=== PATIENT | female | born 1975 | race American Indian/Alaskan Native ===

== ENCOUNTER 2016-11-06 00:28 | Emergency (ER) | payer MEDICAID ==
[2016-11-06 01:49] LABS: Basophils % (Auto) 0.6 % (0.0-1.8); Hematocrit 26.4 % (30.3-42.9); Hemoglobin 8.3 gm/dl (10.1-14.3); Mean Corpuscular HGB Conc 31 % (30-34); Mean Corpuscular Volume 81 fl (79-97); Platelet Count 368 K/mm3 (140-440); Red Blood Count 3.27 M/mm3 (3.65-5.03); Red Cell Distribution Width 19.6 % (13.2-15.2); White Blood Count 7.7 K/mm3 (4.5-11.0)
[2016-11-06 01:51] LABS: Mean Corpuscular Hemoglobin 25 pg (28-32)
[2016-11-06 02:09] LABS: BUN/Creatinine Ratio 11.42; Blood Urea Nitrogen 8 mg/dL (7-17); Calcium 9.1 mg/dL (8.4-10.2); Carbon Dioxide 26 mmol/L (22-30); Chloride 101.5 mmol/L (98-107); Glucose 87 mg/dL (65-100); Potassium 3.9 mmol/L (3.6-5.0); Sodium 138 mmol/L (137-145)
[2016-11-06 02:12] LABS: Anion Gap 14 mmol/L
[2016-11-06] MEDS ORDERED: SUBLIMAZE IV ONE (08:28)
[2016-11-06] MEDS ORDERED: VALIUM IV ONE (08:28)
--- NOTE | 2016-11-06 08:49 | XRay Report ---
AP CHEST: HISTORY: chest pain AP view of the chest demonstrates a normal mediastinal and cardiac contour with clear lungs and normal bony and soft tissue structures. IMPRESSION: Unremarkable AP chest.
--- NOTE | 2016-11-06 12:37 | Emergency Department Report ---
HPI - General Chief Complaint: Chest Pain Time Seen by Provider: 11/06/16 08:04 - HPI HPI: The patient is a 41-year-old female who presents for evaluation of chest pain. The patient reports left-sided chest pain, moderate to severe, sharp in quality , radiating to the left arm, present since 10 PM last night. She states that is consistent with her previous episodes of recurrent chest pain. The patient denies fever, trauma to the chest wall, dyspnea, syncope, hemoptysis, unilateral leg swelling, oral contraceptive use, recent immobilization, recent cancer. ED Past Medical Hx - Past Medical History Previous Medical History?: Yes Hx Hypertension: Yes Hx CVA: No Hx Heart Attack/AMI: Yes Hx Congestive Heart Failure: No Hx Diabetes: No Hx Deep Vein Thrombosis: No Hx Pulmonary Embolism: No Hx GERD: Yes Hx Liver Disease: No Hx Renal Disease: No Hx Sickle Cell Disease: No Hx Arthritis: No Hx Headaches / Migraines: No Hx Seizures: No Hx Kidney Stones: No Hx Psychiatric Treatment: No Hx Asthma: No Hx COPD: No Hx Tuberculosis: No Hx Dementia: No Hx HIV: No Additional medical history: 2 STENTS 02/28/16, cholesterol, IBS, fibroids - Surgical History Past Surgical History?: Yes Hx Coronary Stent: Yes (x2 03/11) Hx Open Heart Surgery: No Hx Pacemaker: No Hx Internal Defibrillator: No Hx Cholecystectomy: No Hx Appendectomy: No Hx Breast Surgery: No Additional Surgical History: D&C - Social History Smoking Status: Former Smoker Substance Use Type: None - Medications Home Medications: Home Medications Medication Instructions Recorded Confirmed Last Taken Type Aspirin [Aspirin BABY CHEW TAB] 81 mg PO QDAY #30 tab.chew 08/17/16 11/06/1608/12 Rx Acetaminophen with Codeine 1 tab PO Q6HR PRN #10 tablet 10/27/16 11/06/16 Unknown Rx [Acetaminophen-Codeine #4 TAB] AtorvaSTATin [Lipitor] 80 mg PO QHS #30 tablet 10/27/16 11/06/16 11/05/16 Rx Carvedilol [Coreg] 12.5 mg PO BID #60 tablet 10/27/16 11/06/16 11/05/16 Rx Ferrous Sulfate [Feosol 325 MG tab] 325 mg PO BID #60 tablet 10/27/16 11/06/16 11/05/16 Rx ISOSORBIDE MONOnitrate [Imdur ER] 30 mg PO QDAY #30 tablet 10/27/16 11/06/1608/12 Rx Pantoprazole [Protonix TAB] 40 mg PO QDAY #30 tablet 10/27/16 11/06/16 11/05/16 Rx Prasugrel [Effient] 10 mg PO QDAY #30 tablet 10/27/16 11/06/16 11/05/16 Rx Ranolazine ER [Ranexa ER] 500 mg PO BID #60 tablet 10/27/16 11/06/16 Unknown Rx Cyclobenzaprine HCl [Flexeril 5 MG 5 mg PO Q8HR PRN #10 tab 11/06/16 Unknown Rx TAB] ED Review of Systems ROS: Stated complaint: CHEST PAIN Other details as noted in HPI Constitutional: denies: fever ENT: denies: throat or neck pain Respiratory: denies: cough, shortness of breath Cardiovascular: reports chest pain Endocrine: denies unexplained weight loss or gain Gastrointestinal: denies: abdominal pain, nausea Genitourinary: denies: dysuria Musculoskeletal: denies: leg swelling Skin: denies: rash Neurological: denies: headache Hematological/Lymphatic: denies: easy bleeding or easy bruising Psych: denies sadness or hopelessness Physical Exam - Physical Exam Vital Signs: Vital Signs 11/06/16 11/06/16 11/06/16 01:15 06:26 07:52 Temperature 98.5 F Pulse Rate 60 65 Respiratory 18 20 24 Rate Blood Pressure 129/78 Blood Pressure 113/77 [Left] O2 Sat by Pulse 100 100 Oximetry 11/06/16 11/06/16 11/06/16 08:00 08:02 09:00 Temperature Pulse Rate 66 59 L Respiratory 20 18 16 Rate Blood Pressure 130/83 106/63 Blood Pressure [Left] O2 Sat by Pulse 100 Oximetry 11/06/16 11/06/16 11/06/16 09:02 09:13 10:01 Temperature Pulse Rate 58 L 69 Respiratory 16 16 12 Rate Blood Pressure 106/63 106/63 Blood Pressure [Left] O2 Sat by Pulse Oximetry 11/06/16 11/06/16 11:01 11:11 Temperature 98 F Pulse Rate 57 L 62 Respiratory 18 20 Rate Blood Pressure 117/65 117/65 Blood Pressure 117/65 [Left] O2 Sat by Pulse 99 Oximetry Physical Exam: General: well-nourished, well-developed, no acute distress Head: Normocephalic, atraumatic Eyes: normal sclera ENT: Mucous membranes are pink and moist Neck: trachea midline, neck supple, No neck stiffness, no cervical adenopathy Respiratory: Breath sounds equal bilaterally, no wheezing, rales, or rhonchi Cardio: S1 and S2 present, no murmurs, rubs, gallops, capillary refill is brisk Abdomen: Normoactive bowel sounds, soft abdomen, no rigidity, no guarding or rebound tenderness Chest WALL/Back: tenderness to palpation of the left chest wall is present Musc: No pitting edema Skin: No rash Neuro: no facial drooping, normal speech Psych: Normal affect ED Course Vital Signs 11/06/16 11/06/16 11/06/16 01:15 06:26 07:52 Temperature 98.5 F Pulse Rate 60 65 Respiratory 18 20 24 Rate Blood Pressure 129/78 Blood Pressure 113/77 [Left] O2 Sat by Pulse 100 100 Oximetry 11/06/16 11/06/16 11/06/16 08:00 08:02 09:00 Temperature Pulse Rate 66 59 L Respiratory 20 18 16 Rate Blood Pressure 130/83 106/63 Blood Pressure [Left] O2 Sat by Pulse 100 Oximetry 11/06/16 11/06/16 11/06/16 09:02 09:13 10:01 Temperature Pulse Rate 58 L 69 Respiratory 16 16 12 Rate Blood Pressure 106/63 106/63 Blood Pressure [Left] O2 Sat by Pulse Oximetry 11/06/16 11/06/16 11:01 11:11 Temperature 98 F Pulse Rate 57 L 62 Respiratory 18 20 Rate Blood Pressure 117/65 117/65 Blood Pressure 117/65 [Left] O2 Sat by Pulse 99 Oximetry ED Medical Decision Making - Lab Data Result diagrams: 11/06/16 01:40 11/06/16 01:40 - Medical Decision Making The patient was seen and examined by myself. The patient is placed on a cardiac nurse specialist and continuous pulse ox. On initial evaluation, the patient was found to be in no distress. EKG was negative for findings suggestive of acute cardiac infarct. Labs and imaging are obtained. The patient is given IV fentanyl for her pain. Chest x-ray is negative for pneumothorax, focal consolidation, pulmonary vascular congestion, pleural effusion, or other obvious acute cardiopulmonary disease process. Lab results revealed low hemoglobin of 8.3, and otherwise labs were non-concerning including levels of troponin, WBC, electrolytes, renal function. Medical records are reviewed and revealed that the patient was evaluated by cardiology one week ago, and was deemed to have unlikely cardiac etiology of her chest pain. The patient was reevaluated and reported that their symptoms were markedly improved. As the patient has atypical chest pain, unchanged EKG, and unremarkable lab results, the patient is stable for discharge with outpatient follow-up. The patient is given follow-up and return instructions. The patient expressed understanding and agreed with the plan. The patient is discharged in stable condition. Critical care attestation.: If time is entered above; I have spent that time in minutes in the direct care of this critically ill patient, excluding procedure time. ED Disposition Clinical Impression: Acute chest pain Anemia Qualifiers: Anemia type: unspecified type Qualified Code(s): D64.9 - Anemia, unspecified Disposition: DISCHARGED TO HOME OR SELFCARE Is pt being admited?: No Does the pt Need Aspirin: No Condition: Stable Instructions: Chest Pain (ED) Prescriptions: Cyclobenzaprine HCl [Flexeril 5 MG TAB] 5 mg PO Q8HR PRN #10 tab PRN Reason: Pain Referrals: PRIMARY CARE, [Primary Care Provider] - 3-5 Days Time of Disposition: 12:35
[2016-11-06 12:38] VITALS: BP 109/55
== END 2016-11-06 12:58 | disposition home or self-care (01) ==
LOC: ED 00:28
DX: R07.9 Chest pain, unspecified (principal); D64.9 Anemia, unspecified; I10 Essential (primary) hypertension; I25.2 Old myocardial infarction; K21.9 Gastro-esophageal reflux disease without esophagitis; Z87.891 Personal history of nicotine dependence; Z79.82 Long term (current) use of aspirin
CPT/HCPCS: 36415; 71010; 80048; 84484; 85025; 93005; 93010; 96374; 96375; 99285; J3010; J3360

== ENCOUNTER 2016-11-09 11:41 | Inpatient (IN) | payer MEDICAID ==
--- NOTE | 2016-11-09 12:40 | Emergency Department Report ---
Chief Complaint: Chest Pain Stated Complaint: CHEST PAIN/BACK PAIN/NAUSEA Time Seen by Provider: 11/09/16 12:35 - HPI History of Present Illness: 41-year-old female with a past medical history of [place] February 2016 as well as 2 stents placed comes in for waking up vomited this morning times one with nausea. Patient normal medicine for chronic pain but vomited up she wasn't sure if she could take another Tylenol 4. Patient complains of sternal chest pain lower back pain. Patient reports that she took her medicines this morning but all of it came up. - Exam Vital Signs: Vital Signs 11/09/16 11:58 Temperature 99.4 F Pulse Rate 81 Respiratory 20 Rate Blood Pressure 127/82 O2 Sat by Pulse 98 Oximetry Physical Exam: Patient is alert oriented no acute distress, cardiovascular regular rate and rhythm. No murmurs appreciated respiratory clear to auscultation bilateral there is some chest tenderness to the midsternal and upper chest. There is no edema noted MSE screening note: Focused history and physical exam performed. Due to findings the following was ordered: Triage chest pain protocol order serum test order. Patient will be evaluated a Main ER ED Disposition for MSE Condition: Stable
[2016-11-09 13:08] LABS: Hematocrit 29.2 % (30.3-42.9); Hemoglobin 9.1 gm/dl (10.1-14.3); Mean Corpuscular HGB Conc 31 % (30-34); Mean Corpuscular Volume 82 fl (79-97); Platelet Count 259 K/mm3 (140-440); Red Blood Count 3.57 M/mm3 (3.65-5.03); White Blood Count 8.3 K/mm3 (4.5-11.0)
[2016-11-09 13:18] LABS: Mean Corpuscular Hemoglobin 26 pg (28-32); Red Cell Distribution Width 23.5 % (13.2-15.2)
[2016-11-09 13:19] LABS: Anion Gap 17 mmol/L; BUN/Creatinine Ratio 11.42; Blood Urea Nitrogen 8 mg/dL (7-17); Calcium 8.9 mg/dL (8.4-10.2); Carbon Dioxide 23 mmol/L (22-30); Chloride 100.6 mmol/L (98-107); Glucose 90 mg/dL (65-100); Potassium 4.2 mmol/L (3.6-5.0); Sodium 136 mmol/L (137-145)
[2016-11-09 13:20] LABS: Creatine Kinase MB < 1.0 ng/mL (0.0-4.0)
[2016-11-09 13:22] LABS: Creatine Kinase 164 units/L (30-135)
[2016-11-09 14:03] LABS: Blastocytes % (Manual) 0 %; Eosinophils % (Manual) 0 % (0.0-4.3)
[2016-11-09 14:04] LABS: Anisocytosis 2+; Hypochromasia 1+
[2016-11-09 14:05] LABS: Diff Status Complete; Platelet Estimate Consistent w Auto
[2016-11-09 20:49] LABS: Bilirubin,Urine NEG (Negative); Blood,Urine MOD (Negative); Ketones,Urine NEG (Negative); Leukocyte Esterase,Urine NEG (Negative); Mucus,Urine FEW /HPF; Nitrite,Urine NEG (Negative); Protein,Urine <15 mg/dL mg/dL (Negative); Urobilinogen,Urine < 2.0 mg/dL (<2.0)
--- NOTE | 2016-11-09 21:01 | Emergency Department Report ---
ED Chest Pain HPI - General Chief Complaint: Chest Pain Stated Complaint: CHEST PAIN/BACK PAIN/NAUSEA Time Seen by Provider: 11/09/16 12:35 Source: patient Mode of arrival: Ambulatory Limitations: No Limitations - History of Present Illness Initial Comments: She is a 41-year-old female with history of GERD, hypertension, hyperlipidemia, coronary artery disease status post 2 stents as well as a prior ME resulting today because of chest pain and back pain. Patient states that she has chronic pain however in the last 2 days her chest pain has been intermittent sharp and diffuse and worsening. She has associated nausea and vomiting episodes around 12 hours ago. Has no episodes of diaphoresis, shortness of breath, palpitations , lightheadedness. Patient takes Tylenol 3 at home for the pain. Denies any saddle anesthesia, numbness or weakness in her lower extremities, difficulty walking. She has denies any recent trauma in the last week. States that she was diagnosed with a UTI 1 week ago but she never started her antibiotic. Severity scale (0 -10): 5 - Related Data Previous Rx's Medication Instructions Recorded Last Taken Type Aspirin [Aspirin BABY CHEW TAB] 81 mg PO QDAY #30 tab.chew 08/17/16 11/05/16 Rx Acetaminophen with Codeine 1 tab PO Q6HR PRN #10 tablet 10/27/16 Unknown Rx [Acetaminophen-Codeine #4 TAB] AtorvaSTATin [Lipitor] 80 mg PO QHS #30 tablet 10/27/16 11/05/16 Rx Carvedilol [Coreg] 12.5 mg PO BID #60 tablet 10/27/16 11/05/16 Rx Ferrous Sulfate [Feosol 325 MG tab] 325 mg PO BID #60 tablet 10/27/16 11/05/16 Rx ISOSORBIDE MONOnitrate [Imdur ER] 30 mg PO QDAY #30 tablet 10/27/16 11/05/16 Rx Pantoprazole [Protonix TAB] 40 mg PO QDAY #30 tablet 10/27/16 11/05/16 Rx Prasugrel [Effient] 10 mg PO QDAY #30 tablet 10/27/16 11/05/16 Rx Ranolazine ER [Ranexa ER] 500 mg PO BID #60 tablet 10/27/16 Unknown Rx Allergies Allergy/AdvReac Type Severity Reaction Status Date / Time iodine Allergy Swelling Verified 11/09/16 11:57 shellfish derived Allergy Swelling Verified 11/09/16 11:57 PATSY score - Patsy Score Age > 65: (0) No Aspirin use within the Past 7 Days: (1) Yes 3 or more CAD Risk Factors: (1) Yes 2 or more Angina events in past 24 hrs: (1) Yes Known CAD with more than 50% Stenosis: (1) Yes Elevated Cardiac Markers: (0) No ST Deviation Greater than 0.5mm: (0) No PATSY Score: 4 ED Review of Systems ROS: Stated complaint: CHEST PAIN/BACK PAIN/NAUSEA Other details as noted in HPI Comment: All other systems reviewed and negative Constitutional: denies: chills, fever Respiratory: denies: cough, shortness of breath Cardiovascular: chest pain. denies: edema Gastrointestinal: denies: abdominal pain, vomiting, diarrhea Musculoskeletal: back pain Skin: denies: rash Neurological: denies: headache, weakness, numbness, paresthesias, abnormal gait Psychiatric: denies: anxiety ED Past Medical Hx - Past Medical History Previous Medical History?: Yes Hx Hypertension: Yes Hx CVA: No Hx Heart Attack/AMI: Yes Hx Congestive Heart Failure: No Hx Diabetes: No Hx Deep Vein Thrombosis: No Hx Pulmonary Embolism: No Hx GERD: Yes Hx Liver Disease: No Hx Renal Disease: No Hx Sickle Cell Disease: No Hx Arthritis: No Hx Headaches / Migraines: No Hx Seizures: No Hx Kidney Stones: No Hx Psychiatric Treatment: No Hx Asthma: No Hx COPD: No Hx Tuberculosis: No Hx Dementia: No Hx HIV: No Additional medical history: 2 STENTS 02/28/16, cholesterol, IBS, fibroids. CHRONIC BACK PAIN - Surgical History Hx Coronary Stent: Yes (x2 03/11) Hx Open Heart Surgery: No Hx Pacemaker: No Hx Internal Defibrillator: No Hx Cholecystectomy: No Hx Appendectomy: No Hx Breast Surgery: No Additional Surgical History: D&C - Social History Smoking Status: Former Smoker Substance Use Type: Prescribed - Medications Home Medications: Home Medications Medication Instructions Recorded Confirmed Last Taken Type Aspirin [Aspirin BABY CHEW TAB] 81 mg PO QDAY #30 tab.chew 08/17/16 11/09/1608/12 Rx Acetaminophen with Codeine 1 tab PO Q6HR PRN #10 tablet 10/27/16 11/09/16 Unknown Rx [Acetaminophen-Codeine #4 TAB] AtorvaSTATin [Lipitor] 80 mg PO QHS #30 tablet 10/27/16 11/09/16 11/05/16 Rx Carvedilol [Coreg] 12.5 mg PO BID #60 tablet 10/27/16 11/09/16 11/05/16 Rx Ferrous Sulfate [Feosol 325 MG tab] 325 mg PO BID #60 tablet 10/27/16 11/09/16 11/05/16 Rx ISOSORBIDE MONOnitrate [Imdur ER] 30 mg PO QDAY #30 tablet 10/27/16 11/09/1608/12 Rx Pantoprazole [Protonix TAB] 40 mg PO QDAY #30 tablet 10/27/16 11/09/16 11/05/16 Rx Prasugrel [Effient] 10 mg PO QDAY #30 tablet 10/27/16 11/09/16 11/05/16 Rx Ranolazine ER [Ranexa ER] 500 mg PO BID #60 tablet 10/27/16 11/09/16 Unknown Rx ED Physical Exam - General Limitations: No Limitations General appearance: alert - Head Head exam: Present: atraumatic - Eye Eye exam: Present: normal appearance - ENT ENT exam: Present: normal exam - Respiratory Respiratory exam: Present: normal lung sounds bilaterally. Absent: respiratory distress - Cardiovascular Cardiovascular Exam: Present: normal rhythm, tachycardia, normal heart sounds - GI/Abdominal GI/Abdominal exam: Present: soft. Absent: distended, tenderness - Extremities Exam Extremities exam: Present: normal inspection. Absent: pedal edema - Back Exam Back exam: Present: normal inspection. Absent: tenderness, vertebral tenderness - Neurological Exam Neurological exam: Present: alert, oriented X3, CN II-XII intact. Absent: motor sensory deficit - Psychiatric Psychiatric exam: Present: normal affect - Skin Skin exam: Present: intact ED Course Vital Signs 11/09/16 11/09/16 11/09/16 11:58 20:27 20:34 Temperature 99.4 F 101.3 F H Pulse Rate 81 86 Respiratory 20 20 20 Rate Blood Pressure 127/82 Blood Pressure 120/70 [Right] O2 Sat by Pulse 98 98 98 Oximetry - Reevaluation(s) Reevaluation #1: 11/09/16 22:18 Explained EKG results and lab results to patient. Explained to her that she will need admission due to this. Answered all questions. ED Medical Decision Making - Lab Data Result diagrams: 11/09/16 12:45 11/09/16 12:45 - Medical Decision Making She is a high risk chest pain. Labs and EKG were preordered. Chest x-ray and UA have been added on. EKG shows normal sinus rhythm without any ST depressions or elevations. She does have T-wave inversions in the inferior leads as well as the anterior leads. These appear to be new as her prior EKG just 3 days ago does not show these T-wave inversions and was normal. I'll require admission due to her extensive risk factors and abnormal EKG with presentation chest pain. Troponin negative. Patient has unstable angina. We' ll give aspirin as well as morphine for pain. Tests x-ray shows no obvious infiltrate or pneumothorax. Critical care attestation.: If time is entered above; I have spent that time in minutes in the direct care of this critically ill patient, excluding procedure time. ED Disposition Clinical Impression: Unstable angina Disposition: OP ADMITTED IP TO THIS HOSP Is pt being admited?: Yes Does the pt Need Aspirin: No Condition: Stable Instructions: Angina (ED) Time of Disposition: 22:21 (Transitioned care to Dr. Lockwood)
[2016-11-09] MEDS ORDERED: MORPHINE IV ONE (21:04)
[2016-11-09] MEDS ORDERED: BABY ASPIRIN PO ONE (21:04)
[2016-11-09] MEDS ORDERED: SODIUM CHLORIDE FLUSH SYRINGE 10 ML IV PRN (22:58)
--- NOTE | 2016-11-09 23:08 | History and Physical Report ---
History of Present Illness Date of examination: 11/09/16 Chief complaint: Chest Pain History of present illness: 41-year-old female with past medical history significant for hypertension, CAD status post stents, GERD presented to the emergency department complaining of chest pain that started this morning. Chest pain started on the left side, with radiation to the left arm and right chest, back. Chest pain is pressure- like 7 out of 10 in intensity, is no elevating or relieving factors. She had one episode of vomiting this morning. She denied shortness of breath, palpitations, diaphoresis. Patient was admitted recently for chest pain and discharged with PPI for GERD. This time patient has T-wave inversions in V3, III. REVIEW OF SYSTEMS: GENERAL: no weight change, no fatigue, no fever HEAD: no head ache EYES: no blurry vision, no acute visual loss EARS: no hearing loss, no discharge, no earache NOSE: no stuffiness, no sneezing, no discharge MOUTH, THROAT AND NECK: no bleeding gums, no sore throat, no swollen neck CARDIAC: no palpitations, no dyspnea on exertion, no orthopnea, no PND, no edema RESPIRATORY: no shortness of breath, no wheeze, no cough, no sputum, no hemoptysis, no asthma GI: no decreased appetite, no nausea, no dysphagia, no diarrhea, no constipation , no abdominal pain URINARY: no change in frequency, no urgency, no polyuria, no hematuria, no incontinence MUSCULOSKELETAL: no muscle weakness, no pain, no joint stiffness NEUROLOGIC: no loss of sensation/numbness, no tingling, no tremors, no weakness/ paralysis HEMATOLOGIC: no anemia, no easy bruising SKIN: no rashes ENDOCRINE: no heat/cold intolerance, no polyuria, no polydipsia, no thyroid problems, no diabetes PSYCHIATRIC: no anxiety, no depression, no suicidal ideations Past History Past Medical History: CAD, GERD, hypertension Past Surgical History: Other (D&C) Social history: full code. denies: smoking, alcohol abuse, prescription drug abuse, IV drug use Family history: CAD (multiple family members), cancer (grandfather) Medications and Allergies Allergies Allergy/AdvReac Type Severity Reaction Status Date / Time iodine Allergy Swelling Verified 11/09/16 11:57 shellfish derived Allergy Swelling Verified 11/09/16 11:57 Home Medications Medication Instructions Recorded Confirmed Last Taken Type Aspirin [Aspirin BABY CHEW TAB] 81 mg PO QDAY #30 tab.chew 08/17/16 11/09/1608/12 Rx Acetaminophen with Codeine 1 tab PO Q6HR PRN #10 tablet 10/27/16 11/09/16 Unknown Rx [Acetaminophen-Codeine #4 TAB] AtorvaSTATin [Lipitor] 80 mg PO QHS #30 tablet 10/27/16 11/09/16 11/05/16 Rx Carvedilol [Coreg] 12.5 mg PO BID #60 tablet 10/27/16 11/09/16 11/05/16 Rx Ferrous Sulfate [Feosol 325 MG tab] 325 mg PO BID #60 tablet 10/27/16 11/09/16 11/05/16 Rx ISOSORBIDE MONOnitrate [Imdur ER] 30 mg PO QDAY #30 tablet 10/27/16 11/09/1608/12 Rx Pantoprazole [Protonix TAB] 40 mg PO QDAY #30 tablet 10/27/16 11/09/16 11/05/16 Rx Prasugrel [Effient] 10 mg PO QDAY #30 tablet 10/27/16 11/09/16 11/05/16 Rx Ranolazine ER [Ranexa ER] 500 mg PO BID #60 tablet 10/27/16 11/09/16 Unknown Rx Active Meds: Active Medications Aspirin (Baby Aspirin) 81 mg PO QDAY [facility] Atorvastatin Calcium (Lipitor) 80 mg PO QHS [facility] Carvedilol (Coreg) 12.5 mg PO BID A[facility] Enoxaparin Sodium (Lovenox) 40 mg SUB-Q QDAY [facility] Ferrous Sulfate (Feosol) 325 mg PO BID A[facility] Isosorbide Mononitrate (Imdur) 30 mg PO QDAY [facility] Morphine Sulfate (Morphine) 2 mg IV Q4H PRN PRN Reason: Chest Pain Pantoprazole Sodium (Protonix) 40 mg PO QDAY [facility]LS[facility] Prasugrel (Effient) 10 mg PO QDAY A[facility]LS[facility] Ranolazine (Ranexa Er) 500 mg PO BID A[facility]LSO Sodium Chloride (Sodium Chloride Flush Syringe 10 Ml) 10 ml IV PRN PRN PRN Reason: LINE FLUSH Exam - Physical Exam Narrative exam: Not in cardiopulmonary distress. The patient appeared well nourished and normally developed. Vital signs as documented. Head exam is unremarkable. No scleral icterus . Neck is without jugular venous distension, thyromegaly, or carotid bruits. Lungs are clear to auscultation. Cardiac exam reveals regular rate and Rhythm. First and second heart sounds normal. No murmurs, rubs or gallops. Abdominal exam reveals normal bowel sounds, no masses, no organomegaly and no aortic enlargement. Extremities are nonedematous and both femoral and pedal pulses are normal. FITNESS CONSULTANT: Alert and oriented 3. No focal weakness. - Constitutional Vitals: Temp Pulse Resp BP Pulse Ox 101.3 F H 86 20 120/70 98 11/09/16 20:27 11/09/16 20:27 11/09/16 22:22 11/09/16 20:27 11/09/16 20:34 Results - Labs CBC & Chem 7: 11/09/16 12:45 11/09/16 12:45 Labs: Laboratory Last Values WBC 8.3 K/mm3 (4.5-11.0) 11/09/16 12:45 RBC 3.57 M/mm3 (3.65-5.03) L 11/09/16 12:45 Hgb 9.1 gm/dl (10.1-14.3) L 11/09/16 12:45 Hct 29.2 % (30.3-42.9) L 11/09/16 12:45 MCV 82 fl (79-97) 11/09/16 12:45 MCH 26 pg (28-32) L 11/09/16 12:45 MCHC 31 % (30-34) 11/09/16 12:45 RDW 23.5 % (13.2-15.2) H 11/09/16 12:45 Plt Count 259 K/mm3 (140-440) 11/09/16 12:45 Add Manual Diff Complete 11/09/16 12:45 Total Counted 100 11/09/16 12:45 Seg Neutrophils % Video Effects Editor 11/09/16 12:45 Seg Neuts % (Manual) 92.0 % (40.0-70.0) H 11/09/16 12:45 Band Neutrophils % 0 % 11/09/16 12:45 Lymphocytes % (Manual) 4.0 % (13.4-35.0) L 11/09/16 12:45 Reactive Lymphs % (Man) 0 % 11/09/16 12:45 Monocytes % (Manual) 2.0 % (0.0-7.3) 11/09/16 12:45 Eosinophils % (Manual) 0 % (0.0-4.3) 11/09/16 12:45 Basophils % (Manual) 1.0 % (0.0-1.8) 11/09/16 12:45 Metamyelocytes % 1.0 % 11/09/16 12:45 Myelocytes % 0 % 11/09/16 12:45 Promyelocytes % 0 % 11/09/16 12:45 Blast Cells % 0 % 11/09/16 12:45 Nucleated RBC % Not Reportable 11/09/16 12:45 Seg Neutrophils # Man 7.6 K/mm3 (1.8-7.7) 11/09/16 12:45 Band Neutrophils # 0.0 K/mm3 11/09/16 12:45 Lymphocytes # (Manual) 0.3 K/mm3 (1.2-5.4) L 11/09/16 12:45 Abs React Lymphs (Man) 0.0 K/mm3 11/09/16 12:45 Monocytes # (Manual) 0.2 K/mm3 (0.0-0.8) 11/09/16 12:45 Eosinophils # (Manual) 0.0 K/mm3 (0.0-0.4) 11/09/16 12:45 Basophils # (Manual) 0.1 K/mm3 (0.0-0.1) 11/09/16 12:45 Metamyelocytes # 0.1 K/mm3 11/09/16 12:45 Myelocytes # 0.0 K/mm3 11/09/16 12:45 Promyelocytes # 0.0 K/mm3 11/09/16 12:45 Blast Cells # 0.0 K/mm3 11/09/16 12:45 WBC Morphology Not Reportable 11/09/16 12:45 Hypersegmented Neuts Not Reportable 11/09/16 12:45 Hyposegmented Neuts Not Reportable 11/09/16 12:45 Hypogranular Neuts Not Reportable 11/09/16 12:45 Smudge Cells Not Reportable 11/09/16 12:45 Toxic Granulation Not Reportable 11/09/16 12:45 Toxic Vacuolation Not Reportable 11/09/16 12:45 Dohle Bodies Not Reportable 11/09/16 12:45 Pelger-Huet Anomaly Not Reportable 11/09/16 12:45 Rajinder Rods Not Reportable 11/09/16 12:45 Platelet Estimate Consistent w auto 11/09/16 12:45 Clumped Platelets Not Reportable 11/09/16 12:45 Plt Clumps, EDTA Not Reportable 11/09/16 12:45 Large Platelets Not Reportable 11/09/16 12:45 Giant Platelets Not Reportable 11/09/16 12:45 Platelet Satelliting Not Reportable 11/09/16 12:45 Plt Morphology Comment Not Reportable 11/09/16 12:45 RBC Morphology Not Reportable 11/09/16 12:45 Dimorphic RBCs Not Reportable 11/09/16 12:45 Polychromasia Not Reportable 11/09/16 12:45 Hypochromasia 1+ 11/09/16 12:45 Poikilocytosis Not Reportable 11/09/16 12:45 Anisocytosis 2+ 11/09/16 12:45 Microcytosis Not Reportable 11/09/16 12:45 Macrocytosis Not Reportable 11/09/16 12:45 Spherocytes Not Reportable 11/09/16 12:45 Pappenheimer Bodies Not Reportable 11/09/16 12:45 Sickle Cells Not Reportable 11/09/16 12:45 Target Cells Not Reportable 11/09/16 12:45 Tear Drop Cells Not Reportable 11/09/16 12:45 Ovalocytes Not Reportable 11/09/16 12:45 Helmet Cells Not Reportable 11/09/16 12:45 [place] Bodies Not Reportable 11/09/16 12:45 [place] Rings Not Reportable 11/09/16 12:45 [place] Cells Not Reportable 11/09/16 12:45 Bite Cells Not Reportable 11/09/16 12:45 Crenated Cell Not Reportable 11/09/16 12:45 Elliptocytes Not Reportable 11/09/16 12:45 Acanthocytes (Spur) Not Reportable 11/09/16 12:45 Rouleaux Not Reportable 11/09/16 12:45 Hemoglobin C Crystals Not Reportable 11/09/16 12:45 Schistocytes Not Reportable 11/09/16 12:45 Malaria parasites Not Reportable 11/09/16 12:45 Ovi Bodies Not Reportable 11/09/16 12:45 Hem Pathologist Commnt No 11/09/16 12:45 Sodium 136 mmol/L (137-145) L 11/09/16 12:45 Potassium 4.2 mmol/L (3.6-5.0) 11/09/16 12:45 Chloride 100.6 mmol/L (98-107) 11/09/16 12:45 Carbon Dioxide 23 mmol/L (22-30) 11/09/16 12:45 Anion Gap 17 mmol/L 11/09/16 12:45 BUN 8 mg/dL (7-17) 11/09/16 12:45 Creatinine 0.7 mg/dL (0.7-1.2) 11/09/16 12:45 Estimated GFR > 60 ml/min 11/09/16 12:45 BUN/Creatinine Ratio 11.42 % 11/09/16 12:45 Glucose 90 mg/dL (65-100) 11/09/16 12:45 Calcium 8.9 mg/dL (8.4-10.2) 11/09/16 12:45 Total Creatine Kinase 164 units/L (30-135) H 11/09/16 12:45 CK-MB (CK-2) < 1.0 ng/mL (0.0-4.0) 11/09/16 12:45 CK-MB (CK-2) Rel Index 0.6 (0-4) 11/09/16 12:45 Troponin T < 0.010 ng/mL (0.00-0.029) 11/09/16 21:19 HCG, Qual Negative (Negative) 11/09/16 12:45 Urine Color Yellow (Yellow) 11/09/16 20:27 Urine Turbidity Clear (Clear) 11/09/16 20:27 Urine pH 8.0 (5.0-7.0) H 11/09/16 20:27 Ur Specific [place] 1.013 (1.003-1.030) 11/09/16 20:27 Urine Protein <15 mg/dl mg/dL (Negative) 11/09/16 20:27 Urine Glucose (UA) Neg mg/dL (Negative) 11/09/16 20:27 Urine Ketones Neg mg/dL (Negative) 11/09/16 20:27 Urine Blood Mod (Negative) 11/09/16 20:27 Urine Nitrite Neg (Negative) 11/09/16 20:27 Urine Bilirubin Neg (Negative) 11/09/16 20:27 Urine Urobilinogen < 2.0 mg/dL (<2.0) 11/09/16 20:27 Ur Leukocyte Esterase Neg (Negative) 11/09/16 20:27 Urine WBC (Auto) 4.0 /HPF (0.0-6.0) 11/09/16 20:27 Urine RBC (Auto) 41.0 /HPF (0.0-6.0) 11/09/16 20:27 U Epithel Cells (Auto) 3.0 /HPF (0-13.0) 11/09/16 20: Urine Mucus Few /HPF 11/09/16 20:27 Assessment and Plan Assessment and plan: Chest pain to rule out ACS GERD HTN Chronic anemia Back pain - Chest pain is concerning because she has new T-wave inversions in lead 3 and V3. - Resume home medications - Serial EKGs and cardiac enzymes - Cardiology consult DVT prophylaxis - Patient is already on effient Disposition - to telemetry unit Advance Directives: Yes VTE prophylaxis?: Chemical Plan of care discussed with patient/family: Yes
--- NOTE | 2016-11-10 00:56 | Admit Criteria Form ---
Admission Criteria Documentation: CARDIOLOGY GRG Clinical Indications for Admission to Inpatient Care ( Place 'X' for any and all applicable criteria): Hospital admission is needed for appropriate care of the patient because of ANY ONE of the following (1): [ ] I. Hemodynamic instability as indicated by ALL of the following (1)(2)(3) (4)(5) [ ]a) Vital signs or other findings not as expected for chronic patient condition or baseline [ ]b) Instability indicated by ANY ONE of the following: [ ]i) Hypotension [ ]ii) Symptomatic Tachycardia unresponsive to treatment ( e.g., analgesia, fluids, sedation as indicated) [ ]iii) Inadequate perfusion indicated by ANY ONE of the following: [ ] 1) Lactic acidosis (> 2 mmol/L) [ ] 2) New abnormal capillary refill (> 3 seconds) [ ] 3) Reduced urine output [ ] 4) New altered mental status [ ]iv) Orthostatic vital sign changes unresponsive to treatment (e.g., fluids) [ ]v) IV inotropic or vasopressor medication required to maintain adequate blood pressure or perfusion [ ] II. Severe heart failure as indicated by ANY ONE of the following(17)(18) [ ]a) Respiratory distress [ ]b) Hypotension [ ]c) Anasarca (refractory to outpatient therapy) [ ]d) Cardiac arrhythmias of immediate concern [ ]e) Myocardial ischemia [ ] III. Cardiac arrhythmias or findings of immediate concern indicated by ANY ONE of the following (19)(20): [ ] a) Heart rhythms that are inherently dangerous or unstable indicated by ANY ONE of the following (21)(22)(23): [ ] i) Resuscitated ventricular fibrillation or cardiac arrest [ ] ii) Ventricular escape rhythm [ ] iii) Sustained ventricular tachycardia (30 seconds or more of ventricular rhythm at greater than 100 beats per minute) [ ] iv) Nonsustained ventricular tachycardia and ANY ONE of the following: [ ] 1) Suspected cardiac ischemia as cause or consequence of ventricular tachycardia [ ] 2) In setting of acute myocarditis [ ] b) Unstable cardiac conduction defects indicated by ANY ONE of the following(23)(24)(25) [ ] i) Type II second-degree atrioventricular block [ ]ii) Third-degree atrioventricular block [ ]iii) New-onset left bundle branch block with suspected myocardial ischemia [ ]c) Any heart rhythm and ANY ONE of the following (21)(22)(26)(27) (28) [ ] i) Continuous long-term ECG monitoring needed (e.g., initiation of drug requiring monitoring for more than 24 hours) [ ] ii) Patient has automatic implanted cardioverter defibrillator that is repeatedly firing, malfunctioning, or in need of immediate adjustment of settings beyond the scope of ambulatory or observation care [ ]d) Heart rhythms of concern due to ANY ONE of the following: [ ] i) Hypotension [ ] ii) Respiratory distress [ ] iii) Association with other significant symptoms (e.g., bradycardia with syncope or ongoing dizziness, supraventricular tachycardia with chest pain (14)(15)(17) [ ] IV. Monitoring for cardiac contusion beyond the scope of observation care needed [A](30)(31)(32) [ ] V. Surgical or device complication (e.g., valve replacement complication , pacemaker dysfunction) (35)(41)(44)(45)(46) [ ] . Inpatient palliative care needed. [B](49) Also use Inpatient Palliative Care Criteria [ ] VII. Nonbacterial thrombotic (marantic) endocarditis (36)(43)(47)(48) [X ] VIII. Cardiology condition, symptom, or finding for which emergency and observation care has failed or are not considered appropriate. [ ] IX. Acute valvular disease requiring inpatient as indicated by ANY ONE of the following (41) [ ]a) Acute valvular regurgitation (42) [ ]b) Noninfectious valvulitis (43) [ ]c) Obstructive valve thrombosis [ ]d) Paravalvular leak [ ]e) Other significant valvular disorder remaining after emergency or observation level of care (as appropriate) [ ]X. Pericardial disease requiring inpatient treatment as indicated by ANY ONE of the following (33)(34)(35)(36)(37) [ ]a) Suspected tamponade (38)(39)(40) [ ]b) Hemopericardium [ ]c) Other significant pericardial disorder remaining after emergency or observation level of care (as appropriate) [ ] XI. Cardiac ischemia beyond scope of emergency and observation care. [ ] XII. Hypertension requiring inpatient treatment as indicated by ANY ONE of the following (6)(7)(8) [ ]a) SBP greater than 220 mm Hg or DBP greater than 120 mmHg despite treatment [ ]b) SBP greater than 140 mm Hg or DBP greater than 100 mm Hg with evidence of acute end organ damage as indicated by ANY ONE of the following [ ] i) Altered mental status [ ] ii) Acute renal failure as indicated by new onset of ANY ONE of the following (9)(10)(11)(12)(13) [ ]1) 3-fold rise in serum creatinine from baseline [ ]2) Serum creatinine greater than 4 mg/dL ( 354 micromoles/L) with acute rise greater than 0.5 mg/dL (44.2 micromoles/L) [ ]3) Reduction of more than 75% in estimated glomerular filtration rate from baseline [ ]4) Estimated glomerular filtration rate less than 35 mL/min/1.73m2 (0.59 mL/sec/1.73m2) in child up to 18 years of age [ ]5) Cessation of urine output indicated by ALL of the following [ ]A. Adequate volume status [ ]B. Inadequate urine output as indicated by ANY ONE of the following [ ]a. Urine output less than 0.3 mL/kg/hr for 24 hours [ ]b. Anuria (urine output less than 0.1 mL/kg/hr) for 12 hours [ ] iii) Aortic dissection [ ] iv) Myocardial Ischemia [ ] v) Left ventricular heart failure [ ]vi) Retinal Hemorrhage [ ]vii) Other significant finding [ ]c) Hypertension in child requiring inpatient treatment as indicated by ALL of the following(14)(15)(16) [ ] i) Outpatient treatment not effective, not available, or not appropriate [ ]ii) SBP or DBP greater than 95th percentile for age [ ]iii) Evidence of acute end organ damage as indicated by ANY ONE of the following [ ]1) Altered mental status [ ]2) Acute renal failure as indicated by new onset of ANY ONE of the following(9)(10)(11)(12)(13) [ ]A. 3-fold rise in serum creatinine from baseline [ ]B. Serum creatinine greater than 4 mg/dL (354 micromoles/L) with acute rise greater than 0.5 mg/dL (44.2 micromoles/L) [ ]C. Reduction of more than 75% in estimated glomerular filtration rate from baseline [ ]D. Estimated glomerular filtration rate less than 35 mL/min/1.73m2 (0.59 mL/sec/1.73m2) in child up to 18 years of age [ ]E. Cessation of urine output indicated by ALL of the following [ ]a. Adequate volume status [ ]b. Inadequate urine output as indicated by ANY ONE of the following [ ]i) Urine output less than 0.3 mL/kg/hr for 24 hours [ ]ii) Anuria ( urine output less than 0.1 mL/kg/hr) for 12 hours [ ]3) Severe headache [ ]4) Visual disturbance [ ]5) Retinal hemorrhage [ ]6) Other significant finding [ ]XIII. Complications of transplanted heart indicated by ANY ONE of the following(61): [ ]a) Acute graft rejection requiring inpatient management (eg, intravenous immunosuppression)(62)(63) [ ]b) Acute graft heart failure indicated by ANY ONE of the following(64): [ ]i) Hemodynamic instability [ ]ii) Cardiac arrhythmias of immediate concern [ ]iii) Pulmonary edema that is very severe (eg, mechanical ventilation needed, imminent or likely, need for 100% oxygen to keep oxygen saturation above 90%) [ ]iv) Pulmonary edema that is persistent as indicated by ALL of the following: [ ]1) New need for oxygen therapy to keep oxygen saturation above 90% (or increased FiO2 need from baseline) [ ]2) Has not improved sufficiently with emergency department or observation care IV diuretics or other heart failure treatments[E] [ ]v) Altered mental status that is severe or persistent [ ]vi) Increased creatinine (new on laboratory test) with reduction of more than 50% in estimated glomerular filtration rate from baseline [ ]vii) Progressively (ongoing) rising creatinine (known from past laboratory test) with reduction of more than 25% in estimated glomerular filtration rate from baseline [ ]viii) Acute renal failure [ ]ix) Acute peripheral ischemia (eg, examination shows pulseless, cool, mottled, or cyanotic extremity) [ ]x) Pulmonary artery catheter monitoring needed [ ]xi) Other sign or symptom of heart failure requiring inpatient treatment (ie, too severe or not responsive to outpatient and observation care treatment) [ ]c) Infection requiring inpatient management (eg, Hemodynamic instability, need for intravenous antimicrobial treatment)(66)(67)(68)(69)(70) [ ]d) Cardiac allograft vasculopathy requiring inpatient management ( eg evidence of cardiac ischemia)(71) [ ]e) Other complication of transplanted heart (eg, stroke, severe pulmonary hypertension, severe valvular dysfunction) requiring inpatient management(72) The original [facility] content created by [facility] has been revised. The portions of the content which have been revised are identified through the use of italic text or in bold, and [facility] has neither reviewed nor approved the modified material. All other unmodified content is copyright [facility] [employer]. Please see references footnoted in the original [facility] [employer] edition 2016 Admission Criteria Met: Yes
[2016-11-10 03:06] LABS: Creatine Kinase 45 units/L (30-135)
[2016-11-10 03:12] LABS: Creatine Kinase MB < 1.0 ng/mL (0.0-4.0)
[2016-11-10] MEDS: MORPHINE IV PRN ×2 (03:18→11:12)
[2016-11-10 06:38] LABS: Creatine Kinase 39 units/L (30-135)
[2016-11-10 06:46] LABS: Creatine Kinase MB < 1.0 ng/mL (0.0-4.0)
--- NOTE | 2016-11-10 09:58 | XRay Report ---
AP CHEST: HISTORY: chest pain AP view of the chest demonstrates a normal mediastinal and cardiac contour with clear lungs and normal bony and soft tissue structures. IMPRESSION: Unremarkable AP chest. No change since 11/06/16.
[2016-11-10] MEDS ORDERED: FEOSOL PO SCH (10:00)
[2016-11-10] MEDS ORDERED: RANEXA ER PO SCH (10:00)
[2016-11-10] MEDS ORDERED: IMDUR PO SCH (10:00)
[2016-11-10] MEDS ORDERED: BABY ASPIRIN PO SCH (10:00)
[2016-11-10] MEDS ORDERED: PROTONIX PO SCH (10:00)
[2016-11-10] MEDS ORDERED: COREG PO SCH (10:00)
[2016-11-10] MEDS ORDERED: EFFIENT PO SCH (10:00)
[2016-11-10] MEDS ORDERED: LOVENOX SUB-Q SCH (10:00)
--- NOTE | 2016-11-10 12:02 | Consultation ---
History of Present Illness Consult date: 11/10/16 Requesting physician: MARGARET MOODY Consult reason: chest pain History of present illness: This is a 41-year-old female with a past medical history of coronary artery disease status post ST elevation PR in February 2016 requiring a bare-metal stent to the proximal right coronary artery, anxiety, gastroesophageal reflux disease, hyperlipidemia, and hypertension who presents to [facility] emergency department complaining of chest pain associated with nausea or vomiting. Of note the patient is followed by Dr. Sayra Billingsley, [facility]. She has had approximately 20 admissions for chest pain evaluations. She had a repeat catheterization in April [address] elevation PR which revealed some mild in-stent restenosis. Her home appliances mechanic attempted to start her on Ranexa for her chronic stable angina. In the emergency department the patient was noted to have a fever of 101.3. A 12-lead EKG revealed sinus rhythm with some nonspecific T-wave changes. Her EKG was not much change from her previous EKG in May 2016. She reports that she has been compliant with her medications. Of note in the emergency department she was also noted to have a hemoglobin of 9.1. A chest x-ray did not reveal any infiltrates or effusions. A urinalysis revealed some moderate blood. The patient reports that she has a history of chronic anemia however she also admits that she is on her menses currently. Past History Past Medical History: acute PR, CAD (status post bare-metal stent to the proximal right coronary artery February 2016), GERD, hypertension Past Surgical History: Other (D&C) Social history: full code. denies: smoking, alcohol abuse, prescription drug abuse, IV drug use Family history: CAD (multiple family members), cancer (grandfather) Medications and Allergies Allergies Allergy/AdvReac Type Severity Reaction Status Date / Time iodine Allergy Swelling Verified 11/09/16 11:57 shellfish derived Allergy Swelling Verified 11/09/16 11:57 Home Medications Medication Instructions Recorded Confirmed Last Taken Type Aspirin [Aspirin BABY CHEW TAB] 81 mg PO QDAY #30 tab.chew 08/17/16 11/09/1608/12 Rx Acetaminophen with Codeine 1 tab PO Q6HR PRN #10 tablet 10/27/16 11/09/16 Unknown Rx [Acetaminophen-Codeine #4 TAB] AtorvaSTATin [Lipitor] 80 mg PO QHS #30 tablet 10/27/16 11/09/16 11/05/16 Rx Carvedilol [Coreg] 12.5 mg PO BID #60 tablet 10/27/16 11/09/16 11/05/16 Rx Ferrous Sulfate [Feosol 325 MG tab] 325 mg PO BID #60 tablet 10/27/16 11/09/16 11/05/16 Rx ISOSORBIDE MONOnitrate [Imdur ER] 30 mg PO QDAY #30 tablet 10/27/16 11/09/1608/12 Rx Pantoprazole [Protonix TAB] 40 mg PO QDAY #30 tablet 10/27/16 11/09/16 11/05/16 Rx Prasugrel [Effient] 10 mg PO QDAY #30 tablet 10/27/16 11/09/16 11/05/16 Rx Ranolazine ER [Ranexa ER] 500 mg PO BID #60 tablet 10/27/16 11/09/16 Unknown Rx Active Meds: Active Medications Aspirin (Baby Aspirin) 81 mg PO QDAY [facility] Last Admin: 11/10/16 11:09 Dose: 81 mg Atorvastatin Calcium (Lipitor) 80 mg PO QHS [facility] Carvedilol (Coreg) 12.5 mg PO BID [facility] Last Admin: 11/10/16 11:09 Dose: 12.5 mg Ferrous Sulfate (Feosol) 325 mg PO BID [facility] Last Admin: 11/10/16 11:10 Dose: 325 mg Isosorbide Mononitrate (Imdur) 30 mg PO QDAY [facility] Last Admin: 11/10/16 11:10 Dose: 30 mg Morphine Sulfate (Morphine) 2 mg IV Q4H PRN PRN Reason: Chest Pain Last Admin: 11/10/16 11:12 Dose: 2 mg Pantoprazole Sodium (Protonix) 40 mg PO QDAY [facility] Last Admin: 11/10/16 11:11 Dose: 40 mg Prasugrel (Effient) 10 mg PO QDAY [facility] Last Admin: 11/10/16 11:10 Dose: 10 mg Ranolazine (Ranexa Er) 500 mg PO BID [facility] Last Admin: 11/10/16 11:11 Dose: 500 mg Sodium Chloride (Sodium Chloride Flush Syringe 10 Ml) 10 ml IV PRN PRN PRN Reason: LINE FLUSH Review of Systems Constitutional: fever, chills, no weight loss, no weight gain Ears, nose, mouth and throat: no ear pain, no ear discharge Breasts: deferred Cardiovascular: chest pain, lightheadedness, no orthopnea, no palpitations, no edema, no syncope Respiratory: no cough, no excessive sputum, no hemoptysis Gastrointestinal: nausea, vomiting, no abdominal pain Menstruation: currently menstrual Rectal: no pain, no incontinence Musculoskeletal: no neck stiffness, no neck pain Integumentary: no rash, no pruritis Psychiatric: anxiety, no sleep disturbances Hematologic/Lymphatic: no easy bruising, no easy bleeding Allergic/Immunologic: no urticaria, no allergic rhinitis Physical Examination Vital Signs Temp Pulse Resp BP Pulse Ox 99.4 F 81 20 127/82 98 11/09/16 11:58 11/09/16 11:58 11/09/16 11:58 11/09/16 11:58 11/09/16 11:58 General appearance: no acute distress HEENT: Positive: PERRL, EOMI Neck: Positive: neck supple, trachea midline Cardiac: Positive: Reg Rate and Rhythm Lungs: Positive: Normal Exam, clear to auscultation Neuro: Positive: Grossly Intact Abdomen: Positive: Unremarkable, Soft, Active Bowel Sounds Skin: Negative: Rash, Suspicious Lesions Extremities: Present: warm. Absent: edema Results 11/09/16 12:45 11/09/16 12:45 Cardiac Enzymes 11/10/16 11/10/16 Range/Units 01:45 05:42 CK-MB (CK-2) < 1.0 < 1.0 (0.0-4.0) ng/mL - Imaging and Cardiology Echo: report reviewed (06/11: EF 65%) Cardiac cath: report reviewed (05/11: 1. mild ISR prox RCA stent 2. No obstructive disease identified 3. EF 55-60% 4. Normal LVEDP) EKG interpretations - Telemetry EKG Rhythm: Sinus Rhythm Assessment and Plan 41-year-old female with past medical history history of Coronary disease status post bare-metal stents in the proximal right coronary artery Anxiety Chronic stable angina Hypertension Hyperlipidemia Gastroesophageal reflux disease Who is now admitted with a low-grade temperature, anemia, and atypical chest pain. The patient's cardiac enzymes negative 4. Her EKG is significantly unchanged and there are no events noted on telemetry monitoring. Currently the patient is chest pain-free. At this point I'm recommending that we continue her current medication regimen. I'm not recommending any tests at this time however if she does have a reoccurrence of her chest discomfort within the next 24 hours will likely consider repeating a treadmill myocardial perfusion scan would also recommend an anemia workup the patient currently is supposed to be taken on an as an outpatient is unclear why her hemoglobin is 9.
--- NOTE | 2016-11-10 13:06 | Discharge Summary ---
Providers - Providers Date of Admission: 11/09/16 22:56 Attending physician: MARGARET MOODY MD 11/09/16 Consult to Cardiac Rehabilitation [CONS] Routine Reason For Exam: Phase I 11/09/16 22:58 Consult to Physician [CONS] Routine Consulting Provider: APRIL ADAMES Reason For Exam: chest pain, recurrent Place consult to:: [facility] Notified:: Casey GARZA Phone number called:: Was contact made?: Yes If yes, spoke with:: Aminah-answering service Time called:: 08:11 Hospitalization Condition: Stable Hospital course: Gogo is a 41F who presented with CP, ACS ruled out via serial troponins. she was seen by cardiology, she has had recent negative cath, negative VQ scan, no further cardiology evaluation in indicated. Her chest pain is not cardiac in origin, therefore she was recommended for pain control. Dx 1. Chest Pain- musculoskeletal origin Disposition: DISCHARGED TO HOME OR SELFCARE Time spent for discharge: 35 minutes Core Measure Documentation - Palliative Care Palliative Care/ Comfort Measures: Not Applicable - Core Measures Any of the following diagnoses?: none Exam - Constitutional Vitals: Temp Pulse Resp BP Pulse Ox 98.6 F 78 20 107/59 99 11/10/16 08:00 11/10/16 10:00 11/10/16 11:12 11/10/16 08:00 11/10/16 10:00 General appearance: Present: no acute distress, well-nourished - EENT Eyes: Present: PERRL ENT: hearing intact, clear oral mucosa - Neck Neck: Present: supple, normal ROM - Respiratory Respiratory effort: normal Respiratory: bilateral: CTA - Cardiovascular Heart Sounds: Present: S1 & S2. Absent: rub, click - Extremities Extremities: pulses symmetrical, No edema Peripheral Pulses: within normal limits - Abdominal General gastrointestinal: Present: soft, non-tender, non-distended, normal bowel sounds Female genitourinary: Present: normal - Integumentary Integumentary: Present: clear, warm, dry - Musculoskeletal Musculoskeletal: gait normal, strength equal bilaterally - Psychiatric Psychiatric: appropriate mood/affect, intact judgment & insight - Neurologic Neurologic: CNII-XII intact, moves all extremities Plan Activity: no restrictions Follow up with: DR MEJIA [Other] - 3-5 Days Prescriptions: Acetaminophen with Codeine [Acetaminophen-Codeine #4 TAB] 1 tab PO Q6HR PRN #20 tablet PRN Reason: Pain
[2016-11-10 18:14] VITALS: BP 118/74
== END 2016-11-10 19:45 | disposition home or self-care (01) | DRG 313 ==
LOC: ED 11:41 → 4A 22:56
PROVIDERS: ADMIT Internal Medicine; ATTEND Internal Medicine
DX: R07.89 Other chest pain (principal); K21.9 Gastro-esophageal reflux disease without esophagitis; I10 Essential (primary) hypertension; E78.5 Hyperlipidemia, unspecified; G89.29 Other chronic pain; M54.9 Dorsalgia, unspecified; K58.9 Irritable bowel syndrome, unspecified; D64.9 Anemia, unspecified; F41.9 Anxiety disorder, unspecified; I25.119 Atherosclerotic heart disease of native coronary artery with unspecified angina pectoris; Z95.5 Presence of coronary angioplasty implant and graft; I25.2 Old myocardial infarction; Z79.899 Other long term (current) drug therapy; Z79.82 Long term (current) use of aspirin; Z91.041 Radiographic dye allergy status; Z91.013 Allergy to seafood; Z87.891 Personal history of nicotine dependence; Z82.49 Family history of ischemic heart disease and other diseases of the circulatory system; Z80.9 Family history of malignant neoplasm, unspecified
CPT/HCPCS: 36415; 71010; 80048; 81001; 82550; 82553; 84484; 84703; 85007; 85025; 87086; 93005; 93010; 96374; J2270

== ENCOUNTER 2017-05-05 11:06 | Inpatient (IN) | payer MEDICAID, OTHER ==
--- NOTE | 2017-05-05 12:03 | Emergency Department Report ---
ED Chest Pain HPI - General Chief Complaint: Chest Pain Stated Complaint: CHEST PAIN Time Seen by Provider: 05/05/17 11:22 Source: patient, EMS Mode of arrival: Stretcher Limitations: No Limitations - History of Present Illness Initial Comments: This is a 41-year-old female presents to the emergency department from home via EMS with complaint of mid chest and back pain. The patient was working out on the treadmill when she started feeling a sharp pinching sensation in the middle of her back that then radiated towards the chest. She took a Tylenol No. 4 and when that did not help she took a sublingual nitroglycerin. She then called 911. She did not receive anything in route. It is associated with some shortness of breath, nausea without vomiting. The patient has a history of an VA and has 2 stents placed. She is a former smoker. No recent travel or sick contacts at home. Her primary care doctor is Dr. Gasca and her crepe maker is Dr. Sayra Billingsley. Severity scale (0 -10): 8 - Related Data Previous Rx's Medication Instructions Recorded Last Taken Type Aspirin [Aspirin BABY CHEW TAB] 81 mg PO QDAY #30 tab.chew 08/17/16 11/05/16 Rx AtorvaSTATin [Lipitor] 80 mg PO QHS #30 tablet 10/27/16 11/05/16 Rx Carvedilol [Coreg] 12.5 mg PO BID #60 tablet 10/27/16 11/05/16 Rx Ferrous Sulfate [Feosol 325 MG tab] 325 mg PO BID #60 tablet 10/27/16 11/05/16 Rx ISOSORBIDE MONOnitrate [Imdur ER] 30 mg PO QDAY #30 tablet 10/27/16 11/05/16 Rx Pantoprazole [Protonix TAB] 40 mg PO QDAY #30 tablet 10/27/16 11/05/16 Rx Prasugrel [Effient] 10 mg PO QDAY #30 tablet 10/27/16 11/05/16 Rx Ranolazine ER [Ranexa ER] 500 mg PO BID #60 tablet 10/27/16 Unknown Rx Acetaminophen with Codeine 1 tab PO Q6HR PRN #20 tablet 11/10/16 Unknown Rx [Acetaminophen-Codeine #4 TAB] Allergies Allergy/AdvReac Type Severity Reaction Status Date / Time iodine Allergy Swelling Verified 11/09/16 11:57 shellfish derived Allergy Swelling Verified 11/09/16 11:57 Heart Score - HEART Score History: Moderately suspicious EKG: Normal Age: < 45 Risk factors: > 3 risk factors or hx of atherosclerotic disease Troponin: < normal limit HEART Score: 3 - Critical Actions Critical Actions: 0-3 pts:0.9-1.7%risk of adverse cardiac event.Candidate for discharge ED Review of Systems ROS: Stated complaint: CHEST PAIN Other details as noted in HPI Comment: All other systems reviewed and negative Constitutional: denies: chills, fever Eyes: denies: eye pain, eye discharge, vision change ENT: denies: ear pain, throat pain Respiratory: shortness of breath. denies: cough Cardiovascular: chest pain. denies: palpitations Gastrointestinal: nausea. denies: vomiting Genitourinary: denies: urgency, dysuria, discharge Musculoskeletal: back pain. denies: joint swelling, arthralgia Skin: denies: rash, lesions Neurological: denies: headache, weakness, paresthesias ED Past Medical Hx - Past Medical History Hx Hypertension: Yes Hx CVA: No Hx Heart Attack/AMI: Yes (stents 03/11) Hx Congestive Heart Failure: No Hx Diabetes: No Hx Deep Vein Thrombosis: No Hx Pulmonary Embolism: No Hx GERD: Yes Hx Liver Disease: No Hx Renal Disease: No Hx Sickle Cell Disease: No Hx Arthritis: No Hx Headaches / Migraines: No Hx Seizures: No Hx Kidney Stones: No Hx Psychiatric Treatment: No Hx Asthma: No Hx COPD: No Hx Tuberculosis: No Hx Dementia: No Hx HIV: No Additional medical history: 2 STENTS 02/28/16, cholesterol, IBS, fibroids. CHRONIC BACK PAIN - Surgical History Hx Coronary Stent: Yes Hx Open Heart Surgery: No Hx Pacemaker: No Hx Internal Defibrillator: No Hx Cholecystectomy: No Hx Appendectomy: No Hx Breast Surgery: No Additional Surgical History: D&C - Social History Smoking Status: Never Smoker Substance Use Type: None - Medications Home Medications: Home Medications Medication Instructions Recorded Confirmed Last Taken Type Aspirin [Aspirin BABY CHEW TAB] 81 mg PO QDAY #30 tab.chew 08/17/16 11/09/1608/12 Rx AtorvaSTATin [Lipitor] 80 mg PO QHS #30 tablet 10/27/16 11/09/16 11/05/16 Rx Carvedilol [Coreg] 12.5 mg PO BID #60 tablet 10/27/16 11/09/16 11/05/16 Rx Ferrous Sulfate [Feosol 325 MG tab] 325 mg PO BID #60 tablet 10/27/16 11/09/16 11/05/16 Rx ISOSORBIDE MONOnitrate [Imdur ER] 30 mg PO QDAY #30 tablet 10/27/16 11/09/1608/12 Rx Pantoprazole [Protonix TAB] 40 mg PO QDAY #30 tablet 10/27/16 11/09/16 11/05/16 Rx Prasugrel [Effient] 10 mg PO QDAY #30 tablet 10/27/16 11/09/16 11/05/16 Rx Ranolazine ER [Ranexa ER] 500 mg PO BID #60 tablet 10/27/16 11/09/16 Unknown Rx Acetaminophen with Codeine 1 tab PO Q6HR PRN #20 tablet 11/10/16 Unknown Rx [Acetaminophen-Codeine #4 TAB] ED Physical Exam - General Limitations: No Limitations - Other Other exam information: GENERAL: The patient is well-developed well-nourished. HEENT: Normocephalic. Atraumatic. Extraocular motions are intact. Patient has moist mucous membranes. Pupils equal reactive to light bilaterally. NECK: Supple. Trachea is midline. CHEST/LUNGS: Clear to auscultation. There is no respiratory distress noted. Chest pain is not reproducible to palpation of chest wall. HEART/CARDIOVASCULAR: Regular. There is no tachycardia. There is no gallop rub or murmur. ABDOMEN: Abdomen is soft, nontender. Patient has normal bowel sounds. There is no abdominal distention. SKIN: Skin is warm and dry. NEURO: The patient is awake, alert, and oriented. The patient is cooperative. The patient has no focal neurologic deficits. The patient has normal speech. MUSCULOSKELETAL: There is no tenderness or deformity. There is no limitation range of motion. There is no evidence of acute injury. ED Course Vital Signs 05/05/17 05/05/17 05/05/17 11:09 11:10 11:20 Temperature 98.4 F Pulse Rate 61 57 L Respiratory 24 16 12 Rate Blood Pressure 114/76 114/76 Blood Pressure 114/76 [Left] O2 Sat by Pulse 100 100 100 Oximetry 0705/05/17 05/05/17 11:30 11:40 11:50 Temperature Pulse Rate 56 L 58 L 55 L Respiratory 15 18 12 Rate Blood Pressure 114/76 114/76 114/76 Blood Pressure [Left] O2 Sat by Pulse 100 100 100 Oximetry 05/05/17 11:59 Temperature Pulse Rate Respiratory 14 Rate Blood Pressure Blood Pressure [Left] O2 Sat by Pulse 99 Oximetry PASTY score - Patsy Score Age > 65: (0) No Aspirin use within the Past 7 Days: (1) Yes 3 or more CAD Risk Factors: (1) Yes 2 or more Angina events in past 24 hrs: (0) No Known CAD with more than 50% Stenosis: (0) No Elevated Cardiac Markers: (0) No ST Deviation Greater than 0.5mm: (0) No PATSY Score: 2 ED Medical Decision Making - Lab Data Result diagrams: 05/05/17 12:10 05/05/17 12:10 - EKG Data -: EKG Interpreted by Me EKG shows normal: sinus rhythm, axis, intervals, QRS complexes (low voltage), ST -T waves Rate: bradycardia (52 bpm) - EKG Data When compared to previous EKG there are: previous EKG unavailable Interpretation: other (sinus bradycardia, low voltage QRS, no ST elevation VA) - Radiology Data Radiology results: image reviewed interpreted by me: Chest x-ray did not show any acute process. Heart is normal shape and size. No effusions. No pneumothorax. No signs of pneumonia seen. - Medical Decision Making 41-year-old female presents the emergency department with chest and back pain that began during exertion while on the treadmill and continue still. EKG does not show any signs of ST elevation VA. Labs so far show a negative troponin and a negative d-dimer. Patient given aspirin and some morphine and still continues to have some discomfort. Chest x-ray does not show any acute process. The patient has a history of previous STEMI and 2 stents placed. She last had a stress test and heart catheterization about one year ago. The patient does not appear to be in any acute distress and the lab and imaging has been negative thus far but since the patient continues to have discomfort and has a history of coronary artery disease I will seek admission for this patient. - Differential Diagnosis VA, PE, costochondritis, pneumonia, GERD Critical Care Time: No Critical care attestation.: If time is entered above; I have spent that time in minutes in the direct care of this critically ill patient, excluding procedure time. ED Disposition Clinical Impression: History of ST elevation myocardial infarction (STEMI) Chest pain Qualifiers: Chest pain type: unspecified Qualified Code(s): R07.9 - Chest pain, unspecified Back pain Qualifiers: Back pain location: low back pain Chronicity: chronic Back pain laterality: unspecified Sciatica presence: without sciatica Qualified Code(s): M54.5 - Low back pain; G89.29 - Other chronic pain Disposition: OP ADMIT IP TO THIS HOSP Is pt being admited?: Yes Condition: Stable Instructions: Chest Pain (ED) Referrals: PRIMARY CARE, [Primary Care Provider] - 3-5 Days Time of Disposition: 15:28
--- NOTE | 2017-05-05 12:29 | XRay Report ---
AP CHEST : 05/05/17 11:06:00 CLINICAL: Chest pain. COMPARISON:11/09/16 FINDINGS: Normal heart and pulmonary vessels. The lungs are normally expanded and clear. The bones and soft tissues are unremarkable. IMPRESSION: Normal chest.
[2017-05-05 13:33] LABS: Hematocrit 33.9 % (30.3-42.9); Hemoglobin 11.3 gm/dl (10.1-14.3); Mean Corpuscular HGB Conc 33 % (30-34); Mean Corpuscular Hemoglobin 33 pg (28-32); Mean Corpuscular Volume 100 fl (79-97); Platelet Count 261 K/mm3 (140-440); Red Cell Distribution Width 15.1 % (13.2-15.2); White Blood Count 6.4 K/mm3 (4.5-11.0)
[2017-05-05] MEDS ORDERED: NACL 0.9% 1000 ML 1,000 ML IV ONE (13:44)
[2017-05-05 13:47] LABS: Anion Gap 16 mmol/L; BUN/Creatinine Ratio 8.75; Blood Urea Nitrogen 7 mg/dL (7-17); Calcium 9.3 mg/dL (8.4-10.2); Carbon Dioxide 26 mmol/L (22-30); Chloride 100.8 mmol/L (98-107); Glucose 84 mg/dL (65-100); Potassium 4.1 mmol/L (3.6-5.0); Sodium 139 mmol/L (137-145)
[2017-05-05] MEDS ORDERED: BABY ASPIRIN PO ONE (14:44)
[2017-05-05] MEDS ORDERED: MORPHINE IV ONE (14:45)
[2017-05-05 15:09] LABS: Anisocytosis 1+; Basophils % (Manual) 0 % (0.0-1.8); Blastocytes % (Manual) 0 %; Hypochromasia 1+; Ovalocytes 1+; Poikilocytosis 1+
[2017-05-05 15:10] LABS: Diff Status Complete; Platelet Clumps Few; Platelet Estimate Consistent w Auto
--- NOTE | 2017-05-05 15:20 | History and Physical Report ---
History of Present Illness Chief complaint: My chest started hurting when i was working out History of present illness: 41 YO Female with Obesity, CAD S/P Stent placement,GERD, HLD, IBS, Fibroids presents to ED for evaluation. Pt states that she experienced pain in her chest today while walking on her treadmill. Pt states that pain was 8/10, radiated to her back, worsened with exertion, relieved with rest. Pt took tylenol for pain without relief. Pt denies fever, chills, palpitations, NVD, syncope, trauma, falls, prorlonged travel/immobility, individual/family history of DVT/PE, productive cough, or recent ill contacts. Past History Past Medical History: acute [place], CAD, GERD, hypertension, hyperlipidemia, other ( IBS, Fibroids) Past Surgical History: Other (stent placement, D&C) Social history: , lives with family. denies: smoking, alcohol abuse, prescription drug abuse Family history: hypertension Medications and Allergies Allergies Allergy/AdvReac Type Severity Reaction Status Date / Time iodine Allergy Swelling Verified 11/09/16 11:57 shellfish derived Allergy Swelling Verified 11/09/16 11:57 Home Medications Medication Instructions Recorded Confirmed Last Taken Type Carvedilol [Coreg] 12.5 mg PO BID #60 tablet 10/27/16 05/05/17 05/05/17 Rx Ferrous Sulfate [Feosol 325 MG tab] 325 mg PO BID #60 tablet 10/27/16 05/05/17 05/05/17 Rx ISOSORBIDE MONOnitrate [Imdur ER] 30 mg PO QDAY #30 tablet 10/27/16 05/05/1708/12 Rx Pantoprazole [Protonix TAB] 40 mg PO QDAY #30 tablet 10/27/16 05/05/17 05/05/17 Rx Prasugrel [Effient] 10 mg PO QDAY #30 tablet 10/27/16 05/05/17 05/05/17 Rx Ranolazine ER [Ranexa ER] 500 mg PO BID #60 tablet 10/27/16 05/05/17 05/05/17 Rx Aspirin [Aspirin TAB] 325 mg PO QDAY 05/05/17 05/05/17 05/05/17 History Multivitamin Tab [Multiple Vitamin 1 each PO QDAY 05/05/17 05/05/17 Unknown History TAB (Theragran)] Pravastatin Sodium 40 mg HS 05/05/17 05/05/17 Unknown History Review of Systems All systems: negative Cardiovascular: chest pain Exam - Constitutional Vitals: Temp Pulse Resp BP Pulse Ox 98.4 F 55 L 14 114/76 99 05/05/17 11:10 05/05/17 11:50 05/05/17 11:59 05/05/17 11:50 05/05/17 11:59 General appearance: Present: obese - EENT Eyes: Present: PERRL ENT: hearing intact, clear oral mucosa - Neck Neck: Present: supple, normal ROM - Respiratory Respiratory effort: normal Respiratory: bilateral: CTA - Cardiovascular Heart Sounds: Present: S1 & S2. Absent: rub, click - Extremities Extremities: pulses symmetrical, No edema Peripheral Pulses: within normal limits - Abdominal General gastrointestinal: Present: soft, non-tender, non-distended, normal bowel sounds Female genitourinary: Present: normal - Integumentary Integumentary: Present: clear, warm, dry - Musculoskeletal Musculoskeletal: gait normal, strength equal bilaterally - Psychiatric Psychiatric: appropriate mood/affect, intact judgment & insight - Neurologic Neurologic: CNII-XII intact, moves all extremities Results - Labs CBC & Chem 7: 05/05/17 12:10 05/05/17 12:10 Labs: Abnormal lab results 05/05/17 Range/Units 12:10 RBC 3.40 L (3.65-5.03) M/mm3 MCV 100 H (79-97) fl MCH 33 H (28-32) pg Monocytes % (Manual) 22.0 H (0.0-7.3) % Lymphocytes # (Manual) 1.1 L (1.2-5.4) K/mm3 Monocytes # (Manual) 1.4 H (0.0-0.8) K/mm3 Assessment and Plan - Patient Problems (1) ACS (acute coronary syndrome) Current Visit: Yes Status: Acute Plan to address problem: serial cardiac enzymes, ekg, telemetry, supportive care, Cardiology consulted, resume home medication, monitor systolic BP (2) Obesity Current Visit: Yes Status: Acute Qualifiers: Obesity type: O Obesity severity: O Plan to address problem: Pt counseled regarding balanced diet, increased physical activity (3) CAD (coronary artery disease) Current Visit: No Status: Chronic Qualifiers: Coronary Disease-Associated Artery/Lesion type: [place] artery [place] vs. transplanted heart: [place] heart Associated angina: with stable angina Qualified Code(s): I25.118 - Atherosclerotic heart disease of [place] coronary artery with other forms of angina pectoris Plan to address problem: Continue current therapy, cardiology consulted, continue medical management, (4) DVT prophylaxis Current Visit: Yes Status: Acute
[2017-05-05] MEDS ORDERED: DULCOLAX PR PRN (15:24)
[2017-05-05] MEDS ORDERED: MILK OF MAGNESIA PO PRN (15:24)
[2017-05-05] MEDS ORDERED: TYLENOL PO PRN (15:24)
[2017-05-05] MEDS ORDERED: DUONEB *Not for PRN Use IH (15:24)
--- NOTE | 2017-05-05 15:58 | Admit Criteria Form ---
Admission Criteria Documentation: CARDIOLOGY GRG Clinical Indications for Admission to Inpatient Care ( Place 'X' for any and all applicable criteria): Hospital admission is needed for appropriate care of the patient because of ANY ONE of the following (1): [ ] I. Hemodynamic instability as indicated by ALL of the following (1)(2)(3) (4)(5) [ ]a) Vital signs or other findings not as expected for chronic patient condition or baseline [ ]b) Instability indicated by ANY ONE of the following: [ ]i) Hypotension [ ]ii) Symptomatic Tachycardia unresponsive to treatment ( e.g., analgesia, fluids, sedation as indicated) [ ]iii) Inadequate perfusion indicated by ANY ONE of the following: [ ] 1) Lactic acidosis (> 2 mmol/L) [ ] 2) New abnormal capillary refill (> 3 seconds) [ ] 3) Reduced urine output [ ] 4) New altered mental status [ ]iv) Orthostatic vital sign changes unresponsive to treatment (e.g., fluids) [ ]v) IV inotropic or vasopressor medication required to maintain adequate blood pressure or perfusion [ ] II. Severe heart failure as indicated by ANY ONE of the following(17)(18) [ ]a) Respiratory distress [ ]b) Hypotension [ ]c) Anasarca (refractory to outpatient therapy) [ ]d) Cardiac arrhythmias of immediate concern [ ]e) Myocardial ischemia [ ] III. Cardiac arrhythmias or findings of immediate concern indicated by ANY ONE of the following (19)(20): [ ] a) Heart rhythms that are inherently dangerous or unstable indicated by ANY ONE of the following (21)(22)(23): [ ] i) Resuscitated ventricular fibrillation or cardiac arrest [ ] ii) Ventricular escape rhythm [ ] iii) Sustained ventricular tachycardia (30 seconds or more of ventricular rhythm at greater than 100 beats per minute) [ ] iv) Nonsustained ventricular tachycardia and ANY ONE of the following: [ ] 1) Suspected cardiac ischemia as cause or consequence of ventricular tachycardia [ ] 2) In setting of acute myocarditis [ ] b) Unstable cardiac conduction defects indicated by ANY ONE of the following(23)(24)(25) [ ] i) Type II second-degree atrioventricular block [ ]ii) Third-degree atrioventricular block [ ]iii) New-onset left bundle branch block with suspected myocardial ischemia [ ]c) Any heart rhythm and ANY ONE of the following (21)(22)(26)(27) (28) [ ] i) Continuous long-term ECG monitoring needed (e.g., initiation of drug requiring monitoring for more than 24 hours) [ ] ii) Patient has automatic implanted cardioverter defibrillator that is repeatedly firing, malfunctioning, or in need of immediate adjustment of settings beyond the scope of ambulatory or observation care [ ]d) Heart rhythms of concern due to ANY ONE of the following: [ ] i) Hypotension [ ] ii) Respiratory distress [ ] iii) Association with other significant symptoms (e.g., bradycardia with syncope or ongoing dizziness, supraventricular tachycardia with chest pain (14)(15)(17) [ ] IV. Monitoring for cardiac contusion beyond the scope of observation care needed [A](30)(31)(32) [ ] V. Surgical or device complication (e.g., valve replacement complication , pacemaker dysfunction) (35)(41)(44)(45)(46) [ ] . Inpatient palliative care needed. [B](49) Also use Inpatient Palliative Care Criteria [ ] VII. Nonbacterial thrombotic (marantic) endocarditis (36)(43)(47)(48) [X ] VIII. Cardiology condition, symptom, or finding for which emergency and observation care has failed or are not considered appropriate. [ ] IX. Acute valvular disease requiring inpatient as indicated by ANY ONE of the following (41) [ ]a) Acute valvular regurgitation (42) [ ]b) Noninfectious valvulitis (43) [ ]c) Obstructive valve thrombosis [ ]d) Paravalvular leak [ ]e) Other significant valvular disorder remaining after emergency or observation level of care (as appropriate) [ ]X. Pericardial disease requiring inpatient treatment as indicated by ANY ONE of the following (33)(34)(35)(36)(37) [ ]a) Suspected tamponade (38)(39)(40) [ ]b) Hemopericardium [ ]c) Other significant pericardial disorder remaining after emergency or observation level of care (as appropriate) [ ] XI. Cardiac ischemia beyond scope of emergency and observation care. [ ] XII. Hypertension requiring inpatient treatment as indicated by ANY ONE of the following (6)(7)(8) [ ]a) SBP greater than 220 mm Hg or DBP greater than 120 mmHg despite treatment [ ]b) SBP greater than 140 mm Hg or DBP greater than 100 mm Hg with evidence of acute end organ damage as indicated by ANY ONE of the following [ ] i) Altered mental status [ ] ii) Acute renal failure as indicated by new onset of ANY ONE of the following (9)(10)(11)(12)(13) [ ]1) 3-fold rise in serum creatinine from baseline [ ]2) Serum creatinine greater than 4 mg/dL ( 354 micromoles/L) with acute rise greater than 0.5 mg/dL (44.2 micromoles/L) [ ]3) Reduction of more than 75% in estimated glomerular filtration rate from baseline [ ]4) Estimated glomerular filtration rate less than 35 mL/min/1.73m2 (0.59 mL/sec/1.73m2) in child up to 18 years of age [ ]5) Cessation of urine output indicated by ALL of the following [ ]A. Adequate volume status [ ]B. Inadequate urine output as indicated by ANY ONE of the following [ ]a. Urine output less than 0.3 mL/kg/hr for 24 hours [ ]b. Anuria (urine output less than 0.1 mL/kg/hr) for 12 hours [ ] iii) Aortic dissection [ ] iv) Myocardial Ischemia [ ] v) Left ventricular heart failure [ ]vi) Retinal Hemorrhage [ ]vii) Other significant finding [ ]c) Hypertension in child requiring inpatient treatment as indicated by ALL of the following(14)(15)(16) [ ] i) Outpatient treatment not effective, not available, or not appropriate [ ]ii) SBP or DBP greater than 95th percentile for age [ ]iii) Evidence of acute end organ damage as indicated by ANY ONE of the following [ ]1) Altered mental status [ ]2) Acute renal failure as indicated by new onset of ANY ONE of the following(9)(10)(11)(12)(13) [ ]A. 3-fold rise in serum creatinine from baseline [ ]B. Serum creatinine greater than 4 mg/dL (354 micromoles/L) with acute rise greater than 0.5 mg/dL (44.2 micromoles/L) [ ]C. Reduction of more than 75% in estimated glomerular filtration rate from baseline [ ]D. Estimated glomerular filtration rate less than 35 mL/min/1.73m2 (0.59 mL/sec/1.73m2) in child up to 18 years of age [ ]E. Cessation of urine output indicated by ALL of the following [ ]a. Adequate volume status [ ]b. Inadequate urine output as indicated by ANY ONE of the following [ ]i) Urine output less than 0.3 mL/kg/hr for 24 hours [ ]ii) Anuria ( urine output less than 0.1 mL/kg/hr) for 12 hours [ ]3) Severe headache [ ]4) Visual disturbance [ ]5) Retinal hemorrhage [ ]6) Other significant finding [ ]XIII. Complications of transplanted heart indicated by ANY ONE of the following(61): [ ]a) Acute graft rejection requiring inpatient management (eg, intravenous immunosuppression)(62)(63) [ ]b) Acute graft heart failure indicated by ANY ONE of the following(64): [ ]i) Hemodynamic instability [ ]ii) Cardiac arrhythmias of immediate concern [ ]iii) Pulmonary edema that is very severe (eg, mechanical ventilation needed, imminent or likely, need for 100% oxygen to keep oxygen saturation above 90%) [ ]iv) Pulmonary edema that is persistent as indicated by ALL of the following: [ ]1) New need for oxygen therapy to keep oxygen saturation above 90% (or increased FiO2 need from baseline) [ ]2) Has not improved sufficiently with emergency department or observation care IV diuretics or other heart failure treatments[E] [ ]v) Altered mental status that is severe or persistent [ ]vi) Increased creatinine (new on laboratory test) with reduction of more than 50% in estimated glomerular filtration rate from baseline [ ]vii) Progressively (ongoing) rising creatinine (known from past laboratory test) with reduction of more than 25% in estimated glomerular filtration rate from baseline [ ]viii) Acute renal failure [ ]ix) Acute peripheral ischemia (eg, examination shows pulseless, cool, mottled, or cyanotic extremity) [ ]x) Pulmonary artery catheter monitoring needed [ ]xi) Other sign or symptom of heart failure requiring inpatient treatment (ie, too severe or not responsive to outpatient and observation care treatment) [ ]c) Infection requiring inpatient management (eg, Hemodynamic instability, need for intravenous antimicrobial treatment)(66)(67)(68)(69)(70) [ ]d) Cardiac allograft vasculopathy requiring inpatient management ( eg evidence of cardiac ischemia)(71) [ ]e) Other complication of transplanted heart (eg, stroke, severe pulmonary hypertension, severe valvular dysfunction) requiring inpatient management(72) The original [facility] [employer] content created by [facility] has been revised. The portions of the content which have been revised are identified through the use of italic text or in bold, and [facility] has neither reviewed nor approved the modified material. All other unmodified content is copyright [facility] [employer]. Please see references footnoted in the original [facility] [employer] edition 2016 Admission Criteria Met: Yes
[2017-05-05] MEDS ORDERED: MORPHINE ONE (17:34)
[2017-05-05] MEDS: ZOFRAN IV PRN (17:43)
--- NOTE | 2017-05-06 14:21 | Progress Note ---
Assessment and Plan Total Time Spent with Patient (Minutes): 22 - Patient Problems (1) Chest pain Current Visit: Yes Status: Acute Qualifiers: Chest pain type: unspecified Ischemic chest pain type: I Qualified Code(s ): R07.9 - Chest pain, unspecified Plan to address problem: At present chest pain atypical in [place] that patient has a history of coronary artery disease with stenting. Current chronic isoenzymes and negative. No new EKG changes at all. We'll replace patient on Coreg and we will statin and Effient. We'll continue to diuresis patient when necessary if needed. He should to have cardiac evaluation stress evaluation today. (2) Chest wall pain Current Visit: No Status: Acute Plan to address problem: Appears to have resolved at this point costochondritis remains in differential. (3) Difficulty breathing Current Visit: No Status: Acute Plan to address problem: Resolved. She states she has some difficulty with exertion. Could be from CHF versus morbid obesity (4) CAD (coronary artery disease) Current Visit: No Status: Chronic Qualifiers: Coronary Disease-Associated Artery/Lesion type: [place] artery [place] vs. transplanted heart: [place] heart Associated angina: with stable angina Qualified Code(s): I25.118 - Atherosclerotic heart disease of [place] coronary artery with other forms of angina pectoris Plan to address problem: We'll replace patient on long-acting nitroglycerin Coreg Effient and statin. She states pain is not the same kind of pain she got when she had angina. (5) Tobacco abuse Current Visit: No Status: Chronic History Interval history: Patient present with chest pain-free today. The description of patient's chest pain is right-sided chest pain that radiates to the back. It is clearly atypical. Patient has no chest pain now. Patient does have increased risk with coronary artery disease status post stenting. As pain-free now no shortness of breath no nausea. Hospitalist Physical - Constitutional Vitals: Temp Pulse Resp BP Pulse Ox 98.6 F 50 L 18 95/50 99 05/06/17 08:01 05/06/17 08:01 05/06/17 08:01 05/06/17 08:01 05/06/17 08:01 General appearance: Present: no acute distress, well-nourished, obese - EENT Eyes: Present: EOM intact ENT: hearing intact, clear oral mucosa, dentition normal, no oropharyngeal erythema, no poor dentition, no thrush, no ulcerations, no edentulous - Neck Neck: Present: supple, normal ROM. Absent: enlarged thyroid, masses or JVD, cervical LAD, carotid bruits - Respiratory Respiratory effort: normal Respiratory: bilateral: CTA - Cardiovascular Rhythm: regular Heart Sounds: Present: S1 & S2, gallop - Extremities Extremities: no ischemia, pulses intact, pulses symmetrical, normal temperature , normal color, Full ROM Extremity abnormal: edema, other (she has +2 pitting edema) Peripheral Pulses: within normal limits - Abdominal General gastrointestinal: soft, tender, non-distended, normal bowel sounds, other (obese) - Integumentary Integumentary: Present: clear, warm, dry. Absent: erythema, jaundice, rash, clammy, pale - Psychiatric Psychiatric: appropriate mood/affect, cooperative - Neurologic Neurologic: CNII-XII intact, moves all extremities Results - Labs CBC & Chem 7: 05/05/17 12:10 05/05/17 12:10 Labs: Laboratory Last Values WBC 6.4 K/mm3 (4.5-11.0) 05/05/17 12:10 RBC 3.40 M/mm3 (3.65-5.03) L 05/05/17 12:10 Hgb 11.3 gm/dl (10.1-14.3) 05/05/17 12:10 Hct 33.9 % (30.3-42.9) 05/05/17 12:10 MCV 100 fl (79-97) H 05/05/17 12:10 MCH 33 pg (28-32) H 05/05/17 12:10 MCHC 33 % (30-34) 05/05/17 12:10 RDW 15.1 % (13.2-15.2) 05/05/17 12:10 Plt Count 261 K/mm3 (140-440) 05/05/17 12:10 Add Manual Diff Complete 05/05/17 12:10 Total Counted 100 05/05/17 12:10 Seg Neuts % (Manual) 60.0 % (40.0-70.0) 05/05/17 12:10 Band Neutrophils % 0 % 05/05/17 12:10 Lymphocytes % (Manual) 17.0 % (13.4-35.0) 05/05/17 12:10 Reactive Lymphs % (Man) 0 % 05/05/17 12:10 Monocytes % (Manual) 22.0 % (0.0-7.3) H 05/05/17 12:10 Eosinophils % (Manual) 1.0 % (0.0-4.3) 05/05/17 12:10 Basophils % (Manual) 0 % (0.0-1.8) 05/05/17 12:10 Metamyelocytes % 0 % 05/05/17 12:10 Myelocytes % 0 % 05/05/17 12:10 Promyelocytes % 0 % 05/05/17 12:10 Blast Cells % 0 % 05/05/17 12:10 Nucleated RBC % Not Reportable 05/05/17 12:10 Seg Neutrophils # Man 3.8 K/mm3 (1.8-7.7) 05/05/17 12:10 Band Neutrophils # 0.0 K/mm3 05/05/17 12:10 Lymphocytes # (Manual) 1.1 K/mm3 (1.2-5.4) L 05/05/17 12:10 Abs React Lymphs (Man) 0.0 K/mm3 05/05/17 12:10 Monocytes # (Manual) 1.4 K/mm3 (0.0-0.8) H 05/05/17 12:10 Eosinophils # (Manual) 0.1 K/mm3 (0.0-0.4) 05/05/17 12:10 Basophils # (Manual) 0.0 K/mm3 (0.0-0.1) 05/05/17 12:10 Metamyelocytes # 0.0 K/mm3 05/05/17 12:10 Myelocytes # 0.0 K/mm3 05/05/17 12:10 Promyelocytes # 0.0 K/mm3 05/05/17 12:10 Blast Cells # 0.0 K/mm3 05/05/17 12:10 WBC Morphology Not Reportable 05/05/17 12:10 Hypersegmented Neuts Not Reportable 05/05/17 12:10 Hyposegmented Neuts Not Reportable 05/05/17 12:10 Hypogranular Neuts Not Reportable 05/05/17 12:10 Smudge Cells Not Reportable 05/05/17 12:10 Toxic Granulation Not Reportable 05/05/17 12:10 Toxic Vacuolation Not Reportable 05/05/17 12:10 Dohle Bodies Not Reportable 05/05/17 12:10 Pelger-Huet Anomaly Not Reportable 05/05/17 12:10 Rajinder Rods Not Reportable 05/05/17 12:10 Platelet Estimate Consistent w auto 05/05/17 12:10 Clumped Platelets Few 05/05/17 12:10 Plt Clumps, EDTA Not Reportable 05/05/17 12:10 Large Platelets Not Reportable 05/05/17 12:10 Giant Platelets Not Reportable 05/05/17 12:10 Platelet Satelliting Not Reportable 05/05/17 12:10 Plt Morphology Comment Not Reportable 05/05/17 12:10 RBC Morphology Not Reportable 05/05/17 12:10 Dimorphic RBCs Not Reportable 05/05/17 12:10 Polychromasia Not Reportable 05/05/17 12:10 Hypochromasia 1+ 05/05/17 12:10 Poikilocytosis 1+ 05/05/17 12:10 Anisocytosis 1+ 05/05/17 12:10 Microcytosis Not Reportable 05/05/17 12:10 Macrocytosis Not Reportable 05/05/17 12:10 Spherocytes Not Reportable 05/05/17 12:10 Pappenheimer Bodies Not Reportable 05/05/17 12:10 Sickle Cells Not Reportable 05/05/17 12:10 Target Cells Not Reportable 05/05/17 12:10 Tear Drop Cells Not Reportable 05/05/17 12:10 Ovalocytes 1+ 05/05/17 12:10 Helmet Cells Not Reportable 05/05/17 12:10 Neely-Trent Bodies Not Reportable 05/05/17 12:10 [place] Rings Not Reportable 05/05/17 12:10 [place] Cells Not Reportable 05/05/17 12:10 Bite Cells Not Reportable 05/05/17 12:10 Crenated Cell Not Reportable 05/05/17 12:10 Elliptocytes Not Reportable 05/05/17 12:10 Acanthocytes (Spur) Not Reportable 05/05/17 12:10 Rouleaux Not Reportable 05/05/17 12:10 Hemoglobin C Crystals Not Reportable 05/05/17 12:10 Schistocytes Not Reportable 05/05/17 12:10 Malaria parasites Not Reportable 05/05/17 12:10 Ovi Bodies Not Reportable 05/05/17 12:10 Hem Pathologist Commnt No 05/05/17 12:10 D-Dimer 175.1 ng/mlDDU (0-234) 05/05/17 12:10 Sodium 139 mmol/L (137-145) 05/05/17 12:10 Potassium 4.1 mmol/L (3.6-5.0) 05/05/17 12:10 Chloride 100.8 mmol/L (98-107) 05/05/17 12:10 Carbon Dioxide 26 mmol/L (22-30) 05/05/17 12:10 Anion Gap 16 mmol/L 05/05/17 12:10 BUN 7 mg/dL (7-17) 05/05/17 12:10 Creatinine 0.8 mg/dL (0.7-1.2) 05/05/17 12:10 Estimated GFR > 60 ml/min 05/05/17 12:10 BUN/Creatinine Ratio 8.75 % 05/05/17 12:10 Glucose 84 mg/dL (65-100) 05/05/17 12:10 Calcium 9.3 mg/dL (8.4-10.2) 05/05/17 12:10 Troponin T < 0.010 ng/mL (0.00-0.029) 05/05/17 18:05 NT-Pro-B Natriuret Pep 212.0 pg/mL (0-450) 05/05/17 12:10 Triglycerides 50 mg/dL (2-149) 05/05/17 15:03 Cholesterol 151 mg/dL (50-199) 05/05/17 15:03 LDL Cholesterol Direct 80 mg/dL (50-130) 05/05/17 15:03 HDL Cholesterol 61 mg/dL (40-59) H 05/05/17 15:03 Cholesterol/HDL Ratio 2.47 % 05/05/17 15:03
--- NOTE | 2017-05-06 14:43 | Consultation ---
History of Present Illness Consult date: 05/06/17 Requesting physician: KARI RODRIGUEZ Consult reason: chest pain History of present illness: The patient is a 41YO female with a PMHx significant for CAD, status post ST elevation AL in February 2016 requiring a bare-metal stent to the proximal right coronary artery, anxiety, gastroesophageal reflux disease, chronic recurrent chest pain, HTN, and HLP. She is followed by Dr. Maverick Billingsley in our office. She presented with c/o chest pain which began yesterday while she was exercising on her treadmill. She reports that after 20 minutes of walking on her treadmill, she noted the onset of pain surrounding her right scapula. The pain then radiated to her left and right chest. She describes the pain as an intermittent sharp pain that was an 8/10 at it's worse. She took Tylenol at home but did not experience any relief of her pain. She denies any palpitation, SOB, n/v, diaphoresis, dizziness, or syncope. On evaluation, she reports that her chest pain has resolved. Of note,the pt has had approximately 20 admissions for chest pain evaluations. On 04/28/2016, she had a negative stress test. Due to continuing chest pain, she eventually underwent coronary angiography on 05/10. This revealed mild, nonobstructive CAD with a 25% in-stent restenosis of the RCA. Her gate operator attempted to start her on Ranexa for her chronic stable angina. Past History Past Medical History: acute AL, CAD, GERD, hypertension, hyperlipidemia, other ( IBS, Fibroids) Past Surgical History: Other (stent placement, D&C) Social history: , lives with family. denies: smoking, alcohol abuse, prescription drug abuse Family history: hypertension Medications and Allergies Allergies Allergy/AdvReac Type Severity Reaction Status Date / Time iodine Allergy Swelling Verified 11/09/16 11:57 shellfish derived Allergy Swelling Verified 11/09/16 11:57 Home Medications Medication Instructions Recorded Confirmed Last Taken Type Carvedilol [Coreg] 12.5 mg PO BID #60 tablet 10/27/16 05/05/17 05/05/17 Rx Ferrous Sulfate [Feosol 325 MG tab] 325 mg PO BID #60 tablet 10/27/16 05/05/17 05/05/17 Rx ISOSORBIDE MONOnitrate [Imdur ER] 30 mg PO QDAY #30 tablet 10/27/16 05/05/1708/12 Rx Pantoprazole [Protonix TAB] 40 mg PO QDAY #30 tablet 10/27/16 05/05/17 05/05/17 Rx Prasugrel [Effient] 10 mg PO QDAY #30 tablet 10/27/16 05/05/17 05/05/17 Rx Ranolazine ER [Ranexa ER] 500 mg PO BID #60 tablet 10/27/16 05/05/17 05/05/17 Rx Aspirin [Aspirin TAB] 325 mg PO QDAY 05/05/17 05/05/17 05/05/17 History Multivitamin Tab [Multiple Vitamin 1 each PO QDAY 05/05/17 05/05/17 Unknown History TAB (Theragran)] Pravastatin Sodium 40 mg HS 05/05/17 05/05/17 Unknown History Active Meds: Active Medications Acetaminophen (Tylenol) 650 mg PO Q4H PRN PRN Reason: Pain MILD(1-3)/Fever >100.5/DC Last Admin: 05/05/17 22:04 Dose: 650 mg Albuterol/Ipratropium (Duoneb 0.5 Mg-3 Mg/3 Ml Soln) 1 ampul IH Q6HRT PRN PRN Reason: Wheezing Aspirin (Aspirin) 325 mg PO QDAY ADELSO Bisacodyl (Dulcolax) 10 mg HI QDAY PRN PRN Reason: Constipation unrelieved by MOM Carvedilol (Coreg) 12.5 mg PO BID ADELSO Ferrous Sulfate (Feosol) 325 mg PO BID ADELSO Isosorbide Mononitrate (Imdur) 30 mg PO QDAY ADELSO Magnesium Hydroxide (Milk Of Magnesia) 30 ml PO Q4H PRN PRN Reason: Constipation Morphine Sulfate (Morphine) 2 mg IV Q3H PRN PRN Reason: Chest Pain Multivitamins (Theragran Tab) 1 each PO QDAY ADELSO Ondansetron HCl (Zofran) 4 mg IV Q8H PRN PRN Reason: N/V unrelieved by Reglan Last Admin: 05/05/17 17:43 Dose: 4 mg Pantoprazole Sodium (Protonix) 40 mg PO QDAY ADELSO Prasugrel (Effient) 10 mg PO QDAY ADELSO Ranolazine (Ranexa Er) 500 mg PO BID ADELSO Simvastatin (Zocor) 20 mg PO QHS ADELSO Review of Systems All systems: negative Cardiovascular: chest pain Physical Examination Vital Signs Resp Pulse Ox 24 100 05/05/17 11:09 05/05/17 11:09 General appearance: no acute distress HEENT: Positive: PERRL, Normocephaly, Mucus Membranes Moist Neck: Positive: neck supple, trachea midline Cardiac: Positive: Reg Rate and Rhythm, S1/S2 Lungs: Positive: Normal Exam, clear to auscultation, Normal Breath Sounds Neuro: Positive: Grossly Intact, Cranial Nerve 2-12 Intact Abdomen: Positive: Unremarkable, Soft, Active Bowel Sounds. Negative: Tender Skin: Positive: Clear. Negative: Rash, Wound Musculoskeletal: No Fluid Collection, No Pain, Normal Range of Motion Extremities: Present: upper extr. pulses, lower extr. pulses. Absent: edema Results 05/05/17 12:10 05/05/17 12:10 - Imaging and Cardiology Echo: report reviewed Cardiac cath: report reviewed EKG: report reviewed EKG interpretations - Telemetry EKG Rhythm: Sinus Bradycardia - EKG Sinus rhythms and dysrhythmias: sinus bradycardia (52bpm) Repolarization changes or abnormalities: nonspecific abnormality, ST segment, and/or T wave Assessment and Plan Assessment: Chest pain, atypical - recurrent; ECG with NAF; Leighann negative for AMI. Coronary disease status post bare-metal stents in the proximal right coronary artery Anxiety Hypertension Hyperlipidemia Gastroesophageal reflux disease Plan: Cont present cardiac regimen. Plan for lexiscan MPI stress test in AM pending pt remains clinically and hemodynamically stable overnight. NPO after MN. Assessment and plan reviewed with pt at bedside. The patient has been seen in conjunction with Dr. Cotter who agrees with the assessment and plan of care.
[2017-05-06] MEDS: ASPIRIN PO SCH (16:19)
[2017-05-06] MEDS: FEOSOL PO SCH ×2 (16:20→21:03)
[2017-05-06] MEDS: RANEXA ER PO SCH ×2 (16:20→21:03)
[2017-05-06] MEDS: THERAGRAN Tab PO SCH (16:20)
[2017-05-06] MEDS: PROTONIX PO SCH (16:21)
[2017-05-06] MEDS: EFFIENT PO SCH (16:21)
[2017-05-06] MEDS: COREG PO SCH ×2 (16:29→21:02)
[2017-05-06] MEDS: IMDUR PO SCH (16:30)
[2017-05-06] MEDS: MORPHINE IV PRN (21:00)
[2017-05-06] MEDS ORDERED: NON-FORMULARY (Pravastatin Sodium 40 MG) PO SCH (22:00)
[2017-05-06] MEDS ORDERED: ZOCOR PO SCH (22:00)
[2017-05-07] MEDS: RANEXA ER PO SCH (08:38)
[2017-05-07] MEDS: MORPHINE IV PRN ×2 (08:39→17:38)
[2017-05-07 08:42] LABS: Anion Gap 14 mmol/L; Blood Urea Nitrogen 7 mg/dL (7-17); Calcium 8.6 mg/dL (8.4-10.2); Carbon Dioxide 23 mmol/L (22-30); Chloride 105.7 mmol/L (98-107); Glucose 89 mg/dL (65-100); Potassium 3.7 mmol/L (3.6-5.0); Sodium 139 mmol/L (137-145)
[2017-05-07] MEDS: ZOFRAN IV PRN (09:40)
[2017-05-07] MEDS ORDERED: LEXISCAN IV ONE ×2 (10:20→10:25)
[2017-05-07] MEDS: COREG PO SCH (10:38)
--- NOTE | 2017-05-07 11:47 | Event Note ---
Date: 05/07/17 Stress MPI (lexiscan): 1. Normal study without evidence of significant ischemia or prior infarct 2. Normal lv fxn (70%) w/o evidence of TID
--- NOTE | 2017-05-07 11:52 | Discharge Summary ---
Providers - Providers Date of Admission: 05/05/17 15:24 Attending physician: MARGARET MOODY MD Primary care physician: JOANNE JUAREZ MD Hospitalization Condition: Stable Hospital course: 41-year-old with a past medical history of coronary artery disease status post stents who presents with chest pain. Acute coronary syndrome was ruled out by a set of negative troponins, chest x-ray did not show any acute abnormalities. She went on to have a nuclear stress test that was negative for ischemia. She was seen in conjunction with cardiology and she is continued on her current cardiac medications. She was reassured that her chest pain at this time is not cardiac in nature and advised to take NSAIDs such as Tylenol as needed for pain. She was advised to avoid stress to continue her exercise regimen and to exercise as tolerated with the goal of increasing exercise tolerance slowly. Discharge diagnoses Chest pain due to chronic CAD Hypertension Disposition: TO HOME OR SELFCARE Time spent for discharge: 33 minutes Core Measure Documentation - Palliative Care Palliative Care/ Comfort Measures: Not Applicable - Core Measures Any of the following diagnoses?: none Exam - Constitutional Vitals: Temp Pulse Resp BP Pulse Ox 98.3 F 60 18 122/78 98 05/07/17 08:00 05/07/17 08:00 05/07/17 08:00 05/07/17 08:00 05/07/17 09:01 General appearance: Present: no acute distress, well-nourished - EENT Eyes: Present: PERRL ENT: hearing intact, clear oral mucosa - Neck Neck: Present: supple, normal ROM - Respiratory Respiratory effort: normal Respiratory: bilateral: CTA - Cardiovascular Heart Sounds: Present: S1 & S2. Absent: rub, click - Extremities Extremities: pulses symmetrical, No edema Peripheral Pulses: within normal limits - Abdominal General gastrointestinal: Present: soft, non-tender, non-distended, normal bowel sounds Female genitourinary: Present: normal - Integumentary Integumentary: Present: clear, warm, dry - Musculoskeletal Musculoskeletal: gait normal, strength equal bilaterally - Psychiatric Psychiatric: appropriate mood/affect, intact judgment & insight - Neurologic Neurologic: CNII-XII intact, moves all extremities Plan Follow up with: PRIMARY CARE, [Primary Care Provider] - 3-5 Days Prescriptions: Acetaminophen/Codeine [Tylenol /Codeine # 3 tab] 1 tab PO Q6H PRN #14 tab PRN Reason: Pain
--- NOTE | 2017-05-07 12:12 | Progress Note ---
Assessment and Plan Assessment: Chest pain, atypical - currently resolved; recurrent; ECG with NAF; Leighann negative for AMI. Coronary disease status post bare-metal stents in the proximal right coronary artery Anxiety Hypertension Hyperlipidemia Gastroesophageal reflux disease Plan: S/p lexiscan MPI stress test this AM - Normal study without evidence of significant ischemia or prior infarct; Normal lv fxn (70%) w/o evidence of TID. Currently stable cardiac status. Cont present cardiac regimen. Pt may discharge home from cardiology standpoint. Recommend follow up in our office with Maria Elena Mondragon NP, within 2 weeks of hospital discharge ([phone]). The patient has been seen in conjunction with Dr. Caroline Billingsley who agrees with the assessment and plan of care. Subjective Date of service: 05/07/17 Principal diagnosis: atypical chest pain Interval history: Pt seen in stress lab, denies any cardiac complaints. VSS. Objective Last Vital Signs Temp 98.3 F 05/07/17 08:00 Pulse 91 H 05/07/17 10:46 Resp 18 05/07/17 08:00 BP 139/74 05/07/17 10:46 Pulse Ox 98 05/07/17 09:01 - Physical Examination HEENT: Positive: PERRL, Normocephaly, Mucus Membranes Moist Neck: Positive: neck supple, trachea midline Cardiac: Positive: Reg Rate and Rhythm, S1/S2 Lungs: Positive: clear to auscultation Neuro: Positive: Grossly Intact, Cranial Nerve 2-12 Intact Abdomen: Positive: Unremarkable, Soft, Active Bowel Sounds. Negative: Tender Skin: Positive: Clear. Negative: Rash, Wound Musculoskeletal: No Fluid Collection, No Pain, Normal Range of Motion Extremities: Present: upper extr. pulses, lower extr. pulses. Absent: edema - Labs and Meds Comprehensive Metabolic Panel 05/07/17 Range/Units 07:51 Sodium 139 (137-145) mmol/L Potassium 3.7 (3.6-5.0) mmol/L Chloride 105.7 (98-107) mmol/L Carbon Dioxide 23 (22-30) mmol/L BUN 7 (7-17) mg/dL Creatinine 0.7 (0.7-1.2) mg/dL Glucose 89 (65-100) mg/dL Calcium 8.6 (8.4-10.2) mg/dL - Imaging and Cardiology EKG: report reviewed Echo: report reviewed Cardiac cath: report reviewed - EKG Sinus rhythms and dysrhythmias: sinus bradycardia (52bpm) Repolarization changes or abnormalities: nonspecific abnormality, ST segment, and/or T wave
[2017-05-07] MEDS: THERAGRAN Tab PO SCH (14:35)
[2017-05-07] MEDS: ASPIRIN PO SCH (14:36)
[2017-05-07] MEDS: EFFIENT PO SCH (14:36)
[2017-05-07] MEDS: PROTONIX PO SCH (14:36)
[2017-05-07] MEDS: FEOSOL PO SCH (14:36)
[2017-05-07] MEDS: IMDUR PO SCH (14:36)
[2017-05-07 19:55] VITALS: BP 117/75
== END 2017-05-07 23:55 | disposition home or self-care (01) | DRG 303 ==
LOC: ED 11:06 → 4A 15:24
PROVIDERS: ADMIT Internal Medicine; ATTEND Internal Medicine
DX: I25.10 Atherosclerotic heart disease of native coronary artery without angina pectoris (principal); E78.5 Hyperlipidemia, unspecified; K21.9 Gastro-esophageal reflux disease without esophagitis; I10 Essential (primary) hypertension; G89.29 Other chronic pain; M54.9 Dorsalgia, unspecified; E66.9 Obesity, unspecified; K58.9 Irritable bowel syndrome, unspecified; F17.200 Nicotine dependence, unspecified, uncomplicated; F41.9 Anxiety disorder, unspecified; Z95.5 Presence of coronary angioplasty implant and graft; Z91.041 Radiographic dye allergy status; Z91.013 Allergy to seafood; I25.2 Old myocardial infarction; Z68.39 Body mass index [BMI] 39.0-39.9, adult; Z82.49 Family history of ischemic heart disease and other diseases of the circulatory system
CPT/HCPCS: 36415; 71010; 78452; 80048; 80061; 83880; 84484; 85007; 85025; 85379; 93005; 93010; 93017; 96361; 96374; A9502; J2270; J2405; J2785; J7030

== ENCOUNTER 2017-08-10 14:17 | Inpatient (IN) | payer OTHER ==
[2017-08-10] MEDS ORDERED: TYLENOL PO PRN (15:19)
[2017-08-10] MEDS ORDERED: MILK OF MAGNESIA PO PRN (15:19)
[2017-08-10] MEDS ORDERED: DULCOLAX PR PRN (15:19)
[2017-08-10] MEDS ORDERED: PROVENTIL IH PRN (15:19)
[2017-08-10] MEDS ORDERED: SODIUM CHLORIDE FLUSH SYRINGE 10 ML IV PRN (15:19)
[2017-08-10] MEDS ORDERED: ZOFRAN IV PRN (15:19)
--- NOTE | 2017-08-10 15:19 | History and Physical Report ---
History of Present Illness Chief complaint: Chest pain History of present illness: 42 YO Female with Obesity, CAD S/P Stent placement,GERD, HLD, IBS, Fibroids admitted driectly to [facility] Hospitalist service at the request of Dr. Billingsley for evaluation. Pt states that she experienced pain in her chest today and presented to an outside hospital. Pt underwent cardiac workup but requested transfer to [facility] for her care. Pt was transferred to [facility] for further cardiac care. Pt seen and evaluated upon arrival. Pt was thanked for her request for transfer to [facility] for her care. Pt denies fever, chills, palpitations, NVD, syncope, trauma, falls, prorlonged travel/immobility, individual/family history of DVT/PE, productive cough, or recent ill contacts. Patient care plan discussed with cardiology team. Past History Past Medical History: acute CO, CAD, GERD, hypertension, hyperlipidemia, other ( acute CO, CAD, GERD, hypertension, hyperlipidemia, other (IBS, Fibroids)) Past Surgical History: Other (acute CO, CAD, GERD, hypertension, hyperlipidemia , other (IBS, Fibroids)) Social history: , lives with family. denies: smoking, alcohol abuse, prescription drug abuse Family history: hypertension Medications and Allergies Allergies Allergy/AdvReac Type Severity Reaction Status Date / Time iodine Allergy Swelling Verified 11/09/16 11:57 shellfish derived Allergy Swelling Verified 11/09/16 11:57 Home Medications Medication Instructions Recorded Confirmed Last Taken Type Carvedilol [Coreg] 12.5 mg PO BID #60 tablet 10/27/16 05/05/17 05/05/17 Rx Ferrous Sulfate [Feosol 325 MG tab] 325 mg PO BID #60 tablet 10/27/16 05/05/17 05/05/17 Rx ISOSORBIDE MONOnitrate [Imdur ER] 30 mg PO QDAY #30 tablet 10/27/16 05/05/1708/12 Rx Pantoprazole [Protonix TAB] 40 mg PO QDAY #30 tablet 10/27/16 05/05/17 05/05/17 Rx Prasugrel [Effient] 10 mg PO QDAY #30 tablet 10/27/16 05/05/17 05/05/17 Rx Ranolazine ER [Ranexa ER] 500 mg PO BID #60 tablet 10/27/16 05/05/1717 Rx Aspirin [Aspirin TAB] 325 mg PO QDAY 05/05/17 05/05/17 05/05/17 History Multivitamin Tab [Multiple Vitamin 1 each PO QDAY 05/05/17 05/05/17 Unknown History TAB (Theragran)] Pravastatin Sodium 40 mg HS 05/05/17 05/05/17 Unknown History Acetaminophen/Codeine [Tylenol 1 tab PO Q6H PRN #14 tab 05/07/17 Unknown Rx /Codeine # 3 tab] Review of Systems Constitutional: no weight loss, no weight gain, no fever, no chills, no sweats, no night sweats Ears, nose, mouth and throat: no ear pain, no ear discharge, no tinnitis, no decreased hearing, no nose pain, no nasal congestion, no nasal discharge Breasts: no change in shape, no swelling, no mass Cardiovascular: chest pain, no orthopnea, no palpitations, no rapid/irregular heart beat, no edema, no syncope, no lightheadedness Respiratory: no cough, no cough with sputum, no excessive sputum, no hemoptysis , no shortness of breath, no dyspnea on exertion Gastrointestinal: no abdominal pain, no nausea, no vomiting, no diarrhea, no constipation, no change in bowel habits Genitourinary Female: no pelvic pain, no flank pain, no menorrhagia, no dysuria , no urinary frequency, no urgency Rectal: no pain, no incontinence, no bleeding Musculoskeletal: no neck stiffness, no neck pain, no shooting arm pain, no arm numbness/tingling, no low back pain Integumentary: no rash, no pruritis, no redness, no sores, no wounds, no jaundice, no boils Neurological: no transient paralysis, no paralysis, no weakness, no parathesias , no numbness, no tingling Psychiatric: no anxiety, no memory loss, no change in sleep habits, no sleep disturbances, no insomnia, no hypersomnia, no change in appetite Endocrine: no cold intolerance, no heat intolerance, no polyphagia, no excessive thirst, no polydipsia, no polyuria, no nocturia Hematologic/Lymphatic: no easy bruising, no easy bleeding Allergic/Immunologic: no urticaria, no allergic rhinitis, no wheezing Exam - Constitutional General appearance: Present: mild distress - EENT Eyes: Present: PERRL ENT: hearing intact, clear oral mucosa - Neck Neck: Present: supple, normal ROM - Respiratory Respiratory effort: normal Respiratory: bilateral: CTA - Cardiovascular Heart Sounds: Present: S1 & S2. Absent: rub, click - Extremities Extremities: pulses symmetrical, No edema Peripheral Pulses: within normal limits - Abdominal General gastrointestinal: Present: soft, non-tender, non-distended, normal bowel sounds Female genitourinary: Present: normal - Integumentary Integumentary: Present: clear, warm, dry - Musculoskeletal Musculoskeletal: gait normal, strength equal bilaterally - Psychiatric Psychiatric: appropriate mood/affect, intact judgment & insight - Neurologic Neurologic: CNII-XII intact, moves all extremities Assessment and Plan - Patient Problems (1) Chest pain Current Visit: No Status: Acute Qualifiers: Chest pain type: unspecified Ischemic chest pain type: I Qualified Code(s ): R07.9 - Chest pain, unspecified Plan to address problem: Pt underwent ACS workup at outside hospital. Stress test in AM as per cardiology team, (2) CAD (coronary artery disease) Current Visit: Yes Status: Acute Qualifiers: Coronary Disease-Associated Artery/Lesion type: C [place] vs. transplanted heart: N Associated angina: A Plan to address problem: low cholesterol diet, risk factor reduction, continue medical management, (3) HLD (hyperlipidemia) Current Visit: Yes Status: Acute Qualifiers: Hyperlipidemia type: H Plan to address problem: continue statin therapy, balanced low cholesterol diet, (4) GERD (gastroesophageal reflux disease) Current Visit: Yes Status: Acute Qualifiers: Esophagitis presence: E Plan to address problem: ppi therapy, supportive care. (5) DVT prophylaxis Current Visit: Yes Status: Acute
[2017-08-10] MEDS ORDERED: BABY ASPIRIN PO STA (17:54)
[2017-08-10] MEDS: RANEXA ER PO SCH (21:02)
[2017-08-10] MEDS: ZOCOR PO SCH (21:02)
[2017-08-10] MEDS: COREG PO SCH (21:03)
[2017-08-10] MEDS: FEOSOL PO SCH (21:03)
[2017-08-10] MEDS ORDERED: NON-FORMULARY (Pravastatin Sodium 40 MG) PO SCH (22:00)
[2017-08-11] MEDS ORDERED: ASPIRIN PO SCH (10:00)
[2017-08-11] MEDS: FEOSOL PO SCH ×2 (11:41→21:28)
[2017-08-11] MEDS: RANEXA ER PO SCH ×2 (11:41→21:28)
[2017-08-11] MEDS: IMDUR PO SCH (11:41)
[2017-08-11] MEDS: PROTONIX PO SCH (11:42)
[2017-08-11] MEDS: COREG PO SCH ×2 (11:42→21:29)
[2017-08-11] MEDS: THERAGRAN Tab PO SCH (11:42)
[2017-08-11] MEDS: EFFIENT PO SCH (11:43)
--- NOTE | 2017-08-11 14:32 | Consultation ---
History of Present Illness Consult date: 08/11/17 Requesting physician: KARI RODRIGUEZ Consult reason: chest pain History of present illness: The patient is a 42YO female with a PMHx significant for CAD, status post ST elevation CT in February 2016 requiring a BMS to the proximal RCA, anxiety, GERD, chronic recurrent chest pain, uterine fibroids, HTN and HLP. She is followed by Dr. Maverick Billingsley in our office. She presented with c/o chest pain since this past Friday. She reports that [place] [facility] [place] but was directly transferred to [facility] at her request because she is known at this facility by our practice and did not want to undergo cardiac workup elsewhere. She describes her pain as a nonexertional, nonradiating, midsternal and sometimes right-sided pain. She denies any palpitations, SOB, n/v, diaphoresis, dizziness or syncope. Pt reports compliance with her medications, including ASA and effient. Of note,the pt has had approximately 20 admissions for chest pain evaluations. Due to continuing chest pain, she underwent repeat coronary angiography on 05/10 which revealed mild, nonobstructive CAD with a 25% in-stent restenosis of the RCA. Lexiscan MPI stress test done 05/07/17 showed no evidence of significant ischemia or prior infarct, Normal lv fxn (70%) w/o evidence of TID. Past History Past Medical History: acute CT, CAD, GERD, hypertension, hyperlipidemia, other ( acute CT, CAD, GERD, hypertension, hyperlipidemia, other (IBS, Fibroids)) Past Surgical History: Other (acute CT, CAD, GERD, hypertension, hyperlipidemia , other (IBS, Fibroids)) Social history: , lives with family. denies: smoking, alcohol abuse, prescription drug abuse Family history: hypertension Medications and Allergies Allergies Allergy/AdvReac Type Severity Reaction Status Date / Time iodine Allergy Swelling Verified 11/09/16 11:57 shellfish derived Allergy Swelling Verified 11/09/16 11:57 Home Medications Medication Instructions Recorded Confirmed Last Taken Type Carvedilol [Coreg] 12.5 mg PO BID #60 tablet 10/27/16 08/11/17 1 Day Ago Rx Ferrous Sulfate [Feosol 325 MG tab] 325 mg PO BID #60 tablet 10/27/16 08/11/17 1 Day Ago Rx ISOSORBIDE MONOnitrate [Imdur ER] 30 mg PO QDAY #30 tablet 10/27/16 08/11/17 1 Day Ago Rx Pantoprazole [Protonix TAB] 40 mg PO QDAY #30 tablet 10/27/16 08/11/17 1 Day Ago Rx Prasugrel [Effient] 10 mg PO QDAY #30 tablet 10/27/16 08/11/17 1 Day Ago Rx Ranolazine ER [Ranexa ER] 500 mg PO BID #60 tablet 10/27/16 08/11/17 1 Day Ago Rx Aspirin [Aspirin TAB] 325 mg PO QDAY 05/05/17 08/11/17 1 Day Ago History Multivitamin Tab [Multiple Vitamin 1 each PO QDAY 05/05/17 08/11/17 1 Day Ago History TAB (Theragran)] Pravastatin Sodium [Pravachol] 40 mg PO QHS #0 05/05/17 08/11/17 1 Day Ago History Acetaminophen/Codeine [Tylenol 1 tab PO Q6H PRN #14 tab 05/07/17 08/11/17 2 Days Ago Rx /Codeine # 3 tab] Active Meds: Active Medications Acetaminophen (Tylenol) 650 mg PO Q4H PRN PRN Reason: Pain MILD(1-3)/Fever >100.5/DC Last Admin: 08/11/17 11:55 Dose: 650 mg Acetaminophen/Codeine Phosphate (Tylenol #3) 1 tab PO Q6H PRN PRN Reason: Pain Albuterol (Proventil) 2.5 mg IH Q4HRT PRN PRN Reason: Shortness Of Breath Aspirin (Aspirin) 325 mg PO QDAY [facility] Last Admin: 08/11/17 11:41 Dose: 325 mg Bisacodyl (Dulcolax) 10 mg [place] QDAY PRN PRN Reason: Constipation unrelieved by MOM Last Admin: 08/10/17 19:24 Dose: 10 mg Carvedilol (Coreg) 12.5 mg PO BID [facility] Last Admin: 08/11/17 11:42 Dose: 12.5 mg Ferrous Sulfate (Feosol) 325 mg PO BID [facility] Last Admin: 08/11/17 11:41 Dose: 325 mg Isosorbide Mononitrate (Imdur) 30 mg PO QDAY [facility] Last Admin: 08/11/17 11:41 Dose: 30 mg Magnesium Hydroxide (Milk Of Magnesia) 30 ml PO Q4H PRN PRN Reason: Constipation Multivitamins (Theragran Tab) 1 each PO QDAY [facility] Last Admin: 08/11/17 11:42 Dose: 1 each Ondansetron HCl (Zofran) 4 mg IV Q8H PRN PRN Reason: N/V unrelieved by Reglan Pantoprazole Sodium (Protonix) 40 mg PO QDAY [facility] Last Admin: 08/11/17 11:42 Dose: 40 mg Prasugrel (Effient) 10 mg PO QDAY [facility] Last Admin: 08/11/17 11:43 Dose: 10 mg Ranolazine (Ranexa Er) 500 mg PO BID [facility] Last Admin: 08/11/17 11:41 Dose: 500 mg Simvastatin (Zocor) 20 mg PO QHS [facility] Last Admin: 08/10/17 21:02 Dose: 20 mg Sodium Chloride (Sodium Chloride Flush Syringe 10 Ml) 10 ml IV PRN PRN PRN Reason: LINE FLUSH Review of Systems Constitutional: no weight loss, no weight gain, no fever, no chills, no sweats Ears, nose, mouth and throat: no ear pain, no nose pain, no sinus pressure, no sinus pain Cardiovascular: chest pain, no orthopnea, no palpitations, no rapid/irregular heart beat, no edema, no syncope, no lightheadedness, no shortness of breath, no dyspnea on exertion, no high blood pressure Respiratory: no cough, no shortness of breath, no dyspnea on exertion, no congestion, no wheezing, no pain on inspiration Gastrointestinal: no abdominal pain, no nausea, no vomiting, no diarrhea, no constipation, no change in bowel habits Genitourinary Female: no pelvic pain, no flank pain, no dysuria, no urinary frequency, no urgency Musculoskeletal: no neck stiffness, no neck pain, no shooting arm pain, no arm numbness/tingling, no low back pain, no shooting leg pain, no leg numbness/ tingling, no redness of joints Integumentary: no rash, no pruritis, no redness, no sores, no wounds Neurological: no head injury, no paralysis, no weakness, no parathesias, no numbness, no tingling, no seizures, no syncope Psychiatric: no anxiety Endocrine: no cold intolerance, no heat intolerance Hematologic/Lymphatic: no easy bruising, no easy bleeding, no lymphadenopathy Allergic/Immunologic: no urticaria, no wheezing, no persistent infections Physical Examination Vital Signs Temp Pulse Resp BP Pulse Ox 98.7 F 64 18 133/92 99 08/10/17 19:24 08/10/17 19:24 08/10/17 19:24 08/10/17 19:24 08/10/17 19:24 General appearance: no acute distress HEENT: Positive: PERRL, Normocephaly, Mucus Membranes Moist Neck: Positive: neck supple, trachea midline Cardiac: Positive: Reg Rate and Rhythm, S1/S2 Lungs: Positive: Normal Exam, clear to auscultation, Normal Breath Sounds Neuro: Positive: Grossly Intact, Cranial Nerve 2-12 Intact Abdomen: Positive: Unremarkable, Soft, Active Bowel Sounds. Negative: Tender Skin: Positive: Clear. Negative: Rash, Wound Musculoskeletal: No Fluid Collection, No Pain, Normal Range of Motion Extremities: Absent: edema Results - Imaging and Cardiology Cardiac cath: report reviewed (05/10/2016 which revealed mild, nonobstructive CAD with a 25% in-stent restenosis of the RCA) EKG: image reviewed EKG interpretations - Telemetry EKG Rhythm: Sinus Rhythm - EKG Sinus rhythms and dysrhythmias: sinus rhythm Assessment and Plan Assessment: Chest pain, atypical - recurrent; ECG with NAF; Leighann negative for AMI. Coronary disease status post bare-metal stents in the proximal right coronary artery 02/2016 Anxiety Hypertension Hyperlipidemia Gastroesophageal reflux disease Uterine fibroids H/o iodine and shellfish allergy Plan: Cont present cardiac regimen. Plan for LHC in AM. Indications, potential risks and benefits of LHC reviewed with pt and she is agreeable to proceed with LHC in AM. Consents obtained. NPO after MN. Will pre-medicate with benadryl, solu-medrol, and pepcid d/t h/o iodine and shellfish allergy. The patient has been seen in conjunction with Dr. Cotter who agrees with the assessment and plan of care.
[2017-08-11] MEDS ORDERED: NACL 0.9% 500 ML 500 ML IV SCH (15:00)
--- NOTE | 2017-08-11 15:15 | Progress Note ---
Assessment and Plan (1) Chest pain Current Visit: No Status: Acute Qualifiers: Chest pain type: unspecified Ischemic chest pain type: I Qualified Code(s ): R07.9 - Chest pain, unspecified Plan to address problem: Pt underwent ACS workup at outside hospital. BP appears stable, Aortic dissection unlikely Plan for cardiac cath tomorrow (2) CAD (coronary artery disease) Current Visit: Yes Status: Acute Qualifiers: Coronary Disease-Associated Artery/Lesion type: C [place] vs. transplanted heart: N Associated angina: A Plan to address problem: low cholesterol diet, risk factor reduction, continue medical management, (3) HLD (hyperlipidemia) Current Visit: Yes Status: Acute Qualifiers: Hyperlipidemia type: H Plan to address problem: continue statin therapy, balanced low cholesterol diet, (4) GERD (gastroesophageal reflux disease) Current Visit: Yes Status: Acute Qualifiers: Esophagitis presence: E Plan to address problem: ppi therapy, supportive care. (5) DVT prophylaxis Current Visit: Yes Status: Acute Subjective Date of service: 08/11/17 Interval history: Patient seen and examined. Medical records and medication list reviewed. No acute event overnight noted by the RN. Patient denies any difficulty breathing. Patient is tolerating diet. C/o chest pain and stating that is now rediating towards her back Discussed plan of care at bedside with patient. Objective - Exam Narrative Exam: GENERAL: well-developed obese AAF lying on bed appeared to be in no discomfort. HEENT: Normocephalic. Atraumatic. No conjunctival congestion or icterus. Patient has moist mucous membranes. NECK: Supple. Trachea midline. CHEST/LUNGS: Clear to auscultated bilaterally, breathing nonlabored. No wheezes crackles or rhonchi. HEART/CARDIOVASCULAR: Regular in rate and rhythm. S1 and S2 positive. ABDOMEN: Abdomen is soft, nontender. Patient has normal bowel sounds. SKIN: There is no rash. Warm and dry. NEURO: No focal motor deficit. Follows command. MUSCULOSKELETAL: No joint effusion or tenderness. EXTRIMITY: No edema, no cyanosis or clubbing. PSYCH: Cooperative. - Constitutional Vitals: Vital Signs - 12hr 08/11/17 08/11/17 08/11/17 04:23 07:13 07:28 Temperature 97.9 F 98.9 F 98.9 F Pulse Rate 64 64 82 Respiratory 18 20 20 Rate Blood Pressure 141/57 111/58 Blood Pressure 111/58 [Left] O2 Sat by Pulse 100 99 98 Oximetry 08/11/17 08/11/17 11:47 13:40 Temperature 98.7 F Pulse Rate 58 L 69 Respiratory 16 Rate Blood Pressure 121/71 Blood Pressure [Left] O2 Sat by Pulse 100 Oximetry - Labs CBC & Chem 7: 08/12/17 04:29 08/12/17 04:29
[2017-08-11] MEDS: TYLENOL #3 PO PRN (17:45)
[2017-08-11] MEDS: ZOCOR PO SCH (21:28)
[2017-08-11] MEDS: BENADRYL IV SCH (21:28)
[2017-08-11] MEDS ORDERED: PEPCID IV SCH (22:00)
[2017-08-12 04:57] LABS: Basophils % (Auto) 0.4 % (0.0-1.8); Hematocrit 38.8 % (30.3-42.9); Mean Corpuscular HGB Conc 34 % (30-34); Mean Corpuscular Hemoglobin 33 pg (28-32); Mean Corpuscular Volume 97 fl (79-97); Platelet Count 304 K/mm3 (140-440); Red Blood Count 3.99 M/mm3 (3.65-5.03); Red Cell Distribution Width 15.1 % (13.2-15.2); White Blood Count 6.4 K/mm3 (4.5-11.0)
[2017-08-12 05:07] LABS: INR 0.97 (0.87-1.13)
[2017-08-12 05:19] LABS: Anion Gap 20 mmol/L; BUN/Creatinine Ratio 13; Blood Urea Nitrogen 9 mg/dL (7-17); Calcium 9.6 mg/dL (8.4-10.2); Carbon Dioxide 21 mmol/L (22-30); Chloride 103.3 mmol/L (98-107); Glucose 131 mg/dL (65-100); Potassium 4.6 mmol/L (3.6-5.0); Sodium 140 mmol/L (137-145)
[2017-08-12] MEDS: TYLENOL #3 PO PRN (05:26)
[2017-08-12] MEDS: BENADRYL IV SCH (05:26)
[2017-08-12] MEDS ORDERED: ECOTRIN PO ONE ×2 (08:10→09:00)
[2017-08-12] MEDS ORDERED: NITROGLYCERIN SYRINGE 0 ML ONE (08:33)
[2017-08-12] MEDS: SUBLIMAZE ONE ×2 (08:55→09:20)
[2017-08-12] MEDS: XYLOCAINE 2% INFILTRATI ONE ×2 (08:55→09:21)
[2017-08-12] MEDS: VERSED ONE ×2 (08:55→09:20)
[2017-08-12] MEDS: HEPARIN/NS 5000 UNIT/500ML(CATH LAB) 1,000 ML IR ONE ×2 (08:56→09:20)
[2017-08-12] MEDS: NACL 0.9% 500 ML 500 ML ONE ×2 (08:56→09:21)
[2017-08-12] MEDS: CALAN ONE ×2 (08:57→09:21)
[2017-08-12] MEDS: HEPARIN 10,000 UNITS/10 ML ONE ×2 (08:57→09:21)
--- NOTE | 2017-08-12 10:17 | Progress Note ---
Assessment and Plan Assessment: Chest pain, atypical - currently resolved; recurrent; ECG with NAF; Leighann negative for AMI. Coronary disease status post bare-metal stents in the proximal right coronary artery 02/2016 Anxiety Hypertension Hyperlipidemia Gastroesophageal reflux disease Uterine fibroids H/o iodine and shellfish allergy Plan: s/p LHC this AM which revealed patent RCA stent, normal coronaries. Currently stable cardiac status. Pt may discharge home from cardiology standpoint. Follow up in our [place] office with Dr. Caroline Billingsley on 08/15/2017 @ 2:00PM. The patient has been seen in conjunction with Dr. Laar who agrees with the assessment and plan of care. Subjective Date of service: 08/12/17 Principal diagnosis: cp Interval history: pt for [facility] today Objective Last Vital Signs Temp 98.7 F 08/12/17 07:45 Pulse 78 08/12/17 07:45 Resp 18 08/12/17 07:45 BP 123/77 08/12/17 07:45 Pulse Ox 97 08/12/17 07:45 - Physical Examination General: Appears Well HEENT: Positive: PERRL, Normocephaly, Mucus Membranes Moist Neck: Positive: neck supple, trachea midline Cardiac: Positive: Reg Rate and Rhythm, S1/S2 Lungs: Positive: clear to auscultation Neuro: Positive: Grossly Intact, Cranial Nerve 2-12 Intact Abdomen: Positive: Unremarkable, Soft, Active Bowel Sounds. Negative: Tender Skin: Positive: Clear. Negative: Rash, Wound Musculoskeletal: No Fluid Collection, No Pain, Normal Range of Motion Extremities: Absent: edema - Labs and Meds Coagulation 08/12/17 Range/Units 04:29 PT 13.4 (12.2-14.9) Sec. INR 0.97 (0.87-1.13) CBC 08/12/17 Range/Units 04:29 WBC 6.4 (4.5-11.0) K/mm3 RBC 3.99 (3.65-5.03) M/mm3 Hgb 13.0 (10.1-14.3) gm/dl Hct 38.8 (30.3-42.9) % Plt Count 304 (140-440) K/mm3 Lymph # 0.6 L (1.2-5.4) K/mm3 Prentiss # 0.0 (0.0-0.8) K/mm3 Eos # 0.0 (0.0-0.4) K/mm3 Baso # 0.0 (0.0-0.1) K/mm3 Comprehensive Metabolic Panel 08/12/17 Range/Units 04:29 Sodium 140 (137-145) mmol/L Potassium 4.6 (3.6-5.0) mmol/L Chloride 103.3 (98-107) mmol/L Carbon Dioxide 21 L (22-30) mmol/L BUN 9 (7-17) mg/dL Creatinine 0.7 (0.7-1.2) mg/dL Glucose 131 H (65-100) mg/dL Calcium 9.6 (8.4-10.2) mg/dL - Imaging and Cardiology EKG: image reviewed Cardiac cath: report reviewed (05/10/2016 which revealed mild, nonobstructive CAD with a 25% in-stent restenosis of the RCA) - EKG Sinus rhythms and dysrhythmias: sinus rhythm
[2017-08-12] MEDS: RANEXA ER PO SCH (10:25)
[2017-08-12] MEDS: COREG PO SCH (10:26)
[2017-08-12] MEDS: PROTONIX PO SCH (10:26)
[2017-08-12] MEDS: EFFIENT PO SCH (10:26)
[2017-08-12] MEDS: THERAGRAN Tab PO SCH (10:26)
[2017-08-12] MEDS: FEOSOL PO SCH (10:26)
--- NOTE | 2017-08-12 10:26 | Discharge Summary ---
Providers - Providers Date of Admission: 08/10/17 17:47 Date of discharge: 08/12/17 Attending physician: SABINA LLOYD 08/10/17 15:19 Consult to Physician [CONS] Routine Consulting Provider: ESPERANZA ISLAS Reason For Exam: chest pain Place consult to:: [facility] Notified:: y Comment:: added to list 08/12/17 10:17 Consult to Cardiac Rehabilitation [CONS] Routine Reason For Exam: Cardiac Rehab Evaluation Primary care physician: DIRECTOR NETWORK DEVELOPMENT Hospitalization Condition: Stable Hospital course: The patient is a 42YO female with a PMHx significant for CAD, status post ST elevation UT in February 2016 requiring a BMS to the proximal RCA, anxiety, GERD, chronic recurrent chest pain, uterine fibroids, HTN and HLP presented with c/o chest pain since this past Friday. Of note, the pt has had approximately 20 admissions for chest pain evaluations. Due to continuing chest pain, she underwent repeat coronary angiography on 05/10/2016 which revealed mild, nonobstructive CAD with a 25% in-stent restenosis of the RCA. Lexiscan MPI stress test done 05/07/17 showed no evidence of significant ischemia or prior infarct, Normal lv fxn (70%) w/o evidence of TID. Following admission she was placed on chest pain protocol and cardiology was consulted. She underwent another cardiac cath and that revealed patent coronaries. She was discharged home in stable condition. Discharge diagnosis: /Chest pain, likely due to GERD Pt underwent ACS workup at outside hospital. BP appears stable, Aortic dissection unlikely s/p cardiac cath today showed patent coronaries /CAD (coronary artery disease) low cholesterol diet, risk factor reduction, continue medical management, /HLD (hyperlipidemia) continue statin therapy, balanced low cholesterol diet, /GERD (gastroesophageal reflux disease) ppi therapy, supportive care. Disposition: - TO HOME OR SELFCARE Time spent for discharge: 32 minutes Core Measure Documentation - Palliative Care Palliative Care/ Comfort Measures: Not Applicable - Core Measures Any of the following diagnoses?: none Exam - Physical Exam Narrative exam: GENERAL: well-developed obese AAF lying on bed appeared to be in no discomfort. HEENT: Normocephalic. Atraumatic. No conjunctival congestion or icterus. Patient has moist mucous membranes. NECK: Supple. Trachea midline. CHEST/LUNGS: Clear to auscultated bilaterally, breathing nonlabored. No wheezes crackles or rhonchi. HEART/CARDIOVASCULAR: Regular in rate and rhythm. S1 and S2 positive. ABDOMEN: Abdomen is soft, nontender. Patient has normal bowel sounds. SKIN: There is no rash. Warm and dry. NEURO: No focal motor deficit. Follows command. MUSCULOSKELETAL: No joint effusion or tenderness. EXTRIMITY: No edema, no cyanosis or clubbing. PSYCH: Cooperative. - Constitutional Vitals: Temp Pulse Resp BP Pulse Ox 98.7 F 78 18 123/77 97 08/12/17 07:45 08/12/17 07:45 08/12/17 07:45 08/12/17 07:45 08/12/17 07:45 Plan Activity: advance as tolerated Weight Bearing Status: Weight Bear as Tolerated Diet: low fat, low salt Additional Instructions: f/u with glazier artist in one week Follow up with: ESPERANZA ISLAS MD [Staff Physician] - 7 Days PRIMARY CARE, [Primary Care Provider] - 7 Days Prescriptions: Simvastatin [Zocor TAB] 20 mg PO QHS #30 tablet Acetaminophen/Codeine [Tylenol /Codeine # 3 tab] 1 tab PO Q6H PRN #14 tab PRN Reason: Pain Aspirin [Aspirin TAB] 325 mg PO QDAY #30 tablet Carvedilol [Coreg] 12.5 mg PO BID #60 tablet Ferrous Sulfate [Feosol 325 MG tab] 325 mg PO BID #60 tablet ISOSORBIDE MONOnitrate [Imdur ER] 30 mg PO QDAY #30 tablet KlonoPIN 1 mg PO BID #14 MDD 2 Multivitamin Tab [Multiple Vitamin TAB (Theragran)] 1 each PO QDAY #30 tablet Pantoprazole [Protonix TAB] 40 mg PO QDAY #30 tablet Prasugrel [Effient] 10 mg PO QDAY #30 tablet Ranolazine ER [Ranexa ER] 500 mg PO BID #60 tablet
[2017-08-12] MEDS: IMDUR PO SCH (10:27)
--- NOTE | 2017-08-12 10:46 | Cardiac Catherization Report ---
CARDIAC CATHETERIZATION INDICATIONS: The patient is a 42-year-old -Mac[place] female with history of known coronary artery disease presented with chest pain. The patient has known coronary artery disease with history of ST-elevation myocardial infarction in 02/2016 requiring a bare metal stent to the proximal RCA and subsequently had a repeat cardiac catheterization done apparently last year with 25% in-stent restenosis of the RCA. The patient had Lexiscan MPI stress test done on 05/07/2017 which showed no evidence of significant ischemia or prior infarct. The patient being continued on medical therapy; however, was admitted to [facility] this week and transferred here for further evaluation because of persistent chest pain. She was scheduled for cardiac catheterization for definitive diagnosis and treatment. The patient is aware of the procedure, potential complications, and the alternatives of therapy available. The patient has a history of being allergic to selfish or iodine, hence she was premedicated with prednisone and Benadryl. DESCRIPTION OF PROCEDURE: The patient was brought to the catheterization laboratory in a fasting condition. The right wrist area and forearm thoroughly cleansed with Betadine solution and sterile drapes were applied. Local anesthesia was achieved using 2% Xylocaine. Right radial arterial puncture was made using 21-gauge arterial puncture needle. Subsequently, 5-Hong Konger sheath was introduced. A 5-[place] Konger multipurpose catheter was used to obtain the angiograms of the left coronary artery, right coronary artery, and left ventriculogram done in ODOM projection. At the end of the procedure, catheter and sheath were removed. The patient received 5 mg of intra-arterial verapamil and 3000 units of intravenous heparin. Subsequently, the patient was sedated with IV Versed and fentanyl. Following findings were noted: HEMODYNAMICS: 1. Opening aortic pressure 136/86. Left ventricular pressure 139/24. No gradient across the aortic valve. Estimated ejection fraction 50%. 2. Left ventriculogram done in ODOM projection using power injector showed normal sized left ventricle with normal contractility. Ejection fraction probably lower limits of normal. No significant mitral regurgitation noted. Ejection fraction was felt to be 50%. 3. Right coronary artery dominant vessel shows widely patent proximal RCA stent. Only minimal irregularities are noted. 4. Left coronary artery arises normally from left coronary cusp. Left main, which is short and LAD and its branches and circumflex artery and its branches are angiographically smooth and normal. FINAL IMPRESSION: 1. Normal sized left ventricle with normal contractility, ejection fraction 50%. 2. Widely patent proximal RCA stent. Dominant RCA. Left coronary system is essentially unremarkable with minimal irregularities. At this time, the patient has no significant coronary artery disease to explain her symptoms. The patient has negative stress MPI in April of this year. Considering the above, we will continue risk factor modification and medical therapy. Findings were explained to the patient and family. No untoward complications were noted. The patient was premedicated with prednisone and Benadryl and no evidence of allergic reaction noted. Procedure was uncomplicated. JOB# [id number] SHAY/BILLIE
[2017-08-12 18:48] VITALS: BP 133/83
== END 2017-08-12 18:00 | disposition home or self-care (01) | DRG 287 ==
LOC: UNDOADMIN 14:17 → 4A 14:17
PROVIDERS: ADMIT Internal Medicine; ATTEND Internal Medicine
PROC: 4A023N7 Measurement of Cardiac Sampling and Pressure, Left Heart, Percutaneous Approach (ICD-10-PCS; principal; 2017-08-12)
PROC: B2151ZZ Fluoroscopy of Left Heart using Low Osmolar Contrast (ICD-10-PCS; principal; 2017-08-12)
PROC: B2111ZZ Fluoroscopy of Multiple Coronary Arteries using Low Osmolar Contrast (ICD-10-PCS; principal; 2017-08-12)
DX: R07.89 Other chest pain (principal); Z68.41 Body mass index [BMI] 40.0-44.9, adult; I25.10 Atherosclerotic heart disease of native coronary artery without angina pectoris; E78.5 Hyperlipidemia, unspecified; K21.9 Gastro-esophageal reflux disease without esophagitis; Z88.3 Allergy status to other anti-infective agents; Z91.013 Allergy to seafood; E66.9 Obesity, unspecified; I25.2 Old myocardial infarction; I10 Essential (primary) hypertension; Z82.49 Family history of ischemic heart disease and other diseases of the circulatory system; F41.9 Anxiety disorder, unspecified; D25.9 Leiomyoma of uterus, unspecified
CPT/HCPCS: 36415; 80048; 82962; 84484; 85025; 85610; 93005; 93010; 93458; C1894; J1200; J1644; J2250; J2930; J3010; J7040; Q9967

== ENCOUNTER 2019-04-27 00:29 | Observation (INO) | payer MEDICAID, OTHER, SELFPAY ==
[2019-04-27] MEDS ORDERED: ZOFRAN IV ONE (02:07)
[2019-04-27] MEDS ORDERED: NITRO-BID 2% TP ONE (02:07)
[2019-04-27] MEDS ORDERED: SUBLIMAZE IV ONE (02:07)
--- NOTE | 2019-04-27 02:14 | Emergency Department Report ---
HPI - General Chief Complaint: Chest Pain Time Seen by Provider: 04/27/19 01:49 - HPI HPI: Room 2 The patient is a 43-year-old female presenting with a chief complaint of chest pain. The patient states symptoms began this evening at approximately 22:00 when she developed right sided and substernal chest tightness. The patient states her tightness has been constant but she denies shortness of breath, nausea/vomiting or diaphoresis with it. The patient currently gives her chest tightness is 7/10. The patient states yesterday she had an episode of nausea vomiting after eating almonds but her symptoms then resolved. The patient states her last cardiac catheterization occurred in 2016 when her swine nutritionist checked her previously placed stent Location: [See above] Duration: [See above] Quality: [See above] Severity: [See above] Modifying factors: [see above] Context: [see above] Mode of transportation: [not driving] ED Past Medical Hx - Past Medical History Hx Hypertension: Yes Hx Heart Attack/AMI: Yes (stents 03/11) Hx GERD: Yes Additional medical history: 2 STENTS 02/28/16, cholesterol, IBS, fibroids. CHRONIC BACK PAIN - Surgical History Hx Coronary Stent: Yes Additional Surgical History: D&C - Family History Family history: no significant - Social History Smoking Status: Former Smoker (none since 2015) Substance Use Type: None (denies illicit drug use), Alcohol (occasional) - Medications Home Medications: Home Medications Medication Instructions Recorded Confirmed Last Taken Type Aspirin 325 mg PO QDAY #30 tablet 08/12/17 04/27/19 04/27/19 Rx Carvedilol [Coreg] 12.5 mg PO BID #60 tablet 08/12/17 04/27/19 04/27/19 Rx Ferrous Sulfate [Feosol 325 MG tab] 325 mg PO BID #60 tablet 08/12/17 04/27/19 04/27/19 Rx ISOSORBIDE MONOnitrate [Imdur ER] 30 mg PO QDAY #30 tablet 08/12/17 04/27/19 04/27/19 Rx KlonoPIN 1 mg PO BID #14 MDD 2 08/12/17 04/27/19 04/27/19 Rx Prasugrel [Effient] 10 mg PO QDAY #30 tablet 10/17/17 07/02/19 07/02/19 Rx Ranolazine ER [Ranexa ER] 500 mg PO BID #60 tablet 08/12/17 04/27/19 04/27/19 Rx ED Review of Systems ROS: Stated complaint: CHEST PAIN Other details as noted in HPI Constitutional: denies: diaphoresis Eyes: denies: eye pain ENT: denies: throat pain Respiratory: denies: shortness of breath Cardiovascular: chest pain Endocrine: no symptoms reported Gastrointestinal: nausea, vomiting Genitourinary: denies: dysuria Musculoskeletal: denies: back pain Neurological: denies: headache Physical Exam - Physical Exam Vital Signs: Vital Signs 04/27/19 04/27/19 04/27/19 00:40 00:46 01:00 Temperature 98.7 F Pulse Rate 81 78 79 Respiratory 26 H 23 27 H Rate Blood Pressure 119/73 119/73 Blood Pressure 119/73 [Left] O2 Sat by Pulse 96 95 Oximetry 04/27/19 01:15 Temperature Pulse Rate 75 Respiratory 27 H Rate Blood Pressure 119/73 Blood Pressure [Left] O2 Sat by Pulse 97 Oximetry Physical Exam: GENERAL: The patient is well-developed well-nourished female lying on stretcher not appearing to be in acute distress. [] HEENT: Normocephalic. Atraumatic. Extraocular motions are intact. Patient has moist mucous membranes. NECK: Supple. Trachea midline CHEST/LUNGS: Clear to auscultation. There is no respiratory distress noted. HEART/CARDIOVASCULAR: Regular. There is no tachycardia. There is no gallop rub or murmur. ABDOMEN: Abdomen is soft, nontender. Patient has normal bowel sounds. There is no abdominal distention. SKIN: There is no rash. There is no diaphoresis. NEURO: The patient is awake, alert, and oriented. The patient is cooperative. The patient has normal speech MUSCULOSKELETAL: There is no evidence of acute injury. ED Course Vital Signs 04/27/19 04/27/19 04/27/19 00:40 00:46 01:00 Temperature 98.7 F Pulse Rate 81 78 79 Respiratory 26 H 23 27 H Rate Blood Pressure 119/73 119/73 Blood Pressure 119/73 [Left] O2 Sat by Pulse 96 95 Oximetry 04/27/19 01:15 Temperature Pulse Rate 75 Respiratory 27 H Rate Blood Pressure 119/73 Blood Pressure [Left] O2 Sat by Pulse 97 Oximetry ED Medical Decision Making - Lab Data Result diagrams: 04/27/19 02:17 04/27/19 02:17 Laboratory Tests 04/27/19 04/27/19 04/27/19 02:17 02:17 02:17 WBC 9.5 RBC 3.70 Hgb 11.2 Hct 33.9 MCV 92 MCH 30 MCHC 33 RDW 16.1 H Plt Count 444 H Lymph % (Auto) 27.0 Emanuel % (Auto) 6.8 Eos % (Auto) 2.6 Baso % (Auto) 0.7 Lymph # 2.6 Emanuel # 0.7 Eos # 0.2 Baso # 0.1 Seg Neutrophils % 62.9 Seg Neutrophils # 6.0 PT 14.0 INR 1.11 APTT 28.8 Sodium 139 Potassium 3.8 Chloride 101.1 Carbon Dioxide 26 Anion Gap 16 BUN 6 L Creatinine 0.9 Estimated GFR > 60 BUN/Creatinine Ratio 7 Glucose 99 Calcium 9.1 Total Creatine Kinase 48 CK-MB (CK-2) < 1.0 CK-MB (CK-2) Rel Index 2.0 Troponin T < 0.010 - EKG Data -: EKG Interpreted by Me EKG shows normal: sinus rhythm Rate: normal - EKG Data When compared to previous EKG there are: changes noted Interpretation: nonspecific ST-T wave francois (new T-wave inversion in lead V3 and flattened T-wave in lead V4 compared to previous EKG dated 08/11/2017) - Radiology Data Radiology results: report reviewed (chest x-ray), image reviewed (chest x-ray) interpreted by me: Chest x-ray-no focal infiltrates, no pneumothorax - Differential Diagnosis ACS, pericarditis, GERD Critical care attestation.: If time is entered above; I have spent that time in minutes in the direct care of this critically ill patient, excluding procedure time. ED Disposition Clinical Impression: Chest pain Disposition: DC-09 OP ADMIT IP TO THIS HOSP Is pt being admited?: Yes Does the pt Need Aspirin: Yes Condition: Fair Instructions: Chest Pain (ED) Time of Disposition: 03:13 (hospitalist paged (Dr Cuellar))
[2019-04-27] MEDS ORDERED: ASPIRIN PO ONE (02:19)
--- NOTE | 2019-04-27 02:36 | XRay Report ---
CHEST 1 VIEW INDICATION / CLINICAL INFORMATION: chest pain. COMPARISON: None available. FINDINGS: SUPPORT DEVICES: None. HEART / MEDIASTINUM: No significant abnormality. LUNGS / PLEURA: No significant pulmonary or pleural abnormality. No pneumothorax. ADDITIONAL FINDINGS: No significant additional findings. IMPRESSION: 1. No acute findings. Signer Name: Susanna Blanc MD Signed: 04/27/2019 1:32 AM Workstation Name: [id number]
[2019-04-27 02:48] LABS: Basophils # (Auto) 0.1 K/mm3 (0.0-0.1); Basophils % (Auto) 0.7 % (0.0-1.8); Eosinophils # (Auto) 0.2 K/mm3 (0.0-0.4); Eosinophils % (Auto) 2.6 % (0.0-4.3); Hematocrit 33.9 % (30.3-42.9); Hemoglobin 11.2 gm/dl (10.1-14.3); Lymphocytes # (Auto) 2.6 K/mm3 (1.2-5.4); Mean Corpuscular HGB Conc 33 % (30-34); Mean Corpuscular Volume 92 fl (79-97); Monocytes # (Auto) 0.7 K/mm3 (0.0-0.8); Monocytes % (Auto) 6.8 % (0.0-7.3); Platelet Count 444 K/mm3 (140-440); Red Cell Distribution Width 16.1 % (13.2-15.2)
[2019-04-27 03:03] LABS: INR 1.11 (0.87-1.13)
[2019-04-27 03:04] LABS: Partial Thromboplastin Time 28.8 Sec. (24.2-36.6)
[2019-04-27 03:05] LABS: BUN/Creatinine Ratio 7; Blood Urea Nitrogen 6 mg/dL (7-17); Calcium 9.1 mg/dL (8.4-10.2); Hemolysis Index 3
[2019-04-27 03:08] LABS: Creatine Kinase MB < 1.0 ng/mL (0.0-4.0)
[2019-04-27] MEDS ORDERED: PROVENTIL IH PRN (03:51)
[2019-04-27] MEDS ORDERED: MORPHINE IV PRN (03:51)
[2019-04-27] MEDS ORDERED: SODIUM CHLORIDE FLUSH SYRINGE 10 ML IV PRN (03:51)
[2019-04-27] MEDS ORDERED: ZOFRAN IV PRN (03:51)
[2019-04-27] MEDS ORDERED: TYLENOL PO PRN (03:51)
[2019-04-27] MEDS ORDERED: DILAUDID IV PRN (03:53)
[2019-04-27] MEDS ORDERED: NITROSTAT SL PRN (03:53)
[2019-04-27] MEDS ORDERED: PERCOCET 5/325 PO PRN (03:53)
--- NOTE | 2019-04-27 04:03 | History and Physical Report ---
History of Present Illness Date of examination: 04/27/19 Date of admission: 04/27/2019 Chief complaint: Acute Chest pain History of present illness: 43-year-old -[place] female with history of GA s/p stent x2 (2016) hypertension, GERD, hyperlipidemia, IBS, chronic back pain who presents to [facility] see ED with complaints of substernal right-sided chest pain with radiation to back. She states that approximately 2 days ago she began experiencing constant right sided substernal chest pain with radiation to back. She describes her chest pain has "tightness"and rates her pain 7/10. She states that she tried taking Ranolazine for her CP with no relief. She admits to feeling nauseous and one episode of emesis that occurred after eating almonds. Patient states that she is had cardiac catheterization in 2016 S/P stent 2. 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 Billingsley. Denies: Recent smoking history (last smoked in 2015), Fever, diarrhea, headache, shortness of breath, syncope, cough, hemoptysis, or recent sick contact. Past History Past Medical History: acute GA (s/p stent x2 2016), GERD, hypertension, hyperlipidemia, other (chronic back pain, IBS, fibroids) Past Surgical History: Other (D & C, stent x2 02/28/16) Social history: other (former smoker quit in 2015) Family history: no significant family history Medications and Allergies Allergies Allergy/AdvReac Type Severity Reaction Status Date / Time iodine Allergy Swelling Verified 04/27/19 00:56 shellfish derived Allergy Swelling Verified 04/27/19 00:56 Home Medications Medication Instructions Recorded Confirmed Last Taken Type Aspirin 325 mg PO QDAY #30 tablet 08/12/17 04/27/19 04/27/19 Rx Carvedilol [Coreg] 12.5 mg PO BID #60 tablet 08/12/17 04/27/19 04/27/19 Rx Ferrous Sulfate [Feosol 325 MG tab] 325 mg PO BID #60 tablet 08/12/17 04/27/19 04/27/19 Rx ISOSORBIDE MONOnitrate [Imdur ER] 30 mg PO QDAY #30 tablet 08/12/17 04/27/19 04/27/19 Rx KlonoPIN 1 mg PO BID #14 MDD 2 08/12/17 04/27/19 04/27/19 Rx Prasugrel [Effient] 10 mg PO QDAY #30 tablet 08/12/17 04/27/19 04/27/19 Rx Ranolazine ER [Ranexa ER] 500 mg PO BID #60 tablet 08/12/17 04/27/19 04/27/19 Rx Review of Systems All systems: negative (reviewed and no additional remarkable complaints except as noted below) Cardiovascular: chest pain Exam - Physical Exam Narrative exam: Physical exam General appearance: Present: No acute distress, middle age female, obese, pleasant - EENT Eyes: Present: PERRL, EOM intact ENT: hearing intact, normal dentition - Neck Neck: Present: supple, normal ROM - Respiratory Respiratory effort: Non-labored Respiratory: Clear throughout - Cardiovascular Heart rate:78 (bpm) Rhythm: Sinus rhythm Heart Sounds: Present: S1 & S2. Absent: rub, click - Extremities Extremities: no ischemia, pulses intact, - Peripheral Assessment Peripheral Pulses: within normal limits - Abdominal General gastrointestinal: soft, non-tender, normal bowel sounds - Integumentary Integumentary: Present: warm, dry - Musculoskeletal Musculoskeletal: Able to move all extremities -Neurological Neurological: CN II-XII intact - Psychiatric Psychiatric: cooperative - Constitutional Vitals: Temp Pulse Resp BP Pulse Ox 98.7 F 73 27 H 109/69 97 04/27/19 00:40 04/27/19 03:02 04/27/19 01:15 04/27/19 03:02 04/27/19 01:15 Results - Labs CBC & Chem 7: 04/27/19 02:17 04/27/19 02:17 Labs: Laboratory Last Values WBC 9.5 K/mm3 (4.5-11.0) 04/27/19 02:17 RBC 3.70 M/mm3 (3.65-5.03) 04/27/19 02:17 Hgb 11.2 gm/dl (10.1-14.3) 04/27/19 02:17 Hct 33.9 % (30.3-42.9) 04/27/19 02:17 MCV 92 fl (79-97) 04/27/19 02:17 MCH 30 pg (28-32) 04/27/19 02:17 MCHC 33 % (30-34) 04/27/19 02:17 RDW 16.1 % (13.2-15.2) H 04/27/19 02:17 Plt Count 444 K/mm3 (140-440) H 04/27/19 02:17 Lymph % (Auto) 27.0 % (13.4-35.0) 04/27/19 02:17 [place] % (Auto) 6.8 % (0.0-7.3) 04/27/19 02:17 Eos % (Auto) 2.6 % (0.0-4.3) 04/27/19 02:17 Baso % (Auto) 0.7 % (0.0-1.8) 04/27/19 02:17 Lymph # 2.6 K/mm3 (1.2-5.4) 04/27/19 02:17 [place] # 0.7 K/mm3 (0.0-0.8) 04/27/19 02:17 Eos # 0.2 K/mm3 (0.0-0.4) 04/27/19 02:17 Baso # 0.1 K/mm3 (0.0-0.1) 04/27/19 02:17 Seg Neutrophils % 62.9 % (40.0-70.0) 04/27/19 02:17 Seg Neutrophils # 6.0 K/mm3 (1.8-7.7) 04/27/19 02:17 PT 14.0 Sec. (12.2-14.9) 04/27/19 02:17 INR 1.11 (0.87-1.13) 04/27/19 02:17 APTT 28.8 Sec. (24.2-36.6) 04/27/19 02:17 Sodium 139 mmol/L (137-145) 04/27/19 02:17 Potassium 3.8 mmol/L (3.6-5.0) 04/27/19 02:17 Chloride 101.1 mmol/L (98-107) 04/27/19 02:17 Carbon Dioxide 26 mmol/L (22-30) 04/27/19 02:17 16 mmol/L 04/27/19 02:17 BUN 6 mg/dL (7-17) L 04/27/19 02:17 0.9 mg/dL (0.7-1.2) 04/27/19 02:17 Estimated GFR > 60 ml/min 04/27/19 02:17 7 % 04/27/19 02:17 Glucose 99 mg/dL (65-100) 04/27/19 02:17 Calcium 9.1 mg/dL (8.4-10.2) 04/27/19 02:17 48 units/L (30-135) 04/27/19 02:17 CK-MB (CK-2) < 1.0 ng/mL (0.0-4.0) 04/27/19 02:17 CK-MB (CK-2) Rel Index 2.0 (0-4) 04/27/19 02:17 < 0.010 ng/mL (0.00-0.029) 04/27/19 02:17 - Imaging and Cardiology EKG: image reviewed (sinus rhythm 70 bpm) Chest x-ray: report reviewed (No significant pulmonary or pleural abnormality.), image reviewed Assessment and Plan Assessment and plan: 43-year-old -[place] female with history of GA s/p stent x2 (2016) hypertension, GERD, hyperlipidemia, IBS, chronic back pain who presents to [facility] see ED with complaints of substernal right-sided chest pain with radiation to back for the past 2 days. Troponin negative 1, EKG unrevealing for acute ischemic abnormalities, CXR did not show any acute cardiopulmonary abnormalities. Will admit as OBS to telemetry for further evaluation. Acute chest pain R/O ACS GERD Hx of GA s/p stent x2 2016 Hx of HTN Obesity Plan: Continue supportive care Continuous telemetry monitoring Pain management Cardiology consult pending Echocardiogram pending Monitor BP Resume home antihypertensive meds: Isosorbide mononitrate 30 mg Start Protonix 40 mg daily Resume Prasugrel 10mg daily Resume Ranolazine 500mg BID Lifestyle changes; May benefit from outpatient weight management program DVT PPX ac on Prasugrel and SCD's Advance Directives: No VTE prophylaxis?: Chemical Plan of care discussed with patient/family: Yes
[2019-04-27] MEDS ORDERED: LOVENOX SUB-Q SCH (10:00)
[2019-04-27] MEDS ORDERED: EFFIENT PO SCH (10:00)
[2019-04-27] MEDS ORDERED: COREG PO SCH (10:00)
[2019-04-27] MEDS ORDERED: IMDUR PO SCH (10:00)
[2019-04-27] MEDS ORDERED: FEOSOL PO SCH (10:00)
[2019-04-27] MEDS ORDERED: RANEXA ER PO SCH (10:00)
[2019-04-27] MEDS ORDERED: ASPIRIN PO SCH (10:00)
[2019-04-27] MEDS ORDERED: SODIUM CHLORIDE FLUSH SYRINGE 10 ML IV SCH (10:00)
[2019-04-27] MEDS ORDERED: PROTONIX PO SCH (10:00)
[2019-04-27] MEDS ORDERED: COLACE PO SCH (10:00)
--- NOTE | 2019-04-27 10:44 | Consultation ---
History of Present Illness Consult date: 04/27/19 Requesting physician: ANAM CAMERON Consult reason: chest pain History of present illness: The patient is a 43YO female with a PMHx significant for CAD, status post ST elevation [place] in February 2016 requiring a BMS to the proximal RCA, anxiety, GERD, chronic recurrent chest pain, uterine fibroids, HTN and HLP. She is followed by Dr. Caroline Billingsley in our office. She presented with c/o chest pain which began yesterday evening. She states that she was painting her fingernails when she noted the onset of her pain. She describes her pain as a nonexertional, nonradiating, midsternal and sometimes right-sided squeezing pain. Pt also reports an episode of nausea and vomiting on Friday while eating some almonds. She denies any palpitations, SOB, diaphoresis, dizziness or syncope. Pt reports compliance with her medications. Lexiscan MPI stress test done 05/07/17 showed no evidence of significant ischemia or prior infarct, Normal lv fxn (70%) w/o evidence of TID. LHC done 07/2017 showed no significant CAD, patent prox RCA stent. Echo done 05/2016 showed EF 65%, no significant abnormalities. Past History Past Medical History: acute [place], CAD, GERD, hypertension, hyperlipidemia, other (chronic back pain, IBS, fibroids) Past Surgical History: PTCA Social history: other (former smoker quit in 2015) Family history: no significant family history Medications and Allergies Allergies Allergy/AdvReac Type Severity Reaction Status Date / Time iodine Allergy Swelling Verified 04/27/19 00:56 shellfish derived Allergy Swelling Verified 04/27/19 00:56 Home Medications Medication Instructions Recorded Confirmed Last Taken Type Aspirin 325 mg PO QDAY #30 tablet 08/12/17 04/27/19 04/27/19 Rx Carvedilol [Coreg] 12.5 mg PO BID #60 tablet 08/12/17 04/27/19 04/27/19 Rx Ferrous Sulfate [Feosol 325 MG tab] 325 mg PO BID #60 tablet 08/12/17 04/27/19 04/27/19 Rx ISOSORBIDE MONOnitrate [Imdur ER] 30 mg PO QDAY #30 tablet 08/12/17 04/27/19 04/27/19 Rx KlonoPIN 1 mg PO BID #14 MDD 2 08/12/17 04/27/19 04/27/19 Rx Prasugrel [Effient] 10 mg PO QDAY #30 tablet 08/12/17 04/27/19 04/27/19 Rx Ranolazine ER [Ranexa ER] 500 mg PO BID #60 tablet 08/12/17 04/27/19 04/27/19 Rx Active Meds: Active Medications Acetaminophen (Tylenol) 650 mg PO Q4H PRN PRN Reason: Pain MILD(1-3)/Fever >100.5/DC Albuterol (Proventil) 2.5 mg IH Q4HRT PRN PRN Reason: Shortness Of Breath Aspirin (Aspirin) 325 mg PO QDAY [facility] Last Admin: 04/27/19 10:20 Dose: Not Given Documented by: Atorvastatin Calcium (Lipitor) 40 mg PO QHS [facility] Carvedilol (Coreg) 12.5 mg PO BID [facility] Last Admin: 04/27/19 10:21 Dose: Not Given Documented by: Clonazepam (Klonopin) 1 mg PO BID PRN PRN Reason: Anxiety Docusate Sodium (Colace) 100 mg PO BID [facility] Last Admin: 04/27/19 10:20 Dose: Not Given Documented by: Ferrous Sulfate (Feosol) 325 mg PO BID [facility] Last Admin: 04/27/19 10:21 Dose: Not Given Documented by: Hydromorphone HCl (Dilaudid) 0.5 mg IV Q3H PRN PRN Reason: Pain , Severe (7-10) Stop: 04/27/19 23:59 Isosorbide Mononitrate (Imdur) 30 mg PO QDAY [facility] Last Admin: 04/27/19 10:21 Dose: Not Given Documented by: Morphine Sulfate (Morphine) 2 mg IV Q4H PRN PRN Reason: Pain, Moderate (4-6) Stop: 04/28/19 23:59 Nitroglycerin (Nitrostat) 0.4 mg SL Q5M PRN PRN Reason: Chest Pain Ondansetron HCl (Zofran) 4 mg IV Q8H PRN PRN Reason: Nausea And Vomiting Oxycodone/Acetaminophen (Percocet 5/325) 1 tab PO Q6H PRN PRN Reason: Pain, Moderate (4-6) Pantoprazole Sodium (Protonix) 40 mg PO QDAY [facility] Last Admin: 04/27/19 10:21 Dose: Not Given Documented by: Prasugrel (Effient) 10 mg PO QDAY [facility] Last Admin: 04/27/19 10:21 Dose: Not Given Documented by: Ranolazine (Ranexa Er) 500 mg PO BID [facility] Last Admin: 04/27/19 10:21 Dose: Not Given Documented by: Sodium Chloride (Sodium Chloride Flush Syringe 10 Ml) 10 ml IV BID [facility] Sodium Chloride (Sodium Chloride Flush Syringe 10 Ml) 10 ml IV PRN PRN PRN Reason: LINE FLUSH Review of Systems Constitutional: no weight loss, no weight gain, no fever, no chills, no sweats Ears, nose, mouth and throat: no ear pain, no nose pain, no sinus pressure, no sinus pain Cardiovascular: chest pain, no orthopnea, no palpitations, no rapid/irregular he art beat, no edema, no syncope, no lightheadedness, no shortness of breath, no dyspnea on exertion, no leg edema Respiratory: no cough, no shortness of breath, no dyspnea on exertion, no congestion, no wheezing, no pain on inspiration Gastrointestinal: nausea, vomiting, no abdominal pain, no diarrhea, no constipation, no change in bowel habits Genitourinary Female: no pelvic pain, no flank pain, no dysuria, no urinary cirilo quency, no urgency Musculoskeletal: no neck stiffness, no neck pain, no shooting arm pain, no arm numbness/tingling, no low back pain, no shooting leg pain Integumentary: no rash, no pruritis, no redness, no sores, no wounds Neurological: no head injury, no paralysis, no weakness, no parathesias, no numbness, no tingling, no seizures, no syncope Psychiatric: no anxiety Endocrine: no cold intolerance, no heat intolerance Hematologic/Lymphatic: no easy bruising, no easy bleeding Allergic/Immunologic: no urticaria, no wheezing Physical Examination Vital Signs Temp Pulse Resp BP Pulse Ox 98.7 F 80 16 119/73 97 04/27/19 00:40 04/27/19 00:40 04/27/19 00:40 04/27/19 00:40 04/27/19 00:40 General appearance: no acute distress HEENT: Positive: PERRL, Normocephaly, Mucus Membranes Moist Neck: Positive: neck supple, trachea midline Cardiac: Positive: Reg Rate and Rhythm, S1/S2 Lungs: Positive: clear to auscultation Neuro: Positive: Grossly Intact Abdomen: Negative: Tender Skin: Negative: Rash, Wound Musculoskeletal: No Pain Extremities: Absent: edema Results 04/27/19 02:17 04/27/19 02:17 Cardiac Enzymes 04/27/19 Range/Units 02:17 CK-MB (CK-2) < 1.0 (0.0-4.0) ng/mL Coagulation 04/27/19 Range/Units 02:17 PT 14.0 (12.2-14.9) Sec. INR 1.11 (0.87-1.13) APTT 28.8 (24.2-36.6) Sec. CBC 04/27/19 Range/Units 02:17 WBC 9.5 (4.5-11.0) K/mm3 RBC 3.70 (3.65-5.03) M/mm3 Hgb 11.2 (10.1-14.3) gm/dl Hct 33.9 (30.3-42.9) % Plt Count 444 H (140-440) K/mm3 Lymph # 2.6 (1.2-5.4) K/mm3 Piute # 0.7 (0.0-0.8) K/mm3 Eos # 0.2 (0.0-0.4) K/mm3 Baso # 0.1 (0.0-0.1) K/mm3 Comprehensive Metabolic Panel 04/27/19 Range/Units 02:17 Sodium 139 (137-145) mmol/L Potassium 3.8 (3.6-5.0) mmol/L Chloride 101.1 (98-107) mmol/L Carbon Dioxide 26 (22-30) mmol/L BUN 6 L (7-17) mg/dL Creatinine 0.9 (0.7-1.2) mg/dL Glucose 99 (65-100) mg/dL Calcium 9.1 (8.4-10.2) mg/dL - Imaging and Cardiology Echo: report reviewed ( 05/2016 showed EF 65%, no significant abnormalities. ) Cardiac cath: report reviewed (07/2017 showed no significant CAD, patent prox RCA stent. ) EKG: report reviewed, image reviewed EKG interpretations - Telemetry EKG Rhythm: Sinus Rhythm - EKG Sinus rhythms and dysrhythmias: sinus rhythm Assessment and Plan Assessment: Chest pain, atypical - currently resolved; recurrent; ECG with NAF; Leighann negative for AMI. Coronary disease s/p STEMI with PCI to RCA 02/2016 Anxiety Hypertension Hyperlipidemia Gastroesophageal reflux disease Uterine fibroids H/o iodine and shellfish allergy Plan: Proceed with lexiscan MPI stress test. Await findings. The patient has been seen in conjunction with Dr. Broussard who agrees with the assessment and plan of care.
[2019-04-27] MEDS ORDERED: LEXISCAN IV ONE (10:51)
[2019-04-27 12:19] VITALS: BP 126/63
--- NOTE | 2019-04-27 15:15 | Event Note ---
Date: 04/27/19 Patient denies history of CAD status post stent. Patient presented for chest pain, cardiac enzymes are negative. Cardiology consulted and stress test ordered. Continue management as outlined in H&P.
--- NOTE | 2019-04-27 15:58 | Discharge Summary ---
Providers - Providers Date of Admission: 04/27/19 03:51 Date of discharge: 04/27/19 Attending physician: MARY JO HAM MD 04/27/19 03:53 Consult to Physician [CONS] Routine Comment: Consulting Provider: APRIL ADAMES Physician Instructions: Reason For Exam: acute cp, hx of mi s/p stent x2 2016 Primary care physician: YASEMIN MCCALL Hospitalization Reason for admission: chest pain, CAD Condition: Fair Pertinent studies: Stress test negative for acute ischemia Hospital course: 43-year-old -Irish female with history of [place] s/p stent x2 (2016) hypertension, GERD, hyperlipidemia, IBS, chronic back pain who presents to [facility] see ED with complaints of substernal right-sided chest pain with radiation to back. She states that approximately 2 days ago she began experiencing constant right sided substernal chest pain with radiation to back. She describes her chest pain has "tightness"and rates her pain 7/10. She states that she tried taking Ranolazine for her CP with no relief. She admits to feeling nauseous and one episode of emesis that occurred after eating almonds. Patient states that she is had cardiac catheterization in 2016 S/P stent 2. Her technical communication teacher is Dr. Billingsley. Cardiac enzymes are negative, EKG no abnormality. Stress test was done and negative. CTA not done because of contrast allergy. Chest pain resolved and cardiology cleared for discharge from cardiac point of view. Patient is obese and advised about weight loss. chest pain subsided and discharged home in a stable condition. Disposition: - TO HOME OR SELFCARE Time spent for discharge: 31 minutes - Discharge Diagnoses (1) Atypical chest pain Status: Acute (2) CAD (coronary artery disease) Status: Acute (3) Obesity Status: Acute (4) Morbid obesity with BMI of 50.0-59.9, adult Status: Chronic (5) S/P PTCA (percutaneous transluminal coronary angioplasty) Status: Chronic Core Measure Documentation - Palliative Care Palliative Care/ Comfort Measures: Not Applicable - Core Measures Any of the following diagnoses?: none Exam - Physical Exam Narrative exam: Not in cardiopulmonary distress. The patient is morbidly obese. Vital signs as documented. Head exam is unremarkable. No scleral icterus . Neck is without jugular venous distension, thyromegaly, or carotid bruits. Lungs are clear to auscultation. Cardiac exam reveals regular rate and Rhythm. First and second heart sounds normal. No murmurs, rubs or gallops. Abdominal exam reveals normal bowel sounds, no masses, no organomegaly and no aortic enlargement. Extremities are nonedematous and both femoral and pedal pulses are normal. COORDINATOR OF ONLINE PROGRAMS: Alert and oriented 3. No focal weakness. - Constitutional Vitals: Temp Pulse Resp BP Pulse Ox 97.4 F L 64 18 126/63 99 04/27/19 07:33 04/27/19 07:33 04/27/19 07:33 04/27/19 11:27 04/27/19 07:33 Plan Activity: no restrictions Weight Bearing Status: Full Weight Bearing Diet: low cholesterol, low carbohydrate Follow up with: YASEMIN MCCALL MD [Primary Care Provider] - 3-5 Days
--- NOTE | 2019-04-27 23:53 | Treadmill Report ---
NUCLEAR CARDIAC IMAGING REPORT INDICATION FOR PROCEDURE: Chest pain. Informed consent was obtained. Vasodilator stress was achieved with the intravenous administration of 0.4 mg of Lexiscan per protocol. Rest and stress nuclear cardiac imaging was performed following the intravenous administration of technetium-99m Myoview per protocol. Images were acquired in a 180-degree arc from 45 degrees ODOM to 45 degrees LPO. After data acquisition and reconstruction, the images were processed and reoriented into the vertical long, horizontal long, and horizontal short axis slices. A polar color map of the horizontal short axis slices was generated and reviewed. The rotating planar images reviewed in cinematic format on the computer console. Gated SPECT imaging demonstrates a post-stress left ventricular ejection fraction of 58% with normal wall motion. Myocardial perfusion imaging demonstrates no significant cavity change between stress and rest. No significant stress induced perfusion defects are seen. Nuclear cardiac imaging demonstrates grossly normal post-stress left ventricular systolic function with no significant evidence for myocardial ischemia or necrosis. [facility]# [id number] PRACHI/BILLIE
== END 2019-04-27 16:45 | disposition home or self-care (01) ==
LOC: ED 00:29 → 4A 03:51 → INTOOBSV 03:51
PROVIDERS: ADMIT Hospitalist; ATTEND Internal Medicine
DX: R07.89 Other chest pain (principal); I24.9 Acute ischemic heart disease, unspecified; I10 Essential (primary) hypertension; I25.2 Old myocardial infarction; E66.9 Obesity, unspecified; K21.9 Gastro-esophageal reflux disease without esophagitis; E78.5 Hyperlipidemia, unspecified; K58.9 Irritable bowel syndrome, unspecified; M54.9 Dorsalgia, unspecified; G89.29 Other chronic pain; I25.10 Atherosclerotic heart disease of native coronary artery without angina pectoris; D25.9 Leiomyoma of uterus, unspecified; Z87.891 Personal history of nicotine dependence; Z79.899 Other long term (current) drug therapy; Z98.61 Coronary angioplasty status; Z91.013 Allergy to seafood; Z88.8 Allergy status to other drugs, medicaments and biological substances
CPT/HCPCS: 36415; 71045; 78452; 80048; 82550; 82553; 84484; 85025; 85610; 85730; 93005; 93010; 93017; 93306; 96374; 96375; 99284; A9502; G0378; J2405; J2785; J3010

== ENCOUNTER 2020-09-17 10:57 | Emergency (ER) | payer OTHER ==
--- NOTE | 2020-09-17 11:17 | Emergency Department Report ---
ED Chest Pain HPI - General Chief Complaint: Chest Pain Stated Complaint: CHEST PAIN/ANXIETY Time Seen by Provider: 09/17/20 11:15 Source: EMS Mode of arrival: Stretcher Limitations: No Limitations - History of Present Illness Initial Comments: This is a 45-year old female with a history of bare-metal stent in 2015. She presented to the hospital here in 2019 for chest pain. She was discharged without intervention or complication. The patient had been under the care of Dr. Billingsley. However she stopped seeing her production pattern maker and stated she "went the natural route". The patient tells me that she had some sort of tingling sensation in her left chest this morning. There was no accompanying symptoms. She states that she took a nitroglycerin and the pain got worse. She states that she took 3 in 5 minutes and then she felt her heart racing. She admits excessive stress. She did not describe cough, difficulty in breathing or vomiting. She stated that she had a minimal amount of nausea. The pain was nonpleuritic and actually not radiating. It did involve several areas. She stated it was both sharp dull and burning. Apparently, the pain was fairly atypical. Cardiology consult note 2019: History of Present Illness Consult date: 04/27/19 Requesting physician: ANAM CAMERON Consult reason: chest pain History of present illness: The patient is a 43YO female with a PMHx significant for CAD, status post ST elevation [place] in February 2016 requiring a BMS to the proximal RCA, anxiety, GERD, chronic recurrent chest pain, uterine fibroids, HTN and HLP. She is followed by Dr. Caroline Billingsley in our office. She presented with c/o chest pain which began yesterday evening. She states that she was painting her fingernails when she no lianna the onset of her pain. She describes her pain as a nonexertional, nonradiating, midsternal and sometimes right-sided squeezing pain. Pt also reports an episode of nausea and vomiting on Friday while eating some almonds. She denies any palpitations, SOB, diaphoresis, dizziness or syncope. Pt reports compliance with her medications. Lexiscan MPI stress test done 05/07/17 showed no evidence of significant ischemia or prior infarct, Normal lv fxn (70%) w/o evidence of TID. LHC done 07/2017 showed no significant CAD, patent prox RCA stent. Echo done 05/2016 showed EF 65%, no significant abnormalities. Past History Past Medical History: acute [place], CAD, GERD, hypertension, hyperlipidemia, other (chronic back pain, IBS, fibroids) Past Surgical History: PTCA Social history: other (former smoker quit in 2016) Family history: no significant family history Hospitalist discharge summary: Hospital course: 43-year-old -[place] female with history of [place] s/p stent x2 (2016) hypertension, GERD, hyperlipidemia, IBS, chronic back pain who presents to [facility] see ED with complaints of substernal right-sided chest pain with radiation to back. She states that approximately 2 days ago she began experiencing constant right sided substernal chest pain with radiation to back. She describes her chest pain has "tightness"and rates her pain 7/10. She states that she tried taking Ranolazine for her CP with no relief. She admits to feeling nauseous and one episode of emesis that occurred after eating almonds. Patient states that she is had cardiac catheterization in 2016 S/P stent 2. Her production pattern maker is Dr. Billingsley. Cardiac enzymes are negative, EKG no abnormality. Stress test was done and negative. CTA not done because of contrast allergy. Chest pain resolved and cardiology cleared for discharge from cardiac point of view. Patient is obese and advised about weight loss. chest pain subsided and discharged home in a stable condition. Disposition: -01 TO HOME OR SELFCARE Time spent for discharge: 31 minutes - Discharge Diagnoses (1) Atypical chest pain Status: Acute (2) CAD (coronary artery disease) Status: Acute (3) Obesity Status: Acute (4) Morbid obesity with BMI of 50.0-59.9, adult Status: Chronic (5) S/P PTCA (percutaneous transluminal coronary angioplasty) Status: Chronic MD Complaint: chest pain -: Gradual Onset: during rest Pain Location: left chest Pain Radiation: other (Involves arm and back also) Severity: moderate Quality: other (As above) Consistency: now resolved Worsens With: other (States worsened after nitroglycerin) Context: other (Medical noncompliance) re: nausea (Mild), other (Anxiety). denies: vomting, diaphoresis, dyspnea, sense of impending doom Other Symptoms: denies: cough, fever, syncope Aspirin use within the Past 7 Days: (1) Yes (States took 4 baby aspirin this morning) - Related Data Previous Rx's Medication Instructions Recorded Last Taken Type Aspirin 325 mg PO QDAY #30 tablet 08/12/17 04/27/19 Rx Ferrous Sulfate [Feosol 325 MG tab] 325 mg PO BID #60 tablet 08/12/17 04/27/19 Rx ISOSORBIDE MONOnitrate [Imdur ER] 30 mg PO QDAY #30 tablet 08/12/17 04/27/19 Rx KlonoPIN 1 mg PO BID #14 MDD 2 08/12/17 04/27/19 Rx Prasugrel [Effient] 10 mg PO QDAY #30 tablet 08/12/17 04/27/19 Rx Ranolazine ER [Ranexa ER] 500 mg PO BID #60 tablet 08/12/17 04/27/19 Rx carvediloL [Coreg] 12.5 mg PO BID #60 tablet 08/12/17 04/27/19 Rx carvediloL [Coreg] 12.5 mg PO BID #60 tablet 09/17/20 Unknown Rx Allergies Allergy/AdvReac Type Severity Reaction Status Date / Time iodine Allergy Swelling Verified 04/27/19 00:56 shellfish derived Allergy Swelling Verified 04/27/19 00:56 Heart Score - HEART Score History: Slightly suspicious EKG: Normal Age: < 45 Risk factors: > 3 risk factors or hx of atherosclerotic disease Troponin: < normal limit HEART Score: 2 - Critical Actions Critical Actions: 0-3 pts:0.9-1.7%risk of adverse cardiac event.Candidate for discharge ED Review of Systems ROS: Stated complaint: CHEST PAIN/ANXIETY Other details as noted in HPI Constitutional: denies: chills, fever Eyes: denies: eye pain, eye discharge, vision change ENT: denies: ear pain, throat pain Respiratory: denies: cough, shortness of breath Cardiovascular: as per HPI, chest pain. denies: palpitations Endocrine: no symptoms reported Gastrointestinal: denies: abdominal pain, nausea, diarrhea Genitourinary: denies: urgency, dysuria Musculoskeletal: denies: back pain, joint swelling, arthralgia Skin: denies: rash, lesions Neurological: denies: headache, weakness, paresthesias Psychiatric: anxiety. denies: depression Hematological/Lymphatic: denies: easy bleeding, easy bruising ED Past Medical Hx - Past Medical History Hx Hypertension: Yes Hx CVA: No Hx Heart Attack/AMI: Yes (stents 03/11) Hx Congestive Heart Failure: No Hx Diabetes: No Hx Deep Vein Thrombosis: No Hx Pulmonary Embolism: No Hx GERD: Yes Hx Liver Disease: No Hx Renal Disease: No Hx Sickle Cell Disease: No Hx Arthritis: No Hx Headaches / Migraines: No Hx Seizures: No Hx Kidney Stones: No Hx Psychiatric Treatment: No Hx Asthma: No Hx COPD: No Hx Tuberculosis: No Hx Dementia: No Hx HIV: No Additional medical history: 2 STENTS 02/28/16, cholesterol, IBS, fibroids. CHRONIC BACK PAIN - Surgical History Hx Coronary Stent: Yes Hx Open Heart Surgery: No Hx Pacemaker: No Hx Internal Defibrillator: No Hx Cholecystectomy: No Hx Appendectomy: No Hx Breast Surgery: No Additional Surgical History: D&C - Social History Smoking Status: Former Smoker - Medications Home Medications: Home Medications Medication Instructions Recorded Confirmed Last Taken Type Aspirin 325 mg PO QDAY #30 tablet 08/12/17 04/27/19 04/27/19 Rx Ferrous Sulfate [Feosol 325 MG tab] 325 mg PO BID #60 tablet 08/12/17 04/27/19 04/27/19 Rx ISOSORBIDE MONOnitrate [Imdur ER] 30 mg PO QDAY #30 tablet 08/12/17 04/27/19 04/27/19 Rx KlonoPIN 1 mg PO BID #14 MDD 2 08/12/17 04/27/19 04/27/19 Rx Prasugrel [Effient] 10 mg PO QDAY #30 tablet 08/12/17 04/27/19 04/27/19 Rx Ranolazine ER [Ranexa ER] 500 mg PO BID #60 tablet 08/12/17 04/27/19 04/27/19 Rx carvediloL [Coreg] 12.5 mg PO BID #60 tablet 08/12/17 04/27/19 04/27/19 Rx carvediloL [Coreg] 12.5 mg PO BID #60 tablet 09/17/20 Unknown Rx ED Physical Exam - General Limitations: Physical Limitation General appearance: alert, in no apparent distress - Head Head exam: Present: atraumatic, normocephalic - Eye Eye exam: Present: normal appearance - ENT ENT exam: Present: mucous membranes moist - Neck Neck exam: Present: normal inspection - Respiratory Respiratory exam: Present: normal lung sounds bilaterally, chest wall tenderness (Reproduces the patient's discomfort left hip). Absent: respiratory distress - Cardiovascular Cardiovascular Exam: Present: regular rate, normal rhythm. Absent: systolic murmur, diastolic murmur, rubs, gallop - GI/Abdominal GI/Abdominal exam: Present: soft, normal bowel sounds. Absent: distended, tenderness, guarding, rebound, rigid - Extremities Exam Extremities exam: Present: normal inspection, normal capillary refill. Absent: pedal edema, joint swelling, calf tenderness - Back Exam Back exam: Present: normal inspection - Neurological Exam Neurological exam: Present: alert, oriented X3, CN II-XII intact. Absent: motor sensory deficit - Psychiatric Psychiatric exam: Present: normal affect, normal mood - Skin Skin exam: Present: warm, dry, intact, normal color. Absent: rash ED Course Vital Signs 09/17/20 09/17/20 09/17/20 11:16 11:25 11:30 Pulse Rate 81 75 Respiratory 16 22 Rate Blood Pressure 118/68 Blood Pressure 111/60 [Left] O2 Sat by Pulse 96 96 Oximetry 09/17/20 11:45 Pulse Rate 76 Respiratory 26 H Rate Blood Pressure 118/68 Blood Pressure [Left] O2 Sat by Pulse 98 Oximetry - Reevaluation(s) Reevaluation #1: Patient resting comfortably. No recurrent chest pain. I do not see real benefit of hospitalization at this point. She will be placed back on her carvedilol. Continue aspirin. She requested Klonopin. However this is best prescribed by primary care. 09/17/20 14:34 OLMAN score - Olman Score Age > 65: (0) No Aspirin use within the Past 7 Days: (1) Yes 3 or more CAD Risk Factors: (1) Yes 2 or more Angina events in past 24 hrs: (0) No Known CAD with more than 50% Stenosis: (0) No Elevated Cardiac Markers: (0) No ST Deviation Greater than 0.5mm: (0) No OLMAN Score: 2 ED Medical Decision Making - Lab Data Result diagrams: 09/17/20 11:37 09/17/20 11:37 - EKG Data -: EKG Interpreted by Me EKG shows normal: sinus rhythm, axis, intervals, QRS complexes, ST-T waves Rate: normal - EKG Data Interpretation: normal EKG Critical care attestation.: If time is entered above; I have spent that time in minutes in the direct care of this critically ill patient, excluding procedure time. ED Disposition Clinical Impression: Atypical chest pain, Stented coronary artery Disposition: TO HOME OR SELFCARE Is pt being admited?: No Does the pt Need Aspirin: No Condition: Stable Instructions: Chest Pain (ED), Chest Wall Pain, Nonspecific Chest Pain, Adult Additional Instructions: Return as needed any recurrent chest pain. Continue aspirin daily. Referral to [facility] and Dr. Billingsley. Prescriptions: carvediloL [Coreg] 12.5 mg PO BID #60 tablet Referrals: IBRAHIMA BILLINGSLEY MD [Staff Physician] - 3-5 Days ESPERANZA BILLINGSLEY MD [Staff Physician] - 3-5 Days [facility] [Provider Group] - 2-3 Days Time of Disposition: 14:36
--- NOTE | 2020-09-17 11:50 | XRay Report ---
CHEST 1 VIEW 09/17/2020 11:35 AM INDICATION / CLINICAL INFORMATION: Chest Pain. COMPARISON: 04/27/2019 FINDINGS: SUPPORT DEVICES: None. HEART / MEDIASTINUM: No significant abnormality. LUNGS / PLEURA: No significant pulmonary or pleural abnormality. No pneumothorax. ADDITIONAL FINDINGS: No significant additional findings. IMPRESSION: 1. No acute findings. Signer Name: Tristan Taylor MD Signed: 09/17/2020 11:45 AM Workstation Name: [id number]
[2020-09-17 11:56] VITALS: BP 118/68
[2020-09-17 12:01] LABS: Basophils # (Auto) 0.1 K/mm3 (0.0-0.1); Basophils % (Auto) 0.7 % (0.0-1.8); Eosinophils # (Auto) 0.2 K/mm3 (0.0-0.4); Eosinophils % (Auto) 2.2 % (0.0-4.3); Hematocrit 36.2 % (30.3-42.9); Hemoglobin 11.9 gm/dl (10.1-14.3); Lymphocytes # (Auto) 1.4 K/mm3 (1.2-5.4); Mean Corpuscular HGB Conc 33 % (30-34); Mean Corpuscular Volume 94 fl (79-97); Monocytes # (Auto) 0.7 K/mm3 (0.0-0.8); Monocytes % (Auto) 9.1 % (0.0-7.3); Platelet Count 423 K/mm3 (140-440); Red Blood Count 3.86 M/mm3 (3.65-5.03); Red Cell Distribution Width 16.3 % (13.2-15.2)
[2020-09-17 12:14] LABS: INR 0.96 (0.87-1.13); Partial Thromboplastin Time 29.2 Sec. (24.2-36.6)
[2020-09-17 12:15] LABS: Alanine Aminotransferase 6 units/L (7-56); Albumin 3.4 g/dL (3.9-5); Blood Urea Nitrogen 5 mg/dL (7-17); Calcium 9.1 mg/dL (8.4-10.2); Hemolysis Index 1
[2020-09-17 12:19] LABS: BUN/Creatinine Ratio 8; Bilirubin,Direct < 0.2 mg/dL (0-0.2)
== END 2020-09-17 15:40 | disposition home or self-care (01) ==
LOC: ED 10:57
DX: R07.89 Other chest pain (principal); I25.2 Old myocardial infarction; I10 Essential (primary) hypertension; K21.9 Gastro-esophageal reflux disease without esophagitis; Z95.1 Presence of aortocoronary bypass graft; Z98.890 Other specified postprocedural states; Z87.891 Personal history of nicotine dependence; Z79.899 Other long term (current) drug therapy; Z91.013 Allergy to seafood; Z88.8 Allergy status to other drugs, medicaments and biological substances
CPT/HCPCS: 36415; 71045; 80048; 80076; 84484; 85025; 85610; 85730; 93005

== ENCOUNTER 2021-03-21 13:23 | Emergency (ER) | payer OTHER ==
--- NOTE | 2021-03-21 15:00 | Event Note ---
ED Screening Note Date of service: 03/21/21 Time: 15:00 ED Screening Note: 45-year-old -[place] female patient presents with complaints of vaginal bleeding in starting last night Denies abdominal pain States she began feeling short of breath today History of [place] Denies chest pain This initial assessment/diagnostic orders/clinical plan/treatment(s) is/are subject to change based on patients health status, clinical progression and re- assessment by fellow clinical providers in the ED. Further treatment and workup at subsequent clinical providers discretion. Patient/guardian urged not to elope from the ED as their condition may be serious if not clinically assessed and ma naged. Initial orders include: Labs Ultrasound EKG Chest x-ray
[2021-03-21 15:42] LABS: Basophils # (Auto) 0.1 K/mm3 (0.0-0.1); Basophils % (Auto) 0.9 % (0.0-1.8); Eosinophils # (Auto) 0.2 K/mm3 (0.0-0.4); Eosinophils % (Auto) 2.1 % (0.0-4.3); Hematocrit 38.7 % (30.3-42.9); Hemoglobin 12.4 gm/dl (10.1-14.3); Lymphocytes # (Auto) 2.1 K/mm3 (1.2-5.4); Lymphocytes % (Auto) 18.5 % (13.4-35.0); Mean Corpuscular HGB Conc 32 % (30-34); Mean Corpuscular Volume 94 fl (79-97); Monocytes # (Auto) 0.9 K/mm3 (0.0-0.8); Monocytes % (Auto) 7.6 % (0.0-7.3); Platelet Count 485 K/mm3 (140-440); Red Blood Count 4.11 M/mm3 (3.65-5.03); Red Cell Distribution Width 17.5 % (13.2-15.2)
[2021-03-21 15:49] LABS: Bilirubin,Urine NEG (Negative); Blood,Urine LG (Negative); Color,Urine Yellow (Yellow); Mucus,Urine FEW /HPF; Protein,Urine <15 mg/dL mg/dL (Negative); Urobilinogen,Urine < 2.0 mg/dL (<2.0)
[2021-03-21 15:57] LABS: RBC,Urine > 182.0 /HPF (0.0-6.0)
[2021-03-21 16:01] LABS: Alanine Aminotransferase 8 units/L (7-56); Albumin 4.1 g/dL (3.9-5); Blood Urea Nitrogen 4 mg/dL (7-17); Calcium 9.2 mg/dL (8.4-10.2); Hemolysis Index 31
[2021-03-21 16:08] LABS: BUN/Creatinine Ratio 7
--- NOTE | 2021-03-21 17:18 | XRay Report ---
CHEST 1 VIEW 03/21/2021 4:12 PM INDICATION / CLINICAL INFORMATION: Chest pain. COMPARISON: 09/17/20. FINDINGS: SUPPORT DEVICES: None. HEART / MEDIASTINUM: The heart size and pulmonary vasculature are normal. The aorta is normal in francis kvng. LUNGS / PLEURA: No significant pulmonary or pleural abnormality. No pneumothorax. ADDITIONAL FINDINGS: No significant additional findings. IMPRESSION: No acute abnormality or significant change. Signer Name: David Martinez MD Signed: 03/21/2021 5:14 PM Workstation Name: [email or web address]
--- NOTE | 2021-03-21 20:07 | Emergency Department Report ---
ED HPI - General Chief complaint: Vaginal Bleeding Stated complaint: SOB Time Seen by Provider: 03/21/21 19:51 Source: patient, EMS Mode of arrival: Wheelchair Limitations: No Limitations - History of Present Illness Initial comments: Patient is a 45-year-old female that presents emergency room with complaints of vaginal bleeding. Patient states had vaginal bleeding for 3 days. Patient states that she is 6 weeks . Patient states she was . Patient states her youngest child is 20 years old. Patient found approximately 3 weeks ago with a home test that she was . Patient states she confirmed with another urinalysis test at a health department. Patient's states that she had a blood test at a [facility] that was positive for states she has not had ultrasound to confirm the . Patient denies abdominal pain. Patient denies cramping. Patient states that she is like vaginal bleeding patient denies passing clots. Patient denies chest pain. Patient complains of shortness of breath. Patient states her shortness of breath started approximately 3 hours prior to arrival. Patient states happened while she is driving. Patient states she has a history of anxiety. Patient states that her shortness of breath has resolved with relaxing in the waiting room. Patient states her pain is better with relaxing and her shortness of breath is worse with stress and her anxiety. Patient states she has a panic disorder. Patient denies recent travel. Patient denies recent international travel. Patient denies exposure to the novel coronavirus. Patient denies sick contacts. Patient denies fever and chills. Patient denies cough. Patient denies diarrhea. Patient denies coming in contact with anybody with symptoms of the novel coronavirus. Complaint: vaginal bleeding -: Sudden Radiation: none Severity: mild Severity scale (0 -10): 0 Consistency: constant Improves with: none Worsens with: none Associated symptoms: vaginal bleeding, shortness of breath Vaginal bleeding: light :: Yes Number of weeks : 6 OB History - Current : no complications OB History - Previous Pregnancies: no complications Pre- care: followed by OB - Related Data : 3 Para: 2 Previous Rx's Medication Instructions Recorded Last Taken Type Aspirin 325 mg PO QDAY #30 tablet 08/12/17 04/27/19 Rx Ferrous Sulfate [Feosol 325 MG tab] 325 mg PO BID #60 tablet 08/12/17 04/27/19 Rx ISOSORBIDE MONOnitrate [Imdur ER] 30 mg PO QDAY #30 tablet 08/12/17 04/27/19 Rx KlonoPIN 1 mg PO BID #14 MDD 2 08/12/17 04/27/19 Rx Prasugrel [Effient] 10 mg PO QDAY #30 tablet 08/12/17 04/27/19 Rx Ranolazine ER [Ranexa ER] 500 mg PO BID #60 tablet 08/12/17 04/27/19 Rx carvediloL [Coreg] 12.5 mg PO BID #60 tablet 08/12/17 04/27/19 Rx carvediloL [Coreg] 12.5 mg PO BID #60 tablet 09/17/20 Unknown Rx Amoxicillin [Amoxicillin TAB] 875 mg PO BID 7 Days #14 tablet 03/21/21 Unknown Rx clonazePAM [ Klonopin] 0.5 mg PO BID PRN #12 tab 03/21/21 Unknown Rx Allergies Allergy/AdvReac Type Severity Reaction Status Date / Time iodine Allergy Swelling Verified 03/21/21 14:58 shellfish derived Allergy Swelling Verified 03/21/21 14:58 ED Review of Systems ROS: Stated complaint: SOB Other details as noted in HPI Constitutional: denies: chills, fever Eyes: denies: eye pain, eye discharge, vision change ENT: denies: ear pain, throat pain Respiratory: see HPI, shortness of breath. denies: cough, wheezing Cardiovascular: denies: chest pain, palpitations Endocrine: no symptoms reported Gastrointestinal: denies: abdominal pain, nausea, diarrhea Genitourinary: as per HPI. denies: urgency, dysuria, discharge Musculoskeletal: denies: back pain, joint swelling, arthralgia Skin: denies: rash, lesions Neurological: denies: headache, weakness, paresthesias Psychiatric: as per HPI, anxiety. denies: depression Hematological/Lymphatic: denies: easy bleeding, easy bruising ED Past Medical Hx - Past Medical History Previous Medical History?: Yes Hx Hypertension: Yes Hx CVA: No Hx Heart Attack/AMI: Yes (stents 03/11) Hx Congestive Heart Failure: No Hx Diabetes: No Hx Deep Vein Thrombosis: No Hx Pulmonary Embolism: No Hx GERD: Yes Hx Liver Disease: No Hx Renal Disease: No Hx Sickle Cell Disease: No Hx Arthritis: No Hx Headaches / Migraines: No Hx Seizures: No Hx Kidney Stones: No Hx Psychiatric Treatment: No Hx Asthma: No Hx COPD: No Hx Tuberculosis: No Hx Dementia: No Hx HIV: No Additional medical history: 2 STENTS 02/28/16, cholesterol, IBS, fibroids. CHRONIC BACK PAIN - Surgical History Past Surgical History?: Yes Hx Coronary Stent: Yes Hx Open Heart Surgery: No Hx Pacemaker: No Hx Internal Defibrillator: No Hx Cholecystectomy: No Hx Appendectomy: No Hx Breast Surgery: No Additional Surgical History: D&C - Family History Family history: no significant - Social History Smoking Status: Former Smoker Substance Use Type: None - Medications Home Medications: Home Medications Medication Instructions Recorded Confirmed Last Taken Type Aspirin 325 mg PO QDAY #30 tablet 08/12/17 04/27/19 04/27/19 Rx Ferrous Sulfate [Feosol 325 MG tab] 325 mg PO BID #60 tablet 08/12/17 04/27/19 04/27/19 Rx ISOSORBIDE MONOnitrate [Imdur ER] 30 mg PO QDAY #30 tablet 08/12/17 04/27/19 04/27/19 Rx KlonoPIN 1 mg PO BID #14 MDD 2 08/12/17 04/27/19 04/27/19 Rx Prasugrel [Effient] 10 mg PO QDAY #30 tablet 08/12/17 04/27/19 04/27/19 Rx Ranolazine ER [Ranexa ER] 500 mg PO BID #60 tablet 08/12/17 04/27/19 04/27/19 Rx carvediloL [Coreg] 12.5 mg PO BID #60 tablet 08/12/17 04/27/19 04/27/19 Rx carvediloL [Coreg] 12.5 mg PO BID #60 tablet 09/17/20 Unknown Rx Amoxicillin [Amoxicillin TAB] 875 mg PO BID 7 Days #14 tablet 03/21/21 Unknown Rx clonazePAM [ Klonopin] 0.5 mg PO BID PRN #12 tab 03/21/21 Unknown Rx ED Physical Exam - General Limitations: No Limitations General appearance: alert, in no apparent distress - Head Head exam: Present: atraumatic, normocephalic - Eye Eye exam: Present: normal appearance - ENT ENT exam: Present: mucous membranes moist - Neck Neck exam: Present: normal inspection - Respiratory Respiratory exam: Present: normal lung sounds bilaterally. Absent: respiratory distress, wheezes, rales - Cardiovascular Cardiovascular Exam: Present: regular rate, normal rhythm. Absent: systolic murmur, diastolic murmur, rubs, gallop - GI/Abdominal GI/Abdominal exam: Present: soft, normal bowel sounds. Absent: distended, tenderness, guarding - Extremities Exam Extremities exam: Present: normal inspection - Back Exam Back exam: Present: normal inspection - Neurological Exam Neurological exam: Present: alert, oriented X3 - Psychiatric Psychiatric exam: Present: normal affect, normal mood - Skin Skin exam: Present: warm, dry, intact, normal color. Absent: rash ED Course Vital Signs 03/21/21 03/21/21 03/21/21 14:54 20:15 20:31 Temperature 98.3 F 98.5 F Pulse Rate 88 83 80 Respiratory 16 23 19 Rate Blood Pressure 115/79 124/62 129/67 Blood Pressure 124/62 [Left] O2 Sat by Pulse 100 99 98 Oximetry - Reevaluation(s) Reevaluation #1: Patient states her shortness of breath has resolved. Patient states her anxiety has improved. Patient states she is out of her Klonopin and she took her last 1 this morning. Patient states she needs a refill. Patient will be given a refill of Klonopin. Patient will be refill of Klonopin 0.5 mg. I discussed all results and clinical findings with patient. I discussed plan of care with patient. Patient agrees with plan of care. Patient is stable for discharge. Patient will be discharged home. Patient given discharge i nstructions. Patient voiced understanding of discharge instructions. 03/21/21 22:39 ED Medical Decision Making - Lab Data Result diagrams: 03/21/21 15:23 03/21/21 15:23 - Radiology Data Radiology results: report reviewed US OB <= 14 weeks fetus INDICATION / CLINICAL INFORMATION: bleeding in . TECHNIQUE: Transabdominal. COMPARISON: None available. FINDINGS: UTERUS: Appears within normal limits. GESTATIONAL SAC: Gestational sac measures 10 mm. Yolk sac is present. No definite pole. ADNEXA: Ovaries are not visualized. FREE FLUID: None. ADDITIONAL FINDINGS: None. IMPRESSION: 1. Gestational sac is present with ESTIMATED age of 5 weeks and 5 days. No pole is present which could be related to early intrauterine . Trend beta-hCG and repeat sonograms as indicated. CHEST 1 VIEW 03/21/2021 4:12 PM INDICATION / CLINICAL INFORMATION: Chest pain. COMPARISON: 09/17/20. FINDINGS: SUPPORT DEVICES: None. HEART / MEDIASTINUM: The heart size and pulmonary vasculature are normal. The aorta is normal in caliber. LUNGS / PLEURA: No significant pulmonary or pleural abnormality. No pneumothorax. ADDITIONAL FINDINGS: No significant additional findings. IMPRESSION: No acute abnormality or significant change. - Medical Decision Making Patient is a 45-year-old female that presents emergency room with complaints of shortness of breath and vaginal bleeding. Patient of breath secondary to anxiety. Patient ran out of her Klonopin today. Patient shortness of breath resolved while in the ER with relaxation techniques. Patient stated she was 6 weeks . Patient had labs done. Patient's labs are essentially unremarkable except for elevated hCG and a UTI.. Patient had an ultrasound and the ultrasound showed a positive IUP with a gestational sac. Patient's gestational age who is approximately 5 weeks. Patient is stable for discharge. Patient will be discharged home. Patient was given a refill of her Klonopin. Patient instructed to start vitamin. Patient will also be given antibiotics. Patient will be given information for a [facility] in the area. - Differential Diagnosis Shortness of breath, anxiety, vaginal bleeding, , spotting, UTI Critical care attestation.: If time is entered above; I have spent that time in minutes in the direct care of this critically ill patient, excluding procedure time. ED Disposition Clinical Impression: SOB (shortness of breath), Anxiety, Vaginal bleeding affecting early , Threatened miscarriage UTI (urinary tract infection) Qualifiers: Urinary tract infection type: acute cystitis Hematuria presence: with hematuria Qualified Code(s): N30.01 - Acute cystitis with hematuria Qualifiers: Weeks of gestation: less than 8 weeks Qualified Code(s): Z3A.01 - Less than 8 weeks gestation of Disposition: TO HOME OR SELFCARE Is pt being admited?: No Does the pt Need Aspirin: No Condition: Stable Instructions: Threatened Miscarriage, Vaginal Bleeding During , First Trimester, Care, Threatened Miscarriage, [id number], First Trimester of , [id number], Urinary Tract Infection, Adult, [id number], Managing Anxiety, Adult, Anxiety Additional Instructions: Patient to follow-up with primary care in 2 to 3 days. Patient to start a vitamin. Patient to follow-up with [facility] in 2 to 3 days. Patient to rest. Patient to increase water. Patient to avoid strenuous exercise or heavy lifting until cleared by [facility]. Nothing per vagina until cleared by [facility]. Patient to take Tylenol as needed for pain. Patient to take meds as directed. Patient to return to the ER if condition worsens, changes or new symptoms arise. Prescriptions: Amoxicillin [Amoxicillin TAB] 875 mg PO BID 7 Days #14 tablet clonazePAM [ Klonopin] 0.5 mg PO BID PRN #12 tab PRN Reason: Anxiety Referrals: PRIMARY MD ANN [Primary Care Provider] - 2-3 Days LALO HAYES MD [Staff Physician] - 2-3 Days Time of Disposition: 22:27
--- NOTE | 2021-03-21 20:19 | Ultrasound Report ---
US OB <= 14 weeks fetus INDICATION / CLINICAL INFORMATION: bleeding in . TECHNIQUE: Transabdominal. COMPARISON: None available. FINDINGS: UTERUS: Appears within normal limits. GESTATIONAL SAC: Gestational sac measures 10 mm. Yolk sac is present. No definite pole. ADNEXA: Ovaries are not visualized. FREE FLUID: None. ADDITIONAL FINDINGS: None. IMPRESSION: 1. Gestational sac is present with ESTIMATED age of 5 weeks and 5 days. No pole is present whic h could be related to early intrauterine . Trend beta-hCG and repeat sonograms as indicated. Signer Name: Vinh Coffman MD Signed: 03/21/2021 8:14 PM Workstation Name: [id number]
[2021-03-21 23:19] VITALS: BP 130/78
--- NOTE | 2021-03-22 06:52 | Ultrasound Report ---
EARLY OBSTETRICAL ULTRASOUND INDICATION: bleeding in COMPARISON: None pertinent available TECHNIQUE: Endovaginal FINDINGS: Intrauterine gestational sac is seen with a yolk sac noted. By sac size gestational age is estimated at 5 weeks 5 days. No pole is detected at this time and no cardiac activity was detec lianna. There may be minimal implantational bleed. Ovaries are not visualized. No adnexal masses are seen. No free fluid is noted. IMPRESSION: Intrauterine is seen but viability is not confirmed. Follow-up is needed. Signer Name: Christiano Haddad MD Signed: 03/22/2021 6:48 AM Workstation Name: [id number]
--- NOTE | 2021-03-22 10:03 | Electrocardiograph Report ---
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
== END 2021-03-21 23:05 | disposition home or self-care (01) ==
LOC: ED 13:23
DX: O20.0 Threatened abortion (principal); O23.41 Unspecified infection of urinary tract in pregnancy, first trimester; O26.891 Other specified pregnancy related conditions, first trimester; F41.9 Anxiety disorder, unspecified; R06.02 Shortness of breath; I10 Essential (primary) hypertension; I25.2 Old myocardial infarction; K21.9 Gastro-esophageal reflux disease without esophagitis; Z3A.01 Less than 8 weeks gestation of pregnancy; Z98.890 Other specified postprocedural states; Z87.891 Personal history of nicotine dependence; Z79.899 Other long term (current) drug therapy; Z91.013 Allergy to seafood; Z88.8 Allergy status to other drugs, medicaments and biological substances
CPT/HCPCS: 36415; 71045; 76801; 76817; 80053; 81001; 84484; 84702; 85025; 86900; 86901; 87086; 93005

== ENCOUNTER 2021-03-23 19:56 | Emergency (ER) | payer OTHER ==
[2021-03-23 21:29] LABS: Basophils # (Auto) 0.1 K/mm3 (0.0-0.1); Basophils % (Auto) 0.8 % (0.0-1.8); Eosinophils # (Auto) 0.2 K/mm3 (0.0-0.4); Eosinophils % (Auto) 1.9 % (0.0-4.3); Hematocrit 36.6 % (30.3-42.9); Hemoglobin 11.9 gm/dl (10.1-14.3); Lymphocytes # (Auto) 2.2 K/mm3 (1.2-5.4); Lymphocytes % (Auto) 16.8 % (13.4-35.0); Mean Corpuscular HGB Conc 33 % (30-34); Mean Corpuscular Volume 93 fl (79-97); Monocytes # (Auto) 0.9 K/mm3 (0.0-0.8); Monocytes % (Auto) 6.7 % (0.0-7.3); Platelet Count 500 K/mm3 (140-440); Red Blood Count 3.92 M/mm3 (3.65-5.03); Red Cell Distribution Width 17.3 % (13.2-15.2)
--- NOTE | 2021-03-24 03:04 | Ultrasound Report ---
ULTRASOUND OBSTETRIC INDICATION / CLINICAL INFORMATION: vaginal bleeding. TECHNIQUE: Transabdominal. COMPARISON: 03/21/2021 FINDINGS: No definite evidence of an intrauterine or extrauterine gestational sac. ADNEXA: Not identified. FREE FLUID: None. ADDITIONAL FINDINGS: None. IMPRESSION: 1. No evidence of a definite intrauterine or extrauterine Signer Name: Darien Oswald MD Signed: 03/24/2021 3:00 AM Workstation Name: [id number]
--- NOTE | 2021-03-24 04:15 | Emergency Department Report ---
ED Lower Extremity HPI - General Chief Complaint: Vaginal Bleeding Stated Complaint: 6 WEEKS PREG;VAGINAL BLEEDING W/CLOTS Time Seen by Provider: 03/24/21 01:16 Source: patient Mode of arrival: Ambulatory Limitations: No Limitations - Related Data Previous Rx's Medication Instructions Recorded Last Taken Type Aspirin 325 mg PO QDAY #30 tablet 08/12/17 04/27/19 Rx Ferrous Sulfate [Feosol 325 MG tab] 325 mg PO BID #60 tablet 08/12/17 04/27/19 Rx ISOSORBIDE MONOnitrate [Imdur ER] 30 mg PO QDAY #30 tablet 08/12/17 04/27/19 Rx KlonoPIN 1 mg PO BID #14 MDD 2 08/12/17 04/27/19 Rx Prasugrel [Effient] 10 mg PO QDAY #30 tablet 08/12/17 04/27/19 Rx Ranolazine ER [Ranexa ER] 500 mg PO BID #60 tablet 08/12/17 04/27/19 Rx carvediloL [Coreg] 12.5 mg PO BID #60 tablet 08/12/17 04/27/19 Rx carvediloL [Coreg] 12.5 mg PO BID #60 tablet 09/17/20 Unknown Rx Amoxicillin [Amoxicillin TAB] 875 mg PO BID 7 Days #14 tablet 03/21/21 Unknown R x clonazePAM [ Klonopin] 0.5 mg PO BID PRN #12 tab 03/21/21 Unknown Rx Allergies Allergy/AdvReac Type Severity Reaction Status Date / Time iodine Allergy Swelling Verified 03/21/21 14:58 shellfish derived Allergy Swelling Verified 03/21/21 14:58 ED Review of Systems ROS: Stated complaint: 6 WEEKS PREG;VAGINAL BLEEDING W/CLOTS Other details as noted in HPI ED Past Medical Hx - Past Medical History Previous Medical History?: Yes Hx Hypertension: Yes Hx CVA: No Hx Heart Attack/AMI: Yes (stents 03/11) Hx Congestive Heart Failure: No Hx Diabetes: No Hx Deep Vein Thrombosis: No Hx Pulmonary Embolism: No Hx GERD: Yes Hx Liver Disease: No Hx Renal Disease: No Hx Sickle Cell Disease: No Hx Arthritis: No Hx Headaches / Migraines: No Hx Seizures: No Hx Kidney Stones: No Hx Psychiatric Treatment: No Hx Asthma: No Hx COPD: No Hx Tuberculosis: No Hx Dementia: No Hx HIV: No Additional medical history: 2 STENTS 5/4/16, cholesterol, IBS, fibroids. CHRONIC BACK PAIN - Surgical History Past Surgical History?: Yes Hx Coronary Stent: Yes Hx Open Heart Surgery: No Hx Pacemaker: No Hx Internal Defibrillator: No Hx Cholecystectomy: No Hx Appendectomy: No Hx Breast Surgery: No Additional Surgical History: D&C - Social History Smoking Status: Current Every Day Smoker Substance Use Type: None - Medications Home Medications: Home Medications Medication Instructions Recorded Confirmed Last Taken Type Aspirin 325 mg PO QDAY #30 tablet 08/12/17 04/27/19 04/27/19 Rx Ferrous Sulfate [Feosol 325 MG tab] 325 mg PO BID #60 tablet 08/12/17 04/27/19 04/27/19 Rx ISOSORBIDE MONOnitrate [Imdur ER] 30 mg PO QDAY #30 tablet 08/12/17 04/27/1912/15 Rx KlonoPIN 1 mg PO BID #14 MDD 2 08/12/17 04/27/19 04/27/19 Rx Prasugrel [Effient] 10 mg PO QDAY #30 tablet 08/12/17 04/27/19 04/27/19 Rx Ranolazine ER [Ranexa ER] 500 mg PO BID #60 tablet 08/12/17 04/27/19 04/27/19 Rx carvediloL [Coreg] 12.5 mg PO BID #60 tablet 08/12/17 04/27/19 04/27/19 Rx carvediloL [Coreg] 12.5 mg PO BID #60 tablet 09/17/20 Unknown Rx Amoxicillin [Amoxicillin TAB] 875 mg PO BID 7 Days #14 tablet 03/21/21 Unknown Rx clonazePAM [ Klonopin] 0.5 mg PO BID PRN #12 tab 03/21/21 Unknown Rx ED Physical Exam - General Limitations: No Limitations ED Course Vital Signs 03/23/21 03/23/21 03/24/21 20:02 23:01 01:01 Temperature 98.3 F Pulse Rate 102 H 95 H 87 Respiratory 16 18 23 Rate Blood Pressure 152/98 147/84 139/83 O2 Sat by Pulse 96 99 98 Oximetry 03/24/21 03/24/21 02:01 03:01 Temperature Pulse Rate 91 H 88 Respiratory 16 20 Rate Blood Pressure 121/63 121/63 O2 Sat by Pulse 98 95 Oximetry ED Lower Extremity MDM - Lab Data Result diagrams: 03/23/21 21:01 Critical care attestation.: If time is entered above; I have spent that time in minutes in the direct care of this critically ill patient, excluding procedure time. ED Disposition Condition: Stable Referrals: CLARISA BONDS MD [Primary Care Provider] - 3-5 Days
--- NOTE | 2021-03-24 04:26 | Emergency Department Report ---
ED Female HPI - General Chief complaint: Vaginal Bleeding Stated complaint: 6 WEEKS PREG;VAGINAL BLEEDING W/CLOTS Time Seen by Provider: 03/24/21 01:16 Source: patient Mode of arrival: Ambulatory Limitations: No Limitations - History of Present Illness Initial comments: This 45-year-old morbidly obese F [place] female presents emerged department complaining of continued vaginal bleeding and pelvic cramping. She was seen emerge department 2 days ago and found to have a an IUP at 5 weeks 5 days with no pole and hCG quant a little over 30,000. She reports continued bleeding and now has asked experience some occasional blood clots and some off-and-on cramping and presents to the ED to be reevaluated. 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 She was advised at that time she may be having a miscarriage. Severity: mild Quality: cramping, dull Consistency: constant Improves with: none Are you Now?: Yes Associated Symptoms: vaginal bleeding. denies: loss of appetite, dysuria, syncope, weakness - Related Data Previous Rx's Medication Instructions Recorded Last Taken Type Aspirin 325 mg PO QDAY #30 tablet 08/12/17 04/27/19 Rx Ferrous Sulfate [Feosol 325 MG tab] 325 mg PO BID #60 tablet 08/12/17 04/27/19 Rx ISOSORBIDE MONOnitrate [Imdur ER] 30 mg PO QDAY #30 tablet 08/12/17 04/27/19 Rx KlonoPIN 1 mg PO BID #14 MDD 2 08/12/17 04/27/19 Rx Prasugrel [Effient] 10 mg PO QDAY #30 tablet 08/12/17 04/27/19 Rx Ranolazine ER [Ranexa ER] 500 mg PO BID #60 tablet 08/12/17 04/27/19 Rx carvediloL [Coreg] 12.5 mg PO BID #60 tablet 08/12/17 04/27/19 Rx carvediloL [Coreg] 12.5 mg PO BID #60 tablet 09/17/20 Unknown Rx Amoxicillin [Amoxicillin TAB] 875 mg PO BID 7 Days #14 tablet 03/21/21 Unknown Rx clonazePAM [ Klonopin] 0.5 mg PO BID PRN #12 tab 03/21/21 Unknown Rx Allergies Allergy/AdvReac Type Severity Reaction Status Date / Time iodine Allergy Swelling Verified 03/21/21 14:58 shellfish derived Allergy Swelling Verified 03/21/21 14:58 ED Review of Systems ROS: Stated complaint: 6 WEEKS PREG;VAGINAL BLEEDING W/CLOTS Other details as noted in HPI Comment: All other systems reviewed and negative ED Past Medical Hx - Past Medical History Previous Medical History?: Yes Hx Hypertension: Yes Hx CVA: No Hx Heart Attack/AMI: Yes (stents 03/11) Hx Congestive Heart Failure: No Hx Diabetes: No Hx Deep Vein Thrombosis: No Hx Pulmonary Embolism: No Hx GERD: Yes Hx Liver Disease: No Hx Renal Disease: No Hx Sickle Cell Disease: No Hx Arthritis: No Hx Headaches / Migraines: No Hx Seizures: No Hx Kidney Stones: No Hx Psychiatric Treatment: No Hx Asthma: No Hx COPD: No Hx Tuberculosis: No Hx Dementia: No Hx HIV: No Additional medical history: 2 STENTS 02/28/16, cholesterol, IBS, fibroids. CHRONIC BACK PAIN - Surgical History Past Surgical History?: Yes Hx Coronary Stent: Yes Hx Open Heart Surgery: No Hx Pacemaker: No Hx Internal Defibrillator: No Hx Cholecystectomy: No Hx Appendectomy: No Hx Breast Surgery: No Additional Surgical History: D&C - Social History Smoking Status: Current Every Day Smoker Substance Use Type: None - Medications Home Medications: Home Medications Medication Instructions Recorded Confirmed Last Taken Type Aspirin 325 mg PO QDAY #30 tablet 08/12/17 04/27/19 04/27/19 Rx Ferrous Sulfate [Feosol 325 MG tab] 325 mg PO BID #60 tablet 08/12/17 04/27/19 04/27/19 Rx ISOSORBIDE MONOnitrate [Imdur ER] 30 mg PO QDAY #30 tablet 08/12/17 04/27/19 04/27/19 Rx KlonoPIN 1 mg PO BID #14 MDD 2 08/12/17 04/27/19 04/27/19 Rx Prasugrel [Effient] 10 mg PO QDAY #30 tablet 08/12/17 04/27/19 04/27/19 Rx Ranolazine ER [Ranexa ER] 500 mg PO BID #60 tablet 08/12/17 04/27/19 04/27/19 Rx carvediloL [Coreg] 12.5 mg PO BID #60 tablet 08/12/17 04/27/19 04/27/19 Rx carvediloL [Coreg] 12.5 mg PO BID #60 tablet 09/17/20 Unknown Rx Amoxicillin [Amoxicillin TAB] 875 mg PO BID 7 Days #14 tablet 03/21/21 Unknown Rx clonazePAM [ Klonopin] 0.5 mg PO BID PRN #12 tab 03/21/21 Unknown Rx ED Physical Exam - General Limitations: No Limitations General appearance: alert, in no apparent distress - Head Head exam: Present: atraumatic, normocephalic - Eye Eye exam: Present: normal appearance, PERRL, EOMI Pupils: Present: normal accommodation - ENT ENT exam: Present: normal exam, normal orophraynx, mucous membranes moist - Neck Neck exam: Present: normal inspection - Respiratory Respiratory exam: Present: normal lung sounds bilaterally. Absent: respiratory distress - Cardiovascular Cardiovascular Exam: Present: regular rate, normal rhythm. Absent: systolic murmur, diastolic murmur, rubs, gallop - GI/Abdominal GI/Abdominal exam: Present: soft, tenderness (Tenderness to pubic region with palpation.), normal bowel sounds - Extremities Exam Extremities exam: Present: normal inspection, normal capillary refill - Back Exam Back exam: Present: normal inspection. Absent: CVA tenderness (R), CVA tenderness (L) - Neurological Exam Neurological exam: Present: alert, oriented X3, CN II-XII intact - Psychiatric Psychiatric exam: Present: normal affect, normal mood - Skin Skin exam: Present: warm, dry, intact, normal color. Absent: rash ED Course Vital Signs 03/23/21 03/23/21 03/24/21 20:02 23:01 01:01 Temperature 98.3 F Pulse Rate 102 H 95 H 87 Respiratory 16 18 23 Rate Blood Pressure 152/98 147/84 139/83 Blood Pressure [Left] O2 Sat by Pulse 96 99 98 Oximetry 03/24/21 03/24/21 03/24/21 02:01 03:01 04:50 Temperature 98.2 F Pulse Rate 91 H 88 88 Respiratory 16 20 18 Rate Blood Pressure 121/63 121/63 Blood Pressure 122/65 [Left] O2 Sat by Pulse 98 95 95 Oximetry - Consultations Consultation #1: 03/24/21 04:34 Case discussed my attending Dr. Wakefield who advised to get a repeat ultrasound. ED Medical Decision Making - Lab Data Result diagrams: 03/23/21 21:01 Lab Results 03/23/21 03/23/21 Range/Units 21:01 21:01 WBC 13.1 H (4.5-11.0) K/mm3 RBC 3.92 (3.65-5.03) M/mm3 Hgb 11.9 (10.1-14.3) gm/dl Hct 36.6 (30.3-42.9) % MCV 93 (79-97) fl MCH 30 (28-32) pg MCHC 33 (30-34) % RDW 17.3 H (13.2-15.2) % Plt Count 500 H (140-440) K/mm3 Lymph % (Auto) 16.8 (13.4-35.0) % [place] % (Auto) 6.7 (0.0-7.3) % Eos % (Auto) 1.9 (0.0-4.3) % Baso % (Auto) 0.8 (0.0-1.8) % Lymph # (Auto) 2.2 (1.2-5.4) K/mm3 [place] # (Auto) 0.9 H (0.0-0.8) K/mm3 Eos # (Auto) 0.2 (0.0-0.4) K/mm3 Baso # (Auto) 0.1 (0.0-0.1) K/mm3 Seg Neutrophils % 73.8 H (40.0-70.0) % Seg Neutrophils # 9.7 H (1.8-7.7) K/mm3 HCG, Quant 2407 H (0-4) mIU/mL - Radiology Data Radiology results: report reviewed [address] [place] [address] Ultrasound Report Signed Patient: MAKAYLA ARGUELLES MR#: [id number] : 1975 Acct:[id number] Age/Sex: 45 / F ADM Date: 03/23/21 Loc: ED Attending Dr: Ordering Physician: ED MD ELIS Date of Service: 03/23/21 Procedure(s): US OB <= 14 weeks fetus Accession Number(s): [id number] cc: ED MD ELIS ULTRASOUND OBSTETRIC INDICATION / CLINICAL INFORMATION: vaginal bleeding. TECHNIQUE: Transabdominal. COMPARISON: 03/21/2021 FINDINGS: No definite evidence of an intrauterine or extrauterine gestational sac. ADNEXA: Not identified. FREE FLUID: None. ADDITIONAL FINDINGS: None. IMPRESSION: 1. No evidence of a definite intrauterine or extrauterine Signer Name: Darien Oswald MD Signed: 03/24/2021 3:00 AM Workstation Name: [id number] Transcribed By: TERRENCE Dictated By: Darien Oswald MD Electronically Authenticated By: Darien Oswald MD Signed Date/Time: 03/24/21299 DD/ 7 TD/TT: Print - Medical Decision Making this 45-year-old female patient presents with vaginal bleeding in the first trimester, differential diagnosis includes ectopic , IUP, month threatened/inevitable , along with a completed . Patient is HDS and without a history of coagulopathy or infectious symptoms. The ultrasound does not reveal IUP at this present time although the quant is elevated at 2400. Patient was seen 2 days ago with a quant that was elevated in the 3000s and a suspicion for an IUP at 5 weeks 5 days however no pole. Based on exam history and ED work-up patient presentation is not consistent with an ectopic , life-threatening coagulopathy, trauma, serious bacterial infection, central process or other emergency Critical care attestation.: If time is entered above; I have spent that time in minutes in the direct care of this critically ill patient, excluding procedure time. ED Disposition Clinical Impression: Miscarriage Disposition: DC-01 TO HOME OR SELFCARE Is pt being admited?: No Does the pt Need Aspirin: No Condition: Stable Instructions: Miscarriage, Kmfo-by-Ayft, Miscarriage Referrals: CLARISA BONDS MD [Primary Care Provider] - 3-5 Days [facility] [Provider Group] - 3-5 Days
[2021-03-24 04:57] LABS: Bacteria,Urine 1+ /HPF (Negative); Bilirubin,Urine NEG (Negative); Blood,Urine LG (Negative); Color,Urine Amber (Yellow); Mucus,Urine 1+ /HPF; Urobilinogen,Urine < 2.0 mg/dL (<2.0)
[2021-03-24 04:58] LABS: RBC,Urine > 182.0 /HPF (0.0-6.0)
[2021-03-24 05:09] VITALS: BP 122/65
== END 2021-03-24 05:10 | disposition home or self-care (01) ==
LOC: ED 19:56
DX: O20.0 Threatened abortion (principal); I11.0 Hypertensive heart disease with heart failure; I25.2 Old myocardial infarction; K21.9 Gastro-esophageal reflux disease without esophagitis; F17.200 Nicotine dependence, unspecified, uncomplicated; Z3A.01 Less than 8 weeks gestation of pregnancy; Z79.899 Other long term (current) drug therapy; Z91.013 Allergy to seafood; Z88.8 Allergy status to other drugs, medicaments and biological substances
CPT/HCPCS: 36415; 76801; 81001; 84702; 85025

== ENCOUNTER 2021-03-29 22:45 | Inpatient (IN) | payer OTHER ==
[2021-03-29] MEDS ORDERED: ASPIRIN 325 MG TAB PO ONE (23:33)
[2021-03-30 00:05] LABS: Basophils # (Auto) 0.1 K/mm3 (0.0-0.1); Basophils % (Auto) 0.5 % (0.0-1.8); Eosinophils # (Auto) 0.3 K/mm3 (0.0-0.4); Eosinophils % (Auto) 2.4 % (0.0-4.3); Hemoglobin 11.4 gm/dl (10.1-14.3); Lymphocytes # (Auto) 2.6 K/mm3 (1.2-5.4); Lymphocytes % (Auto) 22.1 % (13.4-35.0); Mean Corpuscular HGB Conc 34 % (30-34); Mean Corpuscular Volume 93 fl (79-97); Monocytes # (Auto) 0.8 K/mm3 (0.0-0.8); Monocytes % (Auto) 7.2 % (0.0-7.3); Platelet Count 482 K/mm3 (140-440); Red Blood Count 3.64 M/mm3 (3.65-5.03); Red Cell Distribution Width 16.6 % (13.2-15.2)
[2021-03-30 00:20] LABS: Alanine Aminotransferase 6 units/L (7-56); BUN/Creatinine Ratio 9; Blood Urea Nitrogen 8 mg/dL (7-17); Calcium 9.3 mg/dL (8.4-10.2); Hemolysis Index 0
[2021-03-30] MEDS ORDERED: POTASSIUM CHLORIDE ER 20 MEQ TAB PO ONE (02:45)
--- NOTE | 2021-03-30 03:13 | Emergency Department Report ---
ED Chest Pain HPI - General Chief Complaint: Chest Pain Stated Complaint: CHEST PAIN,SOB,WEAKNESS,CHILLS Time Seen by Provider: 03/30/21 02:44 Source: patient Mode of arrival: Ambulatory Limitations: No Limitations - History of Present Illness Initial Comments: This is a 45-year-old -Armenian female presents to the emergency department with a complaint of palpitations, shortness of breath and some generalized chest discomfort that started this evening around 8 PM. She did not take anything for symptoms prior to presentation. She has a past medical history of hypertension, IBS, high cholesterol and coronary artery disease with [address] There is also concerned that the patient is about 6 weeks gestation. She was here on 03/21 and at that time she was found to be with a gestational sac seen on ultrasound. The patient was seen here again 2 days later and had a negative test and an ultrasound that did not show any definitive evidence of intrauterine or extrauterine . She follows with procedure [employer]OCI[employer]. 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 No recent travel or sick contacts at home. She denies any fever, lower extremity swelling, nausea, vomiting, diaphoresis. Severity scale (0 -10): 3 - Related Data Previous Rx's Medication Instructions Recorded Last Taken Type Aspirin 325 mg PO QDAY #30 tablet 08/12/17 04/27/19 Rx Ferrous Sulfate [Feosol 325 MG tab] 325 mg PO BID #60 tablet 08/12/17 04/27/19 Rx ISOSORBIDE MONOnitrate [Imdur ER] 30 mg PO QDAY #30 tablet 08/12/17 04/27/19 Rx KlonoPIN 1 mg PO BID #14 MDD 2 08/12/17 04/27/19 Rx Prasugrel [Effient] 10 mg PO QDAY #30 tablet 08/12/17 04/27/19 Rx Ranolazine ER [Ranexa ER] 500 mg PO BID #60 tablet 08/12/17 04/27/19 Rx carvediloL [Coreg] 12.5 mg PO BID #60 tablet 08/12/17 04/27/19 Rx carvediloL [Coreg] 12.5 mg PO BID #60 tablet 09/17/20 Unknown Rx Amoxicillin [Amoxicillin TAB] 875 mg PO BID 7 Days #14 tablet 03/21/21 Unknown Rx clonazePAM [ Klonopin] 0.5 mg PO BID PRN #12 tab 03/21/21 Unknown Rx Allergies Allergy/AdvReac Type Severity Reaction Status Date / Time iodine Allergy Swelling Verified 03/21/21 14:58 shellfish derived Allergy Swelling Verified 03/21/21 14:58 Heart Score - HEART Score History: Slightly suspicious EKG: Non-specific Age: < 45 Risk factors: > 3 risk factors or hx of atherosclerotic disease Troponin: < normal limit HEART Score: 3 - EKG Read Time Time EKG Completed: 23:55 EKG Read Time: 00:01 ED Review of Systems ROS: Stated complaint: CHEST PAIN,SOB,WEAKNESS,CHILLS Other details as noted in HPI ED Past Medical Hx - Past Medical History Previous Medical History?: Yes Hx Hypertension: Yes Hx CVA: No Hx Heart Attack/AMI: Yes (stents 03/11) Hx Congestive Heart Failure: No Hx Diabetes: No Hx Deep Vein Thrombosis: No Hx Pulmonary Embolism: No Hx GERD: Yes Hx Liver Disease: No Hx Renal Disease: No Hx Sickle Cell Disease: No Hx Arthritis: No Hx Headaches / Migraines: No Hx Seizures: No Hx Kidney Stones: No Hx Psychiatric Treatment: No Hx Asthma: No Hx COPD: No Hx Tuberculosis: No Hx Dementia: No Hx HIV: No Additional medical history: 2 STENTS 02/28/16, cholesterol, IBS, fibroids. CHRONIC BACK PAIN - Surgical History Past Surgical History?: Yes Hx Coronary Stent: Yes Hx Open Heart Surgery: No Hx Pacemaker: No Hx Internal Defibrillator: No Hx Cholecystectomy: No Hx Appendectomy: No Hx Breast Surgery: No Additional Surgical History: D&C - Social History Smoking Status: Current Every Day Smoker Substance Use Type: None - Medications Home Medications: Home Medications Medication Instructions Recorded Confirmed Last Taken Type Aspirin 325 mg PO QDAY #30 tablet 08/12/17 04/27/19 04/27/19 Rx Ferrous Sulfate [Feosol 325 MG tab] 325 mg PO BID #60 tablet 08/12/17 04/27/19 04/27/19 Rx ISOSORBIDE MONOnitrate [Imdur ER] 30 mg PO QDAY #30 tablet 08/12/17 04/27/19 04/27/19 Rx KlonoPIN 1 mg PO BID #14 MDD 2 08/12/17 04/27/19 04/27/19 Rx Prasugrel [Effient] 10 mg PO QDAY #30 tablet 08/12/17 04/27/19 04/27/19 Rx Ranolazine ER [Ranexa ER] 500 mg PO BID #60 tablet 08/12/17 04/27/19 04/27/19 Rx carvediloL [Coreg] 12.5 mg PO BID #60 tablet 08/12/17 04/27/19 04/27/19 Rx carvediloL [Coreg] 12.5 mg PO BID #60 tablet 09/17/20 Unknown Rx Amoxicillin [Amoxicillin TAB] 875 mg PO BID 7 Days #14 tablet 03/21/21 Unknown Rx clonazePAM [ Klonopin] 0.5 mg PO BID PRN #12 tab 03/21/21 Unknown Rx ED Physical Exam - General Limitations: No Limitations - Other Other exam information: GENERAL: The patient is well-developed well-nourished. HENT: Normocephalic. Atraumatic. Patient has moist mucous membranes. EYES: Extraocular motions are intact. NECK: Supple. Trachea is midline. CHEST/LUNGS: Clear to auscultation. There is no respiratory distress noted. Unable to reproduce chest pain to palpation. HEART/CARDIOVASCULAR: Regular. There is no tachycardia. There is no murmur. ABDOMEN: Abdomen is soft, nontender. Patient has normal bowel sounds. Morbidly obese habitus. SKIN: Skin is warm and dry. NEURO: The patient is awake, alert, and oriented. The patient is cooperative. The patient has no focal neurologic deficits. Normal speech. MUSCULOSKELETAL: There is no tenderness or deformity. There is no limitation range of motion. ED Course Vital Signs 03/29/21 03/30/21 23:33 03:54 Temperature 98.2 F Pulse Rate 77 61 Respiratory 16 18 Rate Blood Pressure 112/72 134/70 [Left] O2 Sat by Pulse 100 97 Oximetry PATSY score - Patsy Score Age > 65: (0) No Aspirin use within the Past 7 Days: (0) No 3 or more CAD Risk Factors: (1) Yes 2 or more Angina events in past 24 hrs: (1) Yes Known CAD with more than 50% Stenosis: (1) Yes Elevated Cardiac Markers: (0) No ST Deviation Greater than 0.5mm: (0) No PATSY Score: 3 ED Medical Decision Making - Lab Data Result diagrams: 03/29/21 23:37 03/29/21 23:37 Lab Results 03/29/21 03/29/21 03/30/21 Range/Units 23:37 23:37 02:27 WBC 11.7 H (4.5-11.0) K/mm3 RBC 3.64 L (3.65-5.03) M/mm3 Hgb 11.4 (10.1-14.3) gm/dl Hct 34.0 (30.3-42.9) % MCV 93 (79-97) fl MCH 31 (28-32) pg MCHC 34 (30-34) % RDW 16.6 H (13.2-15.2) % Plt Count 482 H (140-440) K/mm3 Lymph % (Auto) 22.1 (13.4-35.0) % [place] % (Auto) 7.2 (0.0-7.3) % Eos % (Auto) 2.4 (0.0-4.3) % Baso % (Auto) 0.5 (0.0-1.8) % Lymph # (Auto) 2.6 (1.2-5.4) K/mm3 [place] # (Auto) 0.8 (0.0-0.8) K/mm3 Eos # (Auto) 0.3 (0.0-0.4) K/mm3 Baso # (Auto) 0.1 (0.0-0.1) K/mm3 Seg Neutrophils % 67.8 (40.0-70.0) % Seg Neutrophils # 7.9 H (1.8-7.7) K/mm3 PT (12.2-14.9) Sec. INR (0.87-1.13) Sodium 138 (137-145) mmol/L Potassium 3.3 L (3.6-5.0) mmol/L Chloride 99.4 (98-107) mmol/L Carbon Dioxide 27 (22-30) mmol/L Anion Gap 15 mmol/L BUN 8 (7-17) mg/dL Creatinine 0.9 (0.6-1.2) mg/dL Estimated GFR > 60 ml/min BUN/Creatinine Ratio 9 % Glucose 114 H (65-100) mg/dL Calcium 9.3 (8.4-10.2) mg/dL Total Bilirubin < 0.20 (0.1-1.2) mg/dL AST 10 (5-40) units/L ALT 6 L (7-56) units/L Alkaline Phosphatase 64 (35-129) units/L Troponin T < 0.010 < 0.010 (0.00-0.029) ng/mL Total Protein 7.1 (6.3-8.2) g/dL Albumin 4.0 (3.9-5) g/dL Albumin/Globulin Ratio 1.3 % TSH (0.270-4.200) mlU/mL HCG, Quant (0-4) mIU/mL 03/30/21 03/30/21 03/30/21 Range/Units 03:03 03:03 03:03 WBC (4.5-11.0) K/mm3 RBC (3.65-5.03) M/mm3 Hgb (10.1-14.3) gm/dl Hct (30.3-42.9) % MCV (79-97) fl MCH (28-32) pg MCHC (30-34) % RDW (13.2-15.2) % Plt Count (140-440) K/mm3 Lymph % (Auto) (13.4-35.0) % [place] % (Auto) (0.0-7.3) % Eos % (Auto) (0.0-4.3) % Baso % (Auto) (0.0-1.8) % Lymph # (Auto) (1.2-5.4) K/mm3 [place] # (Auto) (0.0-0.8) K/mm3 Eos # (Auto) (0.0-0.4) K/mm3 Baso # (Auto) (0.0-0.1) K/mm3 Seg Neutrophils % (40.0-70.0) % Seg Neutrophils # (1.8-7.7) K/mm3 PT 13.7 (12.2-14.9) Sec. INR 1.00 (0.87-1.13) Sodium (137-145) mmol/L Potassium (3.6-5.0) mmol/L Chloride (98-107) mmol/L Carbon Dioxide (22-30) mmol/L Anion Gap mmol/L BUN (7-17) mg/dL Creatinine (0.6-1.2) mg/dL Estimated GFR ml/min BUN/Creatinine Ratio % Glucose (65-100) mg/dL Calcium (8.4-10.2) mg/dL Total Bilirubin (0.1-1.2) mg/dL AST (5-40) units/L ALT (7-56) units/L Alkaline Phosphatase (35-129) units/L Troponin T (0.00-0.029) ng/mL Total Protein (6.3-8.2) g/dL Albumin (3.9-5) g/dL Albumin/Globulin Ratio % TSH 2.240 (0.270-4.200) mlU/mL HCG, Quant 22.03 H (0-4) mIU/mL - EKG Data -: EKG Interpreted by Me EKG shows normal: sinus rhythm, axis, intervals, QRS complexes (Low voltage), ST-T waves (Isolated T wave inversions to lead III) Rate: normal - EKG Data When compared to previous EKG there are: no significant change Interpretation: unchanged when compared t (03/21/21) - Radiology Data Radiology results: image reviewed interpreted by me: Chest x-ray does not show any acute process. There are no pleural effusions, obvious pneumonia and there is no pneumothorax. No widened mediastinum. - Medical Decision Making This patient presents to the emergency department with some chest pain, shortness of breath, palpitations. At first there was concern that the patient was , however it appears that the patient has had a recent miscarriage. Her beta hCG was 22 today when it was about 2401-week ago. At that time she had a ultrasound that did not show any evidence of intrauterine . EKG today does not show any morphology consistent with ST elevation myocardial infarction. Chest x-ray does not show any pneumonia, pleural effusions, widened mediastinum, pneumothorax, or any other acute process. The patient's labs have been mostly unremarkable thus far including CBC, metabolic panel, negative troponins x2, normal thyroid function. Patient has a moderate heart and PATSY score. It has been about 3 years since the patient last had a stress test, and the patient has a history of coronary artery disease with [address] She will be admitted to the hospital for further evaluation and treatment was accepted for admission by the hospitalist, Dr. Garrido. Critical Care Time: No Critical care attestation.: If time is entered above; I have spent that time in minutes in the direct care o f this critically ill patient, excluding procedure time. ED Disposition Clinical Impression: Acute chest pain, Chest pain, rule out acute myocardial infarction, Morbid obesity CAD (coronary artery disease) Qualifiers: Coronary Disease-Associated Artery/Lesion type: unspecified vessel or lesion type [place] vs. transplanted heart: [place] heart Associated angina: unspecified whether angina present Qualified Code(s): I25.10 - Atherosclerotic heart disease of [place] coronary artery without angina pectoris Disposition: -09 OP ADMIT IP TO THIS HOSP Is pt being admited?: Yes Condition: Fair Instructions: Chest Pain (ED) Time of Disposition: 04:28
[2021-03-30] MEDS ORDERED: ASPIRIN 81 MG TAB CHEW PO ONE (04:01)
[2021-03-30] MEDS ORDERED: MORPHINE 2 MG/1 ML INJ IV PRN (05:09)
[2021-03-30] MEDS ORDERED: ACETAMINOPHEN 325 MG TAB PO PRN ×2 (05:09)
[2021-03-30] MEDS ORDERED: NITROGLYCERIN 0.4 MG TAB SUBL SL PRN (05:09)
[2021-03-30] MEDS ORDERED: ONDANSETRON 4 MG/2 ML INJ IV PRN (05:09)
[2021-03-30] MEDS ORDERED: traMADol 50 MG TAB PO PRN (05:09)
--- NOTE | 2021-03-30 05:20 | History and Physical Report ---
History of Present Illness Date of examination: 03/30/21 Date of admission: 03/30/21 Chief complaint: Chest pain History of present illness: 45-year-old -[place] female with past medical history of hypertension, IBS, high cholesterol and coronary artery disease with [address] was brought to the emergency department with a complaint of palpitations, shortness of breath and some generalized chest discomfort that started this evening around 8 PM. She did not take anything for symptoms prior to presentation. There is also concerned that the patient is about 6 weeks gestation. She was here on 03/21 and at that time she was found to be with a gestational sac seen on ultrasound. The patient was seen here again 2 days later and had a negative test and an ultrasound that did not show any definitive evidence of intrauterine or extrauterine . 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 She has not seen her admissions clerk in 2 or 3 years. No recent travel or sick contacts at home. She denies any fever, lower extremity swelling, nausea, vomiting, diaphoresis. In the emergency room patient troponin is 0.010. Patient ACC is 22.03 and potassium 3.3 Past History Past Medical History: CAD, hypertension, hyperlipidemia, other (IBS chronic back pain fibroids) Medications and Allergies Allergies Allergy/AdvReac Type Severity Reaction Status Date / Time iodine Allergy Swelling Verified 03/21/21 14:58 shellfish derived Allergy Swelling Verified 03/21/21 14:58 Home Medications Medication Instructions Recorded Confirmed Last Taken Type Aspirin 325 mg PO QDAY #30 tablet 08/12/17 04/27/19 04/27/19 Rx Ferrous Sulfate [Feosol 325 MG tab] 325 mg PO BID #60 tablet 08/12/17 04/27/19 04/27/19 Rx ISOSORBIDE MONOnitrate [Imdur ER] 30 mg PO QDAY #30 tablet 08/12/17 04/27/19 04/27/19 Rx KlonoPIN 1 mg PO BID #14 MDD 2 08/12/17 04/27/19 04/27/19 Rx Prasugrel [Effient] 10 mg PO QDAY #30 tablet 08/12/17 04/27/19 04/27/19 Rx Ranolazine ER [Ranexa ER] 500 mg PO BID #60 tablet 10/17/17 07/02/19 07/02/19 Rx carvediloL [Coreg] 12.5 mg PO BID #60 tablet 08/12/17 04/27/19 04/27/19 Rx carvediloL [Coreg] 12.5 mg PO BID #60 tablet 09/17/20 Unknown Rx Amoxicillin [Amoxicillin TAB] 875 mg PO BID 7 Days #14 tablet 03/21/21 Unknown Rx clonazePAM [ Klonopin] 0.5 mg PO BID PRN #12 tab 03/21/21 Unknown Rx Review of Systems Cardiovascular: chest pain, shortness of breath, dyspnea on exertion Respiratory: shortness of breath Exam - Constitutional Vitals: Temp Pulse Resp BP Pulse Ox 98.2 F 64 24 127/70 95 03/29/21 23:33 03/30/21 04:01 03/30/21 04:01 03/30/21 04:01 03/30/21 04:01 General appearance: Present: no acute distress, well-nourished - EENT Eyes: Present: PERRL ENT: hearing intact, clear oral mucosa - Neck Neck: Present: supple, normal ROM - Respiratory Respiratory effort: normal Respiratory: bilateral: CTA - Cardiovascular Heart Sounds: Present: S1 & S2. Absent: rub, click - Extremities Extremities: pulses symmetrical, No edema Peripheral Pulses: within normal limits - Abdominal General gastrointestinal: Present: soft, non-tender, non-distended, normal bowel sounds Female genitourinary: Present: normal - Integumentary Integumentary: Present: clear, warm, dry - Musculoskeletal Musculoskeletal: gait normal, strength equal bilaterally - Psychiatric Psychiatric: appropriate mood/affect, intact judgment & insight - Neurologic Neurologic: CNII-XII intact, moves all extremities HEART Score - HEART Score EKG: Non-specific Age: < 45 Risk factors: > 3 risk factors or hx of atherosclerotic disease Troponin: Troponin T < 0.010 ng/mL (0.00-0.029) 03/30/21 02:27 Troponin: < normal limit Results - Labs CBC & Chem 7: 03/29/21 23:37 03/29/21 23:37 Labs: Laboratory Last Values WBC 11.7 K/mm3 (4.5-11.0) H 03/29/21 23:37 RBC 3.64 M/mm3 (3.65-5.03) L 03/29/21 23:37 Hgb 11.4 gm/dl (10.1-14.3) 03/29/21 23:37 Hct 34.0 % (30.3-42.9) 03/29/21 23:37 MCV 93 fl (79-97) 03/29/21 23:37 MCH 31 pg (28-32) 03/29/21 23:37 MCHC 34 % (30-34) 03/29/21 23:37 RDW 16.6 % (13.2-15.2) H 03/29/21 23:37 Plt Count 482 K/mm3 (140-440) H 03/29/21 23:37 Lymph % (Auto) 22.1 % (13.4-35.0) 03/29/21 23:37 [place] % (Auto) 7.2 % (0.0-7.3) 03/29/21 23:37 Eos % (Auto) 2.4 % (0.0-4.3) 03/29/21 23:37 Baso % (Auto) 0.5 % (0.0-1.8) 03/29/21 23:37 Lymph # (Auto) 2.6 K/mm3 (1.2-5.4) 03/29/21 23:37 [place] # (Auto) 0.8 K/mm3 (0.0-0.8) 03/29/21 23:37 Eos # (Auto) 0.3 K/mm3 (0.0-0.4) 03/29/21 23:37 Baso # (Auto) 0.1 K/mm3 (0.0-0.1) 03/29/21 23:37 Seg Neutrophils % 67.8 % (40.0-70.0) 03/29/21 23:37 Seg Neutrophils # 7.9 K/mm3 (1.8-7.7) H 03/29/21 23:37 PT 13.7 Sec. (12.2-14.9) 03/30/21 03:03 INR 1.00 (0.87-1.13) 03/30/21 03:03 Sodium 138 mmol/L (137-145) 03/29/21 23:37 Potassium 3.3 mmol/L (3.6-5.0) L 03/29/21 23:37 Chloride 99.4 mmol/L (98-107) 03/29/21 23:37 Carbon Dioxide 27 mmol/L (22-30) 03/29/21 23:37 Anion Gap 15 mmol/L 03/29/21 23:37 BUN 8 mg/dL (7-17) 03/29/21 23:37 Creatinine 0.9 mg/dL (0.6-1.2) 03/29/21 23:37 Estimated GFR > 60 ml/min 03/29/21 23:37 BUN/Creatinine Ratio 9 % 03/29/21 23:37 Glucose 114 mg/dL (65-100) H 03/29/21 23:37 Calcium 9.3 mg/dL (8.4-10.2) 03/29/21 23:37 Total Bilirubin < 0.20 mg/dL (0.1-1.2) 03/29/21 23:37 AST 10 units/L (5-40) 03/29/21 23:37 ALT 6 units/L (7-56) L 03/29/21 23:37 Alkaline Phosphatase 64 units/L (35-129) 03/29/21 23:37 Troponin T < 0.010 ng/mL (0.00-0.029) 03/30/21 02:27 Total Protein 7.1 g/dL (6.3-8.2) 03/29/21 23:37 Albumin 4.0 g/dL (3.9-5) 03/29/21 23:37 Albumin/Globulin Ratio 1.3 % 03/29/21 23:37 TSH 2.240 mlU/mL (0.270-4.200) 03/30/21 03:03 HCG, Quant 22.03 mIU/mL (0-4) H 03/30/21 03:03 - Imaging and Cardiology Chest x-ray: report reviewed Assessment and Plan VTE prophylaxis?: Chemical Plan of care discussed with patient/family: Yes - Patient Problems (1) ACS (acute coronary syndrome) Current Visit: No Status: Acute Plan to address problem: Admit the patient to the cardiac telemetry. Aspirin 325 mg p.o. daily. Effient 10 mg p.o. daily. Lipitor 40 mg p.o. nightly. We do the serial cardiac enzyme. We will also do a echocardiogram and consult cardiology for evaluation (2) CAD (coronary artery disease) Current Visit: Yes Status: Acute Qualifiers: Coronary Disease-Associated Artery/Lesion type: unspecified vessel or lesion type [place] vs. transplanted heart: [place] heart Associated angina: unspecified whether angina present Qualified Code(s): I25.10 - Atherosclerotic heart disease of [place] coronary artery without angina pectoris Plan to address problem: Aspirin 325 mg p.o. daily. Effient 10 mg p.o. daily. Lipitor 40 mg p.o. nightly. We do the serial cardiac enzyme. We will also do a echocardiogram and consult cardiology for evaluation (3) Hypertension Current Visit: Yes Status: Acute Plan to address problem: Coreg 12.5 mg p.o. twice daily. Imdur 30 mg p.o. daily. Hydralazine 10 mg IV every 6 hours as needed. We will monitor the blood pressure closely (4) Obesity Current Visit: No Status: Acute Plan to address problem: We counseled regarding weight reduction. Outpatient referral for weight reduction (5) History of coronary artery stent placement Current Visit: No Status: Chronic Plan to address problem: Aspirin 325 mg p.o. daily. Effient 10 mg p.o. daily. Lipitor 40 mg p.o. nightly. We do the serial cardiac enzyme. We will also do a echocardiogram and consult cardiology for evaluation (6) DVT prophylaxis Current Visit: No Status: Acute Plan to address problem: Effient 10 mg p.o. daily for DVT prophylaxis. Pepcid 20 mg p.o. twice daily for GI prophylaxis. Patient is a full code
[2021-03-30 06:10] LABS: Basophils % (Auto) 0.4 % (0.0-1.8); Eosinophils # (Auto) 0.2 K/mm3 (0.0-0.4); Eosinophils % (Auto) 2.2 % (0.0-4.3); Hematocrit 32.6 % (30.3-42.9); Hemoglobin 10.6 gm/dl (10.1-14.3); Lymphocytes # (Auto) 2.9 K/mm3 (1.2-5.4); Lymphocytes % (Auto) 28.6 % (13.4-35.0); Mean Corpuscular HGB Conc 33 % (30-34); Mean Corpuscular Volume 93 fl (79-97); Monocytes # (Auto) 0.8 K/mm3 (0.0-0.8); Monocytes % (Auto) 8.2 % (0.0-7.3); Platelet Count 495 K/mm3 (140-440); Red Cell Distribution Width 17.1 % (13.2-15.2)
[2021-03-30 06:29] LABS: BUN/Creatinine Ratio 10; Blood Urea Nitrogen 8 mg/dL (7-17); Calcium 9.1 mg/dL (8.4-10.2); Hemolysis Index 9
[2021-03-30] MEDS: carvediloL 12.5 MG TAB PO SCH ×2 (09:09→21:46)
[2021-03-30] MEDS: FERROUS SULFATE 325 MG TAB PO SCH ×2 (09:09→21:45)
[2021-03-30] MEDS: PRASUGREL 10 MG TAB PO SCH (09:09)
[2021-03-30] MEDS: AMOXICILLIN/K CLAV 875/125MG TAB PO SCH ×2 (09:09→21:46)
[2021-03-30] MEDS: FAMOTIDINE 20 MG TAB PO SCH ×2 (09:09→21:46)
[2021-03-30] MEDS: RANOLAZINE ER 500 MG TAB 12HR PO SCH ×2 (09:09→21:46)
[2021-03-30] MEDS: clonazePAM 0.5 MG TAB PO PRN (09:11)
[2021-03-30] MEDS ORDERED: NON-FORMULARY EACH (Amoxicillin [Amoxicillin Tab] 875 MG Tablet) PO SCH (10:00)
[2021-03-30] MEDS ORDERED: ASPIRIN 325 MG TAB PO SCH (10:00)
--- NOTE | 2021-03-30 10:20 | Consultation ---
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 She states "my chest feels funny like I'm anxious on the inside." No dizziness, lightheadedness, or syncope. Pt also reports "a heavy head feeling." She denies any additional complaints. Trop neg x 4. ECG reveals no acute ischemic changes. Echo 04/2019 - EF 55-60%, no significant valvular abnormalities. Lexiscan stress MPI 04/2019 - negative for ischemia, EF 58%. LHC 07/2017 - patent RCA stent, otherwise very minimal irregularities, LVEF 50%. Past History Past Medical History: acute NE, CAD, hypertension, other (anxiety) Past Surgical History: PTCA. denies: valve replacement, CABG Social history: smoking (former). denies: alcohol abuse Family history: CAD, hypertension Medications and Allergies Allergies Allergy/AdvReac Type Severity Reaction Status Date / Time iodine Allergy Swelling Verified 03/21/21 14:58 shellfish derived Allergy Swelling Verified 03/21/21 14:58 Home Medications Medication Instructions Recorded Confirmed Last Taken Type Aspirin 325 mg PO QDAY #30 tablet 08/12/17 04/27/19 04/27/19 Rx Ferrous Sulfate [Feosol 325 MG tab] 325 mg PO BID #60 tablet 08/12/17 04/27/19 04/27/19 Rx ISOSORBIDE MONOnitrate [Imdur ER] 30 mg PO QDAY #30 tablet 08/12/17 04/27/19 04/27/19 Rx KlonoPIN 1 mg PO BID #14 MDD 2 08/12/17 04/27/19 04/27/19 Rx Prasugrel [Effient] 10 mg PO QDAY #30 tablet 08/12/17 04/27/19 04/27/19 Rx Ranolazine ER [Ranexa ER] 500 mg PO BID #60 tablet 08/12/17 04/27/19 04/27/19 Rx carvediloL [Coreg] 12.5 mg PO BID #60 tablet 08/12/17 04/27/19 04/27/19 Rx carvediloL [Coreg] 12.5 mg PO BID #60 tablet 09/17/20 Unknown Rx Amoxicillin [Amoxicillin TAB] 875 mg PO BID 7 Days #14 tablet 03/21/21 Unknown Rx clonazePAM [ Klonopin] 0.5 mg PO BID PRN #12 tab 03/21/21 Unknown Rx Active Meds: Active Medications Acetaminophen (Acetaminophen 325 Mg Tab) 650 mg PO Q4H PRN PRN Reason: Pain MILD(1-3)/Fever >100.5/DC Amoxicillin/Clavulanate Potassium (Amoxicillin/K Clav 875/125mg Tab) 1 each PO BID [facility] Last Admin: 03/30/21 09:09 Dose: 1 each Documented by: Aspirin (Aspirin 325 Mg Tab) 325 mg PO QDAY [facility] Last Admin: 03/30/21 09:09 Dose: 325 mg Documented by: Atorvastatin Calcium (Atorvastatin 40 Mg Tab) 40 mg PO QHS [facility] Carvedilol (Carvedilol 12.5 Mg Tab) 12.5 mg PO BID [facility] Last Admin: 03/30/21 09:09 Dose: 12.5 mg Documented by: Clonazepam (Clonazepam 0.5 Mg Tab) 0.5 mg PO BID PRN PRN Reason: Anxiety Last Admin: 03/30/21 09:11 Dose: 0.5 mg Documented by: Famotidine (Famotidine 20 Mg Tab) 20 mg PO BID [facility] Last Admin: 03/30/21 09:09 Dose: 20 mg Documented by: Ferrous Sulfate (Ferrous Sulfate 325 Mg Tab) 325 mg PO BID [facility] Last Admin: 03/30/21 09:09 Dose: 325 mg Documented by: Isosorbide Mononitrate (Isosorbide Mononitrate Er 30 Mg Tab) 30 mg PO QDAY [facility] Last Admin: 03/30/21 09:09 Dose: 30 mg Documented by: Morphine Sulfate (Morphine 2 Mg/1 Ml Inj) 2 mg IV Q4H PRN PRN Reason: Pain, Moderate (4-6) Nitroglycerin (Nitroglycerin 0.4 Mg Tab Subl) 0.4 mg SL Q5M PRN PRN Reason: Chest Pain Ondansetron HCl (Ondansetron 4 Mg/2 Ml Inj) 4 mg IV Q8H PRN PRN Reason: Nausea And Vomiting Prasugrel (Prasugrel 10 Mg Tab) 10 mg PO QDAY [facility] Last Admin: 03/30/21 09:09 Dose: 10 mg Documented by: Ranolazine (Ranolazine Er 500 Mg Tab 12hr) 500 mg PO BID [facility] Last Admin: 03/30/21 09:09 Dose: 500 mg Documented by: Sodium Chloride (Sodium Chloride 0.9% 10 Ml Flush Syringe) 10 ml IV BID [facility] Last Admin: 03/30/21 09:09 Dose: 10 ml Documented by: Sodium Chloride (Sodium Chloride 0.9% 10 Ml Flush Syringe) 10 ml IV PRN PRN PRN Reason: LINE FLUSH Tramadol HCl (Tramadol 50 Mg Tab) 50 mg PO Q6H PRN PRN Reason: Pain, Moderate (4-6) Review of Systems Constitutional: no fever, no chills, no sweats Ears, nose, mouth and throat: no nasal congestion, no sore throat Cardiovascular: palpitations, rapid/irregular heart beat, shortness of breath, no chest pain, no orthopnea, no edema, no syncope, no lightheadedness, no dyspnea on exertion, no paroxysmal nocturnal dyspnea, no claudication Respiratory: shortness of breath, no cough, no dyspnea on exertion Gastrointestinal: no abdominal pain, no nausea, no vomiting Genitourinary Female: other (recent miscarriage), no flank pain Musculoskeletal: no neck stiffness, no neck pain, no myalgias Integumentary: no rash, no wounds Neurological: headaches, no head injury, no paralysis, no weakness, no parathesias, no numbness, no tingling, no seizures, no syncope, no vertigo Psychiatric: anxiety Endocrine: no cold intolerance, no heat intolerance, no polydipsia, no polyuria Hematologic/Lymphatic: no easy bruising, no easy bleeding Allergic/Immunologic: no anaphylaxis Physical Examination Last Vital Signs Temp 97.6 F 03/30/21 07:37 Pulse 61 03/30/21 07:37 Resp 18 03/30/21 07:37 BP 137/76 03/30/21 07:37 Pulse Ox 99 03/30/21 10:08 General appearance: no acute distress HEENT: Positive: EOMI, Normocephaly, Mucus Membranes Moist Neck: Positive: neck supple, trachea midline. Negative: JVD/HJR Cardiac: Positive: Reg Rate and Rhythm, S1/S2. Negative: Audible Murmur Lungs: Positive: clear to auscultation (bilaterally) Neuro: Positive: Grossly Intact Abdomen: Positive: Soft. Negative: Tender Skin: Negative: Rash, Wound Musculoskeletal: No Pain Extremities: Present: upper extr. pulses, lower extr. pulses, edema (trace pedal) Results 03/30/21 05:23 03/30/21 05:23 Cardiac Enzymes 03/29/21 Range/Units 23:37 AST 10 (5-40) units/L Coagulation 03/30/21 Range/Units 03:03 PT 13.7 (12.2-14.9) Sec. INR 1.00 (0.87-1.13) CBC 03/29/21 03/30/21 Range/Units 23:37 05:23 WBC 11.7 H 10.2 (4.5-11.0) K/mm3 RBC 3.64 L 3.50 L (3.65-5.03) M/mm3 Hgb 11.4 10.6 (10.1-14.3) gm/dl Hct 34.0 32.6 (30.3-42.9) % Plt Count 482 H 495 H (140-440) K/mm3 Lymph # (Auto) 2.6 2.9 (1.2-5.4) K/mm3 [place] # (Auto) 0.8 0.8 (0.0-0.8) K/mm3 Eos # (Auto) 0.3 0.2 (0.0-0.4) K/mm3 Baso # (Auto) 0.1 0.0 (0.0-0.1) K/mm3 Comprehensive Metabolic Panel 03/29/21 03/30/21 Range/Units 23:37 05:23 Sodium 138 137 (137-145) mmol/L Potassium 3.3 L 3.8 (3.6-5.0) mmol/L Chloride 99.4 99.2 (98-107) mmol/L Carbon Dioxide 27 26 (22-30) mmol/L BUN 8 8 (7-17) mg/dL Creatinine 0.9 0.8 (0.6-1.2) mg/dL Glucose 114 H 91 (65-100) mg/dL Calcium 9.3 9.1 (8.4-10.2) mg/dL AST 10 (5-40) units/L ALT 6 L (7-56) units/L Alkaline Phosphatase 64 (35-129) units/L Total Protein 7.1 (6.3-8.2) g/dL Albumin 4.0 (3.9-5) g/dL - Imaging and Cardiology Echo: other (04/2019 - EF 55-60%, no significant valvular abnormalities) Cardiac cath: report reviewed (07/2017 - patent RCA stent, otherwise very minimal irregularities, LVEF 50%) EKG: report reviewed, image reviewed - EKG Interpretation EKG: no acute changes EKG interpretations - Telemetry EKG Rhythm: Sinus Rhythm - EKG Sinus rhythms and dysrhythmias: sinus rhythm Assessment and Plan Recommend overnight observation with tele monitoring. Otherwise stable cardiac status. If no observable arrhythmias, will plan for outpatient event monitor. May also consider ischemic eval as an outpatient. Pt seen in conjunction with Dr. Lara, who agrees with the assessment and plan of care. - Patient Problems (1) Palpitations Current Visit: Yes Status: Acute (2) Anxiety Current Visit: Yes Status: Chronic (3) Miscarriage Current Visit: Yes Status: Resolved (4) CAD (coronary artery disease) Current Visit: Yes Status: Chronic Qualifiers: Coronary Disease-Associated Artery/Lesion type: [place] artery [place] vs. transplanted heart: [place] heart Associated angina: without angina Qualified Code(s): I25.10 - Atherosclerotic heart disease of [place] coronary artery without angina pectoris (5) Stented coronary artery Current Visit: Yes Status: Chronic (6) History of ST elevation myocardial infarction (STEMI) Current Visit: Yes Status: Chronic (7) Hypertension Current Visit: Yes Status: Chronic Qualifiers: Hypertension type: essential hypertension Qualified Code(s): I10 - Essential (primary) hypertension (8) Tobacco abuse Current Visit: No Status: Chronic (9) GERD (gastroesophageal reflux disease) Current Visit: Yes Status: Chronic Qualifiers: Esophagitis presence: esophagitis presence not specified Qualified Code(s): K21.9 - Gastro-esophageal reflux disease without esophagitis (10) Obesity Current Visit: Yes Status: Chronic Qualifiers: Body mass index: BMI 50.0-59.9
--- NOTE | 2021-03-30 10:23 | Electrocardiograph Report ---
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
--- NOTE | 2021-03-30 10:28 | Electrocardiograph Report ---
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 Electronically Signed On 03-30-2021 10:27:51 EDT by Hung Lara
--- NOTE | 2021-03-30 12:33 | Event Note ---
Date: 03/30/21 Patient was seen and evaluated this morning. Patient is complaining left-sided chest pain with radiation to the back. I ordered D-dimer and if positive I will do CTA of the chest. Patient admitted earlier this morning and continue management as outlined in HPI. Patient states she had UTI and was started with amoxicillin as an outpatient. Patient states she had miscarriage last week. She states she will follow with [employer] TANK TENDER. Cardiology consulted. Patient is stress test.
[2021-03-31 05:34] LABS: Basophils % (Auto) 0.3 % (0.0-1.8); Eosinophils # (Auto) 0.2 K/mm3 (0.0-0.4); Eosinophils % (Auto) 2.4 % (0.0-4.3); Hematocrit 31.2 % (30.3-42.9); Hemoglobin 10.5 gm/dl (10.1-14.3); Lymphocytes # (Auto) 2.6 K/mm3 (1.2-5.4); Lymphocytes % (Auto) 28.2 % (13.4-35.0); Mean Corpuscular HGB Conc 34 % (30-34); Mean Corpuscular Volume 93 fl (79-97); Monocytes % (Auto) 10.4 % (0.0-7.3); Platelet Count 464 K/mm3 (140-440); Red Blood Count 3.35 M/mm3 (3.65-5.03)
[2021-03-31 05:57] LABS: Blood Urea Nitrogen 10 mg/dL (7-17); Calcium 8.6 mg/dL (8.4-10.2); Hemolysis Index 8
[2021-03-31 05:58] LABS: BUN/Creatinine Ratio 14
[2021-03-31] MEDS: PRASUGREL 10 MG TAB PO SCH (09:46)
[2021-03-31] MEDS: RANOLAZINE ER 500 MG TAB 12HR PO SCH ×2 (09:46→22:16)
[2021-03-31] MEDS: FERROUS SULFATE 325 MG TAB PO SCH ×2 (09:46→22:17)
[2021-03-31] MEDS: carvediloL 12.5 MG TAB PO SCH ×2 (09:46→22:16)
[2021-03-31] MEDS: ASPIRIN 81 MG TAB CHEW PO SCH (09:46)
[2021-03-31] MEDS: FAMOTIDINE 20 MG TAB PO SCH ×2 (09:46→22:17)
[2021-03-31] MEDS: AMOXICILLIN/K CLAV 875/125MG TAB PO SCH ×2 (09:46→22:17)
--- NOTE | 2021-03-31 10:10 | Progress Note ---
Assessment and Plan Assessment and plan: Chest pain, shortness of breath -Patient has history of CAD -Cardiac enzymes are negative -Evaluated by cardiology and recommend outpatient follow-up for stress test -D-dimer was done and elevated, patient is allergic to iodine and order V/Q scan Given patient has shortness of breath, I will keep her here until she got stress test and VQ scan done. Morbid obesity -Concerned about lifestyle modification Anxiety -Patient is on Klonopin History Interval history: Patient was seen and evaluated this morning, chest pain is getting better. Patient is still complaining shortness of breath. Hospitalist Physical - Physical exam Narrative exam: Not in cardiopulmonary distress. The patient is morbidly obese. Vital signs as documented. Head exam is unremarkable. No scleral icterus . Neck is without jugular venous distension, thyromegaly, or carotid bruits. Lungs are clear to auscultation. Cardiac exam reveals regular rate and Rhythm. Abdominal exam reveals normal bowel sounds, nontender, no organomegaly. Extremities are nonedematous and both femoral and pedal pulses are normal. LOG SAWYER: Alert and oriented 3. No focal weakness. - Constitutional Vitals: Temp Pulse Resp BP Pulse Ox 98.2 F 82 18 128/72 98 03/31/21 07:18 03/31/21 09:46 03/31/21 07:18 03/31/21 09:46 03/31/21 09:58 General appearance: Present: no acute distress HEART Score - HEART Score EKG: Non-specific Age: < 45 Risk factors: > 3 risk factors or hx of atherosclerotic disease Troponin: Troponin T < 0.010 ng/mL (0.00-0.029) 03/30/21 13:18 Troponin: < normal limit Results - Labs CBC & Chem 7: 03/31/21 04:50 03/31/21 04:50 Labs: Laboratory Last Values WBC 9.2 K/mm3 (4.5-11.0) 03/31/21 04:50 RBC 3.35 M/mm3 (3.65-5.03) L 03/31/21 04:50 Hgb 10.5 gm/dl (10.1-14.3) 03/31/21 04:50 Hct 31.2 % (30.3-42.9) 03/31/21 04:50 MCV 93 fl (79-97) 03/31/21 04:50 MCH 31 pg (28-32) 03/31/21 04:50 MCHC 34 % (30-34) 03/31/21 04:50 RDW 17.0 % (13.2-15.2) H 03/31/21 04:50 Plt Count 464 K/mm3 (140-440) H 03/31/21 04:50 Lymph % (Auto) 28.2 % (13.4-35.0) 03/31/21 04:50 [place] % (Auto) 10.4 % (0.0-7.3) H 03/31/21 04:50 Eos % (Auto) 2.4 % (0.0-4.3) 03/31/21 04:50 Baso % (Auto) 0.3 % (0.0-1.8) 03/31/21 04:50 Lymph # (Auto) 2.6 K/mm3 (1.2-5.4) 03/31/21 04:50 [place] # (Auto) 1.0 K/mm3 (0.0-0.8) H 03/31/21 04:50 Eos # (Auto) 0.2 K/mm3 (0.0-0.4) 03/31/21 04:50 Baso # (Auto) 0.0 K/mm3 (0.0-0.1) 03/31/21 04:50 Seg Neutrophils % 58.7 % (40.0-70.0) 03/31/21 04:50 Seg Neutrophils # 5.4 K/mm3 (1.8-7.7) 03/31/21 04:50 PT 13.7 Sec. (12.2-14.9) 03/30/21 03:03 INR 1.00 (0.87-1.13) 03/30/21 03:03 D-Dimer 254.76 ng/mlDDU (0-234) H 03/30/21 13:18 Sodium 139 mmol/L (137-145) 03/31/21 04:50 Potassium 3.8 mmol/L (3.6-5.0) 03/31/21 04:50 Chloride 103.1 mmol/L (98-107) 03/31/21 04:50 Carbon Dioxide 26 mmol/L (22-30) 03/31/21 04:50 Anion Gap 14 mmol/L 03/31/21 04:50 BUN 10 mg/dL (7-17) 03/31/21 04:50 Creatinine 0.7 mg/dL (0.6-1.2) 03/31/21 04:50 Estimated GFR > 60 ml/min 03/31/21 04:50 BUN/Creatinine Ratio 14 % 03/31/21 04:50 Glucose 92 mg/dL (65-100) 03/31/21 04:50 Calcium 8.6 mg/dL (8.4-10.2) 03/31/21 04:50 Total Bilirubin < 0.20 mg/dL (0.1-1.2) 03/29/21 23:37 AST 10 units/L (5-40) 03/29/21 23:37 ALT 6 units/L (7-56) L 03/29/21 23:37 Alkaline Phosphatase 64 units/L (35-129) 03/29/21 23:37 Troponin T < 0.010 ng/mL (0.00-0.029) 03/30/21 13:18 Total Protein 7.1 g/dL (6.3-8.2) 03/29/21 23:37 Albumin 4.0 g/dL (3.9-5) 03/29/21 23:37 Albumin/Globulin Ratio 1.3 % 03/29/21 23:37 TSH 2.240 mlU/mL (0.270-4.200) 03/30/21 03:03 HCG, Quant 22.03 mIU/mL (0-4) H 03/30/21 03:03 [place]/IV: Voiding Method Toilet Active Medications - Current Medications Current Medications: Generic Name Dose Route Start Last Admin Trade Name Freq PRN Reason Stop Dose Admin Acetaminophen 650 mg 03/30/21 05:09 Acetaminophen 325 Mg Tab PO Q4H PRN Pain MILD(1-3)/Fever >100.5/DC Amoxicillin/Clavulanate Potassium 1 each 03/30/21 10:00 03/31/21 09:46 Amoxicillin/K Clav 875/125mg Tab PO 04/05/21 22:01 1 each BID ADELSO Administration Aspirin 81 mg 03/31/21 10:00 03/31/21 09:46 Aspirin 81 Mg Tab Chew PO 81 mg QDAY ADELSO Administration Carvedilol 12.5 mg 03/30/21 10:00 03/31/21 09:46 Carvedilol 12.5 Mg Tab PO 12.5 mg BID ADELSO Administration Clonazepam 0.5 mg 03/30/21 05:08 03/30/21 09:11 Clonazepam 0.5 Mg Tab PO 0.5 mg BID PRN Administration Anxiety Famotidine 20 mg 03/30/21 10:00 03/31/21 09:46 Famotidine 20 Mg Tab PO 20 mg BID ADELSO Administration Ferrous Sulfate 325 mg 03/30/21 10:00 03/31/21 09:46 Ferrous Sulfate 325 Mg Tab PO 325 mg BID ADELSO Administration Isosorbide Mononitrate 30 mg 03/30/21 10:00 03/31/21 09:46 Isosorbide Mononitrate Er 30 Mg Tab PO 30 mg QDAY ADELSO Administration Morphine Sulfate 2 mg 03/30/21 05:09 Morphine 2 Mg/1 Ml Inj IV Q4H PRN Pain, Moderate (4-6) Ondansetron HCl 4 mg 03/30/21 05:09 Ondansetron 4 Mg/2 Ml Inj IV Q8H PRN Nausea And Vomiting Prasugrel 10 mg 03/30/21 10:00 03/31/21 09:46 Prasugrel 10 Mg Tab PO 10 mg QDAY ADELSO Administration Ranolazine 500 mg 03/30/21 10:00 03/31/21 09:46 Ranolazine Er 500 Mg Tab 12hr PO 500 mg BID ADELSO Administration Sodium Chloride 10 ml 03/30/21 10:00 03/31/21 09:47 Sodium Chloride 0.9% 10 Ml Flush Syringe IV 10 ml BID ADELSO Administration Sodium Chloride 10 ml 03/30/21 05:09 Sodium Chloride 0.9% 10 Ml Flush Syringe IV PRN PRN LINE FLUSH
[2021-03-31 12:47] LABS: Bilirubin,Urine NEG (Negative); Blood,Urine SM (Negative); Color,Urine Yellow (Yellow); Protein,Urine <15 mg/dL mg/dL (Negative); Urobilinogen,Urine < 2.0 mg/dL (<2.0)
--- NOTE | 2021-03-31 16:57 | Progress Note ---
Assessment and Plan No arrhythmias noted on tele since admission. Echo reviewed - EF 55-60%, no significant valvular abnormalities. D-dimer noted to be elevated. Unable to complete chest CTA d/t iodine allergy. Awaiting V/Q scan. Also recommend checking BLE Dopplers. Otherwise stable cardiac status. If V/Q and Dopplers negative, pt may be discharged from a cardiac perspective. Recommend follow-up with Dr. Sayra Billingsley within 1-2 weeks ([phone]). May consider event monitor as an outpatient. May also consider ischemic eval as an outpatient. Pt seen in conjunction with Dr. Castillo, who agrees with the assessment and plan of care. - Patient Problems (1) Palpitations Current Visit: Yes Status: Acute (2) Anxiety Current Visit: Yes Status: Chronic (3) Miscarriage Current Visit: Yes Status: Resolved (4) CAD (coronary artery disease) Current Visit: Yes Status: Chronic Qualifiers: Coronary Disease-Associated Artery/Lesion type: [place] artery [place] vs. transplanted heart: [place] heart Associated angina: without angina Qualified Code(s): I25.10 - Atherosclerotic heart disease of [place] coronary artery without angina pectoris (5) Stented coronary artery Current Visit: Yes Status: Chronic (6) History of ST elevation myocardial infarction (STEMI) Current Visit: Yes Status: Chronic (7) Hypertension Current Visit: Yes Status: Chronic Qualifiers: Hypertension type: essential hypertension Qualified Code(s): I10 - Essential (primary) hypertension (8) Tobacco abuse Current Visit: No Status: Chronic (9) GERD (gastroesophageal reflux disease) Current Visit: Yes Status: Chronic Qualifiers: Esophagitis presence: esophagitis presence not specified Qualified Code(s): K21.9 - Gastro-esophageal reflux disease without esophagitis (10) Obesity Current Visit: Yes Status: Chronic Qualifiers: Body mass index: BMI 50.0-59.9 Subjective Date of service: 03/31/21 Principal diagnosis: Palpitations Interval history: Still c/o intermittent SOB and palpitations. Tele reviewed - SR 70-80s, no events since admission. Objective Last Vital Signs Temp 97.2 F L 03/31/21 16:49 Pulse 78 03/31/21 16:49 Resp 17 03/31/21 16:49 BP 122/71 03/31/21 16:49 Pulse Ox 98 03/31/21 16:49 - Physical Examination General: No Apparent Distress HEENT: Positive: EOMI, Normocephaly, Mucus Membranes Moist Neck: Positive: neck supple, trachea midline. Negative: JVD/HJR Cardiac: Positive: Reg Rate and Rhythm, S1/S2. Negative: Audible Murmur Lungs: Positive: clear to auscultation (bilaterally) Neuro: Positive: Grossly Intact Abdomen: Positive: Soft. Negative: Tender Skin: Negative: Rash, Wound Musculoskeletal: No Pain Extremities: Present: upper extr. pulses, lower extr. pulses, edema (trace pedal) - Labs and Meds CBC 03/31/21 Range/Units 04:50 WBC 9.2 (4.5-11.0) K/mm3 RBC 3.35 L (3.65-5.03) M/mm3 Hgb 10.5 (10.1-14.3) gm/dl Hct 31.2 (30.3-42.9) % Plt Count 464 H (140-440) K/mm3 Lymph # (Auto) 2.6 (1.2-5.4) K/mm3 [place] # (Auto) 1.0 H (0.0-0.8) K/mm3 Eos # (Auto) 0.2 (0.0-0.4) K/mm3 Baso # (Auto) 0.0 (0.0-0.1) K/mm3 Comprehensive Metabolic Panel 03/31/21 Range/Units 04:50 Sodium 139 (137-145) mmol/L Potassium 3.8 (3.6-5.0) mmol/L Chloride 103.1 (98-107) mmol/L Carbon Dioxide 26 (22-30) mmol/L BUN 10 (7-17) mg/dL Creatinine 0.7 (0.6-1.2) mg/dL Glucose 92 (65-100) mg/dL Calcium 8.6 (8.4-10.2) mg/dL - Imaging and Cardiology EKG: report reviewed, image reviewed Pharmacologic stress test: report reviewed (04/2019 - negative for ischemia, EF 58%) Echo: report reviewed (03/30/2021 - EF 55-60%, no significant valvular abnormalities), other (04/2019 - EF 55-60%, no significant valvular abnormalities) Cardiac cath: report reviewed (07/2017 - patent RCA stent, otherwise very minimal irregularities, LVEF 50%) - Telemetry EKG Rhythm: Sinus Rhythm - EKG Sinus rhythms and dysrhythmias: sinus rhythm
[2021-03-31] MEDS: ENOXAPARIN 40 MG/0.4 ML INJ SUB-Q SCH (22:18)
--- NOTE | 2021-04-01 08:21 | Progress Note ---
Assessment and Plan Assessment and plan: Chest pain, shortness of breath -Patient has history of CAD -Cardiac enzymes are negative -Evaluated by cardiology and recommend outpatient follow-up for ischemic evaluation -D-dimer was done and elevated, patient is allergic to iodine and order V/Q scan -Given patient has shortness of breath, I will keep her here until she got stress test and VQ scan done. -VQ scan can come to be done on the weekends Morbid obesity -Concerned about lifestyle modification Anxiety -Patient is on Klonopin History Interval history: Patient was seen and evaluated this morning, chest pain is getting better. Patient is still complaining shortness of breath. Hospitalist Physical - Physical exam Narrative exam: Not in cardiopulmonary distress. The patient is morbidly obese. Vital signs as documented. Head exam is unremarkable. No scleral icterus . Neck is without jugular venous distension, thyromegaly, or carotid bruits. Lungs are clear to auscultation. Cardiac exam reveals regular rate and Rhythm. Abdominal exam reveals normal bowel sounds, nontender, no organomegaly. Extremities are nonedematous and both femoral and pedal pulses are normal. PHARMACY TECH CUSTOMER SERVICE: Alert and oriented 3. No focal weakness. - Constitutional Vitals: Temp Pulse Resp BP Pulse Ox 98.2 F 76 16 126/69 98 04/01/21 03:23 04/01/21 03:23 04/01/21 03:23 04/01/21 03:23 04/01/21 08:11 General appearance: Present: no acute distress HEART Score - HEART Score EKG: Non-specific Age: < 45 Risk factors: > 3 risk factors or hx of atherosclerotic disease Troponin: Troponin T < 0.010 ng/mL (0.00-0.029) 03/30/21 13:18 Troponin: < normal limit Results - Labs CBC & Chem 7: 03/31/21 04:50 03/31/21 04:50 Labs: Laboratory Last Values WBC 9.2 K/mm3 (4.5-11.0) 03/31/21 04:50 RBC 3.35 M/mm3 (3.65-5.03) L 03/31/21 04:50 Hgb 10.5 gm/dl (10.1-14.3) 03/31/21 04:50 Hct 31.2 % (30.3-42.9) 03/31/21 04:50 MCV 93 fl (79-97) 03/31/21 04:50 MCH 31 pg (28-32) 03/31/21 04:50 MCHC 34 % (30-34) 03/31/21 04:50 RDW 17.0 % (13.2-15.2) H 03/31/21 04:50 Plt Count 464 K/mm3 (140-440) H 03/31/21 04:50 Lymph % (Auto) 28.2 % (13.4-35.0) 03/31/21 04:50 [place] % (Auto) 10.4 % (0.0-7.3) H 03/31/21 04:50 Eos % (Auto) 2.4 % (0.0-4.3) 03/31/21 04:50 Baso % (Auto) 0.3 % (0.0-1.8) 03/31/21 04:50 Lymph # (Auto) 2.6 K/mm3 (1.2-5.4) 03/31/21 04:50 [place] # (Auto) 1.0 K/mm3 (0.0-0.8) H 03/31/21 04:50 Eos # (Auto) 0.2 K/mm3 (0.0-0.4) 03/31/21 04:50 Baso # (Auto) 0.0 K/mm3 (0.0-0.1) 03/31/21 04:50 Seg Neutrophils % 58.7 % (40.0-70.0) 03/31/21 04:50 Seg Neutrophils # 5.4 K/mm3 (1.8-7.7) 03/31/21 04:50 PT 13.7 Sec. (12.2-14.9) 03/30/21 03:03 INR 1.00 (0.87-1.13) 03/30/21 03:03 D-Dimer 254.76 ng/mlDDU (0-234) H 03/30/21 13:18 Sodium 139 mmol/L (137-145) 03/31/21 04:50 Potassium 3.8 mmol/L (3.6-5.0) 03/31/21 04:50 Chloride 103.1 mmol/L (98-107) 03/31/21 04:50 Carbon Dioxide 26 mmol/L (22-30) 03/31/21 04:50 Anion Gap 14 mmol/L 03/31/21 04:50 BUN 10 mg/dL (7-17) 03/31/21 04:50 Creatinine 0.7 mg/dL (0.6-1.2) 03/31/21 04:50 Estimated GFR > 60 ml/min 03/31/21 04:50 BUN/Creatinine Ratio 14 % 03/31/21 04:50 Glucose 92 mg/dL (65-100) 03/31/21 04:50 Calcium 8.6 mg/dL (8.4-10.2) 03/31/21 04:50 Total Bilirubin < 0.20 mg/dL (0.1-1.2) 03/29/21 23:37 AST 10 units/L (5-40) 03/29/21 23:37 ALT 6 units/L (7-56) L 03/29/21 23:37 Alkaline Phosphatase 64 units/L (35-129) 03/29/21 23:37 Troponin T < 0.010 ng/mL (0.00-0.029) 03/30/21 13:18 Total Protein 7.1 g/dL (6.3-8.2) 03/29/21 23:37 Albumin 4.0 g/dL (3.9-5) 03/29/21 23:37 Albumin/Globulin Ratio 1.3 % 03/29/21 23:37 TSH 2.240 mlU/mL (0.270-4.200) 03/30/21 03:03 HCG, Quant 22.03 mIU/mL (0-4) H 03/30/21 03:03 Urine Color Yellow (Yellow) 03/31/21 Unknown Urine Turbidity Clear (Clear) 03/31/21 Unknown Urine pH 7.0 (5.0-7.0) 03/31/21 Unknown Ur Specific [place] 1.009 (1.003-1.030) 03/31/21 Unknown Urine Protein <15 mg/dl mg/dL (Negative) 03/31/21 Unknown Urine Glucose (UA) Neg mg/dL (Negative) 03/31/21 Unknown Urine Ketones Neg mg/dL (Negative) 03/31/21 Unknown Urine Blood Sm (Negative) 03/31/21 Unknown Urine Nitrite Neg (Negative) 03/31/21 Unknown Urine Bilirubin Neg (Negative) 03/31/21 Unknown Urine Urobilinogen < 2.0 mg/dL (<2.0) 03/31/21 Unknown Ur Leukocyte Esterase Sm (Negative) 03/31/21 Unknown Urine WBC (Auto) 2.0 /HPF (0.0-6.0) 03/31/21 Unknown Urine RBC (Auto) 1.0 /HPF (0.0-6.0) 03/31/21 Unknown U Epithel Cells (Auto) 7.0 /HPF (0-13.0) 03/31/21 Unknown [place]/IV: Voiding Method Toilet Active Medications - Current Medications Current Medications: Generic Name Dose Route Start Last Admin Trade Name Freq PRN Reason Stop Dose Admin Acetaminophen 650 mg 03/30/21 05:09 Acetaminophen 325 Mg Tab PO Q4H PRN Pain MILD(1-3)/Fever >100.5/DC Aspirin 81 mg 03/31/21 10:00 03/31/21 09:46 Aspirin 81 Mg Tab Chew PO 81 mg QDAY ADELSO Administration Carvedilol 12.5 mg 03/30/21 10:00 03/31/21 22:16 Carvedilol 12.5 Mg Tab PO 12.5 mg BID ADELSO Administration Clonazepam 0.5 mg 03/30/21 05:08 03/30/21 09:11 Clonazepam 0.5 Mg Tab PO 0.5 mg BID PRN Administration Anxiety Enoxaparin Sodium 40 mg 03/31/21 22:00 03/31/21 22:18 Enoxaparin 40 Mg/0.4 Ml Inj SUB-Q 40 mg QDAY@2200 ADELSO Administration Protocol Famotidine 20 mg 03/30/21 10:00 03/31/21 22:17 Famotidine 20 Mg Tab PO 20 mg BID ADELSO Administration Ferrous Sulfate 325 mg 03/30/21 10:00 03/31/21 22:17 Ferrous Sulfate 325 Mg Tab PO 325 mg BID ADELSO Administration Isosorbide Mononitrate 30 mg 03/30/21 10:00 03/31/21 09:46 Isosorbide Mononitrate Er 30 Mg Tab PO 30 mg QDAY ADELSO Administration Morphine Sulfate 2 mg 03/30/21 05:09 Morphine 2 Mg/1 Ml Inj IV Q4H PRN Pain, Moderate (4-6) Ondansetron HCl 4 mg 03/30/21 05:09 Ondansetron 4 Mg/2 Ml Inj IV Q8H PRN Nausea And Vomiting Prasugrel 10 mg 03/30/21 10:00 03/31/21 09:46 Prasugrel 10 Mg Tab PO 10 mg QDAY ADELSO Administration Ranolazine 500 mg 03/30/21 10:00 03/31/21 22:16 Ranolazine Er 500 Mg Tab 12hr PO 500 mg BID ADELSO Administration Sodium Chloride 10 ml 03/30/21 10:00 03/31/21 22:18 Sodium Chloride 0.9% 10 Ml Flush Syringe IV 10 ml BID ADELSO Administration Sodium Chloride 10 ml 03/30/21 05:09 Sodium Chloride 0.9% 10 Ml Flush Syringe IV PRN PRN LINE FLUSH
[2021-04-01] MEDS: carvediloL 12.5 MG TAB PO SCH ×2 (11:39→22:59)
[2021-04-01] MEDS: ASPIRIN 81 MG TAB CHEW PO SCH (11:39)
[2021-04-01] MEDS: FERROUS SULFATE 325 MG TAB PO SCH ×2 (11:39→22:58)
[2021-04-01] MEDS: FAMOTIDINE 20 MG TAB PO SCH ×2 (11:39→22:59)
[2021-04-01] MEDS: RANOLAZINE ER 500 MG TAB 12HR PO SCH ×2 (11:39→22:59)
[2021-04-01] MEDS: PRASUGREL 10 MG TAB PO SCH (11:39)
[2021-04-01] MEDS: clonazePAM 0.5 MG TAB PO PRN (11:47)
--- NOTE | 2021-04-01 19:55 | Progress Note ---
Assessment and Plan No arrhythmias noted on tele since admission. Echo reviewed - EF 55-60%, no significant valvular abnormalities. D-dimer noted to be elevated. Unable to complete chest CTA d/t iodine allergy. Awaiting V/Q scan. Also recommend checking BLE Dopplers. Otherwise stable cardiac status. If V/Q and Dopplers negative, pt may be discharged from a cardiac perspective. Recommend follow-up with Dr. Sayra Billingsley within 1-2 weeks ([phone]). May consider event monitor as an outpatient. May also consider ischemic eval as an outpatient. Pt seen in conjunction with Dr. Castillo, who agrees with the assessment and plan of care. - Patient Problems (1) Palpitations Current Visit: Yes Status: Acute (2) Anxiety Current Visit: Yes Status: Chronic (3) Miscarriage Current Visit: Yes Status: Resolved (4) CAD (coronary artery disease) Current Visit: Yes Status: Chronic Qualifiers: Coronary Disease-Associated Artery/Lesion type: [place] artery [place] vs. transplanted heart: [place] heart Associated angina: without angina Qualified Code(s): I25.10 - Atherosclerotic heart disease of [place] coronary artery without angina pectoris (5) Stented coronary artery Current Visit: Yes Status: Chronic (6) History of ST elevation myocardial infarction (STEMI) Current Visit: Yes Status: Chronic (7) Hypertension Current Visit: Yes Status: Chronic Qualifiers: Hypertension type: essential hypertension Qualified Code(s): I10 - Essential (primary) hypertension (8) Tobacco abuse Current Visit: No Status: Chronic (9) GERD (gastroesophageal reflux disease) Current Visit: Yes Status: Chronic Qualifiers: Esophagitis presence: esophagitis presence not specified Qualified Code(s): K21.9 - Gastro-esophageal reflux disease without esophagitis (10) Obesity Current Visit: Yes Status: Chronic Qualifiers: Body mass index: BMI 50.0-59.9 Subjective Date of service: 04/01/21 Principal diagnosis: Palpitations Interval history: Still c/o intermittent SOB and palpitations. No precipitating factors. Tele reviewed - SR 70s, no events since admission. Objective Last Vital Signs Temp 98.0 F 04/01/21 08:31 Pulse 69 04/01/21 12:43 Resp 20 04/01/21 08:50 BP 106/61 04/01/21 08:31 Pulse Ox 98 04/01/21 10:00 - Physical Examination General: No Apparent Distress HEENT: Positive: EOMI, Normocephaly, Mucus Membranes Moist Neck: Positive: neck supple, trachea midline. Negative: JVD/HJR Cardiac: Positive: Reg Rate and Rhythm, S1/S2. Negative: Audible Murmur Lungs: Positive: clear to auscultation (bilaterally) Neuro: Positive: Grossly Intact Abdomen: Positive: Soft. Negative: Tender Skin: Negative: Rash, Wound Musculoskeletal: No Pain Extremities: Present: upper extr. pulses, lower extr. pulses, edema (non-pitting pedal edema), warm - Imaging and Cardiology EKG: report reviewed, image reviewed Echo: report reviewed (03/30/2021 - EF 55-60%, no significant valvular abnormalities), other (04/2019 - EF 55-60%, no significant valvular abnormalities) Cardiac cath: report reviewed (07/2017 - patent RCA stent, otherwise very minimal irregularities, LVEF 50%) - Telemetry EKG Rhythm: Sinus Rhythm - EKG Sinus rhythms and dysrhythmias: sinus rhythm
[2021-04-01] MEDS: ENOXAPARIN 40 MG/0.4 ML INJ SUB-Q SCH (22:58)
--- NOTE | 2021-04-02 08:54 | Nuclear Medicine Report ---
CHEST 1 VIEW INDICATION: SOB elevated D-dimer. COMPARISON: 05/05/2017 FINDINGS: Support devices: None. Heart: Within normal limits. Lungs/Pleura: No acute air space or interstitial disease. Additional findings: None. IMPRESSION: No acute findings. NUCLEAR MEDICINE PERFUSION SCAN INDICATION: SOB elevated D-dimer CORRELATION: AP chest performed the same day RADIOPHARMACEUTICAL: Perfusion: 5.1 mCi Tc-99m MAA given IV FINDINGS: Perfusion images show symmetric and uniform radiotracer distribution throughout bilateral lung zones with no evidence of segmental perfusion defects. Normal cardiac silhouette. IMPRESSION: Very low probability perfusion scan for pulmonary embolism. Signer Name: Jose Sharma Jr, MD Signed: 04/02/2021 8:50 AM Workstation Name: [id number]
--- NOTE | 2021-04-02 09:04 | Vascular Lab Report ---
DUPLEX DOPPLER LOWER EXTREMITY VEINS, BILATERAL INDICATION: Elevated D-dimer. TECHNIQUE: Duplex doppler imaging was performed through the veins of both lower extremities using ve nous compression and other maneuvers. COMPARISON: No relevant prior imaging study available. FINDINGS: Right Common femoral vein: Negative. Right Superficial femoral vein: Negative. Right Popliteal vein: Negative. Right Calf veins: Negative. Left Common femoral vein: Negative. Left Superficial femoral vein: Negative. Left Popliteal vein: Negative. Left Calf veins: Negative. Additional findings: None. IMPRESSION: No sonographic evidence for DVT in either lower extremity. Signer Name: Jose Sharma Jr, MD Signed: 04/02/2021 9:00 AM Workstation Name: [id number]
--- NOTE | 2021-04-02 10:08 | Discharge Summary ---
Providers - Providers Date of Admission: 04/01/21 10:49 Date of discharge: 04/02/21 Attending physician: MARY JO HAM MD Primary care physician: CYBER SOFTWARE ENGINEER Hospitalization Reason for admission: Chest pain, shortness of breath, morbid obesity, CAD, anxiety Condition: Stable Hospital course: History of present illness: 45-year-old -[place] female with past medical history of hypertension, IBS, high cholesterol and coronary artery disease with [address] was brought to the emergency department with a complaint of palpitations, shortness of breath and some generalized chest discomfort that started this evening around 8 PM. She did not take anything for symptoms prior to presentation. There is also concerned that the patient is about 6 weeks gestation. She was here on 03/21 and at that time she was found to be with a gestational sac seen on ultrasound. The patient was seen here again 2 days later and had a negative test and an ultrasound that did not show any definitive evidence of intrauterine or extrauterine . 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 No recent travel or sick contacts at home. She denies any fever, lower extremity swelling, nausea, vomiting, diaphoresis. In the emergency room patient troponin is 0.010. Patient ACC is 22.03 and potassium 3.3. Hospital course Chest pain, shortness of breath -Patient has history of CAD -Cardiac enzymes are negative -Evaluated by cardiology and recommend outpatient follow-up for ischemic evaluation -D-dimer was done and elevated, patient is allergic to iodine and order V/Q scan -Given patient has shortness of breath, I will keep her here until she got stress test and VQ scan done. -VQ scan can come to be done on the weekends Morbid obesity -Concerned about lifestyle modification Anxiety -Patient is on Klonopin VQ scan was done and negative for PE. Doppler ultrasound of the lower extremities was negative for DVT. Patient was evaluated by cardiology and recommend to discharge and follow-up as an outpatient in the office in 1 to 2 weeks. Patient was hemodynamically stable at the time of discharge. I have explained the management plan in detail with the patient. Patient has her home medications and does not need refill except Klonopin. I give her a prescription for Klonopin until she see her primary care physician. I have extensively counseled about weight loss. Patient's questions and concerns were addressed at the bedside. Disposition: DC-01 TO HOME OR SELFCARE Final Discharge Diagnosis (Prints w/discharge instructions): Chest pain. Shortness of breath. Morbid obesity. CAD. Anxiety Time spent for discharge: 35 minutes - Discharge Diagnoses (1) Acute chest pain Status: Acute (2) CAD (coronary artery disease) Status: Acute Qualifiers: Coronary Disease-Associated Artery/Lesion type: unspecified vessel or lesion type [place] vs. transplanted heart: [place] heart Associated angina: unspecified whether angina present Qualified Code(s): I25.10 - Atherosclerotic heart disease of [place] coronary artery without angina pectoris (3) Anxiety Status: Chronic (4) Morbid obesity Status: Chronic (5) Stented coronary artery Status: Chronic (6) Miscarriage Status: Resolved Core Measure Documentation - Palliative Care Palliative Care/ Comfort Measures: Not Applicable - Core Measures Any of the following diagnoses?: none Exam - Physical Exam Narrative exam: Not in cardiopulmonary distress. The patient is morbidly obese. Vital signs as documented. Head exam is unremarkable. No scleral icterus . Neck is without jugular venous distension, thyromegaly, or carotid bruits. Lungs are clear to auscultation. Cardiac exam reveals regular rate and Rhythm. Abdominal exam reveals normal bowel sounds, nontender, no organomegaly. Extremities are nonedematous and both femoral and pedal pulses are normal. APPLICATION PACKAGING SPECIALIST: Alert and oriented 3. No focal weakness. - Constitutional Vitals: Temp Pulse Resp BP Pulse Ox 98.1 F 71 20 96/49 97 04/02/21 05:20 04/02/21 10:04 04/02/21 05:20 04/02/21 05:20 04/02/21 05:20 Plan Activity: no restrictions Weight Bearing Status: Full Weight Bearing Diet: low cholesterol Follow up with: PRIMARY MD ANN [Primary Care Provider] - 3-5 Days IBRAHIMA ISLAS MD [Staff Physician] - 7 Days Prescriptions: clonazePAM [KlonoPIN] 0.5 mg PO BID PRN #12 tab PRN Reason: Anxiety
--- NOTE | 2021-04-02 10:34 | Electrocardiograph Report ---
[facility] Test Date: 2021-03-30 Test Time: 12:54:59 Pat Name: MAKAYLA ARGUELLES Department: Room: A466 1 Gender: F Automation Lead: DARIEN : 1975 Requested By: USAMA MATHEWS Order Number: [id number] Reading MD: Maverick Billingsley Measurements Intervals [place] Rate: 70 P: 19 NC: 189 QRS: 36 QRSD: 83 T: 2 QT: 384 QTc: 416 Interpretive Statements Sinus rhythm Low voltage, precordial leads Compared to ECG 03/30/2021 07:51:32 No significant changes Electronically Signed On 04-02-2021 10:34:24 EDT by Maverick Billingsley
[2021-04-02] MEDS: RANOLAZINE ER 500 MG TAB 12HR PO SCH (10:44)
[2021-04-02] MEDS: ASPIRIN 81 MG TAB CHEW PO SCH (10:44)
[2021-04-02] MEDS: PRASUGREL 10 MG TAB PO SCH (10:44)
[2021-04-02] MEDS: FAMOTIDINE 20 MG TAB PO SCH (10:44)
[2021-04-02] MEDS: FERROUS SULFATE 325 MG TAB PO SCH (10:44)
[2021-04-02 10:45] VITALS: BP 134/78
[2021-04-02] MEDS: clonazePAM 0.5 MG TAB PO PRN (10:45)
[2021-04-02] MEDS: carvediloL 12.5 MG TAB PO SCH (10:45)
--- NOTE | 2021-04-02 12:24 | Progress Note ---
Assessment and Plan Telemetry reviewed: Sinus rhythm 82. No events #Coronary artery disease s/p coronary artery stents history of STEMI * Echo reviewed - EF 55-60%, no significant valvular abnormalities. * We will plan for further ischemic work-up in outpatient setting #Elevated D-dimer * VQ scan has low suspicion for PTE. BLE Doppler shows no obstructive thromboembolism. #Palpitation * Review of telemetry shows no arrhythmia since admission #Tobacco use * Cessation encouraged #DVT prophylaxis * Lovenox SQ Patient is currently stable cardiac status. We will plan for further ischemic work-up in outpatient setting. Patient may discharge from cardiac standpoint. Patient should follow-up with Dr Sayra Billingsley in our [place] office on 04/27/2021 at 2:15 PM. #[phone] This patient was seen in conjunction with Dr Sayra Billingsley who agrees with this assessment and plan of care - Patient Problems (1) Palpitations Current Visit: Yes Status: Acute (2) Anxiety Current Visit: Yes Status: Chronic (3) Miscarriage Current Visit: Yes Status: Resolved (4) CAD (coronary artery disease) Current Visit: Yes Status: Chronic Qualifiers: Coronary Disease-Associated Artery/Lesion type: [place] artery [place] vs. tr ansplanted heart: [place] heart Associated angina: without angina Qualified Code(s): I25.10 - Atherosclerotic heart disease of [place] coronary artery without angina pectoris (5) Stented coronary artery Current Visit: Yes Status: Chronic (6) History of ST elevation myocardial infarction (STEMI) Current Visit: Yes Status: Chronic (7) Hypertension Current Visit: Yes Status: Chronic Qualifiers: Hypertension type: essential hypertension Qualified Code(s): I10 - [place] l (primary) hypertension (8) Tobacco abuse Current Visit: No Status: Chronic (9) GERD (gastroesophageal reflux disease) Current Visit: Yes Status: Chronic Qualifiers: Esophagitis presence: esophagitis presence not specified Qualified Code(s): K21.9 - Gastro-esophageal reflux disease without esophagitis (10) Obesity Current Visit: Yes Status: Chronic Qualifiers: Body mass index: BMI 50.0-59.9 Subjective Date of service: 04/02/21 Principal diagnosis: Palpitations Interval history: Patient is resting comfortably in bed. No shortness of breath or chest pain overnight. Telemetry reviewed: Sinus rhythm 82. No events. Objective Last Vital Signs Temp 98.1 F 04/02/21 05:20 Pulse 72 04/02/21 10:45 Resp 20 04/02/21 05:20 BP 134/78 04/02/21 10:45 Pulse Ox 97 04/02/21 10:00 - Physical Examination General: No Apparent Distress HEENT: Positive: EOMI, Normocephaly, Mucus Membranes Moist Neck: Positive: neck supple, trachea midline. Negative: JVD/HJR Cardiac: Positive: Reg Rate and Rhythm, S1/S2 Lungs: Positive: Normal Exam, Normal Breath Sounds Neuro: Positive: Grossly Intact Abdomen: Positive: Soft. Negative: Tender Skin: Negative: Rash, Wound Musculoskeletal: No Pain Extremities: Present: upper extr. pulses, lower extr. pulses, edema (non-pitting pedal edema), warm - Imaging and Cardiology EKG: report reviewed, image reviewed Echo: report reviewed (03/30/2021 - EF 55-60%, no significant valvular a bnormalities), other (04/2019 - EF 55-60%, no significant valvular abnormalities) Cardiac cath: report reviewed (07/2017 - patent RCA stent, otherwise very minimal irregularities, LVEF 50%) - Telemetry EKG Rhythm: Sinus Rhythm - EKG Sinus rhythms and dysrhythmias: sinus rhythm
--- NOTE | 2021-04-04 10:13 | XRay Report ---
CHEST 1 VIEW INDICATION: SOB. COMPARISON: 03/21/2021 FINDINGS: Support devices: None. Heart: Within normal limits. Lungs/Pleura: No acute air space or interstitial disease. Additional findings: None. IMPRESSION: No acute findings. Signer Name: Jose Sharma Jr, MD Signed: 04/04/2021 10:09 AM Workstation Name: [id number]
== END 2021-04-02 11:40 | disposition home or self-care (01) | DRG 303 ==
LOC: ED 22:45 → 4A 03-30 04:29 → OBSVTOIN 04-01 10:49
PROVIDERS: ADMIT Hospitalist; ATTEND Internal Medicine
DX: I25.10 Atherosclerotic heart disease of native coronary artery without angina pectoris (principal); K21.9 Gastro-esophageal reflux disease without esophagitis; I10 Essential (primary) hypertension; K58.9 Irritable bowel syndrome, unspecified; R07.89 Other chest pain; G89.29 Other chronic pain; M54.9 Dorsalgia, unspecified; F17.200 Nicotine dependence, unspecified, uncomplicated; E66.01 Morbid (severe) obesity due to excess calories; E78.5 Hyperlipidemia, unspecified; I24.9 Acute ischemic heart disease, unspecified; F41.9 Anxiety disorder, unspecified; R00.2 Palpitations; Z91.041 Radiographic dye allergy status; Z91.013 Allergy to seafood; Z71.3 Dietary counseling and surveillance; Z82.49 Family history of ischemic heart disease and other diseases of the circulatory system; I25.2 Old myocardial infarction; Z98.61 Coronary angioplasty status; Z68.43 Body mass index [BMI] 50.0-59.9, adult; Z71.6 Tobacco abuse counseling
CPT/HCPCS: 36415; 71045; 78580; 80048; 80053; 81001; 84443; 84484; 84702; 85025; 85379; 85610; 93005; 93306; 93970; G0378; A9270-GY; A9540; J1650; J2270

== ENCOUNTER 2021-04-12 08:38 | Emergency (ER) | payer OTHER ==
--- NOTE | 2021-04-12 09:50 | XRay Report ---
XR chest routine 2V INDICATION / CLINICAL INFORMATION: chest pain, shortness of breath. COMPARISON: 04/02/2021 FINDINGS: SUPPORT DEVICES: None. HEART /PULMONARY VASCULATURE: No significant abnormality. LUNGS / PLEURA: No significant pulmonary or pleural abnormality. No pneumothorax. ADDITIONAL FINDINGS: No significant additional findings. IMPRESSION: 1. No acute findings. Signer Name: Mandeep Beltran MD Signed: 04/12/2021 9:46 AM Workstation Name: [id number]
--- NOTE | 2021-04-12 10:35 | Emergency Department Report ---
HPI - General Chief Complaint: Dyspnea/Respdistress Time Seen by Provider: 04/12/21 09:01 - HPI HPI: This is a 45-year-old -[place] female, with a past medical history of IA/CAD, status post PCI of RCA, hypertension, anxiety, that presents with acute left arm pain to the upper arm that woke her from sleep this morning. She took a Tylenol No. 4 and took a sublingual nitro, as well as full dose aspirin, and called for EMS. Initially, while in route with EMS, she says that the pain radiated into her chest. However she thinks that the Tylenol No. 4 began taking effect and at the time of my examination denies any current pain. The patient w as just recently admitted here for a chest pain work-up on 03/30. During that visit she had a normal echocardiogram, a VQ scan negative for pulmonary embolism, bilateral lower extremity venous Doppler ultrasound negative for DVT. The patient has a negative stress test from 2019. She follows with [facility] cardiology. She says that her outpatient follow-up appointment with Dr. Lara is not for another few weeks. She denies any current shortness of breath, fever, nausea, vomiting, back pain, upper or lower extremity swelling, diaphoresis. ED Past Medical Hx - Past Medical History Hx Hypertension: Yes Hx CVA: No Hx Heart Attack/AMI: Yes (stents 03/11) Hx Congestive Heart Failure: No Hx Diabetes: No Hx Deep Vein Thrombosis: No Hx Pulmonary Embolism: No Hx GERD: Yes Hx Liver Disease: No Hx Renal Disease: No Hx Sickle Cell Disease: No Hx Arthritis: No Hx Headaches / Migraines: No Hx Seizures: No Hx Kidney Stones: No Hx Psychiatric Treatment: No Hx Asthma: No Hx COPD: No Hx Tuberculosis: No Hx Dementia: No Hx HIV: No Additional medical history: 2 STENTS 02/28/16, cholesterol, IBS, fibroids. CHRONIC BACK PAIN - Surgical History Hx Coronary Stent: Yes Hx Open Heart Surgery: No Hx Pacemaker: No Hx Internal Defibrillator: No Hx Cholecystectomy: No Hx Appendectomy: No Hx Breast Surgery: No Additional Surgical History: D&C - Social History Smoking Status: Former Smoker Substance Use Type: None - Medications Home Medications: Home Medications Medication Instructions Recorded Confirmed Last Taken Type Aspirin 325 mg PO QDAY #30 tablet 08/12/17 03/31/21 04/27/19 Rx Ferrous Sulfate [Feosol 325 MG tab] 325 mg PO BID #60 tablet 08/12/17 03/31/21 04/27/19 Rx ISOSORBIDE MONOnitrate [Imdur ER] 30 mg PO QDAY #30 tablet 08/12/17 03/31/21 04/27/19 Rx Prasugrel [Effient] 10 mg PO QDAY #30 tablet 08/12/17 03/31/21 04/27/19 Rx Ranolazine ER [Ranexa ER] 500 mg PO BID #60 tablet 08/12/17 03/31/21 04/27/19 Rx carvediloL [Coreg] 12.5 mg PO BID #60 tablet 08/12/17 03/31/21 04/27/19 Rx Ergocalciferol [Vitamin D2] 50,000 unit PO DAILY 03/31/21 03/31/21 Unknown History Pravastatin [Pravachol] 40 mg PO DAILY 03/31/21 03/31/21 Unknown History hydroCHLOROthiazide [HCTZ] 25 mg PO DAILY 03/31/21 03/31/21 Unknown History clonazePAM [KlonoPIN] 0.5 mg PO BID PRN #12 tab 04/02/21 Unknown Rx ED Review of Systems ROS: Stated complaint: LT ARM PAIN Other details as noted in HPI Comment: All other systems reviewed and negative Constitutional: denies: chills, fever Eyes: denies: eye pain, vision change ENT: denies: ear pain, throat pain Respiratory: denies: cough, shortness of breath Cardiovascular: chest pain. denies: palpitations Gastrointestinal: denies: abdominal pain, vomiting Genitourinary: denies: dysuria, discharge Musculoskeletal: myalgia (Left upper arm pain). denies: back pain Skin: denies: rash, lesions Neurological: denies: headache, weakness Physical Exam - Physical Exam Vital Signs: Vital Signs 04/12/21 08:48 Temperature 97.7 F Pulse Rate 69 Respiratory 18 Rate Blood Pressure 120/82 O2 Sat by Pulse 97 Oximetry Physical Exam: GENERAL: The patient is well-developed well-nourished. HENT: Normocephalic. Atraumatic. Patient has moist mucous membranes. EYES: Extraocular motions are intact. NECK: Supple. Trachea is midline. CHEST/LUNGS: Clear to auscultation. There is no respiratory distress noted. HEART/CARDIOVASCULAR: Regular. There is no tachycardia. There is no murmur. ABDOMEN: Abdomen is soft, nontender. Patient has normal bowel sounds. Morbidly obese habitus. SKIN: Skin is warm and dry. NEURO: The patient is awake, alert, and oriented. The patient is cooperative. The patient has no focal neurologic deficits. Normal speech. MUSCULOSKELETAL: There is no tenderness or deformity. There is no limitation range of motion. Radial pulse +2/4 and capillary refill less than 2 seconds to the affected left upper extremity. ED Course Vital Signs 04/12/21 08:48 Temperature 97.7 F Pulse Rate 69 Respiratory 18 Rate Blood Pressure 120/82 O2 Sat by Pulse 97 Oximetry - Consultations Consultation #1: 04/12/21 13:53 I spoke to the PA for [facility] cardiology, Marcos. They reviewed the patient's recent history and her ED presentation today. The patient has an appo intment on April 27 and they agree that she is safe for discharge at this time for outpatient follow-up. ED Medical Decision Making - Lab Data Result diagrams: 04/12/21 10:21 04/12/21 10:21 Lab Results 04/12/21 04/12/21 04/12/21 Range/Units 10:21 10:21 10:21 WBC 7.7 (4.5-11.0) K/mm3 RBC 3.81 (3.65-5.03) M/mm3 Hgb 12.1 (10.1-14.3) gm/dl Hct 35.6 (30.3-42.9) % MCV 93 (79-97) fl MCH 32 (28-32) pg MCHC 34 (30-34) % RDW 16.4 H (13.2-15.2) % Plt Count 464 H (140-440) K/mm3 Lymph % (Auto) 23.8 (13.4-35.0) % [place] % (Auto) 8.3 H (0.0-7.3) % Eos % (Auto) 2.5 (0.0-4.3) % Baso % (Auto) 0.6 (0.0-1.8) % Lymph # (Auto) 1.8 (1.2-5.4) K/mm3 [place] # (Auto) 0.6 (0.0-0.8) K/mm3 Eos # (Auto) 0.2 (0.0-0.4) K/mm3 Baso # (Auto) 0.1 (0.0-0.1) K/mm3 Seg Neutrophils % 64.8 (40.0-70.0) % Seg Neutrophils # 5.0 (1.8-7.7) K/mm3 PT (12.2-14.9) Sec. INR (0.87-1.13) Sodium 138 (137-145) mmol/L Potassium 4.0 (3.6-5.0) mmol/L Chloride 99.5 (98-107) mmol/L Carbon Dioxide 26 (22-30) mmol/L Anion Gap 17 mmol/L BUN 10 (7-17) mg/dL Creatinine 0.9 (0.6-1.2) mg/dL Estimated GFR > 60 ml/min BUN/Creatinine Ratio 11 % Glucose 86 (65-100) mg/dL Calcium 9.8 (8.4-10.2) mg/dL Total Bilirubin 0.20 (0.1-1.2) mg/dL AST 12 (5-40) units/L ALT 7 (7-56) units/L Alkaline Phosphatase 66 (35-129) units/L Troponin T < 0.010 (0.00-0.029) ng/mL NT-Pro-B Natriuret Pep 62.55 (0-450) pg/mL Total Protein 7.6 (6.3-8.2) g/dL Albumin 4.0 (3.9-5) g/dL Albumin/Globulin Ratio 1.1 % 04/12/21 04/12/21 Range/Units 10:21 12:33 WBC (4.5-11.0) K/mm3 RBC (3.65-5.03) M/mm3 Hgb (10.1-14.3) gm/dl Hct (30.3-42.9) % MCV (79-97) fl MCH (28-32) pg MCHC (30-34) % RDW (13.2-15.2) % Plt Count (140-440) K/mm3 Lymph % (Auto) (13.4-35.0) % [place] % (Auto) (0.0-7.3) % Eos % (Auto) (0.0-4.3) % Baso % (Auto) (0.0-1.8) % Lymph # (Auto) (1.2-5.4) K/mm3 [place] # (Auto) (0.0-0.8) K/mm3 Eos # (Auto) (0.0-0.4) K/mm3 Baso # (Auto) (0.0-0.1) K/mm3 Seg Neutrophils % (40.0-70.0) % Seg Neutrophils # (1.8-7.7) K/mm3 PT 13.8 (12.2-14.9) Sec. INR 1.01 (0.87-1.13) Sodium (137-145) mmol/L Potassium (3.6-5.0) mmol/L Chloride (98-107) mmol/L Carbon Dioxide (22-30) mmol/L Anion Gap mmol/L BUN (7-17) mg/dL Creatinine (0.6-1.2) mg/dL Estimated GFR ml/min BUN/Creatinine Ratio % Glucose (65-100) mg/dL Calcium (8.4-10.2) mg/dL Total Bilirubin (0.1-1.2) mg/dL AST (5-40) units/L ALT (7-56) units/L Alkaline Phosphatase (35-129) units/L Troponin T < 0.010 (0.00-0.029) ng/mL NT-Pro-B Natriuret Pep (0-450) pg/mL Total Protein (6.3-8.2) g/dL Albumin (3.9-5) g/dL Albumin/Globulin Ratio % - EKG Data -: EKG Interpreted by Me EKG shows normal: sinus rhythm, axis, intervals (Slightly prolonged [place] interval), QRS complexes (Low voltage), ST-T waves Rate: normal - EKG Data When compared to previous EKG there are: no significant change Interpretation: unchanged when compared t (03/30/21) - Radiology Data Radiology results: image reviewed interpreted by me: Chest x-ray does not show any acute process. There are no pleural effusions, obvious pneumonia and there is no pneumothorax. - Medical Decision Making This patient presents with the complaint of left upper arm pain with some radiation towards the chest that started this morning and woke her from sleep. By the time the patient arrived to the emergency department and my initial examination she is asymptomatic. EKG does not have any morphology consistent with ST elevation myocardial infarction. Chest x-ray does not show any pneumonia, pleural effusions, widened mediastinum, pneumonia, or any other acute process. Patient's labs have been unremarkable including CBC, metabolic panel and negative troponins x2. The patient had a stress test done in 2019. She had a negative echocardiogram 2 weeks ago. 2 weeks ago she also had a negative bilateral lower extremity venous Doppler ultrasound and a negative VQ scan. She has a low heart and PATSY score. I spoke with [facility] cardiology, whom she follows with, and they have said the patient is safe for discharge home with outpatient follow-up with her normal appointment on April 27. She will return to the emergency department with any worsening of her symptoms or with any acute distress. Critical Care Time: No Critical care attestation.: If time is entered above; I have spent that time in minutes in the direct care of this critically ill patient, excluding procedure time. ED Disposition Clinical Impression: Left arm pain, Atypical chest pain Disposition: DC-01 TO HOME OR SELFCARE Is pt being admited?: No Condition: Stable Instructions: Nonspecific Chest Pain, Adult Additional Instructions: Please follow-up with your primary care physician in the next few days. Please follow-up with your previously scheduled appointment with [facility] c ardiology on April 27. Take all medications as prescribed. Return to the emergency department with any worsening of your symptoms, new or concerning symptoms not addressed during this current emergency department visit, or with any acute distress. Referrals: PRIMARY CARE, [Primary Care Provider] - 2-3 Days [facility] [Provider Group] - 04/27/21 Time of Disposition: 13:55 HEART Score - HEART Score History: Slightly suspicious EKG: Normal Age: < 45 Risk factors: > 3 risk factors or hx of atherosclerotic disease Troponin: Troponin T < 0.010 ng/mL (0.00-0.029) 04/12/21 10:21 Troponin: < normal limit HEART Score: 2 - Critical Actions Critical Actions: 0-3 pts:0.9-1.7%risk of adverse cardiac event.Candidate for discharge
[2021-04-12 11:00] LABS: Alanine Aminotransferase 7 units/L (7-56); BUN/Creatinine Ratio 11; Blood Urea Nitrogen 10 mg/dL (7-17); Calcium 9.8 mg/dL (8.4-10.2); Hemolysis Index 3
[2021-04-12 11:18] LABS: Basophils # (Auto) 0.1 K/mm3 (0.0-0.1); Basophils % (Auto) 0.6 % (0.0-1.8); Eosinophils # (Auto) 0.2 K/mm3 (0.0-0.4); Eosinophils % (Auto) 2.5 % (0.0-4.3); Hematocrit 35.6 % (30.3-42.9); Hemoglobin 12.1 gm/dl (10.1-14.3); Lymphocytes # (Auto) 1.8 K/mm3 (1.2-5.4); Lymphocytes % (Auto) 23.8 % (13.4-35.0); Mean Corpuscular HGB Conc 34 % (30-34); Mean Corpuscular Volume 93 fl (79-97); Monocytes # (Auto) 0.6 K/mm3 (0.0-0.8); Monocytes % (Auto) 8.3 % (0.0-7.3); Platelet Count 464 K/mm3 (140-440); Red Blood Count 3.81 M/mm3 (3.65-5.03); Red Cell Distribution Width 16.4 % (13.2-15.2)
[2021-04-12 11:37] LABS: INR 1.01 (0.87-1.13)
[2021-04-12 14:17] VITALS: BP 141/77
--- NOTE | 2021-04-13 19:37 | Electrocardiograph Report ---
[facility] Test Date: 2021-04-12 Test Time: 08:55:53 Pat Name: MAKAYLA ARGUELLES Department: Room: Gender: F [employer] Operator: MANNY : 1975 Requested By: BREN RIBEIRO Order Number: [id number] Reading MD: Hung Lara Measurements Intervals [place] Rate: 61 P: 23 NV: 201 QRS: 18 QRSD: 83 T: -12 QT: 412 QTc: 414 Interpretive Statements Sinus rhythm Low voltage, precordial leads Compared to ECG 03/30/2021 12:54:59 No significant changes Electronically Signed On 04-13-2021 19:37:17 EDT by Hung Lara
[2021-04-18] MEDS ORDERED: SODIUM CHLORIDE 0.9% 500 ML 500 ML ONE (01:12)
[2021-04-18] MEDS ORDERED: PANTOPRAZOLE 40 MG INJ IV ONE (01:12)
--- NOTE | 2021-04-18 03:07 | History and Physical Report ---
History of Present Illness Date of examination: 04/18/21 Date of admission: 04/18/21 Chief complaint: Chest pain History of present illness: This is a 45-year-old -[place] female, with a past medical history of MA/CAD, status post PCI of RCA, hypertension, anxiety, that presents with acute chest pain-she said the pain right side left arm pain to the upper arm. Initially, while in route with EMS, she says that the pain radiated into her chest. The patient was just recently admitted here for a chest pain work-up on 03/30 and 04/12. Last echocardiogram was normal and a VQ scan negative for pulmonary embolism, bilateral lower extremity venous Doppler ultrasound negative for DVT. The patient has a negative stress test from 2019. She follows with [facility] cardiology. Past History Past Medical History: acute MA, hypertension, hyperlipidemia Past Surgical History: No surgical history Social history: lives with family, smoking Family history: hypertension Medications and Allergies Allergies Allergy/AdvReac Type Severity Reaction Status Date / Time iodine Allergy Swelling Verified 04/12/21 08:44 shellfish derived Allergy Swelling Verified 04/12/21 08:44 Home Medications Medication Instructions Recorded Confirmed Last Taken Type Aspirin 325 mg PO QDAY #30 tablet 08/12/17 03/31/21 04/27/19 Rx Ferrous Sulfate [Feosol 325 MG tab] 325 mg PO BID #60 tablet 08/12/17 03/31/21 04/27/19 Rx ISOSORBIDE MONOnitrate [Imdur ER] 30 mg PO QDAY #30 tablet 08/12/17 03/31/21 04/27/19 Rx Prasugrel [Effient] 10 mg PO QDAY #30 tablet 08/12/17 03/31/21 04/27/19 Rx Ranolazine ER [Ranexa ER] 500 mg PO BID #60 tablet 08/12/17 03/31/21 04/27/19 Rx carvediloL [Coreg] 12.5 mg PO BID #60 tablet 08/12/17 03/31/21 04/27/19 Rx Ergocalciferol [Vitamin D2] 50,000 unit PO DAILY 03/31/21 03/31/21 Unknown History Pravastatin [Pravachol] 40 mg PO DAILY 03/31/21 03/31/21 Unknown History hydroCHLOROthiazide [HCTZ] 25 mg PO DAILY 03/31/21 03/31/21 Unknown History clonazePAM [KlonoPIN] 0.5 mg PO BID PRN #12 tab 04/02/21 Unknown Rx Review of Systems Constitutional: weakness Ears, nose, mouth and throat: no epistaxis Cardiovascular: chest pain, shortness of breath Respiratory: shortness of breath Rectal: no hemorrhoids Musculoskeletal: no hot joints Integumentary: no rash, no pruritis Psychiatric: anxiety Endocrine: low blood sugars Hematologic/Lymphatic: no easy bruising, no easy bleeding Allergic/Immunologic: no urticaria Exam - Constitutional Vitals: Temp Pulse Resp BP Pulse Ox 97.7 F 67 18 141/77 98 04/12/21 08:48 04/12/21 14:16 04/12/21 14:16 04/12/21 14:16 04/12/21 14:16 General appearance: Present: mild distress, obese - EENT Eyes: Present: PERRL ENT: hearing intact, clear oral mucosa - Neck Neck: Present: supple, normal ROM - Respiratory Respiratory effort: normal Respiratory: bilateral: CTA - Cardiovascular Rhythm: regular Heart Sounds: Present: S1 & S2. Absent: rub, click - Extremities Extremities: pulses symmetrical, No edema Peripheral Pulses: within normal limits - Abdominal General gastrointestinal: Present: soft, non-tender, non-distended, normal bowel sounds Female genitourinary: Present: normal - Integumentary Integumentary: Present: clear, warm, dry - Musculoskeletal Musculoskeletal: gait normal, strength equal bilaterally - Psychiatric Psychiatric: appropriate mood/affect, intact judgment & insight - Neurologic Neurologic: CNII-XII intact, moves all extremities - Allied Health Allied health notes reviewed: nursing, PT HEART Score - HEART Score EKG: Normal Age: < 45 Risk factors: > 3 risk factors or hx of atherosclerotic disease Troponin: Troponin T < 0.010 ng/mL (0.00-0.029) 04/12/21 12:33 Troponin: < normal limit - Critical Actions Critical Actions: 0-3 pts:0.9-1.7%risk of adverse cardiac event.Candidate for discharge Results - Labs CBC & Chem 7: 04/12/21 10:21 04/12/21 10:21 Assessment and Plan - Patient Problems (1) ACS (acute coronary syndrome) Status: Acute Plan to address problem: Patient came with chest pain that radiates to right and left shoulder and left upper arm Patient has history of chest pain with multiple admissions Stockroom Helper consulted (2) Acute chest pain Status: Acute Plan to address problem: Nitro sublingual as needed Stockroom Helper on board Monitor troponin (3) HLD (hyperlipidemia) Status: Acute Plan to address problem: resume statin (4) CAD (coronary artery disease) Status: Acute Qualifiers: Coronary Disease-Associated Artery/Lesion type: unspecified vessel or lesion type [place] vs. transplanted heart: [place] heart Associated angina: unspecified whether angina present Qualified Code(s): I25.10 - Atherosclerotic heart disease of [place] coronary artery without angina pectoris Plan to address problem: has a past medical history of MA/CAD, status post PCI of RCA Continue antiplatelet and statin (5) Essential hypertension Status: Acute Plan to address problem: Monitor blood pressure We will resume home antihypertensive As needed hydralazine (6) Morbid obesity with BMI of 50.0-59.9, adult Status: Chronic Plan to address problem: Discussed weight management including healthy diet and regular exercise Patient advised to avoid fried foods, fatty foods and drinks which in concentrated sweeteners Patient voiced understanding (7) DVT prophylaxis Status: Acute Plan to address problem: Subcutaneous Lovenox
[2021-04-18] MEDS ORDERED: ALUM-MAG HYDROXIDE-SIMETHICONE 200-200-20MG/5ML ORAL LIQD 30 ML PO PRN (03:14)
[2021-04-18] MEDS ORDERED: ONDANSETRON 4 MG/2 ML INJ IV PRN (03:14)
[2021-04-18] MEDS ORDERED: ACETAMINOPHEN 325 MG TAB PO PRN (03:14)
[2021-04-18] MEDS ORDERED: METOCLOPRAMIDE 10 MG/2 ML INJ IV PRN (03:14)
[2021-04-18] MEDS ORDERED: MAGNESIUM HYDROXIDE (MOM) ORAL LIQD UDC PO PRN (03:14)
[2021-04-18] MEDS ORDERED: hydrALAZINE 20 MG/1 ML INJ IV PRN (03:27)
[2021-04-18] MEDS ORDERED: traZODone 50 MG TAB PO PRN (03:27)
[2021-04-18] MEDS ORDERED: traMADol 50 MG TAB PO PRN (03:27)
[2021-04-18] MEDS ORDERED: SENNOSIDES 8.6 MG TAB PO SCH (10:00)
[2021-04-18] MEDS ORDERED: FAMOTIDINE 20 MG/2 ML INJ IV SCH (10:00)
[2021-04-18] MEDS ORDERED: ASPIRIN EC 81 MG TAB PO SCH (10:00)
[2021-04-18] MEDS ORDERED: PRASUGREL 10 MG TAB PO SCH (10:00)
[2021-04-18] MEDS ORDERED: RANOLAZINE ER 500 MG TAB 12HR PO SCH (10:00)
== END 2021-04-12 14:40 | disposition home or self-care (01) ==
LOC: ED 08:38
DX: M79.602 Pain in left arm (principal); R07.89 Other chest pain; I10 Essential (primary) hypertension; I25.2 Old myocardial infarction; K21.9 Gastro-esophageal reflux disease without esophagitis; Z87.891 Personal history of nicotine dependence; Z79.899 Other long term (current) drug therapy; Z91.013 Allergy to seafood; Z88.8 Allergy status to other drugs, medicaments and biological substances
CPT/HCPCS: 36415; 71046; 80053; 83880; 84484; 85025; 85610; 93005

== ENCOUNTER 2021-04-18 02:59 | Observation (INO) | payer OTHER ==
--- NOTE | 2021-04-18 04:58 | History and Physical Report ---
History of Present Illness Date of examination: 04/18/21 Date of admission: 04/18/21 Chief complaint: Chest pain History of present illness: This is a 45-year-old -[place] female, with a past medical history of [place]/CAD, status post PCI of RCA, hypertension, anxiety, that presents with acute chest pain-she said the pain right side left arm pain to the upper arm. Initially, while in route with EMS, she says that the pain radiated into her chest. The patient was just recently admitted here for a chest pain work-up on 03/30 and 04/12. Last echocardiogram was normal and a VQ scan negative for pulmonary embolism, bilateral lower extremity venous Doppler ultrasound negative for DVT. The patient has a negative stress test from 2019. She follows with [facility] cardiology. Patient seen at the bedside in the ED. Patient alert oriented x3. Patient re ported chest pain that radiates to right shoulder and also to left to left shoulder. Patient has a history of high blood pressure and on multiple medication for blood pressure. She reported her patient blood pressure is well controlled. I reviewed medical history and vital signs. Patient is blind no acute distress. She admits tobacco use but denies illicit drug and chronic alcohol use. Past History Past Medical History: acute TN, hypertension, hyperlipidemia Past Surgical History: No surgical history Social history: smoking Medications and Allergies Allergies Allergy/AdvReac Type Severity Reaction Status Date / Time iodine Allergy Swelling Verified 04/12/21 08:44 shellfish derived Allergy Swelling Verified 04/12/21 08:44 Home Medications Medication Instructions Recorded Confirmed Last Taken Type Aspirin 325 mg PO QDAY #30 tablet 08/12/17 03/31/21 04/27/19 Rx Ferrous Sulfate [Feosol 325 MG tab] 325 mg PO BID #60 tablet 08/12/17 03/31/21 04/27/19 Rx ISOSORBIDE MONOnitrate [Imdur ER] 30 mg PO QDAY #30 tablet 08/12/17 03/31/21 04/27/19 Rx Prasugrel [Effient] 10 mg PO QDAY #30 tablet 08/12/17 03/31/21 04/27/19 Rx Ranolazine ER [Ranexa ER] 500 mg PO BID #60 tablet 08/12/17 03/31/21 04/27/19 Rx carvediloL [Coreg] 12.5 mg PO BID #60 tablet 08/12/17 03/31/21 04/27/19 Rx Ergocalciferol [Vitamin D2] 50,000 unit PO DAILY 03/31/21 03/31/21 Unknown History Pravastatin [Pravachol] 40 mg PO DAILY 03/31/21 03/31/21 Unknown History hydroCHLOROthiazide [HCTZ] 25 mg PO DAILY 03/31/21 03/31/21 Unknown History clonazePAM [KlonoPIN] 0.5 mg PO BID PRN #12 tab 04/02/21 Unknown Rx Review of Systems Constitutional: weakness Ears, nose, mouth and throat: no epistaxis, no bleeding gums Breasts: no discharge Cardiovascular: chest pain, lightheadedness, shortness of breath Genitourinary Female: no dysmenorrhea, no pelvic pain Musculoskeletal: muscle weakness Integumentary: no rash, no pruritis, no redness Neurological: no head injury Psychiatric: anxiety Hematologic/Lymphatic: no easy bruising, no easy bleeding Allergic/Immunologic: no urticaria Exam - Constitutional General appearance: Present: mild distress, obese - EENT Eyes: Present: PERRL ENT: hearing intact, clear oral mucosa - Neck Neck: Present: supple, normal ROM - Respiratory Respiratory effort: normal Respiratory: bilateral: CTA - Cardiovascular Heart rate: 67 Heart Sounds: Present: S1 & S2. Absent: rub, click - Extremities Extremities: pulses symmetrical, No edema Peripheral Pulses: within normal limits - Abdominal General gastrointestinal: Present: soft, non-tender, non-distended, normal bowel sounds Female genitourinary: Present: normal - Integumentary Integumentary: Present: clear, warm, dry - Musculoskeletal Musculoskeletal: gait normal, strength equal bilaterally - Psychiatric Psychiatric: appropriate mood/affect, intact judgment & insight - Neurologic Neurologic: CNII-XII intact, moves all extremities - Allied Health Allied health notes reviewed: nursing Assessment and Plan Assessment and Plan - Patient Problems (1) ACS (acute coronary syndrome) Status: Acute Plan to address problem: Patient came with chest pain that radiates to right and left shoulder and left upper arm Patient has history of chest pain with multiple admissions Pediatrician consulted (2) Acute chest pain Status: Acute Plan to address problem: Nitro sublingual as needed Pediatrician on board Monitor troponin (3) HLD (hyperlipidemia) Status: Acute Plan to address problem: resume statin (4) CAD (coronary artery disease) Status: Acute Qualifiers: Coronary Disease-Associated Artery/Lesion type: unspecified vessel or lesion type [place] vs. transplanted heart: [place] heart Associated angina: unspecified whether angina present Qualified Code(s): I25.10 - Atherosclerotic heart disease of [place] coronary artery without angina pectoris Plan to address problem: has a past medical history of [place]/CAD, status post PCI of RCA Continue antiplatelet and statin (5) Essential hypertension Status: Acute Plan to address problem: Monitor blood pressure We will resume home antihypertensive As needed hydralazine (6) Morbid obesity with BMI of 50.0-59.9, adult Status: Chronic Plan to address problem: Discussed weight management including healthy diet and regular exercise Patient advised to avoid fried foods, fatty foods and drinks which in concentrated sweeteners Patient voiced understanding (7) DVT prophylaxis Status: Acute Plan to address problem: Subcutaneous Lovenox
--- NOTE | 2021-04-18 05:11 | Emergency Department Report ---
HPI - General Chief Complaint: Chest Pain PUI?: No - HPI HPI: Gogo Greene; date of 1975; ; date of service 04/18/2021 History obtained from patient, and verbal report from EMS. EMS documentation not available at time of chart dictation please note that this patient arrived during medical record downtime, therefore, old medical records are not available for my review at this time. During the entire history and physical examination, I am chaperoned by nurse Candy Maldonado This patient is a 45-year-old female. She has a history of morbid obesity, high cholesterol, cardiac disease with stents. She reports that she had a miscarriage for 5 weeks ago. She denies travel, surgery, leg pain, leg swelling, recent surgery, DVT and pulmonary embolism risk factors. The patient presents to the ER today with a complaint of central and left-sided chest pain that radiates to the back, with nausea and weakness. EMS reports the patient was bradycardic in the field, and hypotensive. Patient was given aspirin, and nitroglycerin. The patient denies headache, neck pain, but indicates epigastric abdominal pain, nausea without diaphoresis. She denies lower abdominal pain. She denies focal extremity weakness/numbness. EMS told myself that the patient had a blood pressure in the 70s in the field, and was bradycardic in the 50s. The patient believes she has not started any new or di fferent medications. Currently in the emergency room, blood pressure in the 100s, and heart rate in the 90s. The patient had a nuclear medicine study April 02 for pulmonary embolism of this month, low probability for PE, and recently had an obstetrics ultrasound performed on March 21, which showed intrauterine , questionable bleed, but no evidence of viability. She is not had any obstetrics follow-up since then. She has not received her Covid vaccination. She has not had loss of taste or smell. Review of systems: Constitutional: Positive for weakness and malaise. Negative for fever. Ocular: No ocular discharge. Ear nose and throat: Negative for epistaxis Respiratory: Negative for cough. Cardiovascular: Positive for chest pain GI: Positive for epigastric pain and nausea, negative for diarrhea : Negative for vaginal bleeding, negative urinary symptoms Neurologic: Positive generalized weakness. No focal weakness. Musculoskeletal: Positive back pain Physical examination: Temperature 98.2 F; blood pressure 100/55 mmHg; heart rate 70 bpm; respiratory rate 20/min, O2 sat 97% on room air, glucose 117 Head exam is unremarkable. Normocephalic atraumatic No scleral icterus or corneal arcus noted. Neck is without jugular venous distension, thyromegaly there are no meningeal signs, and the neck is nontender. . Lungs are clear to auscultation and percussion. There is reproducible central chest wall tenderness. There are no rales, rhonchi, or wheezes. . Rhythm is regular. First and second heart sounds normal. No murmurs, rubs or gallops. Abdominal exam reveals normal bowel sounds, no masses, no organomegaly and no aortic enlargement. There is no pulsatile abdominal mass. The patient is morbidly obese . 2+ pulses noted in the bilateral upper and lower extremities. There is no palpable cord. negative Homans sign. Muscular compartments are soft. The pelvis is stable. Neurologic: No facial droop. Tongue midline. Extraocular movements intact bilaterally. Facial sensation intact to light touch in V1, V2, V3 distribution bilaterally. 5 and a 5 strength in 4 extremities. Sensation intact to light touch in 4 extremities. No skin redness, pus, streaking, erythema, or breakdown. Psychiatric: Positive anxiety EKG, interpreted at 0: 22 AM Sinus rhythm, 60 bpm. Normal axis, normal intervals, low voltage, T wave inversion lead III. This is an abnormal EKG. This is not a STEMI. At this point time, there is no prior for comparison. Laboratory studies: Troponin negative/CK 61/magnesium 1.9/hCG negative/sodium 137/potassium 3.7/chloride 99.8/CO2 28/anion gap 13/BUN 8/creatinine 0.9/glucose 105 White blood cell count 10.8/hemoglobin 11.6/hematocrit 34.6/platelet count 436 Differential diagnosis, including but not limited to: GERD, gastritis, hiatal hernia, pneumonia, acute coronary syndrome Assessment and plan: 45-year-old female, with obesity, heart disease, stent, high cholesterol, with chest pain, no recent cardiac risk ratification, who is bradycardic and hypotensive in the field, currently, not tachycardic, tachypneic or hypoxic, PERC negative, recently ruled out for pulmonary embolism, moderate risk for major adverse cardiac event. Treat symptoms, obtain appropriate laboratory studies, obtain x-ray the chest, reassess after initial data points, admit this patient to the medical service for cardiac risk ratification. Have discussed this plan of care with the patient, who verbalized understanding, and is amenable to this plan of care. 04/18/2021; 02: 21 1 AM Reassessed. Chest x-ray negative. Laboratory studies unremarkable. Vital signs acceptable. Patient resting comfortably in stretcher at this time. No acute distress. Has already taken aspirin within the past 24 hours. Hospital physician, Dr. Sayra Aqunio to admit for cardiac risk stratification EARLY OBSTETRICAL ULTRASOUND INDICATION: bleeding in COMPARISON: None pertinent available TECHNIQUE: Endovaginal FINDINGS: Intrauterine gestational sac is seen with a yolk sac noted. By sac size gestational age is estimated at 5 weeks 5 days. No pole is detected at this time and no cardiac activity was detected. There may be minimal implantational bleed. Ovaries are not visualized. No adnexal masses are seen. No free fluid is noted. IMPRESSION: Intrauterine is seen but viability is not confirmed. F ollow-up is needed. Signer Name: Christiano Haddad MD Signed: 03/22/2021 5:48 AM Workstation Name: [id number] XR chest routine 2V INDICATION / CLINICAL INFORMATION: chest pain, shortness of breath. COMPARISON: 04/02/2021 FINDINGS: SUPPORT DEVICES: None. HEART /PULMONARY VASCULATURE: No significant abnormality. LUNGS / PLEURA: No significant pulmonary or pleural abnormality. No pneumothorax. ADDITIONAL FINDINGS: No significant additional findings. IMPRESSION: 1. No acute findings. Signer Name: Mandeep Beltran MD Signed: 04/12/2021 8:46 AM Workstation Name: [id number] CHEST 1 VIEW INDICATION: SOB elevated D-dimer. COMPARISON: 05/05/2017 FINDINGS: Support devices: None. Heart: Within normal limits. Lungs/Pleura: No acute air space or interstitial disease. Additional findings: None. IMPRESSION: No acute findings. NUCLEAR MEDICINE PERFUSION SCAN INDICATION: SOB elevated D-dimer CORRELATION: AP chest performed the same day RADIOPHARMACEUTICAL: Perfusion: 5.1 mCi Tc-99m MAA given IV FINDINGS: Perfusion images show symmetric and uniform radiotracer distribution throughout bilateral lung zones with no evidence of segmental perfusion defects. Normal cardiac silhouette. IMPRESSION: Very low probability perfusion scan for pulmonary embolism. Signer Name: Jose Sharma Jr, MD Signed: 04/02/2021 7:50 AM Workstation Name: [id number] CHEST 1 VIEW INDICATION / CLINICAL INFORMATION: chest pain. COMPARISON: None available. FINDINGS: SUPPORT DEVICES: None. HEART / MEDIASTINUM: No significant abnormality. LUNGS / PLEURA: No significant pulmonary or pleural abnormality. No pneumothorax. ADDITIONAL FINDINGS: No significant additional findings. IMPRESSION: 1. No acute findings. Signer Name: Mahendra Sutton MD Signed: 04/17/2021 11:43 PM Workstation Name: [id number] Clinical impression: Acute chest pain, obesity, history of bradycardia, history of hypotension, history of coronary artery disease Disposition: Admitted to hospital condition: Stable Aspirin already administered. ED Past Medical Hx - Past Medical History Hx Hypertension: Yes Hx CVA: No Hx Heart Attack/AMI: Yes (stents 03/11) Hx Congestive Heart Failure: No Hx Diabetes: No Hx Deep Vein Thrombosis: No Hx Pulmonary Embolism: No Hx GERD: Yes Hx Liver Disease: No Hx Renal Disease: No Hx Sickle Cell Disease: No Hx Arthritis: No Hx Headaches / Migraines: No Hx Seizures: No Hx Kidney Stones: No Hx Psychiatric Treatment: No Hx Asthma: No Hx COPD: No Hx Tuberculosis: No Hx Dementia: No Hx HIV: No Additional medical history: 2 STENTS 02/28/16, cholesterol, IBS, fibroids. CHRONI C BACK PAIN - Surgical History Hx Coronary Stent: Yes Hx Open Heart Surgery: No Hx Pacemaker: No Hx Internal Defibrillator: No Hx Cholecystectomy: No Hx Appendectomy: No Hx Breast Surgery: No Additional Surgical History: D&C - Social History Smoking Status: Former Smoker Substance Use Type: None - Medications Home Medications: Home Medications Medication Instructions Recorded Confirmed Last Taken Type Aspirin 325 mg PO QDAY #30 tablet 08/12/17 03/31/21 04/27/19 Rx Ferrous Sulfate [Feosol 325 MG tab] 325 mg PO BID #60 tablet 08/12/17 03/31/21 04/27/19 Rx ISOSORBIDE MONOnitrate [Imdur ER] 30 mg PO QDAY #30 tablet 08/12/17 03/31/21 04/27/19 Rx Prasugrel [Effient] 10 mg PO QDAY #30 tablet 08/12/17 03/31/21 04/27/19 Rx Ranolazine ER [Ranexa ER] 500 mg PO BID #60 tablet 08/12/17 03/31/21 04/27/19 Rx carvediloL [Coreg] 12.5 mg PO BID #60 tablet 08/12/17 03/31/21 04/27/19 Rx Ergocalciferol [Vitamin D2] 50,000 unit PO DAILY 03/31/21 03/31/21 Unknown History Pravastatin [Pravachol] 40 mg PO DAILY 03/31/21 03/31/21 Unknown History hydroCHLOROthiazide [HCTZ] 25 mg PO DAILY 03/31/21 03/31/21 Unknown History clonazePAM [KlonoPIN] 0.5 mg PO BID PRN #12 tab 04/02/21 Unknown Rx ED Review of Systems ROS: Stated complaint: Other details as noted in HPI Critical care attestation.: If time is entered above; I have spent that time in minutes in the direct care of this critically ill patient, excluding procedure time. ED Disposition Clinical Impression: Morbid obesity, History of coronary artery stent placement, Acute chest pain Back pain Qualifiers: Back pain location: low back pain Chronicity: chronic Back pain laterality: unspecified Sciatica presence: without sciatica Qualified Code(s): M54.5 - Low back pain Disposition: OP ADMIT IP TO THIS HOSP Is pt being admited?: Yes Does the pt Need Aspirin: No Condition: Good Instructions: Chest Pain (ED) Referrals: PRIMARY CARE, [Primary Care Provider] - 3-5 Days Heart Score - HEART Score History: Moderately suspicious EKG: Non-specific Age: < 45 Risk factors: > 3 risk factors or hx of atherosclerotic disease Troponin: < normal limit HEART Score: 4 - EKG Read Time Time EKG Completed: 22:30 EKG Read Time: 22:30 - Critical Actions Critical Actions: 4-6 pts:12-16.6% risk of adverse cardiac event. Should be admitted
[2021-04-18] MEDS ORDERED: ONDANSETRON 4 MG/2 ML INJ IV PRN (05:44)
[2021-04-18] MEDS ORDERED: ACETAMINOPHEN 325 MG TAB PO PRN (05:44)
[2021-04-18] MEDS ORDERED: SENNOSIDES 8.6 MG TAB PO PRN (05:44)
[2021-04-18] MEDS ORDERED: HYDROmorphone 1 MG/1 ML INJ IV ONE (06:18)
[2021-04-18] MEDS ORDERED: HYDROmorphone 1 MG/1 ML INJ ONE (06:30)
[2021-04-18] MEDS ORDERED: hydroCHLOROthiazide 25 MG TAB PO ONE (08:00)
--- NOTE | 2021-04-18 09:26 | XRay Report ---
CHEST 1 VIEW INDICATION / CLINICAL INFORMATION: chest pain. COMPARISON: None available. FINDINGS: SUPPORT DEVICES: None. HEART / MEDIASTINUM: No significant abnormality. LUNGS / PLEURA: No significant pulmonary or pleural abnormality. No pneumothorax. ADDITIONAL FINDINGS: No significant additional findings. IMPRESSION: 1. No acute findings. Signer Name: Mahendra Sutton MD Signed: 04/18/2021 12:43 AM Workstation Name: [id number]
--- NOTE | 2021-04-18 09:43 | Progress Note ---
Assessment and Plan Assessment and plan: --Atypical chest pain Nitro sublingual as needed Aspirin, morphine as needed Serial cardiac enzymes, EKG as needed Cardiology consulted --HLD (hyperlipidemia) Low-cholesterol diet, statin Close monitor --History of CAD (coronary artery disease) status post PCI has a past medical history of [place]/CAD, status post PCI of RCA Continue patient's home cardiac medications Follow cardiology recommendations optimize meds --Essential hypertension Monitor blood pressure, continue current antihypertensives As needed hydralazine --Morbid obesity with BMI of 50.0-59.9, adult Patient needs weight reduction , diet modification , exercise as tolerated And weight reduction when medically stable . --Obesity hypoventilation syndrome Oxygen titrate O2 sats to more than 90% Outpatient pulmonary evaluation for sleep study Evaluate for obstructive sleep apnea CPAP BiPAP/ Weight reduction when medically stable Patient may benefit from bariatric weight reduction program upon discharge --Full CODE STATUS; -- DVT prophylaxis Subcutaneous Lovenox/SCDs We will closely monitor the patient and adjust the management as needed Plan of care reviewed with the patient and her nurse Follow cardiology evaluation recommendation History Interval history: I have seen and examined the patient at the bedside Patient's chart and medications reviewed Patient feels better mild intermittent chest pain Vital signs reviewed Hospitalist Physical - Constitutional Vitals: Temp Pulse Resp BP Pulse Ox 98.2 F 66 20 121/76 98 04/18/21 03:01 04/18/21 09:01 04/18/21 09:01 04/18/21 09:01 04/18/21 08:01 General appearance: Present: mild distress, obese (All morbid obesity) - EENT Eyes: Present: PERRL, EOM intact - Neck Neck: Present: supple, normal ROM - Respiratory Respiratory effort: normal Respiratory: bilateral: diminished, negative: rales, rhonchi, wheezing - Cardiovascular Rhythm: regular Heart Sounds: Present: S1 & S2 - Extremities Extremities: no ischemia, No edema - Abdominal General gastrointestinal: soft, non-tender, non-distended, normal bowel sounds - Integumentary Integumentary: Present: clear, warm - Psychiatric Psychiatric: appropriate mood/affect, cooperative - Neurologic Neurologic: CNII-XII intact, moves all extremities HEART Score - HEART Score EKG: Non-specific Age: < 45 Risk factors: > 3 risk factors or hx of atherosclerotic disease Troponin: < normal limit - Critical Actions Critical Actions: 4-6 pts:12-16.6% risk of adverse cardiac event. Should be admitted Results - Labs CBC & Chem 7: 04/18/21 00:50 04/18/21 00:50 Active Medications - Current Medications Current Medications: Generic Name Dose Route Start Last Admin Trade Name Freq PRN Reason Stop Dose Admin Acetaminophen 650 mg 04/18/21 05:44 Acetaminophen 325 Mg Tab PO Q4H PRN Pain MILD(1-3)/Fever >100.5/DC Aspirin 81 mg 04/18/21 10:00 Aspirin Ec 81 Mg Tab PO QDAY [facility] Atorvastatin Calcium 40 mg 04/18/21 22:00 Atorvastatin 40 Mg Tab PO QHS [facility] Carvedilol 25 mg 04/18/21 10:00 Carvedilol 25 Mg Tab PO BID [facility] Isosorbide Mononitrate 30 mg 04/18/21 10:00 Isosorbide Mononitrate Er 30 Mg Tab PO QDAY [facility] Ondansetron HCl 4 mg 04/18/21 05:44 Ondansetron 4 Mg/2 Ml Inj IV Q8H PRN Nausea And Vomiting Prasugrel 10 mg 04/18/21 10:00 Prasugrel 10 Mg Tab PO QDAY [facility] Ranolazine 500 mg 04/18/21 10:00 Ranolazine Er 500 Mg Tab 12hr PO BID [facility] Senna 8.6 mg 04/18/21 05:44 Sennosides 8.6 Mg Tab PO Q12HR PRN Constipation Sodium Chloride 10 ml 04/18/21 10:00 Sodium Chloride 0.9% 10 Ml Flush Syringe IV BID ADELSO Sodium Chloride 10 ml 04/18/21 05:44 Sodium Chloride 0.9% 10 Ml Flush Syringe IV PRN PRN LINE FLUSH
[2021-04-18] MEDS ORDERED: RANOLAZINE ER 500 MG TAB 12HR PO SCH (10:00)
[2021-04-18] MEDS ORDERED: clonazePAM 0.5 MG TAB PO PRN (10:00)
[2021-04-18 10:33] LABS: Blood Urea Nitrogen 8 mg/dL (7-17)
[2021-04-18 10:34] LABS: BUN/Creatinine Ratio 9; Calcium 9.6 mg/dL (8.4-10.2)
[2021-04-18 10:35] LABS: Hemolysis Index 0
[2021-04-18] MEDS: RANOLAZINE ER 500 MG TAB 12HR PO SCH ×2 (11:09→21:19)
[2021-04-18] MEDS: ERGOCALCIFEROL (VIT D2) 50,000 UNIT CAP PO SCH (11:09)
[2021-04-18] MEDS: ASPIRIN EC 81 MG TAB PO SCH (11:09)
[2021-04-18] MEDS: hydroCHLOROthiazide 25 MG TAB PO SCH (11:09)
[2021-04-18] MEDS: PRASUGREL 10 MG TAB PO SCH (11:09)
[2021-04-18] MEDS: MORPHINE 2 MG/1 ML INJ IV PRN ×2 (11:11→21:22)
[2021-04-18] MEDS: carvediloL 25 MG TAB PO SCH ×2 (11:11→21:19)
[2021-04-18 11:45] LABS: INR 1.06 (0.87-1.13)
[2021-04-18 11:46] LABS: Basophils % (Auto) 0.5 % (0.0-1.8); Eosinophils % (Auto) 2.2 % (0.0-4.3); Hematocrit 34.6 % (30.3-42.9); Hemoglobin 11.6 gm/dl (10.1-14.3); Lymphocytes # (Auto) 2.6 K/mm3 (1.2-5.4); Lymphocytes % (Auto) 24.2 % (13.4-35.0); Mean Corpuscular HGB Conc 33 % (30-34); Mean Corpuscular Volume 92 fl (79-97); Monocytes # (Auto) 1.2 K/mm3 (0.0-0.8); Monocytes % (Auto) 10.9 % (0.0-7.3); Platelet Count 436 K/mm3 (140-440); Red Blood Count 3.75 M/mm3 (3.65-5.03); Red Cell Distribution Width 16.3 % (13.2-15.2)
[2021-04-18 11:47] LABS: Basophils # (Auto) 0.1 K/mm3 (0.0-0.1); Eosinophils # (Auto) 0.2 K/mm3 (0.0-0.4)
--- NOTE | 2021-04-18 15:59 | Consultation ---
History of Present Illness Consult date: 04/18/21 Requesting physician: RAEANN JEWELL Consult reason: chest pain History of present illness: This patient is a 45-year-old female with a significant history of AMI s/p PCI of RCA, mild hypertension, anxiety, and tobacco use. She is known to our practice and has been followed by Dr Sayra Billingsley in the past. Patient presents to [facility] ER with complaint of chest pain and shortness of breath x1 day. Pain is described as substernal to left-sided and sharp, not worse with inspiration but significantly worse with movement and manipulation. Cardiology is consulted for chest pain. At time of interview patient denies any weakness, dizziness, abdominal pain, and/V/D, recent illness or known exposures. Echocardiogram reviewed (03/30/2021): LVEF is 55 to 60%. Left ventricle is normal size. LV SF is normal. LV diastolic function is normal. RV SF is normal. RVSP is 18 mmHg. Past History Past Medical History: acute [place], hypertension, hyperlipidemia, other (See HPI) Past Surgical History: No surgical history Social history: smoking Medications and Allergies Allergies Allergy/AdvReac Type Severity Reaction Status Date / Time iodine Allergy Swelling Verified 04/12/21 08:44 shellfish derived Allergy Swelling Verified 04/12/21 08:44 Home Medications Medication Instructions Recorded Confirmed Last Taken Type Aspirin 325 mg PO QDAY #30 tablet 08/12/17 04/18/21 04/27/19 Rx Ferrous Sulfate [Feosol 325 MG tab] 325 mg PO BID #60 tablet 08/12/17 04/18/21 04/27/19 Rx ISOSORBIDE MONOnitrate [Imdur ER] 30 mg PO QDAY #30 tablet 08/12/17 04/18/21 04/27/19 Rx Prasugrel [Effient] 10 mg PO QDAY #30 tablet 08/12/17 04/18/21 04/27/19 Rx Ranolazine ER [Ranexa ER] 500 mg PO BID #60 tablet 08/12/17 04/18/21 04/27/19 Rx carvediloL [Coreg] 12.5 mg PO BID #60 tablet 08/12/17 04/18/21 04/27/19 Rx Ergocalciferol [Vitamin D2] 50,000 unit PO DAILY 03/31/21 04/18/21 Unknown History Pravastatin [Pravachol] 40 mg PO DAILY 03/31/21 04/18/21 Unknown History hydroCHLOROthiazide [HCTZ] 25 mg PO DAILY 03/31/21 04/18/21 Unknown History clonazePAM [KlonoPIN] 0.5 mg PO BID PRN #12 tab 04/02/21 04/18/21 Unknown Rx Active Meds: Active Medications Acetaminophen (Acetaminophen 325 Mg Tab) 650 mg PO Q4H PRN PRN Reason: Pain MILD(1-3)/Fever >100.5/DC Aspirin (Aspirin Ec 81 Mg Tab) 81 mg PO QDAY [facility] Last Admin: 04/18/21 11:09 Dose: 81 mg Documented by: Atorvastatin Calcium (Atorvastatin 40 Mg Tab) 40 mg PO QHS [facility] Carvedilol (Carvedilol 25 Mg Tab) 25 mg PO BID [facility] Last Admin: 04/18/21 11:11 Dose: 25 mg Documented by: Clonazepam (Clonazepam 0.5 Mg Tab) 0.5 mg PO BID PRN PRN Reason: Anxiety Ergocalciferol (Ergocalciferol (Vit D2) 50,000 Unit Cap) 50,000 unit PO DAILY [facility] Last Admin: 04/18/21 11:09 Dose: 50,000 unit Documented by: Hydrochlorothiazide (Hydrochlorothiazide 25 Mg Tab) 25 mg PO DAILY [facility] Last Admin: 04/18/21 11:09 Dose: 25 mg Documented by: Isosorbide Mononitrate (Isosorbide Mononitrate Er 30 Mg Tab) 30 mg PO QDAY [facility] Last Admin: 04/18/21 11:09 Dose: 30 mg Documented by: Morphine Sulfate (Morphine 2 Mg/1 Ml Inj) 2 mg IV Q6H PRN PRN Reason: Pain, Moderate (4-6) Last Admin: 04/18/21 11:11 Dose: 2 mg Documented by: Ondansetron HCl (Ondansetron 4 Mg/2 Ml Inj) 4 mg IV Q8H PRN PRN Reason: Nausea And Vomiting Prasugrel (Prasugrel 10 Mg Tab) 10 mg PO QDAY [facility] Last Admin: 04/18/21 11:09 Dose: 10 mg Documented by: Ranolazine (Ranolazine Er 500 Mg Tab 12hr) 500 mg PO BID [facility] Last Admin: 04/18/21 11:09 Dose: 500 mg Documented by: Senna (Sennosides 8.6 Mg Tab) 8.6 mg PO Q12HR PRN PRN Reason: Constipation Sodium Chloride (Sodium Chloride 0.9% 10 Ml Flush Syringe) 10 ml IV BID ADELSO Last Admin: 04/18/21 11:11 Dose: 10 ml Documented by: Sodium Chloride (Sodium Chloride 0.9% 10 Ml Flush Syringe) 10 ml IV PRN PRN PRN Reason: LINE FLUSH Review of Systems Constitutional: no weight loss, no weight gain, no fever, no chills, no sweats Ears, nose, mouth and throat: no ear pain, no ear discharge, no nose pain, no nasal congestion, no nasal discharge Cardiovascular: chest pain, shortness of breath, no orthopnea, no palpitations, no rapid/irregular heart beat, no edema, no syncope, no lightheadedness Respiratory: shortness of breath, no cough, no hemoptysis, no dyspnea on exertion Gastrointestinal: no abdominal pain, no nausea, no vomiting, no diarrhea Genitourinary Female: no flank pain Musculoskeletal: no neck stiffness, no neck pain, no shooting arm pain, no arm numbness/tingling, no low back pain, no shooting leg pain Integumentary: no rash, no pruritis, no redness, no sores, no wounds Neurological: no head injury, no paralysis, no weakness, no parathesias, no numbness, no tingling, no seizures, no syncope Psychiatric: no anxiety Hematologic/Lymphatic: no easy bruising, no easy bleeding Allergic/Immunologic: no urticaria Physical Examination Last Vital Signs Temp 97.1 F L 04/18/21 11:17 Pulse 89 04/18/21 13:53 Resp 17 04/18/21 13:53 BP 142/65 04/18/21 11:17 Pulse Ox 98 04/18/21 13:53 General appearance: no acute distress HEENT: Positive: PERRL, Normocephaly, Mucus Membranes Moist Neck: Positive: neck supple, trachea midline Cardiac: Positive: Reg Rate and Rhythm, S1/S2 Lungs: Positive: Normal Exam, clear to auscultation, Normal Breath Sounds Neuro: Positive: Grossly Intact Abdomen: Positive: Unremarkable, Soft Skin: Negative: Rash, Wound Musculoskeletal: No Pain Extremities: Present: upper extr. pulses, lower extr. pulses. Absent: edema Results 04/18/21 00:50 04/18/21 00:50 Coagulation 04/18/21 Range/Units 00:50 PT 14.3 (12.2-14.9) Sec. INR 1.06 (0.87-1.13) CBC 04/18/21 Range/Units 00:50 WBC 10.8 (4.5-11.0) K/mm3 RBC 3.75 (3.65-5.03) M/mm3 Hgb 11.6 (10.1-14.3) gm/dl Hct 34.6 (30.3-42.9) % Plt Count 436 (140-440) K/mm3 Lymph # (Auto) 2.6 (1.2-5.4) K/mm3 [place] # (Auto) 1.2 H (0.0-0.8) K/mm3 Eos # (Auto) 0.2 (0.0-0.4) K/mm3 Baso # (Auto) 0.1 (0.0-0.1) K/mm3 Comprehensive Metabolic Panel 04/18/21 Range/Units 00:50 Sodium 137 (137-145) mmol/L Potassium 3.8 (3.6-5.0) mmol/L Chloride 99.8 (98-107) mmol/L Carbon Dioxide 28 (22-30) mmol/L BUN 8 (7-17) mg/dL Creatinine 0.9 (0.6-1.2) mg/dL Glucose 105 H (65-100) mg/dL Calcium 9.6 (8.4-10.2) mg/dL - Imaging and Cardiology Echo: report reviewed EKG: report reviewed, image reviewed EKG interpretations - Telemetry EKG Rhythm: Sinus Rhythm - EKG Sinus rhythms and dysrhythmias: sinus rhythm Assessment and Plan Chest pain in setting of history of STEMI s/p PTCA * Chest pain is currently resolved. Twelve-lead reviewed: Sinus rhythm no acute ischemic changes. Troponins negative x1. Repeat troponin. * Patient is on long-term DAPT. Continue ASA/Effient regimen. * Patient was previously prescribed Imdur 30 mg p.o. daily for chest pain. Patient reports no relief with Imdur. If stress test is normal we will plan to discontinue Imdur. * Echocardiogram reviewed (03/30/2021): LVEF is 55 to 60%. Left ventricle is normal size. LV SF is normal. LV diastolic function is normal. RV SF is normal. RVSP is 18 mmHg. * Plan for Lexiscan MPI stress test in a.m. N.p.o. after midnight Hypertension * Optimize antihypertensive regimen: Initiate lisinopril 10 mg daily, continue Coreg 25 mg twice daily, hydrochlorothiazide 25 mg daily. DVT prophylaxis * Lovenox SQ Stress test in a.m. N.p.o. after midnight. We will follow This patient was seen in conjunction with Dr Sayra Billingsley who agrees with assessment and plan of care. - Patient Problems (1) Chest pain Current Visit: Yes Status: Acute (2) DVT prophylaxis Current Visit: Yes Status: Acute (3) Essential hypertension Current Visit: Yes Status: Chronic (4) History of ST elevation myocardial infarction (STEMI) Current Visit: Yes Status: Chronic (5) S/P PTCA (percutaneous transluminal coronary angioplasty) Current Visit: Yes Status: Chronic
[2021-04-18] MEDS: LISINOPRIL 10 MG TAB PO SCH (17:26)
[2021-04-19 04:58] LABS: BUN/Creatinine Ratio 13; Blood Urea Nitrogen 10 mg/dL (7-17); Calcium 9.1 mg/dL (8.4-10.2); Hemolysis Index 2
[2021-04-19 05:13] LABS: Hematocrit 33.9 % (30.3-42.9); Mean Corpuscular HGB Conc 33 % (30-34); Mean Corpuscular Volume 93 fl (79-97); Platelet Count 426 K/mm3 (140-440); Red Blood Count 3.66 M/mm3 (3.65-5.03); Red Cell Distribution Width 16.6 % (13.2-15.2)
[2021-04-19] MEDS ORDERED: REGADENOSON 0.4 MG/5 ML INJ IV ONE (08:41)
[2021-04-19 11:26] VITALS: BP 120/62
[2021-04-19] MEDS: LISINOPRIL 10 MG TAB PO SCH (11:27)
[2021-04-19] MEDS: ASPIRIN EC 81 MG TAB PO SCH (11:27)
[2021-04-19] MEDS: carvediloL 25 MG TAB PO SCH (11:27)
[2021-04-19] MEDS: hydroCHLOROthiazide 25 MG TAB PO SCH (11:28)
[2021-04-19] MEDS: ERGOCALCIFEROL (VIT D2) 50,000 UNIT CAP PO SCH (11:28)
[2021-04-19] MEDS: RANOLAZINE ER 500 MG TAB 12HR PO SCH (11:28)
[2021-04-19] MEDS: PRASUGREL 10 MG TAB PO SCH (11:28)
--- NOTE | 2021-04-19 11:31 | Progress Note ---
Assessment and Plan Lexiscan stress MPI this AM revealed no evidence of ischemia. Currently stable cardiac status. Pt may be discharged from a Cardiology [facility]. Follow-up with Dr. Sayra Billingsley in 1-2 weeks ([phone]). Pt seen in conjunction with Dr. Sayra Billingsley, who agrees with the assessment and plan of care. - Patient Problems (1) Chest pain Current Visit: Yes Status: Acute (2) CAD (coronary artery disease) Current Visit: Yes Status: Chronic Qualifiers: Coronary Disease-Associated Artery/Lesion type: [place] artery Teller vs. transplanted heart: [place] heart Associated angina: without angina Qualified Code(s): I25.10 - Atherosclerotic heart disease of [place] coronary artery without angina pectoris (3) Stented coronary artery Current Visit: Yes Status: Chronic (4) History of ST elevation myocardial infarction (STEMI) Current Visit: Yes Status: Chronic (5) Hypertension Current Visit: Yes Status: Chronic Qualifiers: Hypertension type: essential hypertension Qualified Code(s): I10 - Essential (primary) hypertension (6) Morbid obesity with BMI of 50.0-59.9, adult Current Visit: Yes Status: Chronic (7) GERD (gastroesophageal reflux disease) Current Visit: Yes Status: Chronic (8) Tobacco abuse Current Visit: No Status: Chronic (9) Anxiety Current Visit: Yes Status: Chronic Subjective Date of service: 04/19/21 Principal diagnosis: Chest Pain Interval history: Seen in stress lab this AM. No new complaints. Objective Last Vital Signs Temp 98.1 F 04/19/21 11:24 Pulse 88 04/19/21 11:27 Resp 17 04/19/21 11:24 BP 120/62 04/19/21 11:27 Pulse Ox 98 04/19/21 11:24 - Physical Examination General: No Apparent Distress HEENT: Positive: EOMI, Normocephaly, Mucus Membranes Moist Neck: Positive: neck supple, trachea midline. Negative: JVD/HJR Cardiac: Positive: Reg Rate and Rhythm, S1/S2 Lungs: Positive: clear to auscultation Neuro: Positive: Grossly Intact Abdomen: Positive: Soft. Negative: Tender Skin: Negative: Rash, Wound Musculoskeletal: No Pain Extremities: Present: upper extr. pulses, lower extr. pulses. Absent: edema - Labs and Meds Coagulation 04/18/21 Range/Units 00:50 PT 14.3 (12.2-14.9) Sec. INR 1.06 (0.87-1.13) CBC 04/18/21 04/19/21 Range/Units 00:50 04:03 WBC 10.8 9.5 (4.5-11.0) K/mm3 RBC 3.75 3.66 (3.65-5.03) M/mm3 Hgb 11.6 11.0 (10.1-14.3) gm/dl Hct 34.6 33.9 (30.3-42.9) % Plt Count 436 426 (140-440) K/mm3 Lymph # (Auto) 2.6 (1.2-5.4) K/mm3 Kaufman # (Auto) 1.2 H (0.0-0.8) K/mm3 Eos # (Auto) 0.2 (0.0-0.4) K/mm3 Baso # (Auto) 0.1 (0.0-0.1) K/mm3 Comprehensive Metabolic Panel 04/19/21 Range/Units 04:03 Sodium 137 (137-145) mmol/L Potassium 3.5 L (3.6-5.0) mmol/L Chloride 99.7 (98-107) mmol/L Carbon Dioxide 27 (22-30) mmol/L BUN 10 (7-17) mg/dL Creatinine 0.8 (0.6-1.2) mg/dL Glucose 98 (65-100) mg/dL Calcium 9.1 (8.4-10.2) mg/dL - Imaging and Cardiology EKG: report reviewed, image reviewed Pharmacologic stress test: pending Echo: report reviewed (03/30/2021 - EF 55-60%, no significant valvular abnormalities), other (04/2019 - EF 55-60%, no significant valvular abnormalities) Cardiac cath: report reviewed (07/2017 - patent RCA stent, otherwise very minimal irregularities, LVEF 50%) - Telemetry EKG Rhythm: Sinus Rhythm - EKG Sinus rhythms and dysrhythmias: sinus rhythm
--- NOTE | 2021-04-19 11:32 | Discharge Summary ---
Providers - Providers Date of Admission: 04/18/21 05:16 Date of discharge: 04/19/21 Attending physician: STEPHANIE FRANK 04/18/21 05:44 Consult to Physician [CONS] Routine Comment: [facility]ing Provider[facility] Physician Instructions: Reason For Exam: chest pain Primary care physician: [facility] Hospitalization Reason for admission: Atypical chest pain Condition: Good Pertinent studies: Chest x-ray; no acute findings Procedures: Lexiscan stress MPI : no evidence of ischemia. Hospital course: 45-year-old -[place] female patient with significant history of coronary artery disease status post PCI to RCA hypertension anxiety admitted through emergency room with atypical chest pain patient was initially evaluated appropriately being managed since patient has multiple risk factors cardiology was consulted and patient underwent stress test which revealed negative for reversible ischemia and normal ejection fraction patient's chest pain probably is noncardiac secondary to gastroesophageal reflux disease patient managed with Protonix and pain medications symptoms significantly improved today patient is comfortable no new complaints, denies chest pain or shortness of breath, ambulatory and tolerating oral nutrition patient advised to avoid NSAID groups of medication and follow-up with primary care physician and primary solar installation technician upon discharge for further evaluation management patient is hemodynamically and clinically stable at discharge patient advised to comply with medications and diet and if she has any questions contact MD or go to emergency room as needed. patient is stable at discharge patient is stable at discharge patient is stable at discharge. Patient advised dietary modification exercise as tolerated and weight reduction when medically stable Patient also would benefit from outpatient bariatric surgical consultation for weight reduction program Patient is hemodynamically and clinically stable at discharge Discharge diagnosis: --Atypical chest pain/noncardiac Stress test negative for reversible ischemia Probable noncardiac cause, GERD --GERD; probably the cause of atypical chest pain Advised Protonix --HLD (hyperlipidemia) Low-cholesterol diet, statin --History of CAD (coronary artery disease) status post PCI Continue current cardiac medications follow cardiology recommendations and optimize meds --Essential hypertension Continue current antihypertensives --Morbid obesity with BMI of 50.0-59.9, adult Patient needs weight reduction , diet modification , exercise as tolerated And weight reduction when medically stable . --Obesity hypoventilation syndrome Oxygen titrate O2 sats to more than 90% Outpatient pulmonary evaluation for sleep study Evaluate for obstructive sleep apnea CPAP BiPAP/ Weight reduction when medically stable Patient may benefit from bariatric weight reduction program upon discharge Patient is stable at discharge Disposition: DC-01 TO HOME OR SELFCARE Final Discharge Diagnosis (Prints w/discharge instructions): Atypical chest pain[noncardiac]. Stress test negative for ischemia. GERD. History of coronary artery disease s/p PCI. Hypertension. Morbid obesity BMI 56.6. Obesity hypoventilation Time spent for discharge: 35 minutes Core Measure Documentation - Palliative Care Palliative Care/ Comfort Measures: Not Applicable - Core Measures Any of the following diagnoses?: none Exam - Constitutional Vitals: Temp Pulse Resp BP Pulse Ox 98.1 F 88 17 120/62 98 04/19/21 11:24 04/19/21 11:27 04/19/21 11:24 04/19/21 11:27 04/19/21 11:24 General appearance: Present: no acute distress, well-nourished - EENT Eyes: Present: PERRL, EOM intact - Neck Neck: Present: supple, normal ROM - Respiratory Respiratory: bilateral: diminished, negative: rales, rhonchi, wheezing - Cardiovascular Rhythm: regular Heart Sounds: Present: S1 & S2 - Extremities Extremities: no ischemia, No edema - Abdominal General gastrointestinal: Present: soft, non-tender, non-distended, normal bowel sounds - Integumentary Integumentary: Present: clear, warm - Musculoskeletal Musculoskeletal: strength equal bilaterally - Psychiatric Psychiatric: appropriate mood/affect, cooperative - Neurologic Neurologic: CNII-XII intact, moves all extremities Plan Activity: advance as tolerated Diet: other (cardiac diet) Additional Instructions: Follow-up with Dr. Sayra Islas in 1-2 weeks ([phone]). Advised diet modification exercise as tolerated and weight reduction when medically stable. If you have worsening symptoms contact MD or go to emergency room Follow up with: PRIMARY CARE, [Primary Care Provider] - 3-5 Days IBRAHIMA ISLAS MD [Staff Physician] - 14 Days Prescriptions: carvediloL [Coreg] 25 mg PO BID #60 tablet Pantoprazole [Protonix] 40 mg PO QDAY #14 tablet lisinopriL [Zestril TAB] 10 mg PO QDAY #30 tablet
[2021-04-19] MEDS ORDERED: POTASSIUM CHLORIDE ER 10 MEQ TAB PO ONE (12:30)
--- NOTE | 2021-04-19 14:04 | Electrocardiograph Report ---
[facility] Test Date: 2021-04-18 Test Time: 00:22:17 Pat Name: MAKAYLA ARGUELLES Department: Room: A457 1 Gender: F Nurse Practitioner Per Diem: MARIBEL : 1975 Requested By: MARCELINA MANTILLA Order Number: [id number] Reading MD: Rosa Elena Cyr Measurements Intervals [place] Rate: 60 P: 43 [place]: 199 QRS: 27 QRSD: 89 T: -5 QT: 410 QTc: 411 Interpretive Statements Sinus rhythm Low voltage, precordial leads Compared to ECG 04/12/2021 08:55:53 No significant changes Electronically Signed On 04-19-2021 14:03:48 EDT by Rosa Elena Cyr
--- NOTE | 2021-04-19 14:29 | Electrocardiograph Report ---
[facility] Test Date: 2021-04-19 Test Time: 09:41:16 Pat Name: MAKAYLA ARGUELLES Department: Room: A457 1 Gender: F Clinical Audiologist: PERFECTO : 1975 Requested By: DENIZ SANDS Order Number: [id number] Reading MD: Rosa Elena Cyr Measurements Intervals [place] Rate: 73 P: 58 [place]: 194 QRS: 26 QRSD: 86 T: -21 QT: 375 QTc: 415 Interpretive Statements Sinus rhythm Compared to ECG 04/18/2021 00:22:17 No significant changes Electronically Signed On 04-19-2021 14:28:39 EDT by Rosa Elena Cyr
--- NOTE | 2021-04-19 23:43 | Treadmill Report ---
DATE OF SERVICE: 04/19/2021 NUCLEAR PERFUSION SCAN REFERRING PHYSICIAN: Hospitalist service. PROTOCOL: The patient was assessed in postoperative state, given 10 mCi of technetium at rest. The patient had rest imaging. The patient underwent Lexiscan stress test per standard protocol. At peak stress, the patient was given 26 mCi of technetium 99m. Shortly thereafter, the patient underwent stress imaging. Raw imaging reveals mild GI artifact, is no significant motion artifact. SPECT imaging examined carefully in horizontal long axis, vertical long axis, short axis views. There was normal homogeneous uptake of radioisotope in all port segments. No evidence of a significant fixed or reversible perfusion defect suggestive of prior infarction or ischemia. Gated wall motion reveals normal systolic thickening, calculated ejection fraction 70%. No TID. CONCLUSIONS: 1. Normal myocardial perfusion scan without evidence of active ischemia or prior infarction. 2. Normal left ventricular systolic performance without evidence of transient ischemic dilatation or stress induced segmental wall motion abnormalities. TID: [id number] RECEIPT: [id number] NICOLE/VALERIA
== END 2021-04-19 15:55 | disposition home or self-care (01) ==
LOC: ED 03:01 → 4A 05:16
PROVIDERS: ADMIT Internal Medicine Geriatric Medicine; ATTEND Internal Medicine
DX: I24.9 Acute ischemic heart disease, unspecified (principal); R07.89 Other chest pain; E78.5 Hyperlipidemia, unspecified; I10 Essential (primary) hypertension; I25.2 Old myocardial infarction; I25.10 Atherosclerotic heart disease of native coronary artery without angina pectoris; I21.3 ST elevation (STEMI) myocardial infarction of unspecified site; E66.01 Morbid (severe) obesity due to excess calories; K21.9 Gastro-esophageal reflux disease without esophagitis; F41.9 Anxiety disorder, unspecified; Z68.43 Body mass index [BMI] 50.0-59.9, adult; Z79.82 Long term (current) use of aspirin; Z95.1 Presence of aortocoronary bypass graft; Z87.891 Personal history of nicotine dependence
CPT/HCPCS: 36415; 71045; 78452; 80048; 82550; 83036; 83735; 84484; 84702; 85025; 85027; 85610; 87641; 93005; 93017; 96374; 96375; 96376; 99285; A9270; A9502; C9113; G0378; J1170; J2270; J2785; J7040

== ENCOUNTER 2021-04-26 03:05 | Emergency (ER) | payer OTHER ==
[2021-04-26 08:31] VITALS: BP 150/80
--- NOTE | 2021-04-26 08:55 | XRay Report ---
CHEST 2 VIEWS INDICATION: shortness of breath. COMPARISON: 04/18/2021 FINDINGS: Support devices: None. Heart: Within normal limits. Lungs/pleura: No acute air space or interstitial disease. No pneumothorax. Additional findings: None. IMPRESSION: No acute findings. Signer Name: Jose Sharma Jr, MD Signed: 04/26/2021 8:51 AM Workstation Name: [id number]
--- NOTE | 2021-04-26 09:22 | Electrocardiograph Report ---
[facility] Test Date: 2021-04-26 Test Time: 08:52:37 Pat Name: MAKAYLA ARGUELLES Department: Room: Gender: F Manager Convention: DARIEN : 1975 Requested By: JAMAAL MARADIAGA Order Number: [id number] Reading MD: Lalito Gregory Measurements Intervals [place] Rate: 59 P: -38 [place]: 195 QRS: 56 QRSD: 76 T: 4 QT: 400 QTc: 398 Interpretive Statements Ectopic atrial bradycardia nonspecific st-t Compared to ECG 04/19/2021 09:41:16 Bradycardia, nonsinus now present Low QRS voltage now present Sinus rhythm no longer present Electronically Signed On 04-26-2021 9:22:13 EDT by Lalito Gregory
--- NOTE | 2021-04-26 09:24 | Emergency Department Report ---
ED Shortness of Breath HPI - General Chief Complaint: Nausea/Vomiting/Diarrhea Stated Complaint: SOB Time Seen by Provider: 04/26/21 07:50 Source: patient, EMS Mode of arrival: Stretcher Limitations: No Limitations - History of Present Illness Initial Comments: 45-year-old -Citizen Of [place] female patient with history of CA/CAD, hypertension, anxiety, status post PCI of RCA presents with complaints of shortness of breath x1 month. Patient has been evaluated in the ED 5 times in the past month for shortness of breath/chest pain and admitted on 03/30/2021 and 04/18/2021. VQ scan was negative for PE, bilateral lower extremity venous Doppler ultrasound was negative for DVT. Patient also had a normal echocardiogram on 03/30/2021. Her last stress test was negative in 2019. She denies any long travel since her scans or hormone use. Today she denies any chest pain, however states she had 3 episodes of diarrhea and continues to experience the intermittent shortness of breath. She denies any melena/hematochezia, abdominal pain, nausea/vomiting, or fever/chills/sweats. Patient is tolerating foods and fluids p.o. currently during HPI. She states t he shortness of breath lasts only a few seconds and may occur at any time. It does not worsen with lying down or exertion per patient. No cough per patient. She also denies any swelling in her extremities. -: Sudden - Related Data Home Medications Medication Instructions Recorded Confirmed Last Taken Ergocalciferol [Vitamin D2] 50,000 unit PO DAILY 03/31/21 04/18/21 Unknown Pravastatin [Pravachol] 40 mg PO DAILY 03/31/21 04/18/21 Unknown hydroCHLOROthiazide [HCTZ] 25 mg PO DAILY 03/31/21 04/18/21 Unknown Previous Rx's Medication Instructions Recorded Last Taken Type Aspirin 325 mg PO QDAY #30 tablet 08/12/17 04/27/19 Rx Ferrous Sulfate [Feosol 325 MG tab] 325 mg PO BID #60 tablet 08/12/17 04/27/19 Rx ISOSORBIDE MONOnitrate [Imdur ER] 30 mg PO QDAY #30 tablet 08/12/17 04/27/19 Rx Prasugrel [Effient] 10 mg PO QDAY #30 tablet 08/12/17 04/27/19 Rx Ranolazine ER [Ranexa ER] 500 mg PO BID #60 tablet 08/12/17 04/27/19 Rx clonazePAM [KlonoPIN] 0.5 mg PO BID PRN #12 tab 04/02/21 Unknown Rx Pantoprazole [Protonix] 40 mg PO QDAY #14 tablet 04/19/21 Unknown Rx carvediloL [Coreg] 25 mg PO BID #60 tablet 04/19/21 Unknown Rx lisinopriL [Zestril TAB] 10 mg PO QDAY #30 tablet 04/19/21 Unknown Rx Allergies Allergy/AdvReac Type Severity Reaction Status Date / Time iodine Allergy Swelling Verified 04/12/21 08:44 shellfish derived Allergy Swelling Verified 04/12/21 08:44 ED Review of Systems ROS: Stated complaint: SOB Other details as noted in HPI Constitutional: denies: chills, fever, malaise Eyes: denies: vision change Respiratory: shortness of breath. denies: cough Cardiovascular: denies: chest pain, palpitations, edema, syncope Gastrointestinal: diarrhea. denies: abdominal pain, nausea, vomiting, constipation, hematemesis, melena, hematochezia Musculoskeletal: denies: back pain Skin: denies: change in color Neurological: denies: headache, abnormal gait ED Past Medical Hx - Past Medical History Previous Medical History?: Yes Hx Hypertension: Yes Hx CVA: No Hx Heart Attack/AMI: Yes (stents 03/11) Hx Congestive Heart Failure: No Hx Diabetes: No Hx Deep Vein Thrombosis: No Hx Pulmonary Embolism: No Hx GERD: Yes Hx Liver Disease: No Hx Renal Disease: No Hx Sickle Cell Disease: No Hx Arthritis: No Hx Headaches / Migraines: No Hx Seizures: No Hx Kidney Stones: No Hx Psychiatric Treatment: No Hx Asthma: No Hx COPD: No Hx Tuberculosis: No Hx Dementia: No Hx HIV: No Additional medical history: 2 STENTS 02/28/16, cholesterol, IBS, fibroids. CHRONIC BACK PAIN - Surgical History Past Surgical History?: Yes Hx Coronary Stent: Yes Hx Open Heart Surgery: No Hx Pacemaker: No Hx Internal Defibrillator: No Hx Cholecystectomy: No Hx Appendectomy: No Hx Breast Surgery: No Additional Surgical History: D&C - Social History Smoking Status: Never Smoker Substance Use Type: None - Medications Home Medications: Home Medications Medication Instructions Recorded Confirmed Last Taken Type Aspirin 325 mg PO QDAY #30 tablet 08/12/17 04/18/21 04/27/19 Rx Ferrous Sulfate [Feosol 325 MG tab] 325 mg PO BID #60 tablet 08/12/17 04/18/21 04/27/19 Rx ISOSORBIDE MONOnitrate [Imdur ER] 30 mg PO QDAY #30 tablet 08/12/17 04/18/21 04/27/19 Rx Prasugrel [Effient] 10 mg PO QDAY #30 tablet 08/12/17 04/18/21 04/27/19 Rx Ranolazine ER [Ranexa ER] 500 mg PO BID #60 tablet 08/12/17 04/18/21 04/27/19 Rx Ergocalciferol [Vitamin D2] 50,000 unit PO DAILY 03/31/21 04/18/21 Unknown History Pravastatin [Pravachol] 40 mg PO DAILY 03/31/21 04/18/21 Unknown History hydroCHLOROthiazide [HCTZ] 25 mg PO DAILY 03/31/21 04/18/21 Unknown History clonazePAM [KlonoPIN] 0.5 mg PO BID PRN #12 tab 04/02/21 04/18/21 Unknown Rx Pantoprazole [Protonix] 40 mg PO QDAY #14 tablet 04/19/21 Unknown Rx carvediloL [Coreg] 25 mg PO BID #60 tablet 04/19/21 Unknown Rx lisinopriL [Zestril TAB] 10 mg PO QDAY #30 tablet 04/19/21 Unknown Rx ED Physical Exam - General Limitations: No Limitations General appearance: alert, in no apparent distress, obese (Morbid obesity) - Head Head exam: Present: atraumatic, normocephalic - Eye Eye exam: Present: normal appearance - Neck Neck exam: Present: normal inspection - Respiratory Respiratory exam: Present: normal lung sounds bilaterally. Absent: respiratory distress - Cardiovascular Cardiovascular Exam: Present: regular rate, normal rhythm. Absent: systolic murmur, diastolic murmur, rubs, gallop - GI/Abdominal GI/Abdominal exam: Present: soft, normal bowel sounds. Absent: distended, tenderness, guarding, rebound, rigid - Extremities Exam Extremities exam: Present: full ROM. Absent: calf tenderness (No swelling or tenderness noted to legs bilaterally) - Neurological Exam Neurological exam: Present: alert, oriented X3, normal gait - Psychiatric Psychiatric exam: Present: normal affect, normal mood - Skin Skin exam: Present: warm, dry, intact, normal color. Absent: rash ED Course Vital Signs 04/26/21 04/26/21 03:16 08:31 Temperature 98.7 F Pulse Rate 69 61 Respiratory 18 17 Rate Blood Pressure 142/76 Blood Pressure 150/80 [Left] O2 Sat by Pulse 97 97 Oximetry ED Medical Decision Making - Lab Data Result diagrams: 04/26/21 08:21 04/26/21 08:21 - EKG Data EKG shows normal: sinus rhythm Rate: normal - EKG Data When compared to previous EKG there are: no significant change Interpretation: other (Ectopic atrial bradycardia) - Radiology Data Radiology results: report reviewed CHEST 2 VIEWS INDICATION: shortness of breath. COMPARISON: 04/18/2021 FINDINGS: Support devices: None. Heart: Within normal limits. Lungs/pleura: No acute air space or interstitial disease. No pneumothorax. Additional findings: None. IMPRESSION: No acute findings. - Medical Decision Making 45-year-old -Citizen Of [place] female patient with history of CA/CAD, hypertension, anxiety, status post PCI of RCA presents with complaints of shortness of breath x1 month. Patient has been evaluated in the ED 5 times in the past month for shortness of breath/chest pain and admitted on 03/30/2021 and 04/18/2021. VQ scan was negative for PE, bilateral lower extremity venous Doppler ultrasound was negative for DVT. Patient also had a normal echocardiogram on 03/30/2021. Her last stress test was negative in 2019. She denies any long travel since her scans or hormone use. Today she denies any chest pain, however states she had 3 episodes of diarrhea and continues to experience the intermittent shortness of breath. She denies any melena/hematochezia, abdominal pain, nausea/vomiting, or fever/chills/sweats. Patient is tolerating foods and fluids p.o. currently during HPI. She states the shortness of breath lasts only a few seconds and may occur at any time. It does not worsen with lying down or exertion per patient. No cough per patient. She also denies any swelling in her extremities. Heart and lung exam are normal. CBC, CMP, chest x-ray, and troponin are normal. BMP is also within normal limits. No significant changes noted on EKG today. She continues to deny any chest pain. No shortness of breath at this time per patient. Patient's vitals remain normal and she is well-appearing. Patient reports she has an appointment with her sports team manager tomorrow, Dr. Caroline Billingsley- given chronicity of patient's symptoms without worsening or new symptoms today, I believe patient is stable for discharge home and further evaluation of her shortness of breath with her sports team manager tomorrow. Discussed in detail signs and symptoms that should prompt immediate return to the emergency department in detail with patient who verbalized understanding. Critical care attestation.: If time is entered above; I have spent that time in minutes in the direct care of this critically ill patient, excluding procedure time. ED Disposition Clinical Impression: Shortness of breath, Diarrhea Disposition: DC-01 TO HOME OR SELFCARE Is pt being admited?: No Condition: Stable Instructions: Shortness of Breath, Adult, Diarrhea, Adult, [id number], Probiotics Additional Instructions: Follow-up with your sports team manager as scheduled tomorrow morning
[2021-04-26 10:12] LABS: Alanine Aminotransferase 8 units/L (7-56); Albumin 4.2 g/dL (3.9-5); BUN/Creatinine Ratio 9; Blood Urea Nitrogen 7 mg/dL (7-17); Calcium 9.8 mg/dL (8.4-10.2); Hemolysis Index 26
[2021-04-26 10:17] LABS: Basophils % (Auto) 0.4 % (0.0-1.8); Eosinophils # (Auto) 0.2 K/mm3 (0.0-0.4); Eosinophils % (Auto) 2.2 % (0.0-4.3); Hematocrit 36.5 % (30.3-42.9); Hemoglobin 11.8 gm/dl (10.1-14.3); Lymphocytes # (Auto) 2.3 K/mm3 (1.2-5.4); Lymphocytes % (Auto) 27.4 % (13.4-35.0); Mean Corpuscular HGB Conc 33 % (30-34); Mean Corpuscular Volume 92 fl (79-97); Monocytes # (Auto) 0.7 K/mm3 (0.0-0.8); Monocytes % (Auto) 7.7 % (0.0-7.3); Platelet Count 445 K/mm3 (140-440); Red Blood Count 3.95 M/mm3 (3.65-5.03); Red Cell Distribution Width 16.6 % (13.2-15.2)
--- NOTE | 2021-04-28 09:42 | Electrocardiograph Report ---
[facility] Test Date: 2021-04-26 Test Time: 08:56:17 Pat Name: MAKAYLA ARGUELLES Department: Room: Gender: F Coach Operator: DARIEN : 1975 Requested By: BREN RIBEIRO Order Number: [id number] Reading MD: Lalito Gregory Measurements Intervals [place] Rate: 61 P: -43 [place]: 199 QRS: 58 QRSD: 82 T: 6 QT: 386 QTc: 390 Interpretive Statements Sinus rhythm nonspecific st-t Compared to ECG 04/26/2021 08:52:37 Bradycardia, nonsinus no longer present Electronically Signed On 04-28-2021 9:42:45 EDT by Lalito Gregory
== END 2021-04-26 11:30 | disposition home or self-care (01) ==
LOC: ED 03:05
DX: R06.02 Shortness of breath (principal); R19.7 Diarrhea, unspecified; I10 Essential (primary) hypertension; I25.2 Old myocardial infarction; K21.9 Gastro-esophageal reflux disease without esophagitis; Z98.890 Other specified postprocedural states; Z79.899 Other long term (current) drug therapy; Z91.013 Allergy to seafood; Z88.8 Allergy status to other drugs, medicaments and biological substances
CPT/HCPCS: 36415; 71046; 80053; 83880; 84484; 85025; 93005

== ENCOUNTER 2021-05-02 19:01 | Emergency (ER) | payer OTHER ==
[2021-05-02 19:52] VITALS: BP 132/77
[2021-05-02 21:52] LABS: BUN/Creatinine Ratio 7; Blood Urea Nitrogen 6 mg/dL (7-17); Calcium 9.4 mg/dL (8.4-10.2); Hemolysis Index 54
[2021-05-02 22:03] LABS: Basophils % (Auto) 0.5 % (0.0-1.8); Eosinophils # (Auto) 0.3 K/mm3 (0.0-0.4); Eosinophils % (Auto) 3.6 % (0.0-4.3); Hematocrit 33.5 % (30.3-42.9); Hemoglobin 11.4 gm/dl (10.1-14.3); Lymphocytes # (Auto) 2.6 K/mm3 (1.2-5.4); Lymphocytes % (Auto) 28.3 % (13.4-35.0); Mean Corpuscular HGB Conc 34 % (30-34); Mean Corpuscular Volume 92 fl (79-97); Monocytes # (Auto) 0.7 K/mm3 (0.0-0.8); Monocytes % (Auto) 7.8 % (0.0-7.3); Platelet Count 433 K/mm3 (140-440); Red Blood Count 3.62 M/mm3 (3.65-5.03); Red Cell Distribution Width 16.3 % (13.2-15.2)
--- NOTE | 2021-05-03 02:31 | Emergency Department Report ---
ED Neuro Deficit HPI - General Chief Complaint: Extremity Injury, Upper Stated Complaint: LEFT HAND FINGERS NUMBNESS Time Seen by Provider: 05/02/21 21:12 Source: patient, EMS Mode of arrival: Ambulatory Limitations: No Limitations - History of Present Illness Initial Comments: 45-year-old morbidly obese -Chinese female past medical history of GERD, hypertension, CAD with history of acute myocardial infarction in February 2016 presents emerged department complaining of left extremity neuropathy and palpitations suspicious of having some cardiac symptoms as this was similar to her previous presentation. Reports no hemoptysis hematemesis hematochezia, no fever, chills, sweats no rash no actual chest pain no shortness of breath no change of symptoms with exertion no presyncope. She is also unsure whether the symptoms are related to the chest being assessed with a primary care is prediabetic. History of same: Yes Quality: tingling Improves With: none Worsens With: none Associated Symptoms: denies other symptoms Treatments Prior to Arrival: none - Related Data Home Medications: Home Medications Medication Instructions Recorded Confirmed Last Taken Ergocalciferol [Vitamin D2] 50,000 unit PO DAILY 03/31/21 04/18/21 Unknown Pravastatin [Pravachol] 40 mg PO DAILY 03/31/21 04/18/21 Unknown hydroCHLOROthiazide [HCTZ] 25 mg PO DAILY 03/31/21 04/18/21 Unknown Previous Rx's Medication Instructions Recorded Last Taken Type Aspirin 325 mg PO QDAY #30 tablet 08/12/17 04/27/19 Rx Ferrous Sulfate [Feosol 325 MG tab] 325 mg PO BID #60 tablet 08/12/17 04/27/19 Rx ISOSORBIDE MONOnitrate [Imdur ER] 30 mg PO QDAY #30 tablet 08/12/17 04/27/19 Rx Prasugrel [Effient] 10 mg PO QDAY #30 tablet 08/12/17 04/27/19 Rx Ranolazine ER [Ranexa ER] 500 mg PO BID #60 tablet 08/12/17 04/27/19 Rx clonazePAM [KlonoPIN] 0.5 mg PO BID PRN #12 tab 04/02/21 Unknown Rx Pantoprazole [Protonix] 40 mg PO QDAY #14 tablet 04/19/21 Unknown Rx carvediloL [Coreg] 25 mg PO BID #60 tablet 04/19/21 Unknown Rx lisinopriL [Zestril TAB] 10 mg PO QDAY #30 tablet 04/19/21 Unknown Rx Allergies/Adverse Reactions: Allergies Allergy/AdvReac Type Severity Reaction Status Date / Time iodine Allergy Swelling Verified 04/12/21 08:44 shellfish derived Allergy Swelling Verified 04/12/21 08:44 ED Review of Systems ROS: Stated complaint: LEFT HAND FINGERS NUMBNESS Other details as noted in HPI Comment: All other systems reviewed and negative ED Past Medical Hx - Past Medical History Previous Medical History?: Yes Hx Hypertension: Yes Hx CVA: No Hx Heart Attack/AMI: Yes (stents 03/11) Hx Congestive Heart Failure: No Hx Diabetes: No Hx Deep Vein Thrombosis: No Hx Pulmonary Embolism: No Hx GERD: Yes Hx Liver Disease: No Hx Renal Disease: No Hx Sickle Cell Disease: No Hx Arthritis: No Hx Headaches / Migraines: No Hx Seizures: No Hx Kidney Stones: No Hx Psychiatric Treatment: No Hx Asthma: No Hx COPD: No Hx Tuberculosis: No Hx Dementia: No Hx HIV: No Additional medical history: 2 STENTS 02/28/16, cholesterol, IBS, fibroids. CHRONIC BACK PAIN - Surgical History Past Surgical History?: Yes Hx Coronary Stent: Yes Hx Open Heart Surgery: No Hx Pacemaker: No Hx Internal Defibrillator: No Hx Cholecystectomy: No Hx Appendectomy: No Hx Breast Surgery: No Additional Surgical History: D&C - Social History Smoking Status: Never Smoker Substance Use Type: None - Medications Home Medications: Home Medications Medication Instructions Recorded Confirmed Last Taken Type Aspirin 325 mg PO QDAY #30 tablet 08/12/17 04/18/21 04/27/19 Rx Ferrous Sulfate [Feosol 325 MG tab] 325 mg PO BID #60 tablet 08/12/17 04/18/21 04/27/19 Rx ISOSORBIDE MONOnitrate [Imdur ER] 30 mg PO QDAY #30 tablet 08/12/17 04/18/21 04/27/19 Rx Prasugrel [Effient] 10 mg PO QDAY #30 tablet 08/12/17 04/18/21 04/27/19 Rx Ranolazine ER [Ranexa ER] 500 mg PO BID #60 tablet 08/12/17 04/18/21 04/27/19 Rx Ergocalciferol [Vitamin D2] 50,000 unit PO DAILY 03/31/21 04/18/21 Unknown History Pravastatin [Pravachol] 40 mg PO DAILY 03/31/21 04/18/21 Unknown History hydroCHLOROthiazide [HCTZ] 25 mg PO DAILY 03/31/21 04/18/21 Unknown History clonazePAM [KlonoPIN] 0.5 mg PO BID PRN #12 tab 04/02/21 04/18/21 Unknown Rx Pantoprazole [Protonix] 40 mg PO QDAY #14 tablet 04/19/21 Unknown Rx carvediloL [Coreg] 25 mg PO BID #60 tablet 04/19/21 Unknown Rx lisinopriL [Zestril TAB] 10 mg PO QDAY #30 tablet 04/19/21 Unknown Rx ED Neuro Physical Exam - General Limitations: No Limitations General appearance: alert, in no apparent distress Suspected Stroke: No - Head Head exam: Present: atraumatic, normocephalic - Eye Eye exam: Present: normal appearance, PERRL, EOMI Pupils: Present: normal accommodation - ENT ENT exam: Present: normal exam, normal orophraynx, mucous membranes moist - Neck Neck exam: Present: normal inspection - Respiratory Respiratory exam: Present: normal lung sounds bilaterally. Absent: respiratory distress, wheezes, rales - Cardiovascular Cardiovascular Exam: Present: regular rate, normal rhythm. Absent: systolic murmur, diastolic murmur, rubs, gallop - GI/Abdominal GI/Abdominal exam: Present: soft, normal bowel sounds - Extremities Exam Extremities exam: Present: normal inspection, full ROM, normal capillary refill, other (Capillary refills are brisk pulses 2+ extremities are warm) - Expanded Upper Extremity Exam Left Shoulder Exam: Present: normal inspection, full ROM Upper Arm exam: Present: normal inspection, full ROM Elbow exam: Present: normal inspection, full ROM Hand Wrist exam: Present: normal inspection Vascular: Absent: vascular compromise - Back Exam Back exam: Present: normal inspection - Neurological Exam Neurological exam: Present: alert, oriented X3, CN II-XII intact, other (Reports numbness and tingling to the left third digit) - NIHSS Assessment Interval: Baseline 1a. Level of Consciousness: alert/keenly responsive 1b. LOC Questions: answers both correctly 1c. LOC Commands: performs tasks correctly 2. Best Gaze: normal 3. Visual: no visual loss 4. Facial Palsy: normal symmetrical movement 5b. Motor Arm Right: no drift 5a. Motor Arm Left: no drift 6a. Motor Leg Left: no drift 6b. Motor Leg Right: no drift 7. Limb Ataxia: absent 8. Sensory: normal 9. Best Language: no aphasia 10. Dysarthria: normal 11. Extinction/Inattention: no abnormality Total Score: 0 Stroke Severity: No Stroke Symptoms - Psychiatric Psychiatric exam: Present: normal affect, normal mood. Absent: anxious, flat affect, homicidal ideation, suicidal ideation - Skin Skin exam: Present: warm, dry, intact, normal color. Absent: rash ED Course Vital Signs 05/02/21 19:46 Temperature 98.8 F Pulse Rate 75 Respiratory 18 Rate Blood Pressure 132/77 O2 Sat by Pulse 99 Oximetry - Lab Data Lab Results 05/02/21 05/02/21 05/03/21 Range/Units 21:20 21:20 00:37 WBC 9.4 (4.5-11.0) K/mm3 RBC 3.62 L (3.65-5.03) M/mm3 Hgb 11.4 (10.1-14.3) gm/dl Hct 33.5 (30.3-42.9) % MCV 92 (79-97) fl MCH 31 (28-32) pg MCHC 34 (30-34) % RDW 16.3 H (13.2-15.2) % Plt Count 433 (140-440) K/mm3 Lymph % (Auto) 28.3 (13.4-35.0) % [place] % (Auto) 7.8 H (0.0-7.3) % Eos % (Auto) 3.6 (0.0-4.3) % Baso % (Auto) 0.5 (0.0-1.8) % Lymph # (Auto) 2.6 (1.2-5.4) K/mm3 [place] # (Auto) 0.7 (0.0-0.8) K/mm3 Eos # (Auto) 0.3 (0.0-0.4) K/mm3 Baso # (Auto) 0.0 (0.0-0.1) K/mm3 Seg Neutrophils % 59.8 (40.0-70.0) % Seg Neutrophils # 5.6 (1.8-7.7) K/mm3 Sodium 138 (137-145) mmol/L Potassium 4.4 (3.6-5.0) mmol/L Chloride 102.6 (98-107) mmol/L Carbon Dioxide 23 (22-30) mmol/L Anion Gap 17 mmol/L BUN 6 L (7-17) mg/dL Creatinine 0.9 (0.6-1.2) mg/dL Estimated GFR > 60 ml/min BUN/Creatinine Ratio 7 % Glucose 97 (65-100) mg/dL Calcium 9.4 (8.4-10.2) mg/dL Troponin T < 0.010 < 0.010 (0.00-0.029) ng/mL - EKG Data EKG shows normal: sinus rhythm Rate: normal Interpretation: normal EKG 05/03/21 02:51 EKG performed at 1232 with at 1237 - Medical Decision Making This patient presents with left upper extremity neuropathy s that is very unlikely angina or acute coronary syndrome. The emergency department evaluation has not identified any cause for suspicion that this chest pain has a cardiac etiology. Based on their history, EKG (which showed no evidence of ischemia or infarction) and imaging, in addition to the patient's physical exam, I see no evidence at this time for a malignant etiology for the patient's chest pain. There is no acute evidence for pulmonary embolus, acute myocardial infarction, pneumothorax, Boerhaeve syndrome, cardiac tamponade, thoracic artery dissection, or any other emergent cardiac, pulmonary or aortic pathology. Given the low pre-test probability for cardiac etiology of chest pain and the absence of any sign of ischemia or infarction, discharge for outpatient follow-up and further evaluation is reasonable. I have explained to the patient that even though a cardiac problem is very unlikely, follow-up and further testing is required to reduce further the already small uncertainty that exists. Other life-threatening diagnoses have been considered. The patient understands the need to return immediately if their symptoms worsen or they develop any new symptoms, and not to engage in any significant exertional activity until follow-up is obtained. Patient presents to emergency department with palpitations and ECG is noted to be indicative of a normal sinus rhythm. Palpitations are unlikely secondary to other concomitant causes such as pulmonary embolus or acute coronary syndrome. The immediate cause is not apparent. Potential causes considered include but are not limited to infection, hypothyroidism, bone embolism, pericarditis, dehydration, anemia, pheochromocytoma, drug and alcohol withdrawal or intoxication among other things. Despite the evaluation including history, examination, testing, the cause of the palpitations remains unclear however the history, exam, the chest do not raise concern for any of the aforementioned diagnoses. Disposition; during emergency stay the patient's vital signs and symptoms were stable and the significant palpitations were experienced during the hospital stay Critical care attestation.: If time is entered above; I have spent that time in minutes in the direct care of this critically ill patient, excluding procedure time. ED Disposition Clinical Impression: Upper extremity neuropathy, Palpitations Disposition: DC-01 TO HOME OR SELFCARE Is pt being admited?: No Does the pt Need Aspirin: No Condition: Stable Instructions: Peripheral Neuropathy, Palpitations Referrals: BILL LEE MD [Staff Physician] - 3-5 Days
--- NOTE | 2021-05-04 10:31 | Electrocardiograph Report ---
[facility] Test Date: 2021-05-03 Test Time: 00:32:15 Pat Name: MAKAYLA ARGUELLES Department: Room: Gender: F Director Data Management: MONIQUE : 1975 Requested By: TYLER LASSITER Order Number: [id number] Reading MD: Rosa Elena Cyr Measurements Intervals [place] Rate: 73 P: 27 [place]: 195 QRS: 24 QRSD: 72 T: -17 QT: 372 QTc: 410 Interpretive Statements Sinus rhythm Low voltage, precordial leads Borderline T abnormalities, diffuse leads Compared to ECG 04/26/2021 08:56:17 No significant change Electronically Signed On 05-04-2021 10:30:55 EDT by Rosa Elena Cyr
== END 2021-05-03 03:30 | disposition home or self-care (01) ==
LOC: ED 19:01
DX: G56.92 Unspecified mononeuropathy of left upper limb (principal); R00.2 Palpitations; I10 Essential (primary) hypertension; Z98.890 Other specified postprocedural states; Z79.899 Other long term (current) drug therapy; Z91.013 Allergy to seafood; Z88.8 Allergy status to other drugs, medicaments and biological substances
CPT/HCPCS: 36415; 80048; 84484; 85025; 93005

== ENCOUNTER 2021-05-12 22:14 | Emergency (ER) | payer OTHER ==
[2021-05-12] MEDS ORDERED: ASPIRIN 325 MG TAB PO ONE (22:49)
[2021-05-12 22:51] VITALS: BP 134/84
[2021-05-12] MEDS ORDERED: IBUPROFEN 800 MG TAB PO ONE (23:49)
--- NOTE | 2021-05-13 00:14 | Emergency Department Report ---
Upper Extremity - HPI Chief Complaint: Chest Pain Stated Complaint: NAUSEA/BODYACHES Time Seen by Provider: 05/12/21 23:42 Upper Extremity: Left Shoulder Occurred When: Today Mechanism: Unsure Severity: moderate Symptoms: Yes Pain with Movement, No Deformity, No Limited Range of Movement, No Numbness, No Weakness, No Swelling, No Bruising/Ecchymosis, No Laceration or Abrasion Other History: 45-year-old female, history of SD in 2016, morbid obesity, GERD, hypertension, presents to ED with left shoulder pain. Patient states pain is worse with movement of her torso, movement of the left arm, and palpation. Patient states she recently started working out with 3 pound dumbbells and has been having some soreness from these workouts. Patient reports slight chest pain, also worse with palpation. She denies any shortness of breath. ED Review of Systems ROS: Stated complaint: NAUSEA/BODYACHES Other details as noted in HPI Comment: All other systems reviewed and negative Musculoskeletal: as per HPI Neurological: denies: weakness, numbness ED Past Medical Hx - Past Medical History Previous Medical History?: Yes Hx Hypertension: Yes Hx CVA: No Hx Heart Attack/AMI: Yes (stents 03/11) Hx Congestive Heart Failure: No Hx Diabetes: No Hx Deep Vein Thrombosis: No Hx Pulmonary Embolism: No Hx GERD: Yes Hx Liver Disease: No Hx Renal Disease: No Hx Sickle Cell Disease: No Hx Arthritis: No Hx Headaches / Migraines: No Hx Seizures: No Hx Kidney Stones: No Hx Psychiatric Treatment: No Hx Asthma: No Hx COPD: No Hx Tuberculosis: No Hx Dementia: No Hx HIV: No Additional medical history: 2 STENTS 02/28/16, cholesterol, IBS, fibroids. CHRONIC BACK PAIN - Surgical History Past Surgical History?: Yes Hx Coronary Stent: Yes Hx Open Heart Surgery: No Hx Pacemaker: No Hx Internal Defibrillator: No Hx Cholecystectomy: No Hx Appendectomy: No Hx Breast Surgery: No Additional Surgical History: D&C - Social History Smoking Status: Never Smoker Substance Use Type: None - Medications Home Medications: Home Medications Medication Instructions Recorded Confirmed Last Taken Type Aspirin 325 mg PO QDAY #30 tablet 08/12/17 04/18/21 04/27/19 Rx Ferrous Sulfate [Feosol 325 MG tab] 325 mg PO BID #60 tablet 08/12/17 04/18/21 04/27/19 Rx ISOSORBIDE MONOnitrate [Imdur ER] 30 mg PO QDAY #30 tablet 08/12/17 04/18/21 04/27/19 Rx Prasugrel [Effient] 10 mg PO QDAY #30 tablet 08/12/17 04/18/21 04/27/19 Rx Ranolazine ER [Ranexa ER] 500 mg PO BID #60 tablet 08/12/17 04/18/21 04/27/19 Rx Ergocalciferol [Vitamin D2] 50,000 unit PO DAILY 03/31/21 04/18/21 Unknown History Pravastatin [Pravachol] 40 mg PO DAILY 03/31/21 04/18/21 Unknown History hydroCHLOROthiazide [HCTZ] 25 mg PO DAILY 03/31/21 04/18/21 Unknown History clonazePAM [KlonoPIN] 0.5 mg PO BID PRN #12 tab 04/02/21 04/18/21 Unknown Rx Pantoprazole [Protonix] 40 mg PO QDAY #14 tablet 04/19/21 Unknown Rx carvediloL [Coreg] 25 mg PO BID #60 tablet 04/19/21 Unknown Rx lisinopriL [Zestril TAB] 10 mg PO QDAY #30 tablet 04/19/21 Unknown Rx Naproxen [Naprosyn] 500 mg PO BID #20 tablet 05/13/21 Unknown Rx methOCARBAMOL [Robaxin TAB] 500 mg PO Q8HR PRN #20 tablet 05/13/21 Unknown Rx Upper Extremity Exam - Exam General: Vital signs noted. No distress. Alert and acting appropriately. Head and Torso: Yes Back Tenderness (tenderness around left scapula), No HEENT A bnormality, No Neck Tenderness, No Chest/Lungs Abnormality, No Abdominal Tenderness Shoulder Exam: Yes Shoulder Tenderness, Yes Normal Range of Motion in Shoulder, No Clavicle Tenderness, No Shoulder Deformity, No AC Joint Tenderness Arm Exam: No Arm/Humerus Tenderness, No Arm Deformity Elbow: Yes Normal Range of Motion in Elbow, No Elbow Tenderness, No Elbow Deformity Forearm: No Forearm Tenderness, No Forearm Deformity, No Pain with Pronation, No Pain with Supination Wrist: Yes Normal ROM in Wrist, No Wrist Tenderness, No Wrist Deformity Hand: No Hand Tenderness, No Hand Deformity CMS Exam: Yes Normal Distal Pulses, Yes Normal Capillary Refill, Yes Normal Distal Sensation, No Broken Skin ED Course Vital Signs 05/12/21 05/12/21 22:48 23:33 Temperature 98.2 F Pulse Rate 81 79 Respiratory 19 19 Rate Blood Pressure 134/84 [Right] O2 Sat by Pulse 94 97 Oximetry ED Medical Decision Making - EKG Data -: EKG Interpreted by Me EKG shows normal: sinus rhythm, axis, intervals, QRS complexes, ST-T waves Rate: normal - EKG Data Interpretation: nonspecific ST-T wave francois - Radiology Data Radiology results: report reviewed, image reviewed - Medical Decision Making Patient has had multiple ED visits for chest pain over the last month. She was admitted on 03/30 and 04/18 for chest pain work-ups. She had a negative VQ scan on 04/02, negative bilateral lower extremity Doppler ultrasound on 03/31, negative stress test on 04/19. Today, patient's pain seems to be located in the left shoulder and appears to be musculoskeletal in nature. She has tenderness to palpation of the anterior and posterior left shoulder, also experiencing pain with with twisting of torso and abduction and rotation of the left shoulder. Range of motion intact in the left shoulder. X-ray shows AC joint degeneration, otherwise unremarkable. Patient will be discharged at this time with prescriptions. Patient advised, return precautions given. - Differential Diagnosis Tendinitis, muscle strain Critical care attestation.: If time is entered above; I have spent that time in minutes in the direct care of this critically ill patient, excluding procedure time. ED Disposition Clinical Impression: Left shoulder strain Disposition: - TO HOME OR SELFCARE Is pt being admited?: No Condition: Stable Instructions: Muscle Strain, [id number], How to Use Cold Therapy Prescriptions: Naproxen [Naprosyn] 500 mg PO BID #20 tablet methOCARBAMOL [Robaxin TAB] 500 mg PO Q8HR PRN #20 tablet PRN Reason: Muscle Spasm Referrals: JAMIL BARRIENTOS MD [Staff Physician] - 3-5 Days Time of Disposition: 01:31
--- NOTE | 2021-05-13 01:26 | XRay Report ---
LEFT SHOULDER 3 VIEWS INDICATION / CLINICAL INFORMATION: pain COMPARISON: None available. FINDINGS: BONES / JOINT(S): No acute fracture or subluxation. There is mild AC joint degenerative change. SOFT TISSUES: No significant abnormality. ADDITIONAL FINDINGS: None. Signer Name: Francisco Garcia MD Signed: 05/13/2021 1:22 AM Workstation Name: [email or web address]
--- NOTE | 2021-05-15 09:12 | Electrocardiograph Report ---
[facility] Test Date: 2021-05-12 Test Time: 22:53:21 Pat Name: MAKAYLA ARGUELLES Department: Room: Gender: F [employer] Operator: salvador : 1975 Requested By: JL REINOSO Order Number: [id number] Reading MD: Lalito Gregory Measurements Intervals [place] Rate: 76 P: 70 [place]: 171 QRS: 18 QRSD: 84 T: -27 QT: 378 QTc: 424 Interpretive Statements Sinus rhythm Borderline T abnormalities, diffuse leads Compared to ECG 05/03/2021 00:32:15 No significant changes Electronically Signed On 05-15-2021 9:12:02 EDT by Lalito Gregory
== END 2021-05-13 02:30 | disposition home or self-care (01) ==
LOC: ED 22:14
DX: S46.912A Strain of unspecified muscle, fascia and tendon at shoulder and upper arm level, left arm, initial encounter (principal); I10 Essential (primary) hypertension; I25.2 Old myocardial infarction; K21.9 Gastro-esophageal reflux disease without esophagitis; Z79.899 Other long term (current) drug therapy; Z91.013 Allergy to seafood; Z88.8 Allergy status to other drugs, medicaments and biological substances; X58.XXXA Exposure to other specified factors, initial encounter; Y93.89 Activity, other specified; Y92.89 Other specified places as the place of occurrence of the external cause; Y99.8 Other external cause status
CPT/HCPCS: 93005

== ENCOUNTER 2021-05-21 10:48 | Emergency (ER) | payer OTHER ==
[2021-05-21 12:02] VITALS: BP 121/75
--- NOTE | 2021-05-21 17:51 | XRay Report ---
CHEST 2 VIEWS INDICATION / CLINICAL INFORMATION: shortness of breath. COMPARISON: None available. FINDINGS: SUPPORT DEVICES: None. HEART / MEDIASTINUM: No significant abnormality. LUNGS / PLEURA: Question minimal increased interstitial prominence within the lungs without focal con solidation No pneumothorax. Signer Name: Mahendra Sutton MD Signed: 05/21/2021 5:47 PM Workstation Name: [id number]
[2021-05-21 17:53] LABS: Basophils % (Auto) 0.5 % (0.0-1.8); Eosinophils # (Auto) 0.2 K/mm3 (0.0-0.4); Eosinophils % (Auto) 2.5 % (0.0-4.3); Hematocrit 37.8 % (30.3-42.9); Hemoglobin 12.6 gm/dl (10.1-14.3); Lymphocytes # (Auto) 1.8 K/mm3 (1.2-5.4); Lymphocytes % (Auto) 22.6 % (13.4-35.0); Mean Corpuscular HGB Conc 33 % (30-34); Mean Corpuscular Volume 91 fl (79-97); Monocytes # (Auto) 0.9 K/mm3 (0.0-0.8); Platelet Count 394 K/mm3 (140-440); Red Blood Count 4.15 M/mm3 (3.65-5.03); Red Cell Distribution Width 16.4 % (13.2-15.2)
[2021-05-21 18:09] LABS: Alanine Aminotransferase 11 units/L (7-56); Albumin 4.1 g/dL (3.9-5); BUN/Creatinine Ratio 6; Blood Urea Nitrogen 5 mg/dL (7-17); Calcium 9.2 mg/dL (8.4-10.2); Hemolysis Index 1
== END 2021-05-21 13:00 ==
LOC: ED 10:48
DX: R06.00 Dyspnea, unspecified (principal); Z53.21 Procedure and treatment not carried out due to patient leaving prior to being seen by health care provider
CPT/HCPCS: 36415; 71046; 80053; 83880; 84484; 85025

== ENCOUNTER 2021-06-02 12:36 | Emergency (ER) | payer OTHER ==
[2021-06-02 12:54] VITALS: BP 136/68
[2021-06-02] MEDS ORDERED: ASPIRIN 325 MG TAB PO ONE (13:53)
[2021-06-02 14:34] LABS: Basophils % (Auto) 0.5 % (0.0-1.8); Eosinophils # (Auto) 0.2 K/mm3 (0.0-0.4); Eosinophils % (Auto) 2.5 % (0.0-4.3); Hematocrit 35.2 % (30.3-42.9); Lymphocytes # (Auto) 2.1 K/mm3 (1.2-5.4); Mean Corpuscular HGB Conc 34 % (30-34); Mean Corpuscular Volume 91 fl (79-97); Monocytes # (Auto) 0.7 K/mm3 (0.0-0.8); Monocytes % (Auto) 8.5 % (0.0-7.3); Platelet Count 474 K/mm3 (140-440); Red Blood Count 3.88 M/mm3 (3.65-5.03); Red Cell Distribution Width 15.9 % (13.2-15.2)
--- NOTE | 2021-06-02 14:37 | XRay Report ---
CHEST 2 VIEWS INDICATION / CLINICAL INFORMATION: chest pain. COMPARISON: Chest x-ray 05/21/2021 FINDINGS: SUPPORT DEVICES: None. HEART / MEDIASTINUM: No significant abnormality. LUNGS / PLEURA: No significant pulmonary or pleural abnormality. No pneumothorax. ADDITIONAL FINDINGS: No significant additional findings. IMPRESSION: 1. No acute findings. Signer Name: Tristan Taylor MD Signed: 06/02/2021 2:33 PM Workstation Name: [id number]
[2021-06-02 14:46] LABS: Alanine Aminotransferase 10 units/L (7-56); BUN/Creatinine Ratio 7; Blood Urea Nitrogen 7 mg/dL (7-17); Calcium 9.4 mg/dL (8.4-10.2); Hemolysis Index 0
--- NOTE | 2021-06-02 16:16 | Emergency Department Report ---
ED General Adult HPI - General Chief complaint: Chest Pain Stated complaint: CHEST PAIN X 1 MONTH Time Seen by Provider: 06/02/21 15:47 Source: patient, EMS Mode of arrival: Stretcher Limitations: No Limitations - History of Present Illness Initial comments: Patient is a 46-year-old female presents emergency room with complaints of generalized chest pain and generalized upper back pain for 2 months. Patient had a stress test in March 2021 at this facility which was within normal limits. Patient states that she saw her giving officer Dr. Islas in April and states that she was advised everything was normal. Patient went to [facility] emergency room on 05/27/2021 and she was prescribed Flexeril and Yarnell for her pain and reports that her work-up was normal at that time as well. She denies any recent travel, recent surgery, sick contacts, hormone use. She denies any fever, nausea, vomiting, diarrhea, pleuritic paste pain, shortness of breath, leg swelling, calf pain. Past medical history of GERD, CAD with stent, hypertension. Allergy to iodine and shellfish. - Related Data Home Medications Medication Instructions Recorded Confirmed Last Taken Ergocalciferol [Vitamin D2] 50,000 unit PO DAILY 03/31/21 04/18/21 Unknown Pravastatin [Pravachol] 40 mg PO DAILY 03/31/21 04/18/21 Unknown hydroCHLOROthiazide [HCTZ] 25 mg PO DAILY 03/31/21 04/18/21 Unknown Previous Rx's Medication Instructions Recorded Last Taken Type Aspirin 325 mg PO QDAY #30 tablet 08/12/17 04/27/19 Rx Ferrous Sulfate [Feosol 325 MG tab] 325 mg PO BID #60 tablet 08/12/17 04/27/19 Rx ISOSORBIDE MONOnitrate [Imdur ER] 30 mg PO QDAY #30 tablet 08/12/17 04/27/19 Rx Prasugrel [Effient] 10 mg PO QDAY #30 tablet 08/12/17 04/27/19 Rx Ranolazine ER [Ranexa ER] 500 mg PO BID #60 tablet 08/12/17 04/27/19 Rx clonazePAM [KlonoPIN] 0.5 mg PO BID PRN #12 tab 04/02/21 Unknown Rx Pantoprazole [Protonix] 40 mg PO QDAY #14 tablet 04/19/21 Unknown Rx carvediloL [Coreg] 25 mg PO BID #60 tablet 04/19/21 Unknown Rx lisinopriL [Zestril TAB] 10 mg PO QDAY #30 tablet 04/19/21 Unknown Rx Naproxen [Naprosyn] 500 mg PO BID #20 tablet 05/13/21 Unknown Rx methOCARBAMOL [Robaxin TAB] 500 mg PO Q8HR PRN #20 tablet 05/13/21 Unknown Rx Allergies Allergy/AdvReac Type Severity Reaction Status Date / Time iodine Allergy Swelling Verified 05/21/21 12:04 shellfish derived Allergy Swelling Verified 05/21/21 12:04 ED Review of Systems ROS: Stated complaint: CHEST PAIN X 1 MONTH Other details as noted in HPI Comment: All other systems reviewed and negative ED Past Medical Hx - Past Medical History Previous Medical History?: Yes Hx Hypertension: Yes Hx CVA: No Hx Heart Attack/AMI: Yes (stents 03/11) Hx Congestive Heart Failure: No Hx Diabetes: No Hx Deep Vein Thrombosis: No Hx Pulmonary Embolism: No Hx GERD: Yes Hx Liver Disease: No Hx Renal Disease: No Hx Sickle Cell Disease: No Hx Arthritis: No Hx Headaches / Migraines: No Hx Seizures: No Hx Kidney Stones: No Hx Psychiatric Treatment: No Hx Asthma: No Hx COPD: No Hx Tuberculosis: No Hx Dementia: No Hx HIV: No Additional medical history: 2 STENTS 02/28/16, cholesterol, IBS, fibroids. CHRONIC BACK PAIN - Surgical History Past Surgical History?: Yes Hx Coronary Stent: Yes Hx Open Heart Surgery: No Hx Pacemaker: No Hx Internal Defibrillator: No Hx Cholecystectomy: No Hx Appendectomy: No Hx Breast Surgery: No Additional Surgical History: D&C - Social History Smoking Status: Never Smoker Substance Use Type: None - Medications Home Medications: Home Medications Medication Instructions Recorded Confirmed Last Taken Type Aspirin 325 mg PO QDAY #30 tablet 08/12/17 04/18/21 04/27/19 Rx Ferrous Sulfate [Feosol 325 MG tab] 325 mg PO BID #60 tablet 08/12/17 04/18/21 04/27/19 Rx ISOSORBIDE MONOnitrate [Imdur ER] 30 mg PO QDAY #30 tablet 08/12/17 04/18/21 04/27/19 Rx Prasugrel [Effient] 10 mg PO QDAY #30 tablet 08/12/17 04/18/21 04/27/19 Rx Ranolazine ER [Ranexa ER] 500 mg PO BID #60 tablet 08/12/17 04/18/21 04/27/19 Rx Ergocalciferol [Vitamin D2] 50,000 unit PO DAILY 03/31/21 04/18/21 Unknown History Pravastatin [Pravachol] 40 mg PO DAILY 03/31/21 04/18/21 Unknown History hydroCHLOROthiazide [HCTZ] 25 mg PO DAILY 03/31/21 04/18/21 Unknown History clonazePAM [KlonoPIN] 0.5 mg PO BID PRN #12 tab 04/02/21 04/18/21 Unknown Rx Pantoprazole [Protonix] 40 mg PO QDAY #14 tablet 04/19/21 Unknown Rx carvediloL [Coreg] 25 mg PO BID #60 tablet 04/19/21 Unknown Rx lisinopriL [Zestril TAB] 10 mg PO QDAY #30 tablet 04/19/21 Unknown Rx Naproxen [Naprosyn] 500 mg PO BID #20 tablet 05/13/21 Unknown Rx methOCARBAMOL [Robaxin TAB] 500 mg PO Q8HR PRN #20 tablet 05/13/21 Unknown Rx ED Physical Exam - General Limitations: No Limitations General appearance: alert, in no apparent distress - Head Head exam: Present: atraumatic, normocephalic - Eye Eye exam: Present: normal appearance - ENT ENT exam: Present: mucous membranes moist - Neck Neck exam: Present: normal inspection, full ROM. Absent: tenderness, meningismus - Respiratory Respiratory exam: Present: normal lung sounds bilaterally. Absent: respiratory distress, wheezes, rales, rhonchi, stridor, chest wall tenderness, accessory muscle use, decreased breath sounds, prolonged expiratory - Cardiovascular Cardiovascular Exam: Present: regular rate, normal rhythm, normal heart sounds. Absent: systolic murmur, diastolic murmur, rubs, gallop - Back Exam Back exam: Present: normal inspection, full ROM. Absent: paraspinal tenderness, vertebral tenderness - Neurological Exam Neurological exam: Present: alert, oriented X3, CN II-XII intact, normal gait. Absent: motor sensory deficit - Psychiatric Psychiatric exam: Present: normal affect, normal mood - Skin Skin exam: Present: warm, dry, intact ED Course Vital Signs 06/02/21 06/02/21 12:53 13:53 Temperature 98.8 F Pulse Rate 74 Respiratory 16 Rate Blood Pressure 136/68 [Right] O2 Sat by Pulse 99 Oximetry ED Medical Decision Making - Lab Data Result diagrams: 06/02/21 14:05 06/02/21 14:05 Lab Results 06/02/21 06/02/21 Range/Units 14:05 14:05 WBC 8.4 (4.5-11.0) K/mm3 RBC 3.88 (3.65-5.03) M/mm3 Hgb 12.0 (10.1-14.3) gm/dl Hct 35.2 (30.3-42.9) % MCV 91 (79-97) fl MCH 31 (28-32) pg MCHC 34 (30-34) % RDW 15.9 H (13.2-15.2) % Plt Count 474 H (140-440) K/mm3 Lymph % (Auto) 25.0 (13.4-35.0) % Sherman % (Auto) 8.5 H (0.0-7.3) % Eos % (Auto) 2.5 (0.0-4.3) % Baso % (Auto) 0.5 (0.0-1.8) % Lymph # (Auto) 2.1 (1.2-5.4) K/mm3 Sherman # (Auto) 0.7 (0.0-0.8) K/mm3 Eos # (Auto) 0.2 (0.0-0.4) K/mm3 Baso # (Auto) 0.0 (0.0-0.1) K/mm3 Seg Neutrophils % 63.5 (40.0-70.0) % Seg Neutrophils # 5.4 (1.8-7.7) K/mm3 Sodium 135 L (137-145) mmol/L Potassium 4.1 (3.6-5.0) mmol/L Chloride 99.8 (98-107) mmol/L Carbon Dioxide 23 (22-30) mmol/L Anion Gap 16 mmol/L BUN 7 (7-17) mg/dL Creatinine 1.0 (0.6-1.2) mg/dL Estimated GFR > 60 ml/min BUN/Creatinine Ratio 7 % Glucose 88 (65-100) mg/dL Calcium 9.4 (8.4-10.2) mg/dL Total Bilirubin 0.20 (0.1-1.2) mg/dL AST 11 (5-40) units/L ALT 10 (7-56) units/L Alkaline Phosphatase 59 (35-129) units/L Troponin T < 0.010 (0.00-0.029) ng/mL Total Protein 7.4 (6.3-8.2) g/dL Albumin 4.0 (3.9-5) g/dL Albumin/Globulin Ratio 1.2 % - EKG Data EKG shows normal: sinus rhythm, axis, intervals, ST-T waves Rate: normal - EKG Data 06/02/21 16:16 low voltage no STEMI - Radiology Data Radiology results: report reviewed Ordering Physician: ED MD ELIS Date of Service: 06/02/21 Procedure(s): XR chest routine 2V Accession Number(s): [id number] cc: ED MD EILS Fluoro Time In Minutes: CHEST 2 VIEWS INDICATION / CLINICAL INFORMATION: chest pain. COMPARISON: Chest x-ray 05/21/2021 FINDINGS: SUPPORT DEVICES: None. HEART / MEDIASTINUM: No significant abnormality. LUNGS / PLEURA: No significant pulmonary or pleural abnormality. No pn eumothorax. ADDITIONAL FINDINGS: No significant additional findings. IMPRESSION: 1. No acute findings. Signer Name: Tristan Taylor MD Signed: 06/02/2021 2:33 PM Workstation Name: [id number] Transcribed By: TL Dictated By: Tristan Taylor MD Electronically Authenticated By: Tristan Taylor MD Signed Date/Time: 06/02/211432 DD/ 31 TD/TT: - Medical Decision Making Patient is a 46-year-old female presents emergency room with complaints of generalized chest pain and generalized upper back pain for 2 months. Patient had a stress test in March 2021 at this facility which was within normal limits. Patient states that she saw her giving officer Dr. Islas in April and states that she was advised everything was normal. Patient went to [facility] emergency room on 05/27/2021 and she was prescribed Flexeril and Yarnell for her pain and reports that her work-up was normal at that time as well. She denies any recent travel, recent surgery, sick contacts, hormone use. She denies any fever, nausea, vomiting, diarrhea, pleuritic paste pain, shortness of breath, leg swelling, calf pain. Past medical history of GERD, CAD with stent, hypertension. Allergy to iodine and shellfish. Vitals are stable. No abnormality on physical exam as documented in chart. EKG with low voltage, otherwise normal. Chest x-ray with no acute process. Labs are stable. Troponin is negative. Patient symptoms have been ongoing for 2 months. Patient has had recent normal stress test. She is already under the care of a giving officer. She is PERC criteria negative for PE, PE unlikely. Her symptoms do not appear consistent with ACS at this time. Heart score is 2, low risk for cardiac event. Patient is already on a muscle relaxer and a narcotic pain medication, will not be adding any further medications at this time. Advised patient Follow-up with your primary care doctor. Follow-up with your cardio logist. Follow-up with a GI doctor. Return to emergency room for any new or worsening symptoms. Critical care attestation.: If time is entered above; I have spent that time in minutes in the direct care of this critically ill patient, excluding procedure time. ED Disposition Clinical Impression: Chest pain Qualifiers: Chest pain type: unspecified Qualified Code(s): R07.9 - Chest pain, unspecified Back pain Qualifiers: Back pain location: thoracic back pain Chronicity: acute Back pain laterality: bilateral Qualified Code(s): M54.6 - Pain in thoracic spine Disposition: TO HOME OR SELFCARE Is pt being admited?: No Does the pt Need Aspirin: No Condition: Stable Instructions: Nonspecific Chest Pain, Adult Additional Instructions: Follow-up with your primary care doctor. Follow-up with your giving officer. Follow-up with a GI doctor. Return to emergency room for any new or worsening symptoms. Referrals: your, primary care doctor [Other] - 2-3 Days IBRAHIMA ISLAS MD [Staff Physician] - 2-3 Days [facility] [Provider Group] - 2-3 Days Time of Disposition: 16:17 Print Language: MACEDONIAN HEART Score - HEART Score History: Slightly suspicious EKG: Normal Age: < 45 Risk factors: > 3 risk factors or hx of atherosclerotic disease Troponin: Troponin T < 0.010 ng/mL (0.00-0.029) 06/02/21 14:05 Troponin: < normal limit HEART Score: 2
--- NOTE | 2021-06-03 13:36 | Electrocardiograph Report ---
[facility] Test Date: 2021-06-02 Test Time: 14:32:19 Pat Name: MAKAYLA ARGUELLES Department: Room: Gender: F Teletype Technician: MANNY : 1975 Requested By: MITRA MONTESINOS Order Number: [id number] Reading MD: Rosa Elena Cyr Measurements Intervals [place] Rate: 70 P: 61 GA: 173 QRS: 21 QRSD: 82 T: 3 QT: 381 QTc: 411 Interpretive Statements Sinus rhythm Low voltage, precordial leads Compared to ECG 05/12/2021 22:53:21 No significant change Electronically Signed On 06-03-2021 13:36:01 EDT by Rosa Elena Cyr
== END 2021-06-02 17:15 | disposition home or self-care (01) ==
LOC: ED 12:36
DX: M54.6 Pain in thoracic spine (principal); R07.9 Chest pain, unspecified; I10 Essential (primary) hypertension; I25.2 Old myocardial infarction; K21.9 Gastro-esophageal reflux disease without esophagitis; Z79.899 Other long term (current) drug therapy; Z91.013 Allergy to seafood; Z91.041 Radiographic dye allergy status
CPT/HCPCS: 36415; 71046; 80053; 84484; 85025; 93005

== ENCOUNTER 2021-06-07 02:42 | Emergency (ER) | payer OTHER ==
[2021-06-07] MEDS ORDERED: ASPIRIN 325 MG TAB PO ONE (04:22)
[2021-06-07 05:01] LABS: Basophils # (Auto) 0.1 K/mm3 (0.0-0.1); Basophils % (Auto) 0.5 % (0.0-1.8); Eosinophils # (Auto) 0.2 K/mm3 (0.0-0.4); Eosinophils % (Auto) 1.9 % (0.0-4.3); Hematocrit 36.8 % (30.3-42.9); Hemoglobin 12.2 gm/dl (10.1-14.3); Lymphocytes # (Auto) 2.4 K/mm3 (1.2-5.4); Lymphocytes % (Auto) 24.1 % (13.4-35.0); Mean Corpuscular HGB Conc 33 % (30-34); Mean Corpuscular Volume 89 fl (79-97); Monocytes # (Auto) 0.7 K/mm3 (0.0-0.8); Monocytes % (Auto) 7.5 % (0.0-7.3); Platelet Count 517 K/mm3 (140-440); Red Blood Count 4.12 M/mm3 (3.65-5.03)
--- NOTE | 2021-06-07 05:05 | XRay Report ---
CHEST 2 VIEWS INDICATION: chest pain. COMPARISON: 06/02/2021 FINDINGS: SUPPORT DEVICES: None. HEART: Within normal limits. LUNGS/PLEURA: No acute air space or interstitial disease. No pneumothorax. ADDITIONAL FINDINGS: None. IMPRESSION: 1. No acute findings. Signer Name: Christos Calixto MD Signed: 06/07/2021 5:01 AM Workstation Name: [id number]
[2021-06-07 05:19] LABS: Alanine Aminotransferase 11 units/L (7-56); Albumin 4.2 g/dL (3.9-5); BUN/Creatinine Ratio 7; Blood Urea Nitrogen 7 mg/dL (7-17); Calcium 10.1 mg/dL (8.4-10.2); Hemolysis Index 18
[2021-06-07 09:33] VITALS: BP 123/86
--- NOTE | 2021-06-08 09:16 | Electrocardiograph Report ---
[facility] Test Date: 2021-06-07 Test Time: 02:59:23 Pat Name: MAKAYLA ARGUELLES Department: Room: Gender: F Wholesale Representative: ZACHARY : 1975 Requested By: ED DOC Order Number: [id number] Reading MD: Lalito Gregory Measurements Intervals [place] Rate: 75 P: 66 MN: 180 QRS: 40 QRSD: 84 T: 4 QT: 362 QTc: 405 Interpretive Statements Sinus rhythm nonspecific st-t comparedto ECG 06/02/2021 14:32:19 No significant changes Electronically Signed On 06-08-2021 9:16:21 EDT by Lalito Gregory
--- NOTE | 2021-06-08 09:19 | Electrocardiograph Report ---
[facility] Test Date: 2021-06-07 Test Time: 10:21:27 Pat Name: MAKAYLA ARGUELLES Department: Room: Gender: F Radiation Safety Officer: MARIZA : 1975 Requested By: ED DOC Order Number: [id number] Reading MD: Lalito Gregory Measurements Intervals [place] Rate: 81 P: 73 W[place]: 168 QRS: 22 QRSD: 87 T: -3 QT: 368 QTc: 428 Interpretive Statements Sinus rhythm nonspecific st-t Compared to ECG 06/07/2021 02:59:23 No significant changes Electronically Signed On 06-08-2021 9:19:27 EDT by Lalito Gregory
== END 2021-06-07 15:00 | disposition left against medical advice (07) ==
LOC: ED 02:42
DX: R07.1 Chest pain on breathing (principal); Z53.21 Procedure and treatment not carried out due to patient leaving prior to being seen by health care provider
CPT/HCPCS: 36415; 71046; 80053; 84484; 85025; 93005

== ENCOUNTER 2021-06-21 07:53 | Emergency (ER) | payer OTHER ==
[2021-06-21 08:15] VITALS: BP 126/88
--- NOTE | 2021-06-21 09:10 | XRay Report ---
CHEST 2 VIEWS INDICATION: Chest Pain. COMPARISON: 06/07/2021 FINDINGS: SUPPORT DEVICES: None. HEART: Within normal limits. LUNGS/PLEURA: No acute air space or interstitial disease. No pneumothorax. ADDITIONAL FINDINGS: None. IMPRESSION: 1. No acute findings. Signer Name: Christos Calixto MD Signed: 06/21/2021 9:06 AM Workstation Name: [id number]
[2021-06-21 09:50] LABS: Basophils % (Auto) 0.3 % (0.0-1.8); Eosinophils % (Auto) 0.1 % (0.0-4.3); Hematocrit 35.1 % (30.3-42.9); Hemoglobin 11.5 gm/dl (10.1-14.3); Lymphocytes # (Auto) 3.1 K/mm3 (1.2-5.4); Lymphocytes % (Auto) 23.3 % (13.4-35.0); Mean Corpuscular HGB Conc 33 % (30-34); Mean Corpuscular Volume 89 fl (79-97); Monocytes # (Auto) 1.2 K/mm3 (0.0-0.8); Monocytes % (Auto) 9.2 % (0.0-7.3); Platelet Count 527 K/mm3 (140-440); Red Blood Count 3.93 M/mm3 (3.65-5.03); Red Cell Distribution Width 16.1 % (13.2-15.2)
[2021-06-21 10:00] LABS: Alanine Aminotransferase 8 units/L (7-56); Albumin 3.8 g/dL (3.9-5); BUN/Creatinine Ratio 14; Blood Urea Nitrogen 13 mg/dL (7-17); Calcium 9.7 mg/dL (8.4-10.2); Hemolysis Index 17
--- NOTE | 2021-06-21 11:03 | Event Note ---
ED Screening Note ED Screening Note: left sided CP that radiates to the back that exacerbated yesterday morning states she has had these symptoms since december data entry manager Dr. Billingsley she saw 06/14/2021, she states all her tests have been normal pt has had multiple cardiac work ups she recently went to [place] [facility] as well and was discharge home This initial assessment/diagnostic orders/clinical plan/treatment(s) is/are subject to change based on patients health status, clinical progression and re- assessment by fellow clinical providers in the ED. Further treatment and workup at subsequent clinical providers discretion. Patient/guardian urged not to elope from the ED as their condition may be serious if not clinically assessed and managed. Initial orders include: needs second troponin and MD ford
--- NOTE | 2021-06-21 11:21 | Electrocardiograph Report ---
[facility] Test Date: 2021-06-21 Test Time: 08:34:38 Pat Name: MAKAYLA ARGUELLES Department: Room: Gender: F Claims Associate: SHELBI : 1975 Requested By: CB LU Order Number: [id number] Reading MD: Hung Lara Measurements Intervals [place] Rate: 49 P: 57 [place]: 182 QRS: 32 QRSD: 85 T: 4 QT: 424 QTc: 385 Interpretive Statements Sinus bradycardia Compared to ECG 06/07/2021 10:21:27 Rate is slower,otherwise no significant change noted. Electronically Signed On 06-21-2021 11:20:44 EDT by Hung Lara
--- NOTE | 2021-06-21 12:55 | Emergency Department Report ---
ED General Adult HPI - General Chief complaint: Chest Pain Stated complaint: CHEST PAIN Time Seen by Provider: 06/21/21 11:01 Source: patient, EMS Mode of arrival: Wheelchair Limitations: No Limitations - History of Present Illness Initial comments: Patient is 46 years old female, morbidly obese with history of coronary artery disease and a stent. Patient presented to the ER complaining of 3 months history of diffuse chest pain, abdominal pain and back pain. Patient stated that she was seen by her economics consultant last week Dr. Islas and he started her on new medication and she has an appointment with him soon. Patient denied any change in her pain character or severity. Patient denied any fever or chills. No shortness of breath. - Related Data Home Medications Medication Instructions Recorded Confirmed Last Taken Ergocalciferol [Vitamin D2] 50,000 unit PO DAILY 03/31/21 04/18/21 Unknown Pravastatin [Pravachol] 40 mg PO DAILY 03/31/21 04/18/21 Unknown hydroCHLOROthiazide [HCTZ] 25 mg PO DAILY 03/31/21 04/18/21 Unknown Previous Rx's Medication Instructions Recorded Last Taken Type Aspirin 325 mg PO QDAY #30 tablet 08/12/17 04/27/19 Rx Ferrous Sulfate [Feosol 325 MG tab] 325 mg PO BID #60 tablet 08/12/17 04/27/19 Rx ISOSORBIDE MONOnitrate [Imdur ER] 30 mg PO QDAY #30 tablet 08/12/17 04/27/19 Rx Prasugrel [Effient] 10 mg PO QDAY #30 tablet 08/12/17 04/27/19 Rx Ranolazine ER [Ranexa ER] 500 mg PO BID #60 tablet 08/12/17 04/27/19 Rx clonazePAM [KlonoPIN] 0.5 mg PO BID PRN #12 tab 04/02/21 Unknown Rx Pantoprazole [Protonix] 40 mg PO QDAY #14 tablet 04/19/21 Unknown Rx carvediloL [Coreg] 25 mg PO BID #60 tablet 04/19/21 Unknown Rx lisinopriL [Zestril TAB] 10 mg PO QDAY #30 tablet 04/19/21 Unknown Rx Naproxen [Naprosyn] 500 mg PO BID #20 tablet 05/13/21 Unknown Rx methOCARBAMOL [Robaxin TAB] 500 mg PO Q8HR PRN #20 tablet 05/13/21 Unknown Rx Allergies Allergy/AdvReac Type Severity Reaction Status Date / Time iodine Allergy Swelling Verified 06/21/21 08:08 shellfish derived Allergy Swelling Verified 06/21/21 08:08 ED Review of Systems ROS: Stated complaint: CHEST PAIN Other details as noted in HPI Comment: All other systems reviewed and negative Constitutional: denies: chills, fever Respiratory: denies: cough, shortness of breath, SOB with exertion Cardiovascular: chest pain. denies: palpitations, dyspnea on exertion Gastrointestinal: abdominal pain. denies: nausea, vomiting Musculoskeletal: back pain Neurological: denies: headache, weakness, numbness, paresthesias, confusion, abnormal gait ED Past Medical Hx - Past Medical History Hx Hypertension: Yes Hx CVA: No Hx Heart Attack/AMI: Yes (stents 03/11) Hx Congestive Heart Failure: Yes Hx Diabetes: No Hx Deep Vein Thrombosis: No Hx Pulmonary Embolism: No Hx GERD: Yes Hx Liver Disease: No Hx Renal Disease: No Hx Sickle Cell Disease: No Hx Arthritis: No Hx Headaches / Migraines: No Hx Seizures: No Hx Kidney Stones: No Hx Psychiatric Treatment: No Hx Asthma: No Hx COPD: No Hx Tuberculosis: No Hx Dementia: No Hx HIV: No Additional medical history: 2 STENTS 02/28/16, cholesterol, IBS, fibroids. CHRONIC BACK PAIN - Surgical History Hx Coronary Stent: Yes Hx Open Heart Surgery: No Hx Pacemaker: No Hx Internal Defibrillator: No Hx Cholecystectomy: No Hx Appendectomy: No Hx Breast Surgery: No Additional Surgical History: D&C - Social History Smoking Status: Never Smoker Substance Use Type: None - Medications Home Medications: Home Medications Medication Instructions Recorded Confirmed Last Taken Type Aspirin 325 mg PO QDAY #30 tablet 08/12/17 04/18/21 04/27/19 Rx Ferrous Sulfate [Feosol 325 MG tab] 325 mg PO BID #60 tablet 08/12/17 04/18/21 04/27/19 Rx ISOSORBIDE MONOnitrate [Imdur ER] 30 mg PO QDAY #30 tablet 08/12/17 04/18/21 04/27/19 Rx Prasugrel [Effient] 10 mg PO QDAY #30 tablet 08/12/17 04/18/21 04/27/19 Rx Ranolazine ER [Ranexa ER] 500 mg PO BID #60 tablet 08/12/17 04/18/21 04/27/19 Rx Ergocalciferol [Vitamin D2] 50,000 unit PO DAILY 03/31/21 04/18/21 Unknown History Pravastatin [Pravachol] 40 mg PO DAILY 03/31/21 04/18/21 Unknown History hydroCHLOROthiazide [HCTZ] 25 mg PO DAILY 03/31/21 04/18/21 Unknown History clonazePAM [KlonoPIN] 0.5 mg PO BID PRN #12 tab 04/02/21 04/18/21 Unknown Rx Pantoprazole [Protonix] 40 mg PO QDAY #14 tablet 04/19/21 Unknown Rx carvediloL [Coreg] 25 mg PO BID #60 tablet 04/19/21 Unknown Rx lisinopriL [Zestril TAB] 10 mg PO QDAY #30 tablet 04/19/21 Unknown Rx Naproxen [Naprosyn] 500 mg PO BID #20 tablet 05/13/21 Unknown Rx methOCARBAMOL [Robaxin TAB] 500 mg PO Q8HR PRN #20 tablet 05/13/21 Unknown Rx ED Physical Exam - General Limitations: No Limitations General appearance: alert, in no apparent distress - Head Head exam: Present: atraumatic, normocephalic, normal inspection - Eye Eye exam: Present: normal appearance, PERRL - ENT ENT exam: Present: normal exam, normal orophraynx, mucous membranes moist - Neck Neck exam: Present: normal inspection, full ROM. Absent: tenderness, meningismus - Respiratory Respiratory exam: Present: normal lung sounds bilaterally - Cardiovascular Cardiovascular Exam: Present: regular rate, normal rhythm, normal heart sounds - GI/Abdominal GI/Abdominal exam: Present: soft, normal bowel sounds. Absent: distended, tenderness, guarding, rebound, rigid - Extremities Exam Extremities exam: Present: normal inspection, full ROM, normal capillary refill. Absent: tenderness - Back Exam Back exam: Present: normal inspection, full ROM. Absent: CVA tenderness (R), CVA tenderness (L) - Neurological Exam Neurological exam: Present: alert, oriented X3, CN II-XII intact, normal gait, reflexes normal. Absent: motor sensory deficit - Psychiatric Psychiatric exam: Present: normal mood - Skin Skin exam: Present: warm, intact, normal color ED Course Vital Signs 06/21/21 08:07 Temperature 98.2 F Pulse Rate 70 Respiratory 20 Rate Blood Pressure 126/88 O2 Sat by Pulse 97 Oximetry ED Medical Decision Making - Lab Data Result diagrams: 06/21/21 09:11 06/21/21 09:11 - EKG Data -: EKG Interpreted by Me EKG shows normal: sinus rhythm Rate: normal - EKG Data Interpretation: no acute changes - Radiology Data Radiology results: report reviewed - Medical Decision Making Patient is 46 years old female, morbidly obese with history of coronary artery disease and a stent. Patient presented to the ER complaining of 3 months history of diffuse chest pain, abdominal pain and back pain. Patient stated that she was seen by her economics consultant last week Dr. Islas and he started her on new medication and she has an appointment with him soon. Patient denied any change in her pain character or severity. Patient denied any fever or chills. No shortness of breath. EKG showed no change. No ST elevation. Labs reviewed and is unremarkable including a negative troponin x2. Patient strongly advised to follow-up with her economics consultant in the next 2 to 3 days and to return to the ER if she have any change in her symptoms. Critical care attestation.: If time is entered above; I have spent that time in minutes in the direct care of this critically ill patient, excluding procedure time. ED Disposition Clinical Impression: Chest pain, Abdominal pain Disposition: 01 HOME / SELF CARE / HOMELESS Is pt being admited?: No Condition: Stable Instructions: Nonspecific Chest Pain, Adult Referrals: IBRAHIMA ISLAS MD [Staff Physician] - 3-5 Days
== END 2021-06-21 13:00 | disposition home or self-care (01) ==
LOC: ED 07:53
DX: R07.9 Chest pain, unspecified (principal); R10.9 Unspecified abdominal pain; I10 Essential (primary) hypertension; Z91.013 Allergy to seafood; Z91.041 Radiographic dye allergy status; Z86.79 Personal history of other diseases of the circulatory system; Z86.74 Personal history of sudden cardiac arrest
CPT/HCPCS: 36415; 71046; 80053; 83690; 84484; 85025; 93005; 99284

== ENCOUNTER 2021-06-23 21:26 | Emergency (ER) | payer OTHER ==
[2021-06-23 22:58] LABS: Basophils # (Auto) 0.1 K/mm3 (0.0-0.1); Basophils % (Auto) 0.8 % (0.0-1.8); Eosinophils # (Auto) 0.3 K/mm3 (0.0-0.4); Eosinophils % (Auto) 2.4 % (0.0-4.3); Hemoglobin 11.5 gm/dl (10.1-14.3); Lymphocytes # (Auto) 3.2 K/mm3 (1.2-5.4); Lymphocytes % (Auto) 24.5 % (13.4-35.0); Mean Corpuscular HGB Conc 33 % (30-34); Mean Corpuscular Volume 89 fl (79-97); Monocytes # (Auto) 0.7 K/mm3 (0.0-0.8); Monocytes % (Auto) 5.3 % (0.0-7.3); Platelet Count 519 K/mm3 (140-440); Red Blood Count 3.92 M/mm3 (3.65-5.03); Red Cell Distribution Width 15.9 % (13.2-15.2)
[2021-06-23 23:19] LABS: BUN/Creatinine Ratio 11; Blood Urea Nitrogen 11 mg/dL (7-17); Calcium 9.7 mg/dL (8.4-10.2); Hemolysis Index 6
--- NOTE | 2021-06-24 05:40 | XRay Report ---
CHEST 1 VIEW 06/24/2021 4:20 AM INDICATION / CLINICAL INFORMATION: chest pain. COMPARISON: 06/21/2021 FINDINGS: SUPPORT DEVICES: None. HEART / MEDIASTINUM: No significant abnormality. LUNGS / PLEURA: No significant pulmonary or pleural abnormality. No pneumothorax. ADDITIONAL FINDINGS: No significant additional findings. IMPRESSION: No acute abnormality. Signer Name: Alvin Moeller MD Signed: 06/24/2021 5:36 AM Workstation Name: [id number]
--- NOTE | 2021-06-24 10:31 | Emergency Department Report ---
ED General Adult HPI - General Chief complaint: Chest Pain Stated complaint: CHEST/ BACK PAIN PUI?: No Time Seen by Provider: 06/24/21 10:17 Source: patient, RN notes reviewed, old records reviewed Mode of arrival: Ambulatory Limitations: No Limitations - History of Present Illness Initial comments: The patient was evaluated in the emergency department for symptoms described in the history of present illness. He/she was evaluated in the context of the global COVID-19 pandemic, which necessitated consideration that the patient might be at risk for infection with the virus that causes COVID-19. Institutional protocols and algorithms that pertain to the evaluation of patients at risk for COVID-19 are in a state of rapid change based on information released by regulatory bodies including the CDC and federal and state organizations. These policies and algorithms were followed during the patient's care in the emergency department. Please note that these policies, procedures and recommendations changed on a rapid basis. During the history and physical examination, I am chaperoned by Restaurant Cashier Ericka Mazariegos. Cardiology: [facility] cardiology/Dr. Islas Past medical history: Obesity,/body mass index of 52. CAD, chronic, with stent, left heart catheter from 07/2017 demonstrates patent RCA stent, otherwise very minimal irregularities, ejection fraction 50%. Echocardiogram from 03/30/2021 shows EF of 55 to 60%. Additional past medical history includes GERD, morbid obesity, hypertension. Patient also has a history of chronic pain. Other objective diagnostic testing at this hospital include the following: Nuclear medicine study, February 2015, September 2016: Low probability for pulmonary embolism. Nuclear medicine study March 2021, low probability for pulmonary embolism. DVT study March 2021, February 2016, both negative. Cardiac nuclear stress test, 04/19/2021; no ischemic findings noted. Today, the patient presents to the ER today with a complaint of constant left- sided chest wall pain, and simultaneous back pain that has been present for 9 hours. The patient denies headache, neck pain, abdominal pain, vomiting, diaphoresis. She denies new/different leg pain or leg swelling, denies the possibility of , states that she does not take oral contraceptives or control tablets. She was admitted to this hospital in March of this year for cardiac risk ratification. She has followed up with her manager fine dining since then, has been taking her aspirin, Imdur, and Ranexa, and also reports that she is following up with her manager fine dining later on this week. The patient also reports that occasionally it is painful to swallow. She denies loss of taste and smell. -: Gradual, hour(s) Location: chest Radiation: back Quality: aching Consistency: constant Improves with: rest Worsens with: movement, other (Palpation) - Related Data Home Medications Medication Instructions Recorded Confirmed Last Taken Ergocalciferol [Vitamin D2] 50,000 unit PO DAILY 03/31/21 04/18/21 Unknown Pravastatin [Pravachol] 40 mg PO DAILY 03/31/21 04/18/21 Unknown hydroCHLOROthiazide [HCTZ] 25 mg PO DAILY 03/31/21 04/18/21 Unknown Previous Rx's Medication Instructions Recorded Last Taken Type Aspirin 325 mg PO QDAY #30 tablet 08/12/17 04/27/19 Rx Ferrous Sulfate [Feosol 325 MG tab] 325 mg PO BID #60 tablet 08/12/17 04/27/19 Rx ISOSORBIDE MONOnitrate [Imdur ER] 30 mg PO QDAY #30 tablet 08/12/17 04/27/19 Rx Prasugrel [Effient] 10 mg PO QDAY #30 tablet 08/12/17 04/27/19 Rx Ranolazine ER [Ranexa ER] 500 mg PO BID #60 tablet 08/12/17 04/27/19 Rx clonazePAM [KlonoPIN] 0.5 mg PO BID PRN #12 tab 04/02/21 Unknown Rx Pantoprazole [Protonix] 40 mg PO QDAY #14 tablet 04/19/21 Unknown Rx carvediloL [Coreg] 25 mg PO BID #60 tablet 04/19/21 Unknown Rx lisinopriL [Zestril TAB] 10 mg PO QDAY #30 tablet 04/19/21 Unknown Rx Naproxen [Naprosyn] 500 mg PO BID #20 tablet 05/13/21 Unknown Rx methOCARBAMOL [Robaxin TAB] 500 mg PO Q8HR PRN #20 tablet 05/13/21 Unknown Rx Ondansetron [Zofran Odt] 4 mg PO Q8HR PRN #14 tab.rapdis 06/21/21 Unknown Rx traMADoL [Ultram] 50 mg PO Q6HR PRN #14 tablet 06/21/21 Unknown Rx Allergies Allergy/AdvReac Type Severity Reaction Status Date / Time iodine Allergy Swelling Verified 06/21/21 08:08 shellfish derived Allergy Swelling Verified 06/21/21 08:08 ED Review of Systems ROS: Stated complaint: CHEST/ BACK PAIN Other details as noted in HPI Constitutional: denies: fever Eyes: denies: eye discharge ENT: denies: epistaxis Respiratory: shortness of breath (Chronic shortness of breath). denies: cough, wheezing Cardiovascular: chest pain (Chronic chest pain) Gastrointestinal: denies: nausea, vomiting Genitourinary: denies: dysuria Musculoskeletal: back pain Neurological: denies: weakness Psychiatric: anxiety Hematological/Lymphatic: denies: easy bleeding ED Past Medical Hx - Past Medical History Hx Hypertension: Yes Hx CVA: No Hx Heart Attack/AMI: Yes (stents 03/11) Hx Congestive Heart Failure: Yes Hx Diabetes: No Hx Deep Vein Thrombosis: No Hx Pulmonary Embolism: No Hx GERD: Yes Hx Liver Disease: No Hx Renal Disease: No Hx Sickle Cell Disease: No Hx Arthritis: No Hx Headaches / Migraines: No Hx Seizures: No Hx Kidney Stones: No Hx Psychiatric Treatment: No Hx Asthma: No Hx COPD: No Hx Tuberculosis: No Hx Dementia: No Hx HIV: No Additional medical history: 2 STENTS 02/28/16, cholesterol, IBS, fibroids. CHRONIC BACK PAIN - Surgical History Hx Coronary Stent: Yes Hx Open Heart Surgery: No Hx Pacemaker: No Hx Internal Defibrillator: No Hx Cholecystectomy: No Hx Appendectomy: No Hx Breast Surgery: No Additional Surgical History: D&C - Social History Smoking Status: Never Smoker Substance Use Type: None - Medications Home Medications: Home Medications Medication Instructions Recorded Confirmed Last Taken Type Aspirin 325 mg PO QDAY #30 tablet 08/12/17 04/18/21 04/27/19 Rx Ferrous Sulfate [Feosol 325 MG tab] 325 mg PO BID #60 tablet 08/12/17 04/18/21 04/27/19 Rx ISOSORBIDE MONOnitrate [Imdur ER] 30 mg PO QDAY #30 tablet 08/12/17 04/18/21 04/27/19 Rx Prasugrel [Effient] 10 mg PO QDAY #30 tablet 08/12/17 04/18/21 04/27/19 Rx Ranolazine ER [Ranexa ER] 500 mg PO BID #60 tablet 08/12/17 04/18/21 04/27/19 Rx Ergocalciferol [Vitamin D2] 50,000 unit PO DAILY 03/31/21 04/18/21 Unknown History Pravastatin [Pravachol] 40 mg PO DAILY 03/31/21 04/18/21 Unknown History hydroCHLOROthiazide [HCTZ] 25 mg PO DAILY 03/31/21 04/18/21 Unknown History clonazePAM [KlonoPIN] 0.5 mg PO BID PRN #12 tab 04/02/21 04/18/21 Unknown Rx Pantoprazole [Protonix] 40 mg PO QDAY #14 tablet 04/19/21 Unknown Rx carvediloL [Coreg] 25 mg PO BID #60 tablet 04/19/21 Unknown Rx lisinopriL [Zestril TAB] 10 mg PO QDAY #30 tablet 04/19/21 Unknown Rx Naproxen [Naprosyn] 500 mg PO BID #20 tablet 05/13/21 Unknown Rx methOCARBAMOL [Robaxin TAB] 500 mg PO Q8HR PRN #20 tablet 05/13/21 Unknown Rx Ondansetron [Zofran Odt] 4 mg PO Q8HR PRN #14 tab.rapdis 06/21/21 Unknown Rx traMADoL [Ultram] 50 mg PO Q6HR PRN #14 tablet 06/21/21 Unknown Rx ED Physical Exam - General Limitations: No Limitations General appearance: alert, in no apparent distress - Head Head exam: Present: atraumatic, normocephalic - Eye Eye exam: Present: normal appearance, EOMI. Absent: nystagmus - ENT ENT exam: Present: normal exam, normal orophraynx, mucous membranes moist, normal external ear exam - Neck Neck exam: Present: normal inspection, full ROM. Absent: tenderness, meningismus - Respiratory Respiratory exam: Present: normal lung sounds bilaterally, chest wall tenderness. Absent: respiratory distress, wheezes, rales, rhonchi, stridor, decreased breath sounds - Cardiovascular Cardiovascular Exam: Present: regular rate, normal rhythm, normal heart sounds. Absent: bradycardia, tachycardia, irregular rhythm, systolic murmur, diastolic murmur, rubs, gallop - GI/Abdominal GI/Abdominal exam: Present: soft. Absent: distended, tenderness, guarding, rebound, rigid, pulsatile mass - Extremities Exam Extremities exam: Present: normal inspection, full ROM, pedal edema (1+ edema in the bilateral lower extremity), other (2+ pulses noted in the bilateral upper and lower extremities. There is no palpable cord. negative Homans sign. Muscular compartments are soft. The pelvis is stable.). Absent: calf tenderness - Back Exam Back exam: Present: normal inspection, full ROM. Absent: tenderness, CVA tenderness (R), CVA tenderness (L), paraspinal tenderness, vertebral tenderness - Neurological Exam Neurological exam: Present: alert, oriented X3, normal gait, other (No facial droop. Tongue midline. Extraocular movements intact bilaterally. Facial sensation intact to light touch in V1, V2, V3 distribution bilaterally. 5 and a 5 strength in 4 extremities. Sensation intact to light touch in 4 extremities.). Absent: motor sensory deficit - Psychiatric Psychiatric exam: Present: anxious - Skin Skin exam: Present: warm, dry, intact, normal color. Absent: rash ED Course Vital Signs 06/23/21 06/24/21 06/24/21 22:15 11:15 12:35 Temperature 98.8 F 98.6 F Pulse Rate 104 H 86 86 Respiratory 18 14 17 Rate Blood Pressure 133/78 Blood Pressure 123/77 121/89 [Left] O2 Sat by Pulse 98 99 98 Oximetry - Consultations Consultation #1: 06/24/21 11:44 I discussed the patient's history, physical, laboratory studies, EKG findings, and prior extensive work-up with covering cardiology, Dr. Handley. We are both in agreement that it would be reasonable to have this patient discharged to follow-up with her outpatient manager fine dining later on this week. ED Medical Decision Making - Lab Data Result diagrams: 06/23/21 22:33 06/23/21 22:33 Vital Signs 06/23/21 06/24/21 22:15 11:15 Temperature 98.8 F 98.6 F Pulse Rate 104 H 86 Respiratory 18 14 Rate Blood Pressure 133/78 Blood Pressure 123/77 [Left] O2 Sat by Pulse 98 99 Oximetry Lab Results 06/23/21 06/23/21 06/24/21 Range/Units 22:33 22:33 05:50 WBC 13.0 H (4.5-11.0) K/mm3 RBC 3.92 (3.65-5.03) M/mm3 Hgb 11.5 (10.1-14.3) gm/dl Hct 35.0 (30.3-42.9) % MCV 89 (79-97) fl MCH 29 (28-32) pg MCHC 33 (30-34) % RDW 15.9 H (13.2-15.2) % Plt Count 519 H (140-440) K/mm3 Lymph % (Auto) 24.5 (13.4-35.0) % [place] % (Auto) 5.3 (0.0-7.3) % Eos % (Auto) 2.4 (0.0-4.3) % Baso % (Auto) 0.8 (0.0-1.8) % Lymph # (Auto) 3.2 (1.2-5.4) K/mm3 [place] # (Auto) 0.7 (0.0-0.8) K/mm3 Eos # (Auto) 0.3 (0.0-0.4) K/mm3 Baso # (Auto) 0.1 (0.0-0.1) K/mm3 Seg Neutrophils % 67.0 (40.0-70.0) % Seg Neutrophils # 8.7 H (1.8-7.7) K/mm3 Sodium 136 L (137-145) mmol/L Potassium 4.3 (3.6-5.0) mmol/L Chloride 99.2 (98-107) mmol/L Carbon Dioxide 24 (22-30) mmol/L Anion Gap 17 mmol/L BUN 11 (7-17) mg/dL Creatinine 1.0 (0.6-1.2) mg/dL Estimated GFR > 60 ml/min BUN/Creatinine Ratio 11 % Glucose 116 H (65-100) mg/dL Calcium 9.7 (8.4-10.2) mg/dL Troponin T < 0.010 < 0.010 (0.00-0.029) ng/mL - EKG Data -: EKG Interpreted by Ms EKG shows normal: sinus rhythm Rate: normal - EKG Data 06/24/21 11:19 EKG #1 is interpreted at 22: 39 Sinus rhythm, 9 92 bpm. Normal axis, normal intervals, low voltage, poor R wave progression, motion artifact. Abnormal EKG. Not a STEMI. EKG appears to be unchanged when compared to prior EKG from 06/21/2021 EKG #2, interpreted at 10: 52, unchanged from prior EKG. Sinus rhythm, 72 bpm. Normal axis, normal intervals, motion artifact, low voltage. The EKG is not a STEMI. - Radiology Data Radiology results: pending, report reviewed, image reviewed CHEST 1 VIEW 06/24/2021 4:20 AM INDICATION / CLINICAL INFORMATION: chest pain. COMPARISON: 06/21/2021 FINDINGS: SUPPORT DEVICES: None. HEART / MEDIASTINUM: No significant abnormality. LUNGS / PLEURA: No significant pulmonary or pleural abnormality. No pneumothorax. ADDITIONAL FINDINGS: No significant additional findings. IMPRESSION: No acute abnormality. Signer Name: Alvin Moeller MD Signed: 06/24/2021 4:36 AM - Medical Decision Making Differential diagnosis, including but not limited to: GERD, gastritis, costochondritis, hiatal hernia, pneumonia, chronic stable angina Assessment and plan: 46-year-old female, who is not currently tachycardic, tachypneic or hypoxic, who denies DVT and pulmonary embolism risk factors, who is low risk by Wells criteria for pulmonary embolism, who has had multiple negative DVT studies at this hospital in the past, multiple low probability nuclear medicine study for pulmonary embolism in the past at this hospital, recently had a negative cardiac nuclear stress test at this hospital in March, who has recently presented with complaints of chest pain, has had multiple negative sets of troponin, and at the moment, has 2 unchanged EKGs, multiple negative troponins, resolved tachycardia, reproducible chest wall pain, and close follow-up with her outpatient manager fine dining later on this week. Her heart score and cardiovascular risk factor profile are reviewed and appreciated. We will treat her pain, and I will discussed with covering cardiology for [facility] cardiology. Patient is medicated aggressively currently as an outpatient, reports compliance with her aspirin, Imdur, and Ranexa. I anticipate discharge with outpatient cardiology follow-up. Counseled patient. She has articulated understanding. All questions answered. At the moment, tachycardia resolved, and she walks with a steady gait. She is a GCS of 15 Critical care attestation.: If time is entered above; I have spent that time in minutes in the direct care of this critically ill patient, excluding procedure time. ED Disposition Clinical Impression: Body mass index (BMI) of 50-59.9 in adult, Chest wall pain Disposition: 01 HOME / SELF CARE / HOMELESS Is pt being admited?: No Does the pt Need Aspirin: No Condition: Stable Instructions: Costochondritis Additional Instructions: Recommend the patient continue current outpatient medications. Please avoid consumption of Motrin, ibuprofen, Naprosyn, Aleve, heavy and spicy foods, alcohol, tobacco and smoke products. Recommend that patient aggressively lose weight. Recommend that patient participates in physical activities and exercise as tolerated. Please continue current outpatient medications, including aspirin, Imdur, and Ranexa. Wear comfortable fitting brassiere Follow-up with your manager fine dining within the next 3 to 5 days. Please return to the emergency room right away with new pain, worsened pain, migration of pain, projectile vomiting, change in mental status, confusion, inability tolerate liquid feeds, new, worsened or different symptoms not present on the initial emergency room evaluation. Dr. Elizabeth is a local bariatric surgeon. Referrals: CHAD ELIZABETH MD [Staff Physician] - 3-5 Days IBRAHIMA ISLAS MD [Staff Physician] - 3-5 Days
[2021-06-24] MEDS ORDERED: oxyCODONE /ACETAMINOPHEN 5-325MG TAB PO PRN (10:50)
[2021-06-24] MEDS ORDERED: PANTOPRAZOLE 40 MG TAB PO ONE (10:50)
[2021-06-24] MEDS ORDERED: KETOROLAC 30 MG/1 ML INJ IM ONE (12:05)
[2021-06-24 12:35] VITALS: BP 121/89
--- NOTE | 2021-06-26 08:52 | Electrocardiograph Report ---
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
--- NOTE | 2021-06-26 08:54 | Electrocardiograph Report ---
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
== END 2021-06-24 12:35 | disposition home or self-care (01) ==
LOC: ED 21:26
DX: R07.89 Other chest pain (principal); Z68.43 Body mass index [BMI] 50.0-59.9, adult; I11.0 Hypertensive heart disease with heart failure; I50.9 Heart failure, unspecified; Z91.041 Radiographic dye allergy status; Z91.013 Allergy to seafood
CPT/HCPCS: 36415; 71045; 80048; 84484; 85025; 93005; 96372; 99284; J1885

== ENCOUNTER 2021-07-30 07:18 | Emergency (ER) | payer OTHER ==
[2021-07-30] MEDS ORDERED: ACETAMINOPHEN 325 MG TAB PO ONE (08:12)
--- NOTE | 2021-07-30 08:13 | Emergency Department Report ---
ED General Adult HPI - General Chief complaint: Dizziness Stated complaint: Lightheadedness, headache, I feel like I might pass PUI?: No Time Seen by Provider: 07/30/21 07:48 Source: patient, RN notes reviewed, old records reviewed Mode of arrival: Stretcher Limitations: No Limitations - History of Present Illness Initial comments: The patient was evaluated in the emergency department for symptoms described in the history of present illness. He/she was evaluated in the context of the global COVID-19 pandemic, which necessitated consideration that the patient might be at risk for infection with the virus that causes COVID-19. Institutional protocols and algorithms that pertain to the evaluation of patients at risk for COVID-19 are in a state of rapid change based on information released by regulatory bodies including the CDC and federal and state organizations. These policies and algorithms were followed during the patient's care in the emergency department. Please note that these policies, procedures and recommendations changed on a rapid basis. Cardiology, [facility] cardiology, Dr. Sayra Islas; Past medical history: Morbid obesity, BMI 52, hypertension, anxiety, high cholesterol, CAD The patient is a 46-year-old female. I have evaluated this patient in the past. The patient presents to the ER today with a complaint of lightheadedness and feeling like she might fall out or pass out. This is an intermittent but fairly constant feeling for the patient. She currently takes a number of medications, including isosorbide, lisinopril HCTZ, clonazepam, carvedilol, Ranexa. The patient endorses compliance with her medications. She endorses that a few days ago, (today is Friday) she took 2 extra doses of her carvedilol because her blood pressure was high. She also reports that her septic technician recently adjusted her lisinopril HCTZ combination medication. She is also scheduled for cardiac catheterization tomorrow. The patient has not lost consciousness. The patient complains of headache which is frontal and right-sided. The headache is not sudden or thunderclap in nature. The headache is not maximal in intensity. The headache is not described as the worst headache of her life. The patient also complains of chronic central chest wall pain, chronic shortness of breath. She denies travel, surgery, leg pain, leg swelling, and the possibility of . She reports that she was admitted to [facility] last week, for 2 days, for lightheadedness and blood pressure issues. Of note, this patient has had low probability V/Q study in the past at this facility, as well as bilateral lower extremity DVT studies which were negative. -: Gradual, days(s), week(s) Location: head, chest Quality: aching Improves with: other (Headache is intermittent. Does not have exacerbating or relieving factors. Chest wall pain is increasing with palpation and decreasing with rest) - Related Data Home Medications Medication Instructions Recorded Confirmed Last Taken Ergocalciferol [Vitamin D2] 50,000 unit PO DAILY 03/31/21 04/18/21 Unknown Pravastatin [Pravachol] 40 mg PO DAILY 03/31/21 04/18/21 Unknown hydroCHLOROthiazide [HCTZ] 25 mg PO DAILY 03/31/21 04/18/21 Unknown Previous Rx's Medication Instructions Recorded Last Taken Type Aspirin 325 mg PO QDAY #30 tablet 08/12/17 04/27/19 Rx Ferrous Sulfate [Feosol 325 MG tab] 325 mg PO BID #60 tablet 08/12/17 04/27/19 Rx ISOSORBIDE MONOnitrate [Imdur ER] 30 mg PO QDAY #30 tablet 08/12/17 04/27/19 Rx Prasugrel [Effient] 10 mg PO QDAY #30 tablet 08/12/17 04/27/19 Rx Ranolazine ER [Ranexa ER] 500 mg PO BID #60 tablet 08/12/17 04/27/19 Rx clonazePAM [KlonoPIN] 0.5 mg PO BID PRN #12 tab 04/02/21 Unknown Rx Pantoprazole [Protonix] 40 mg PO QDAY #14 tablet 04/19/21 Unknown Rx carvediloL [Coreg] 25 mg PO BID #60 tablet 04/19/21 Unknown Rx lisinopriL [Zestril TAB] 10 mg PO QDAY #30 tablet 04/19/21 Unknown Rx Naproxen [Naprosyn] 500 mg PO BID #20 tablet 05/13/21 Unknown Rx methOCARBAMOL [Robaxin TAB] 500 mg PO Q8HR PRN #20 tablet 05/13/21 Unknown Rx Ondansetron [Zofran Odt] 4 mg PO Q8HR PRN #14 tab.rapdis 06/21/21 Unknown Rx traMADoL [Ultram] 50 mg PO Q6HR PRN #14 tablet 06/21/21 Unknown Rx Nitrofurantoin Cook/M-Cryst 100 mg PO Q12HR #14 capsule 07/30/21 Unknown Rx [Macrobid CAP] Allergies Allergy/AdvReac Type Severity Reaction Status Date / Time iodine Allergy Swelling Verified 06/21/21 08:08 shellfish derived Allergy Swelling Verified 06/21/21 08:08 ED Review of Systems ROS: Stated complaint: CHEST PAIN/SYNCOPE Other details as noted in HPI Constitutional: malaise. denies: fever Eyes: denies: eye discharge ENT: denies: epistaxis Respiratory: shortness of breath Cardiovascular: chest pain. denies: syncope (Near syncope) Gastrointestinal: denies: nausea, vomiting, hematemesis, melena, hematochezia Neurological: headache. denies: weakness Psychiatric: anxiety Hematological/Lymphatic: denies: easy bleeding ED Past Medical Hx - Past Medical History Previous Medical History?: Yes Hx Hypertension: Yes Hx CVA: No Hx Heart Attack/AMI: Yes (stents 03/11) Hx Congestive Heart Failure: Yes Hx Diabetes: No Hx Deep Vein Thrombosis: No Hx Pulmonary Embolism: No Hx GERD: Yes Hx Liver Disease: No Hx Renal Disease: No Hx Sickle Cell Disease: No Hx Arthritis: No Hx Headaches / Migraines: No Hx Seizures: No Hx Kidney Stones: No Hx Psychiatric Treatment: No Hx Asthma: No Hx COPD: No Hx Tuberculosis: No Hx Dementia: No Hx HIV: No Additional medical history: 2 STENTS 02/28/16, cholesterol, IBS, fibroids. CHRONIC BACK PAIN - Surgical History Past Surgical History?: Yes Hx Coronary Stent: Yes Hx Open Heart Surgery: No Hx Pacemaker: No Hx Internal Defibrillator: No Hx Cholecystectomy: No Hx Appendectomy: No Hx Breast Surgery: No Additional Surgical History: D&C - Social History Smoking Status: Never Smoker Substance Use Type: None - Medications Home Medications: Home Medications Medication Instructions Recorded Confirmed Last Taken Type Aspirin 325 mg PO QDAY #30 tablet 08/12/17 04/18/21 04/27/19 Rx Ferrous Sulfate [Feosol 325 MG tab] 325 mg PO BID #60 tablet 08/12/17 04/18/21 04/27/19 Rx ISOSORBIDE MONOnitrate [Imdur ER] 30 mg PO QDAY #30 tablet 08/12/17 04/18/21 04/27/19 Rx Prasugrel [Effient] 10 mg PO QDAY #30 tablet 08/12/17 04/18/21 04/27/19 Rx Ranolazine ER [Ranexa ER] 500 mg PO BID #60 tablet 08/12/17 04/18/21 04/27/19 Rx Ergocalciferol [Vitamin D2] 50,000 unit PO DAILY 03/31/21 04/18/21 Unknown History Pravastatin [Pravachol] 40 mg PO DAILY 03/31/21 04/18/21 Unknown History hydroCHLOROthiazide [HCTZ] 25 mg PO DAILY 03/31/21 04/18/21 Unknown History clonazePAM [KlonoPIN] 0.5 mg PO BID PRN #12 tab 04/02/21 04/18/21 Unknown Rx Pantoprazole [Protonix] 40 mg PO QDAY #14 tablet 04/19/21 Unknown Rx carvediloL [Coreg] 25 mg PO BID #60 tablet 04/19/21 Unknown Rx lisinopriL [Zestril TAB] 10 mg PO QDAY #30 tablet 04/19/21 Unknown Rx Naproxen [Naprosyn] 500 mg PO BID #20 tablet 05/13/21 Unknown Rx methOCARBAMOL [Robaxin TAB] 500 mg PO Q8HR PRN #20 tablet 05/13/21 Unknown Rx Ondansetron [Zofran Odt] 4 mg PO Q8HR PRN #14 tab.rapdis 06/21/21 Unknown Rx traMADoL [Ultram] 50 mg PO Q6HR PRN #14 tablet 06/21/21 Unknown Rx Nitrofurantoin Cook/M-Cryst 100 mg PO Q12HR #14 capsule 07/30/21 Unknown Rx [Macrobid CAP] ED Physical Exam - General Limitations: No Limitations General appearance: alert, in no apparent distress, obese - Head Head exam: Present: atraumatic, normocephalic - Eye Eye exam: Present: normal appearance, PERRL, EOMI, other (Visual acuity intact to finger counting, color perception, reading at a close distance). Absent: nystagmus - ENT ENT exam: Present: normal exam, normal orophraynx, mucous membranes moist, normal external ear exam - Neck Neck exam: Present: normal inspection, full ROM. Absent: tenderness, meningismus - Respiratory Respiratory exam: Present: normal lung sounds bilaterally. Absent: respiratory distress, wheezes, rales, rhonchi, stridor, decreased breath sounds - Cardiovascular Cardiovascular Exam: Present: regular rate, normal rhythm, normal heart sounds. Absent: bradycardia, tachycardia, irregular rhythm, systolic murmur, diastolic murmur, rubs, gallop - GI/Abdominal GI/Abdominal exam: Present: soft. Absent: distended, tenderness, guarding, rebound, rigid, pulsatile mass - Extremities Exam Extremities exam: Present: normal inspection, full ROM, other (2+ pulses noted in the bilateral upper and lower extremities. There is no palpable cord. negative Homans sign. Muscular compartments are soft. The pelvis is stable.). Absent: pedal edema, calf tenderness - Back Exam Back exam: Present: normal inspection, full ROM. Absent: tenderness, CVA ten derness (R), CVA tenderness (L), paraspinal tenderness, vertebral tenderness - Neurological Exam Neurological exam: Present: alert, oriented X3, normal gait, other (There is no facial droop. The tongue is midline. Extraocular movements are intact bilaterally. There is 5 out of 5 strength in bilateral upper and lower extremities. Sensation is intact to light touch bilateral upper and lower extremities. There is no past-pointing. There is no pronator drift.). Absent: motor sensory deficit - Psychiatric Psychiatric exam: Present: normal affect, normal mood - Skin Skin exam: Present: warm, dry, intact, normal color. Absent: rash ED Course Vital Signs 07/30/21 07/30/21 07/30/21 07:24 07:55 11:54 Temperature 98 F 98.5 F Pulse Rate 70 71 79 Respiratory 18 18 16 Rate Blood Pressure 131/77 113/71 Blood Pressure 142/90 [Right] O2 Sat by Pulse 97 98 96 Oximetry 07/30/21 12:45 Temperature Pulse Rate 75 Respiratory 18 Rate Blood Pressure 115/68 Blood Pressure [Right] O2 Sat by Pulse 93 Oximetry - Reevaluation(s) Reevaluation #1: 07/30/21 10:48 Differential diagnosis, including but not limited to: Orthostasis, vagal event, anxiety, structural cardiac disease, obstructive sleep apnea, pulmonary embolism, chronic CAD, costochondritis, migraine headache, tension headache, cluster headache Assessment and plan: 46-year-old female whom I have evaluated in the past, who presents today with a complaint of lightheadedness like she might pass out. She has not passed out. She also complains of a headache which is right-sided and frontal. On review of systems, the patient snores at night, has a sensation of incomplete and unfulfilling sleep, is morbidly obese, and has not had a formal sleep study. She most likely has undiagnosed and untreated obstructive sleep apnea. Symptoms present for greater than 8 hours. Troponin negative x1, therefore, acute myocardial infarction is ruled out as per the [employer] clinical policy. She is not currently tachycardic, tachypneic or hypoxic. Her chest x-ray is clear, and she is not in any significant respiratory distress. She is also PERC negative. However, given her recent hospitalization, a D-dimer was sent, elevated, and a nuclear medicine study will be obtained, given the patient's articulated intolerance of iodine and shellfish. She is scheduled for cardiac catheterization tomorrow. Have requested cardiology consultation, I discussed the case with Tim Ross, working with Dr Angelo Gregory. He advises that this patient has had an unremarkable echocardiogram recently at other facilities, as well as an unremarkable exercise Lexiscan stress test. The patient's presentation today is fairly similar to when I evaluated her back in May. At that time, I had extensive discussion with the patient regarding need for diet lifestyle modification, as well as aggressive weight loss strategy. Nuclear medicine study pending at this time, presuming it is unremarkable which we anticipate, anticipate discharge with outpatient cardiology follow-up. 07/30/21 12:15 Patient has been observed in this department for hours without clinical decompensation. X-ray the chest is unremarkable. Nuclear medicine study is low probability for pulmonary embolism. Tim Ross, of [facility], advises discharge and follow up tomorrow as scheduled On the patient's final reevaluation, she is sitting comfortably in her chair, in no acute distress, looking at her cellular phone. I discussed her findings with her. She articulated understanding. She is reliable to follow-up tomorrow for her cardiac catheterization 07/30/21 15:50 ED Medical Decision Making - Lab Data Result diagrams: 07/30/21 08:51 07/30/21 08:51 Vital Signs 07/30/21 07/30/21 07:24 07:55 Temperature 98 F 98.5 F Pulse Rate 70 71 Respiratory 18 18 Rate Blood Pressure 131/77 Blood Pressure 142/90 [Right] O2 Sat by Pulse 97 98 Oximetry Lab Results 07/30/21 07/30/21 07/30/21 Range/Units 08:51 08:51 08:51 WBC 8.8 (4.5-11.0) K/mm3 RBC 3.80 (3.65-5.03) M/mm3 Hgb 11.7 (10.1-14.3) gm/dl Hct 33.8 (30.3-42.9) % MCV 89 (79-97) fl MCH 31 (28-32) pg MCHC 35 H (30-34) % RDW 17.9 H (13.2-15.2) % Plt Count 473 H (140-440) K/mm3 Lymph % (Auto) 19.9 (13.4-35.0) % Cook % (Auto) 6.4 (0.0-7.3) % Eos % (Auto) 2.2 (0.0-4.3) % Baso % (Auto) 0.3 (0.0-1.8) % Lymph # (Auto) 1.7 (1.2-5.4) K/mm3 Cook # (Auto) 0.6 (0.0-0.8) K/mm3 Eos # (Auto) 0.2 (0.0-0.4) K/mm3 Baso # (Auto) 0.0 (0.0-0.1) K/mm3 Seg Neutrophils % 71.2 H (40.0-70.0) % Seg Neutrophils # 6.3 (1.8-7.7) K/mm3 PT 13.7 (12.2-14.9) Sec. INR 1.00 (0.87-1.13) D-Dimer 333.65 H (0-234) ng/mlDDU Sodium 138 (137-145) mmol/L Potassium 4.1 (3.6-5.0) mmol/L Chloride 101.3 (98-107) mmol/L Carbon Dioxide 24 (22-30) mmol/L Anion Gap 17 mmol/L BUN 5 L (7-17) mg/dL Creatinine 0.8 (0.6-1.2) mg/dL Estimated GFR > 60 ml/min BUN/Creatinine Ratio 6 % Glucose 96 (65-100) mg/dL Calcium 9.4 (8.4-10.2) mg/dL Magnesium (1.7-2.3) mg/dL Troponin T < 0.010 (0.00-0.029) ng/mL TSH (0.270-4.200) mlU/mL HCG, Quant (0-4) mIU/mL 07/30/21 07/30/21 07/30/21 Range/Units 08:51 08:51 08:51 WBC (4.5-11.0) K/mm3 RBC (3.65-5.03) M/mm3 Hgb (10.1-14.3) gm/dl Hct (30.3-42.9) % MCV (79-97) fl MCH (28-32) pg MCHC (30-34) % RDW (13.2-15.2) % Plt Count (140-440) K/mm3 Lymph % (Auto) (13.4-35.0) % Cook % (Auto) (0.0-7.3) % Eos % (Auto) (0.0-4.3) % Baso % (Auto) (0.0-1.8) % Lymph # (Auto) (1.2-5.4) K/mm3 Cook # (Auto) (0.0-0.8) K/mm3 Eos # (Auto) (0.0-0.4) K/mm3 Baso # (Auto) (0.0-0.1) K/mm3 Seg Neutrophils % (40.0-70.0) % Seg Neutrophils # (1.8-7.7) K/mm3 PT (12.2-14.9) Sec. INR (0.87-1.13) D-Dimer (0-234) ng/mlDDU Sodium (137-145) mmol/L Potassium (3.6-5.0) mmol/L Chloride (98-107) mmol/L Carbon Dioxide (22-30) mmol/L Anion Gap mmol/L BUN (7-17) mg/dL Creatinine (0.6-1.2) mg/dL Estimated GFR ml/min BUN/Creatinine Ratio % Glucose (65-100) mg/dL Calcium (8.4-10.2) mg/dL Magnesium 2.00 (1.7-2.3) mg/dL Troponin T (0.00-0.029) ng/mL TSH 1.710 (0.270-4.200) mlU/mL HCG, Quant < 2 (0-4) mIU/mL - EKG Data -: EKG Interpreted by Al EKG shows normal: sinus rhythm Rate: normal - EKG Data When compared to previous EKG there are: no significant change Interpretation: unchanged when compared t 07/30/21 10:43 EKG is interpreted at 07: 5 0 Sinus rhythm, 65 bpm. Normal axis, normal intervals, low voltage, not a STEMI. Abnormal EKG. Unchanged from prior, from 06/24/2020 - Radiology Data Radiology results: pending, report reviewed, image reviewed CHEST 2 VIEWS INDICATION / CLINICAL INFORMATION: Lightheadedness/Dizziness. COMPARISON: 06/24/21. FINDINGS: SUPPORT DEVICES: None. HEART / MEDIASTINUM: The heart size and pulmonary vasculature are normal. LUNGS / PLEURA: No significant pulmonary or pleural abnormality. No pneumothorax. ADDITIONAL FINDINGS: No significant additional findings. IMPRESSION: No acute abnormality or significant change. Signer Name: David Martinez MD Signed: 07/30/2021 9:11 AM Workstation Name: [id number] CT BRAIN: 07/30/2021 INDICATION / CLINICAL INFORMATION: Lightheadedness/Dizziness. COMPARISON: None available. FINDINGS: BRAIN/INTRACRANIAL STRUCTURES: Unenhanced CT images of the brain demonstrate no evidence of acute intracranial abnormality. Ventricles and sulci are within normal limits of size and shape for a patient of this age. There is no evidence of ischemic injury, hemorrhage, or mass. There are no abnormal extra-axial fluid collections. EXTRACRANIAL STRUCTURES: Unremarkable. IMPRESSION: No acute abnormality. All CT scans at this location are performed using dose reduction to ALARA by means of automated exposure control. Signer Name: Christian Gómez MD Signed: 07/30/2021 7:54 AM Workstation Name: [id number] DUPLEX DOPPLER LOWER EXTREMITY VEINS, BILATERAL INDICATION: Elevated D-dimer. TECHNIQUE: Duplex doppler imaging was performed through the veins of both lower extremities using venous compression and other maneuvers. COMPARISON: No relevant prior imaging study available. FINDINGS: Right Common femoral vein: Negative. Right Superficial femoral vein: Negative. Right Popliteal vein: Negative. Right Calf veins: Negative. Left Common femoral vein: Negative. Left Superficial femoral vein: Negative. Left Popliteal vein: Negative. Left Calf veins: Negative. Additional findings: None. IMPRESSION: No sonographic evidence for DVT in either lower extremity. Signer Name: Jose Sharma Jr, MD Signed: 04/02/2021 8:00 AM Workstation Name: [id number] INDICATION: SOB elevated D-dimer. COMPARISON: 05/05/2017 FINDINGS: Support devices: None. Heart: Within normal limits. Lungs/Pleura: No acute air space or interstitial disease. Additional findings: None. IMPRESSION: No acute findings. NUCLEAR MEDICINE PERFUSION SCAN INDICATION: SOB elevated D-dimer CORRELATION: AP chest performed the same day RADIOPHARMACEUTICAL: Perfusion: 5.1 mCi Tc-99m MAA given IV FINDINGS: Perfusion images show symmetric and uniform radiotracer distribution throughout bilateral lung zones with no evidence of segmental perfusion defects. Normal cardiac silhouette. IMPRESSIO N: Very low probability perfusion scan for pulmonary embolism. Signer Name: Jose Sharma Jr, MD Signed: 04/02/2021 7:50 AM Workstation Name: [id number] Nuclear medicine perfusion lung scan Indication: Shortness of breath Technique: 5.2 mCi of Tc 99m MAA were given by IV. Findings: Comparison with chest radiograph from earlier the same day. Perfusion scan from 04/02/2021 was reviewed. Perfusion images are unremarkable; specifically, no wedge-shaped, pleural-based, segmental defects are seen. Impression: Normal perfusion scan. Signer Name: Yogi Cornejo MD Signed: 07/30/2021 10:39 AM Workstation Name: [id number] Critical care attestation.: If time is entered above; I have spent that time in minutes in the direct care of this critically ill patient, excluding procedure time. ED Disposition Clinical Impression: BMI 50.0-59.9, adult, Morbid obesity, Near syncope, Headache, Bacteriuria with pyuria Disposition: 01 HOME / SELF CARE / HOMELESS Is pt being admited?: No Does the pt Need Aspirin: No Condition: Good Additional Instructions: Please continue current outpatient medications. Patient may alternate [id number] Tylenol and ibuprofen as needed for headache. We recommend aggressive weight loss, physical exercise as tolerated, and appropriate diet, including plenty of fiber, vegetables and lean protein, avoidance of sugar, carbohydrates, and processed foods. Patient may have undiagnosed and untreated obstructive sleep apnea, so we recommend follow-up with a care support representative, such as Dr. Lacy, Within the next 2 to 3 weeks for outpatient sleep study. Untreated obstructive sleep apnea is a risk factor for stroke, heart attack, hypertension, and may contribute to headaches and anxiety. Please follow-up tomorrow as scheduled with your septic technician for your outpatient cardiac catheterization. Please return to the emergency room right away with new pain, worsened pain, migration of pain, projectile vomiting, change in mental status, confusion, inability to tolerate liquid feeds, new, worsened or different symptoms not present on the initial emergency room evaluation. Please make certain to not eat after midnight tonight in anticipation of your cardiac catheterization tomorrow. Prescriptions: Nitrofurantoin Cook/M-Cryst [Macrobid CAP] 100 mg PO Q12HR #14 capsule Referrals: DESTINY LACY MD [Staff Physician] - 3-5 Days IBRAHIMA ISLAS MD [Staff Physician] - 3-5 Days
--- NOTE | 2021-07-30 08:59 | Cat Scan Report ---
CT BRAIN: 07/30/2021 INDICATION / CLINICAL INFORMATION: Lightheadedness/Dizziness. COMPARISON: None available. FINDINGS: BRAIN/INTRACRANIAL STRUCTURES: Unenhanced CT images of the brain demonstrate no evidence of acute int racranial abnormality. Ventricles and sulci are within normal limits of size and shape for a patient of this age. There is no evidence of ischemic injury, hemorrhage, or mass. There are no abnormal extra-axial fluid collections. EXTRACRANIAL STRUCTURES: Unremarkable. IMPRESSION: No acute abnormality. All CT scans at this location are performed using dose reduction to ALARA by means of automated expos ure control. Signer Name: Christian Gómez MD Signed: 07/30/2021 8:54 AM Workstation Name: [id number]
[2021-07-30 09:26] LABS: Basophils % (Auto) 0.3 % (0.0-1.8); Eosinophils # (Auto) 0.2 K/mm3 (0.0-0.4); Eosinophils % (Auto) 2.2 % (0.0-4.3); Hematocrit 33.8 % (30.3-42.9); Hemoglobin 11.7 gm/dl (10.1-14.3); Lymphocytes # (Auto) 1.7 K/mm3 (1.2-5.4); Lymphocytes % (Auto) 19.9 % (13.4-35.0); Mean Corpuscular HGB Conc 35 % (30-34); Mean Corpuscular Volume 89 fl (79-97); Monocytes # (Auto) 0.6 K/mm3 (0.0-0.8); Monocytes % (Auto) 6.4 % (0.0-7.3); Platelet Count 473 K/mm3 (140-440); Red Cell Distribution Width 17.9 % (13.2-15.2)
[2021-07-30 09:32] LABS: BUN/Creatinine Ratio 6; Blood Urea Nitrogen 5 mg/dL (7-17); Calcium 9.4 mg/dL (8.4-10.2); Hemolysis Index 0
--- NOTE | 2021-07-30 10:16 | XRay Report ---
CHEST 2 VIEWS INDICATION / CLINICAL INFORMATION: Lightheadedness/Dizziness. COMPARISON: 06/24/21. FINDINGS: SUPPORT DEVICES: None. HEART / MEDIASTINUM: The heart size and pulmonary vasculature are normal. LUNGS / PLEURA: No significant pulmonary or pleural abnormality. No pneumothorax. ADDITIONAL FINDINGS: No significant additional findings. IMPRESSION: No acute abnormality or significant change. Signer Name: David Martinez MD Signed: 07/30/2021 10:11 AM Workstation Name: [id number]
[2021-07-30] MEDS ORDERED: IBUPROFEN 400 MG TAB PO ONE (10:52)
--- NOTE | 2021-07-30 11:44 | Nuclear Medicine Report ---
Nuclear medicine perfusion lung scan Indication: Shortness of breath Technique: 5.2 mCi of Tc 99m MAA were given by IV. Findings: Comparison with chest radiograph from earlier the same day. Perfusion scan from 04/02/2021 was reviewed . Perfusion images are unremarkable; specifically, no wedge-shaped, pleural-based, segmental defects ar e seen. Impression: Normal perfusion scan. Signer Name: Yogi Cornejo MD Signed: 07/30/2021 11:39 AM Workstation Name: [id number]
[2021-07-30 11:49] LABS: Bacteria,Urine 1+ /HPF (Negative); Bilirubin,Urine NEG (Negative); Blood,Urine NEG (Negative); Color,Urine Straw (Yellow); Protein,Urine <15 mg/dL mg/dL (Negative); Urobilinogen,Urine < 2.0 mg/dL (<2.0)
[2021-07-30 12:20] LABS: Amphetamine Screen,Urine Negative; Benzodiazepines Screen,Urine Negative; Cannabinoid Screen,Urine Negative; Cocaine Screen,Urine Negative; Methadone Screen,Urine Negative; Opiate Screen,Urine Negative
[2021-07-30 12:50] VITALS: BP 115/68
--- NOTE | 2021-08-01 10:09 | Electrocardiograph Report ---
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
== END 2021-07-30 12:50 | disposition home or self-care (01) ==
LOC: ED 07:18
DX: R82.71 Bacteriuria (principal); R82.81 Pyuria; E66.01 Morbid (severe) obesity due to excess calories; Z68.43 Body mass index [BMI] 50.0-59.9, adult; R55 Syncope and collapse; R51.9 Headache, unspecified; I11.0 Hypertensive heart disease with heart failure; I50.9 Heart failure, unspecified; K21.9 Gastro-esophageal reflux disease without esophagitis; Z98.890 Other specified postprocedural states; Z91.013 Allergy to seafood; Z91.041 Radiographic dye allergy status
CPT/HCPCS: 36415; 70450; 71046; 78580; 80048; 80307; 81001; 83735; 84443; 84484; 84702; 85025; 85379; 85610; 87086; 93005; 99285; A9540

== ENCOUNTER 2021-07-31 06:45 | Day surgery (SDC) | payer OTHER ==
[2021-07-31] MEDS ORDERED: ASPIRIN EC 325 MG TAB PO NR (07:03)
[2021-07-31] MEDS ORDERED: SODIUM CHLORIDE 0.9% 500 ML 500 ML IV SCH (08:00)
[2021-07-31] MEDS ORDERED: HEPARIN/NS 5000 UNIT/500ML 1,000 ML IR ONE (08:00)
[2021-07-31] MEDS ORDERED: fentaNYL 100 MCG/2 ML INJ ONE (08:01)
[2021-07-31] MEDS ORDERED: HEPARIN 10,000 UNITS/10 ML VIAL ONE (08:01)
[2021-07-31] MEDS ORDERED: MIDAZOLAM 2 MG/2 ML INJ ONE (08:01)
[2021-07-31] MEDS ORDERED: VERAPAMIL 5 MG/2 ML INJ ONE (08:02)
[2021-07-31] MEDS ORDERED: NITROGLYCERIN SYRINGE 3 ML ONE (08:02)
[2021-07-31] MEDS: LIDOCAINE (2%) 20 MG/1 ML VIAL 20 ML MDV INFILTRATI ONE ×2 (08:46→08:55)
[2021-07-31] MEDS ORDERED: VERAPAMIL 5 MG/2 ML INJ ART-SHEATH ONE (08:47)
[2021-07-31] MEDS ORDERED: LIDOCAINE (2%) 20 MG/1 ML VIAL 20 ML MDV INFILTRATI ONE ×2 (09:00→09:01)
--- NOTE | 2021-07-31 11:54 | Cardiac Catherization Report ---
DATE OF PROCEDURE: 07/31/2021 CARDIAC CATHETERIZATION REFERRING PHYSICIAN: Myself. INDICATIONS FOR PROCEDURE: The patient is a pleasant 46-year-old -[place] female who I have known for some time. She had initial ST elevation myocardial infarction in 02/2016. Over the past several months, she has had recurrent chest pain despite normal stress test. We discussed the options with her. She is referred for left heart catheterization. Risks, benefits and alternatives discussed prior to obtaining informed consent. PROCEDURE IN DETAIL: The patient was brought to propagator laborer in postabsorptive state, prepped and draped in sterile fashion. Christian's test in right hand is normal. A 2 mL of 2% lidocaine used to anesthetize the right wrist. We were not able to cannulate the right radial since 5-Spanish sheath was placed in the right common femoral artery via modified Seldinger technique. All exchanges performed to exchange a J-tip guidewire. JL3.5 catheter was used to engage the left main. No dampening or ventricularization. Cineangiography performed in all projections. JR4 catheter was used to cross the aortic valve under fluoroscopic guidance. Left ventriculography performed in the 30 ODOM and 30 JOHN projections via hand injection, catheter flushed. Manual pullback performed with continuous pressure monitoring. Catheter used to engage the right coronary. No dampening or ventricularization. Cineangiography performed in all projections. Next, catheter removed from the body of wire, sheath removed. Manual pressure was used to achieve hemostasis. I directly supervised the administration of moderate sedation with fentanyl and Versed from 8:50 a.m. to 9:20 a.m. No immediate complications. DATA: Aortic pressure is 130/80, LV pressure is 130, LVEDP of 18 mmHg. Left heart reveals normal systolic performance, estimated ejection fraction of 55-60%. No evidence of aortic stenosis. CORONARY ANATOMY: This is a right dominant system. Right coronary has a stent that is patent in the proximal segment. In the proximal segment, no other disease identified. The left main without significant disease, trifurcates into left anterior descending, ramus intermedius and left circumflex. LAD is a moderate sized vessel, courses anterior intergroove, wraps around the apex, scattered luminal irregularities, but no significant disease. Left circumflex is moderate sized vessel, courses AV groove, no significant disease. Ramus intermedius 25% proximal stenosis with PATSY 3 flow, no obstructive disease identified. CONCLUSIONS: 1. No angiographic evidence of obstructive coronary disease identified in this strongly right dominant system. A. Patent mid proximal right coronary stent. B. A 25% nonobstructive mild proximal ramus intermedius stenosis. 2. Normal left ventricular systolic performance, estimated ejection fraction 55-60%. 3. No evidence of aortic stenosis. The patient is clinically stable, no chest pain. Continue with aggressive risk factor modification and medical therapy. She is already on beta brenda, Imdur, statin, JUAN JOSE and Ranexa. Continue these therapies. Follow up with me in the office. Stable cardiac status. Standard groin care. Results of the procedure were also discussed with daughter via telephone. TID: [id number] RECEIPT: [id number] NICOLE/MICHELLE/ANTONY
--- NOTE | 2021-07-31 12:23 | Short Stay Summary ---
Short Stay Documentation Date of service: 07/31/21 - History H&P: obtained from office - Allergies and Medications Current Medications: Allergies iodine Allergy (Verified 06/21/21 08:08) Swelling shellfish derived Allergy (Verified 06/21/21 08:08) Swelling Home Medications Medication Instructions Recorded Confirmed Last Taken Type ISOSORBIDE MONOnitrate [Imdur ER] 30 mg PO QDAY #30 tablet 08/12/17 07/31/21 07/30/21 Rx 30 mg Pravastatin [Pravachol] 40 mg PO DAILY 03/31/21 07/31/21 07/30/21 History 40 mg Pantoprazole [Protonix] 40 mg PO QDAY #14 tablet 04/19/21 07/31/21 07/30/21 Rx 40 mg lisinopriL [Zestril TAB] 10 mg PO QDAY #30 tablet 04/19/21 07/31/21 07/30/21 Rx 10 mg Nitrofurantoin [place]/M-Cryst 100 mg PO Q12HR #14 capsule 07/30/21 07/31/21 07/30/21 Rx [Macrobid CAP] 100 mg Aspirin EC [Halfprin EC] 81 mg PO DAILY 07/31/21 07/31/21 07/30/21 History 81 mg Ferrous Sulfate [Iron 325 MG] 325 mg PO DAILY 07/31/21 07/31/21 07/30/21 History 325 mg Ranolazine ER [Ranexa ER] 500 mg PO DAILY 07/31/21 07/31/21 07/30/21 History 500 mg carvediloL [Coreg] 12.5 mg PO QHS 07/31/21 07/31/21 07/30/21 History 12.5mg carvediloL [Coreg] 25 mg PO QAM 07/31/21 07/31/21 07/30/21 History 25 mg clonazePAM [KlonoPIN] 1 mg PO DAILY PRN 07/31/21 07/31/21 07/30/21 History 1 mg Active Medications Sodium Chloride (Nacl 0.9% 500 Ml) 500 mls @ 50 mls/hr IV DIRECT ADELSO Stop: 07/31/21 17:59 Last Admin: 07/31/21 08:09 Dose: 50 mls/hr Documented by: Tramadol HCl (Tramadol 50 Mg Tab) 50 mg PO ONCE ONE Stop: 07/31/21 13:01 Last Admin: 07/31/21 11:57 Dose: 50 mg Documented by: - Physical exam Integumentary: other (dressing clean dry intact no bleeding or hematoma) - Brief post op/procedure progress note Date of procedure: 07/31/21 Pre-op diagnosis: chest pain Post-op diagnosis: other (normal) Anesthesia: local Estimated blood loss: minimal - Disposition Condition at discharge: Good Disposition: 01 HOME / SELF CARE / HOMELESS Short Stay Discharge Plan Activity: advance as tolerated Diet: low fat, low cholesterol, low salt Wound: keep clean and dry, per your surgeon's advice Follow up with: BERNARDO BARNETT NP [Primary Care Provider] - 7 Days IBRAHIMA ISLAS MD [Staff Physician] - 08/31/21 3:15 pm (Patient has a follow up apointment at 3:15pm at our [place] location. )
[2021-07-31] MEDS ORDERED: traMADol 50 MG TAB PO ONE (13:00)
[2021-07-31 13:03] VITALS: BP 115/57
[2021-07-31] MEDS ORDERED: ACETAMINOPHEN 325 MG TAB PO ONE (14:17)
--- NOTE | 2021-08-01 11:46 | Electrocardiograph Report ---
[facility] Test Date: 2021-07-31 Test Time: 07:31:29 Pat Name: MAKAYLA ARGUELLES Department: Room: Gender: F Tie Cutter: CHRISTIANO : 1975 Requested By: IBRAHIMA ISLAS Order Number: [id number] Reading MD: Ibrahima Islas Measurements Intervals [place] Rate: 84 P: 46 NC: 178 QRS: 14 QRSD: 84 T: -3 QT: 363 QTc: 430 Interpretive Statements Sinus rhythm Low voltage, precordial leads Compared to ECG 07/30/2021 07:50:37 T-wave abnormality no longer present Electronically Signed On 08-01-2021 11:46:31 EDT by Ibrahima Islas
== END 2021-07-31 16:00 | disposition home or self-care (01) ==
LOC: CATHLABREC 06:45
PROVIDERS: ATTEND Internal Medicine
DX: R07.9 Chest pain, unspecified (principal); R00.2 Palpitations; I25.10 Atherosclerotic heart disease of native coronary artery without angina pectoris; I25.2 Old myocardial infarction; F41.9 Anxiety disorder, unspecified; E78.00 Pure hypercholesterolemia, unspecified; I11.0 Hypertensive heart disease with heart failure; I50.9 Heart failure, unspecified; K21.9 Gastro-esophageal reflux disease without esophagitis; E66.01 Morbid (severe) obesity due to excess calories; Z95.5 Presence of coronary angioplasty implant and graft; Z87.440 Personal history of urinary (tract) infections; Z79.82 Long term (current) use of aspirin; Z79.899 Other long term (current) drug therapy; Z87.891 Personal history of nicotine dependence; Z91.041 Radiographic dye allergy status; Z91.013 Allergy to seafood
CPT/HCPCS: 93005; 93458; 99156; 99157; C1894; J1644; J2250; J3010; J7040; Q9967

== ENCOUNTER 2021-08-05 21:02 | Emergency (ER) | payer OTHER ==
--- NOTE | 2021-08-05 21:38 | Emergency Department Report ---
ED General Adult HPI - General Stated complaint: LEFT ARM PAIN Time Seen by Provider: 08/05/21 21:34 Source: patient, EMS - History of Present Illness Initial comments: Patient is 46 years old morbidly obese female with history of hypertension, coronary artery disease and GERD. Patient brought to the emergency room via EMS from home for evaluation of left pain since yesterday. Patient described her pain as sharp with no radiation. Patient denied any chest pain, shortness of breath, fever or cough. Patient had a cardiac cath done 2 weeks ago with no finding of blocking and no stent placed. Patient denied any other complaint. - Related Data Home Medications Medication Instructions Recorded Confirmed Last Taken Pravastatin [Pravachol] 40 mg PO DAILY 03/31/21 07/31/21 07/30/21 40 mg Aspirin EC [Halfprin EC] 81 mg PO DAILY 07/31/21 07/31/21 07/30/21 81 mg Ferrous Sulfate [Iron 325 MG] 325 mg PO DAILY 07/31/21 07/31/21 07/30/21 325 mg Ranolazine ER [Ranexa ER] 500 mg PO DAILY 07/31/21 07/31/21 07/30/21 500 mg carvediloL [Coreg] 12.5 mg PO QHS 07/31/21 07/31/21 07/30/21 12.5mg carvediloL [Coreg] 25 mg PO QAM 07/31/21 07/31/21 07/30/21 25 mg clonazePAM [KlonoPIN] 1 mg PO DAILY PRN 07/31/21 07/31/21 07/30/21 1 mg Previous Rx's Medication Instructions Recorded Last Taken Type ISOSORBIDE MONOnitrate [Imdur ER] 30 mg PO QDAY #30 tablet 08/12/17 07/30/21 Rx 30 mg Pantoprazole [Protonix] 40 mg PO QDAY #14 tablet 04/19/21 07/30/21 Rx 40 mg lisinopriL [Zestril TAB] 10 mg PO QDAY #30 tablet 04/19/21 07/30/21 Rx 10 mg Nitrofurantoin [place]/M-Cryst 100 mg PO Q12HR #14 capsule 07/30/21 07/30/21 Rx [Macrobid CAP] 100 mg Allergies Allergy/AdvReac Type Severity Reaction Status Date / Time iodine Allergy Swelling Verified 06/21/21 08:08 shellfish derived Allergy Swelling Verified 06/21/21 08:08 ED Review of Systems ROS: Stated complaint: LEFT ARM PAIN Other details as noted in HPI Comment: All other systems reviewed and negative Constitutional: denies: chills, fever Respiratory: denies: cough, shortness of breath, SOB with exertion Cardiovascular: denies: chest pain Gastrointestinal: denies: abdominal pain, nausea, vomiting, diarrhea, constipation, hematemesis, melena, hematochezia Genitourinary: denies: urgency Musculoskeletal: denies: back pain Neurological: denies: headache, weakness, numbness, paresthesias, confusion ED Past Medical Hx - Past Medical History Hx Hypertension: Yes Hx CVA: No Hx Heart Attack/AMI: Yes (stents 03/11) Hx Congestive Heart Failure: Yes Hx Diabetes: No Hx Deep Vein Thrombosis: No Hx Pulmonary Embolism: No Hx GERD: Yes Hx Liver Disease: No Hx Renal Disease: No Hx Sickle Cell Disease: No Hx Arthritis: No Hx Headaches / Migraines: No Hx Seizures: No Hx Kidney Stones: No Hx Psychiatric Treatment: No Hx Asthma: No Hx COPD: No Hx Tuberculosis: No Hx Dementia: No Hx HIV: No Additional medical history: 2 STENTS 02/28/16, cholesterol, IBS, fibroids. CHRONIC BACK PAIN - Surgical History Hx Coronary Stent: Yes Hx Open Heart Surgery: No Hx Pacemaker: No Hx Internal Defibrillator: No Hx Cholecystectomy: No Hx Appendectomy: No Hx Breast Surgery: No Additional Surgical History: D&C - Social History Smoking Status: Former Smoker - Medications Home Medications: Home Medications Medication Instructions Recorded Confirmed Last Taken Type ISOSORBIDE MONOnitrate [Imdur ER] 30 mg PO QDAY #30 tablet 08/12/17 07/31/21 07/30/21 Rx 30 mg Pravastatin [Pravachol] 40 mg PO DAILY 03/31/21 07/31/21 07/30/21 History 40 mg Pantoprazole [Protonix] 40 mg PO QDAY #14 tablet 04/19/21 07/31/21 07/30/21 Rx 40 mg lisinopriL [Zestril TAB] 10 mg PO QDAY #30 tablet 04/19/21 07/31/21 07/30/21 Rx 10 mg Nitrofurantoin [place]/M-Cryst 100 mg PO Q12HR #14 capsule 07/30/21 07/31/21 07/30/21 Rx [Macrobid CAP] 100 mg Aspirin EC [Halfprin EC] 81 mg PO DAILY 07/31/21 07/31/21 07/30/21 History 81 mg Ferrous Sulfate [Iron 325 MG] 325 mg PO DAILY 07/31/21 07/31/21 07/30/21 History 325 mg Ranolazine ER [Ranexa ER] 500 mg PO DAILY 07/31/21 07/31/21 07/30/21 History 500 mg carvediloL [Coreg] 12.5 mg PO QHS 07/31/21 07/31/21 07/30/21 History 12.5mg carvediloL [Coreg] 25 mg PO QAM 07/31/21 07/31/21 07/30/21 History 25 mg clonazePAM [KlonoPIN] 1 mg PO DAILY PRN 07/31/21 07/31/21 07/30/21 History 1 mg ED Physical Exam - General General appearance: alert, in no apparent distress - Head Head exam: Present: atraumatic, normocephalic, normal inspection - Eye Eye exam: Present: normal appearance - ENT ENT exam: Present: normal exam, normal orophraynx, mucous membranes moist - Neck Neck exam: Present: normal inspection, full ROM. Absent: tenderness, meningismus - Respiratory Respiratory exam: Present: normal lung sounds bilaterally - Cardiovascular Cardiovascular Exam: Present: regular rate, normal rhythm, normal heart sounds - GI/Abdominal GI/Abdominal exam: Present: soft, normal bowel sounds. Absent: distended, tenderness, guarding, rebound, rigid, organomegaly, mass, bruit, pulsatile mass, hernia - Extremities Exam Extremities exam: Present: normal inspection, full ROM, normal capillary refill. Absent: pedal edema, calf tenderness - Back Exam Back exam: Present: normal inspection, full ROM. Absent: CVA tenderness (R), CVA tenderness (L) - Neurological Exam Neurological exam: Present: alert, oriented X3, CN II-XII intact, normal gait, reflexes normal. Absent: motor sensory deficit - Psychiatric Psychiatric exam: Present: normal mood - Skin Skin exam: Present: warm, intact, normal color ED Course Vital Signs 08/05/21 21:21 Temperature 99 F Pulse Rate 82 Respiratory 18 Rate Blood Pressure 121/95 [Left] O2 Sat by Pulse 100 Oximetry ED Medical Decision Making - Lab Data Result diagrams: 08/05/21 21:39 08/05/21 21:39 - EKG Data -: EKG Interpreted by Me EKG shows normal: sinus rhythm Rate: normal - EKG Data Interpretation: no acute changes - Radiology Data Radiology results: report reviewed - Medical Decision Making Patient is 46 years old morbidly obese female with history of hypertension, coronary artery disease and GERD. Patient brought to the emergency room via EMS from home for evaluation of left pain since yesterday. Patient described her pain as sharp with no radiation. Patient denied any chest pain, shortness of breath, fever or cough. Patient had a cardiac cath done 2 weeks ago with no finding of blocking and no stent placed. Patient denied any other complaint. EKG is unremarkable. Labs reviewed and is unremarkable including a negative troponin. Patient still denying any chest pain. Chest x-ray is unremarkable. 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 Critical care attestation.: If time is entered above; I have spent that time in minutes in the direct care of this critically ill patient, excluding procedure time. ED Disposition Clinical Impression: Left arm pain Disposition: HOME / SELF CARE / HOMELESS Is pt being admited?: No Condition: Stable Instructions: Radicular Pain Referrals: PRIMARY CARE, [Referring] - 3-5 Days
[2021-08-05 21:42] VITALS: BP 121/95
[2021-08-05 21:53] LABS: Basophils # (Auto) 0.1 K/mm3 (0.0-0.1); Basophils % (Auto) 0.6 % (0.0-1.8); Eosinophils # (Auto) 0.3 K/mm3 (0.0-0.4); Eosinophils % (Auto) 2.7 % (0.0-4.3); Hemoglobin 10.9 gm/dl (10.1-14.3); Lymphocytes # (Auto) 2.5 K/mm3 (1.2-5.4); Lymphocytes % (Auto) 20.2 % (13.4-35.0); Mean Corpuscular HGB Conc 33 % (30-34); Mean Corpuscular Volume 91 fl (79-97); Monocytes # (Auto) 1.2 K/mm3 (0.0-0.8); Monocytes % (Auto) 9.6 % (0.0-7.3); Platelet Count 430 K/mm3 (140-440); Red Blood Count 3.65 M/mm3 (3.65-5.03); Red Cell Distribution Width 17.9 % (13.2-15.2)
[2021-08-05 22:11] LABS: BUN/Creatinine Ratio 10; Blood Urea Nitrogen 8 mg/dL (7-17); Calcium 9.4 mg/dL (8.4-10.2); Hemolysis Index 15
--- NOTE | 2021-08-05 22:21 | XRay Report ---
CHEST 2 VIEWS INDICATION / CLINICAL INFORMATION: Chest Pain. COMPARISON: 07/30/2021 FINDINGS: SUPPORT DEVICES: None. HEART / MEDIASTINUM: No significant abnormality. LUNGS / PLEURA: No significant pulmonary or pleural abnormality. No pneumothorax. Increased density o kenji both lung bases is felt to be overlying dense breast tissue. ADDITIONAL FINDINGS: No significant additional findings. IMPRESSION: 1. No acute findings. No interval change. Signer Name: Susanna Blanc MD Signed: 08/05/2021 10:16 PM Workstation Name: [id number]
--- NOTE | 2021-08-06 11:11 | Electrocardiograph Report ---
[facility] Test Date: 2021-08-05 Test Time: 21:51:23 Pat Name: MAKAYLA ARGUELLES Department: Room: Gender: F Accounting Professional: SHELBI : 1975 Requested By: FREEMAN MONTES Order Number: [id number] Reading MD: Lalito Gregory Measurements Intervals [place] Rate: 75 P: 68 AL: 184 QRS: 54 QRSD: 74 T: 13 QT: 345 QTc: 386 Interpretive Statements Sinus rhythm non specific st-t Compared to ECG 07/31/2021 07:31:29 No significant changes Electronically Signed On 08-06-2021 11:10:37 EDT by Lalito Gregory
== END 2021-08-06 00:22 | disposition home or self-care (01) ==
LOC: ED 21:02
DX: M79.602 Pain in left arm (principal); I11.0 Hypertensive heart disease with heart failure; I50.9 Heart failure, unspecified; I25.10 Atherosclerotic heart disease of native coronary artery without angina pectoris; Z86.79 Personal history of other diseases of the circulatory system; Z91.041 Radiographic dye allergy status; Z91.013 Allergy to seafood; Z87.891 Personal history of nicotine dependence
CPT/HCPCS: 36415; 71046; 80048; 83690; 84484; 85025; 93005; 99284

== ENCOUNTER 2021-08-13 22:35 | Emergency (ER) | payer OTHER ==
--- NOTE | 2021-08-13 23:41 | Emergency Department Report ---
HPI - General Chief Complaint: Abdominal Pain Time Seen by Provider: 08/13/21 23:22 - HPI HPI: 46-year-old -[place] female presents to the emergency department with complaint of abdominal pain with some radiation around the right flank to the back, as well as occasional radiation into the chest, that has been going on for the past 5 or 6 days. Currently she says the pain is 7 out of 10 in intensity. No known aggravating or alleviating factors. It is associated with some nausea with vomiting and the patient says that she has had 5 days of fever that reached a T-max of 100.2 F. She has a past medical history of coronary artery disease, hypertension, anxiety, obesity. The patient had a cardiac catheterization done here about 2 weeks ago that did not show any obstructive coronary disease. Patient has been taking [id number] pain medication, such as naproxen, for her symptoms without any relief. No recent travel or sick contacts at home. ED Past Medical Hx - Past Medical History Hx Hypertension: Yes Hx CVA: No Hx Heart Attack/AMI: Yes (stents 03/11) Hx Congestive Heart Failure: Yes Hx Diabetes: No Hx Deep Vein Thrombosis: No Hx Pulmonary Embolism: No Hx GERD: Yes Hx Liver Disease: No Hx Renal Disease: No Hx Sickle Cell Disease: No Hx Arthritis: No Hx Headaches / Migraines: No Hx Seizures: No Hx Kidney Stones: No Hx Psychiatric Treatment: No Hx Asthma: No Hx COPD: No Hx Tuberculosis: No Hx Dementia: No Hx HIV: No Additional medical history: 2 STENTS 02/28/16, cholesterol, IBS, fibroids. CHRONIC BACK PAIN - Surgical History Hx Coronary Stent: Yes Hx Open Heart Surgery: No Hx Pacemaker: No Hx Internal Defibrillator: No Hx Cholecystectomy: No Hx Appendectomy: No Hx Breast Surgery: No Additional Surgical History: D&C - Social History Smoking Status: Former Smoker - Medications Home Medications: Home Medications Medication Instructions Recorded Confirmed Last Taken Type ISOSORBIDE MONOnitrate [Imdur ER] 30 mg PO QDAY #30 tablet 08/12/17 07/31/21 07/30/21 Rx 30 mg Pravastatin [Pravachol] 40 mg PO DAILY 03/31/21 07/31/21 07/30/21 History 40 mg Pantoprazole [Protonix] 40 mg PO QDAY #14 tablet 04/19/21 07/31/21 07/30/21 Rx 40 mg lisinopriL [Zestril TAB] 10 mg PO QDAY #30 tablet 04/19/21 07/31/21 07/30/21 Rx 10 mg Nitrofurantoin Hawkins/M-Cryst 100 mg PO Q12HR #14 capsule 07/30/21 07/31/21 07/30/21 Rx [Macrobid CAP] 100 mg Aspirin EC [Halfprin EC] 81 mg PO DAILY 07/31/21 07/31/21 07/30/21 History 81 mg Ferrous Sulfate [Iron 325 MG] 325 mg PO DAILY 07/31/21 07/31/21 07/30/21 History 325 mg Ranolazine ER [Ranexa ER] 500 mg PO DAILY 07/31/21 07/31/21 07/30/21 History 500 mg carvediloL [Coreg] 12.5 mg PO QHS 07/31/21 07/31/21 07/30/21 History 12.5mg carvediloL [Coreg] 25 mg PO QAM 07/31/21 07/31/21 07/30/21 History 25 mg clonazePAM [KlonoPIN] 1 mg PO DAILY PRN 07/31/21 07/31/21 07/30/21 History 1 mg Naproxen [Naprosyn] 500 mg PO BID #14 tablet 08/05/21 Unknown Rx Cyclobenzaprine HCl [Flexeril 5 MG 5 mg PO TID PRN #21 tab 08/06/21 Unknown Rx TAB] Ondansetron [Zofran Odt] 4 mg PO Q8HR PRN #12 tab.rapdis 08/14/21 Unknown Rx traMADoL [Ultram 50 MG tab] 50 mg PO Q6HR PRN #10 tablet 08/14/21 Unknown Rx ED Review of Systems ROS: Stated complaint: RT SIDE ABD PAIN Other details as noted in HPI Comment: All other systems reviewed and negative Constitutional: denies: chills, fever Eyes: denies: eye pain, vision change ENT: denies: ear pain, throat pain Respiratory: denies: cough, shortness of breath Cardiovascular: chest pain. denies: palpitations Gastrointestinal: abdominal pain, nausea Genitourinary: denies: dysuria, discharge Musculoskeletal: back pain. denies: arthralgia Skin: denies: rash, lesions Neurological: denies: headache, weakness Physical Exam - Physical Exam Vital Signs: Vital Signs 08/13/21 22:52 Temperature 97.9 F Pulse Rate 78 Respiratory 18 Rate Blood Pressure 135/87 [Left] O2 Sat by Pulse 98 Oximetry Physical Exam: GENERAL: The patient is well-developed well-nourished. HENT: Normocephalic. Atraumatic. Patient has moist mucous membranes. EYES: Extraocular motions are intact. NECK: Supple. Trachea is midline. CHEST/LUNGS: Clear to auscultation. There is no respiratory distress noted. HEART/CARDIOVASCULAR: Regular. There is no tachycardia. There is no murmur. ABDOMEN: Abdomen is soft. Right upper quadrant abdominal tenderness to palpation. No guarding. Patient has normal bowel sounds. Morbidly obese habitus. SKIN: Skin is warm and dry. NEURO: The patient is awake, alert, and oriented. The patient is cooperative. The patient has no focal neurologic deficits. Normal speech. MUSCULOSKELETAL: There is no tenderness or deformity. There is no limitation range of motion. ED Course Vital Signs 08/13/21 22:52 Temperature 97.9 F Pulse Rate 78 Respiratory 18 Rate Blood Pressure 135/87 [Left] O2 Sat by Pulse 98 Oximetry ED Medical Decision Making - Lab Data Result diagrams: 08/13/21 23:26 08/13/21 23:26 Lab Results 08/13/21 08/13/21 08/13/21 Range/Units 23:26 23:26 23:26 WBC 9.5 (4.5-11.0) K/mm3 RBC 3.54 L (3.65-5.03) M/mm3 Hgb 10.9 (10.1-14.3) gm/dl Hct 31.8 (30.3-42.9) % MCV 90 (79-97) fl MCH 31 (28-32) pg MCHC 34 (30-34) % RDW 17.8 H (13.2-15.2) % Plt Count 410 (140-440) K/mm3 Lymph % (Auto) 21.5 (13.4-35.0) % Hawkins % (Auto) 8.0 H (0.0-7.3) % Eos % (Auto) 3.1 (0.0-4.3) % Baso % (Auto) 0.5 (0.0-1.8) % Lymph # (Auto) 2.0 (1.2-5.4) K/mm3 Hawkins # (Auto) 0.8 (0.0-0.8) K/mm3 Eos # (Auto) 0.3 (0.0-0.4) K/mm3 Baso # (Auto) 0.1 (0.0-0.1) K/mm3 Seg Neutrophils % 66.9 (40.0-70.0) % Seg Neutrophils # 6.4 (1.8-7.7) K/mm3 Sodium 134 L (137-145) mmol/L Potassium 3.9 (3.6-5.0) mmol/L Chloride 99.0 (98-107) mmol/L Carbon Dioxide 22 (22-30) mmol/L Anion Gap 17 mmol/L BUN 5 L (7-17) mg/dL Creatinine 0.8 (0.6-1.2) mg/dL Estimated GFR > 60 ml/min BUN/Creatinine Ratio 6 % Glucose 84 (65-100) mg/dL Calcium 9.4 (8.4-10.2) mg/dL Total Bilirubin < 0.20 (0.1-1.2) mg/dL AST 12 (5-40) units/L ALT 9 (7-56) units/L Alkaline Phosphatase 66 (35-129) units/L Troponin T (0.00-0.029) ng/mL Total Protein 6.9 (6.3-8.2) g/dL Albumin 3.8 L (3.9-5) g/dL Albumin/Globulin Ratio 1.2 % Lipase 17 (13-60) units/L HCG, Qual (Negative) Urine Color (Yellow) Urine Turbidity (Clear) Urine pH (5.0-7.0) Ur Specific [place] (1.003-1.030) Urine Protein (Negative) mg/dL Urine Glucose (UA) (Negative) mg/dL Urine Ketones (Negative) mg/dL Urine Blood (Negative) Urine Nitrite (Negative) Urine Bilirubin (Negative) Urine Urobilinogen (<2.0) mg/dL Ur Leukocyte Esterase (Negative) Urine WBC (Auto) (0.0-6.0) /HPF Urine RBC (Auto) (0.0-6.0) /HPF U Epithel Cells (Auto) (0-13.0) /HPF Urine Mucus /HPF 08/13/21 08/13/21 08/14/21 Range/Units 23:26 23:26 01:30 WBC (4.5-11.0) K/mm3 RBC (3.65-5.03) M/mm3 Hgb (10.1-14.3) gm/dl Hct (30.3-42.9) % MCV (79-97) fl MCH (28-32) pg MCHC (30-34) % RDW (13.2-15.2) % Plt Count (140-440) K/mm3 Lymph % (Auto) (13.4-35.0) % Hawkins % (Auto) (0.0-7.3) % Eos % (Auto) (0.0-4.3) % Baso % (Auto) (0.0-1.8) % Lymph # (Auto) (1.2-5.4) K/mm3 Hawkins # (Auto) (0.0-0.8) K/mm3 Eos # (Auto) (0.0-0.4) K/mm3 Baso # (Auto) (0.0-0.1) K/mm3 Seg Neutrophils % (40.0-70.0) % Seg Neutrophils # (1.8-7.7) K/mm3 Sodium (137-145) mmol/L Potassium (3.6-5.0) mmol/L Chloride (98-107) mmol/L Carbon Dioxide (22-30) mmol/L Anion Gap mmol/L BUN (7-17) mg/dL Creatinine (0.6-1.2) mg/dL Estimated GFR ml/min BUN/Creatinine Ratio % Glucose (65-100) mg/dL Calcium (8.4-10.2) mg/dL Total Bilirubin (0.1-1.2) mg/dL AST (5-40) units/L ALT (7-56) units/L Alkaline Phosphatase (35-129) units/L Troponin T < 0.010 (0.00-0.029) ng/mL Total Protein (6.3-8.2) g/dL Albumin (3.9-5) g/dL Albumin/Globulin Ratio % Lipase (13-60) units/L HCG, Qual Negative (Negative) Urine Color Straw (Yellow) Urine Turbidity Clear (Clear) Urine pH 6.0 (5.0-7.0) Ur Specific [place] 1.002 L (1.003-1.030) Urine Protein <15 mg/dl (Negative) mg/dL Urine Glucose (UA) Neg (Negative) mg/dL Urine Ketones Neg (Negative) mg/dL Urine Blood Neg (Negative) Urine Nitrite Neg (Negative) Urine Bilirubin Neg (Negative) Urine Urobilinogen < 2.0 (<2.0) mg/dL Ur Leukocyte Esterase Neg (Negative) Urine WBC (Auto) 1.0 (0.0-6.0) /HPF Urine RBC (Auto) < 1.0 (0.0-6.0) /HPF U Epithel Cells (Auto) 2.0 (0-13.0) /HPF Urine Mucus Few /HPF - EKG Data -: EKG Interpreted by Me EKG shows normal: sinus rhythm, axis, intervals, QRS complexes, ST-T waves Rate: normal - EKG Data When compared to previous EKG there are: no significant change Interpretation: unchanged when compared t (08/05/21) - Radiology Data Radiology results: report reviewed, image reviewed interpreted by me: Chest x-ray does not show any acute process. There are no pleural effusions, obvious pneumonia and there is no pneumothorax. No widened mediastinum. Abdominal x-ray shows nonspecific nonobstructive bowel gas. No free air. CT ABDOMEN AND PELVIS WITHOUT CONTRAST INDICATION / CLINICAL INFORMATION: RIGHT sided abdominal pain with nausea x 6 days. TECHNIQUE: Axial CT images were obtained through the abdomen and pelvis without IV contrast. All CT scans at this location are performed using CT dose reduction for ALARA by means of automated exposure control. COMPARISON: None available. FINDINGS: LOWER CHEST: No significant abnormality. AORTA / ARTERIES: No significant abnormality. IVC / VEINS: No significant abnormality. LYMPH NODES: No significant adenopathy. COLON: No significant abnormality. APPENDIX: No significant abnormality. STOMACH / SMALL BOWEL: No significant abnormality. PERITONEUM: No free fluid. No free air. No fluid collection. LIVER: No significant abnormality. GALLBLADDER: No significant abnormality. BILE DUCTS: No significant abnormality. PANCREAS: No significant abnormality. SPLEEN: No significant abnormality. ADRENALS: No significant abnormality. RIGHT KIDNEY / URETER: There is a 7 mm calcification at the right ureterovesicular junction. No hydronephrosis or hydroureter. LEFT KIDNEY / URETER: No significant abnormality. URINARY BLADDER: No significant abnormality. REPRODUCTIVE ORGANS: There is a fibroid uterus. SKELETAL SYSTEM: There is sclerosis of the bilateral, right greater than left, sacroiliac joints. ADDITIONAL FINDINGS: None. IMPRESSION: 1. There is a 7 mm calcification at the right ureterovesicular junction which may represent a nonobstructing stone. There is no hydronephrosis or nephrolithiasis. 2. Fibroid uterus. 3. Sclerosis of the bilateral, right greater than left sacroiliac joints which may be degenerative. Additional considerations include psoriatic arthritis or reactive arthritis. - Medical Decision Making This patient presents to the emergency department with a complaint of some upper abdominal pain with radiation around the right flank to the back, as well as some radiation towards the chest. I am less concerned about the radiation towards the chest in terms of any cardiac etiology as the patient recently had a cardiac catheterization that was did not show any obstructive coronary arter ies. She did have an EKG that does not show any morphology consistent with ST elevation myocardial infarction or any dysrhythmia. Chest x-ray does not show any pneumonia, pleural effusions, pneumothorax, widened mediastinum, or any other acute process. Patient has some reproducible abdominal tenderness to palpation but there is no guarding and the abdomen is soft and nontoxic in appearance. The patient has severe morbid obesity. Labs have been mostly unremarkable including CBC, metabolic panel, negative troponin, normal lipase and normal urinalysis. The patient had a CT scan of the abdomen and pelvis that showed a 7 mm calcification towards the right ureter and ureterovesicular junction possibly showing a kidney stone, but there is no hydronephrosis or signs of pyelonephritis. It is possible that this is the source of the patient's abdominal pain but not likely causing a radiation towards the chest. The patient was given a dose of pain medication and upon reevaluation is feeling improved. Vital signs reassuring including being afebrile. She will be discharged home to follow-up with primary care and was given a referral for urology. She will return to the ER with any worsening of her symptoms or with any acute distress. Critical Care Time: No Critical care attestation.: If time is entered above; I have spent that time in minutes in the direct care of this critically ill patient, excluding procedure time. ED Disposition Clinical Impression: Abdominal pain, Kidney stone Disposition: HOME / SELF CARE / HOMELESS Is pt being admited?: No Condition: Stable Instructions: Kidney Stones, Abdominal Pain, Adult, Abdominal Pain (ED) Additional Instructions: Please follow-up with your primary care physician in the next few days. I have given you a referral for a local urologist, Dr. Ambrosio, to follow-up regarding your kidney stone. You have been prescribed a medication that is sedating and therefore should not be taken prior to driving, working, and responsible for children and in no way should be mixed with alcohol of any quantity. Return to the emergency department with any worsening of your symptoms, new or concerning symptoms not addressed during this current emergency department visit, or with any acute distress. Prescriptions: traMADoL [Ultram 50 MG tab] 50 mg PO Q6HR PRN #10 tablet PRN Reason: Pain Ondansetron [Zofran Odt] 4 mg PO Q8HR PRN #12 tab.rapdis PRN Reason: Nausea Referrals: PRIMARY CAREMD [Primary Care Provider] - 3-5 Days TIA AMBROSIO MD [Staff Physician] - 3-5 Days Time of Disposition: 02:02
--- NOTE | 2021-08-14 00:08 | XRay Report ---
ABDOMEN 3 VIEW(S) INDICATION / CLINICAL INFORMATION: Abd pain. COMPARISON: None available. FINDINGS: TUBES / LINES: None. BOWEL GAS PATTERN: No significant abnormality. FREE AIR / EXTRALUMINAL GAS: None seen. ADDITIONAL FINDINGS: No significant additional findings. CHEST: Visualized chest shows no significant abnormality. IMPRESSION: 1. No significant abnormality. Signer Name: Neil Calderon DO Signed: 08/14/2021 12:04 AM Workstation Name: [id number]
[2021-08-14 00:27] LABS: Alanine Aminotransferase 9 units/L (7-56); Albumin 3.8 g/dL (3.9-5); BUN/Creatinine Ratio 6; Blood Urea Nitrogen 5 mg/dL (7-17); Calcium 9.4 mg/dL (8.4-10.2); Hemolysis Index 0
[2021-08-14 00:28] LABS: Basophils # (Auto) 0.1 K/mm3 (0.0-0.1); Basophils % (Auto) 0.5 % (0.0-1.8); Eosinophils # (Auto) 0.3 K/mm3 (0.0-0.4); Eosinophils % (Auto) 3.1 % (0.0-4.3); Hematocrit 31.8 % (30.3-42.9); Hemoglobin 10.9 gm/dl (10.1-14.3); Lymphocytes % (Auto) 21.5 % (13.4-35.0); Mean Corpuscular HGB Conc 34 % (30-34); Mean Corpuscular Volume 90 fl (79-97); Monocytes # (Auto) 0.8 K/mm3 (0.0-0.8); Platelet Count 410 K/mm3 (140-440); Red Blood Count 3.54 M/mm3 (3.65-5.03); Red Cell Distribution Width 17.8 % (13.2-15.2)
[2021-08-14] MEDS ORDERED: oxyCODONE /ACETAMINOPHEN 5-325MG TAB PO ONE (00:30)
[2021-08-14] MEDS ORDERED: ONDANSETRON 4 MG ODT TAB PO ONE (00:42)
--- NOTE | 2021-08-14 01:41 | Cat Scan Report ---
CT ABDOMEN AND PELVIS WITHOUT CONTRAST INDICATION / CLINICAL INFORMATION: RIGHT sided abdominal pain with nausea x 6 days. TECHNIQUE: Axial CT images were obtained through the abdomen and pelvis without IV contrast. All CT scans at this location are performed using CT dose reduction for ALARA by means of automated exposure control. COMPARISON: None available. FINDINGS: LOWER CHEST: No significant abnormality. AORTA / ARTERIES: No significant abnormality. IVC / VEINS: No significant abnormality. LYMPH NODES: No significant adenopathy. COLON: No significant abnormality. APPENDIX: No significant abnormality. STOMACH / SMALL BOWEL: No significant abnormality. PERITONEUM: No free fluid. No free air. No fluid collection. LIVER: No significant abnormality. GALLBLADDER: No significant abnormality. BILE DUCTS: No significant abnormality. PANCREAS: No significant abnormality. SPLEEN: No significant abnormality. ADRENALS: No significant abnormality. RIGHT KIDNEY / URETER: There is a 7 mm calcification at the right ureterovesicular junction. No hydro nephrosis or hydroureter. LEFT KIDNEY / URETER: No significant abnormality. URINARY BLADDER: No significant abnormality. REPRODUCTIVE ORGANS: There is a fibroid uterus. SKELETAL SYSTEM: There is sclerosis of the bilateral, right greater than left, sacroiliac joints. ADDITIONAL FINDINGS: None. IMPRESSION: 1. There is a 7 mm calcification at the right ureterovesicular junction which may represent a nonobst ructing stone. There is no hydronephrosis or nephrolithiasis. 2. Fibroid uterus. 3. Sclerosis of the bilateral, right greater than left sacroiliac joints which may be degenerative. A dditional considerations include psoriatic arthritis or reactive arthritis. Signer Name: Neil Calderon DO Signed: 08/14/2021 1:37 AM Workstation Name: [id number]
[2021-08-14 01:48] LABS: Bilirubin,Urine NEG (Negative); Blood,Urine NEG (Negative); Color,Urine Straw (Yellow); Mucus,Urine FEW /HPF; Protein,Urine <15 mg/dL mg/dL (Negative); RBC,Urine < 1.0 /HPF (0.0-6.0); Urobilinogen,Urine < 2.0 mg/dL (<2.0)
[2021-08-14 02:18] VITALS: BP 128/57
--- NOTE | 2021-08-14 11:04 | Electrocardiograph Report ---
[facility] Test Date: 2021-08-14 Test Time: 01:28:45 Pat Name: MAKAYLA RAGUELLES Department: Room: Gender: F [employer] Att[employer]: MARKO : 1975 Requested By: ANISHA YAO Order Number: [id number] Reading MD: Hung Lara Measurements Intervals [place] Rate: 86 P: 63 DE: 163 QRS: 24 QRSD: 74 T: 2 QT: 334 QTc: 400 Interpretive Statements Sinus rhythm Low voltage, precordial leads Compared to ECG 08/05/2021 21:51:23 Low QRS voltage now present Electronically Signed On 08-14-2021 11:04:33 EDT by Hung Lara
== END 2021-08-14 03:00 | disposition home or self-care (01) ==
LOC: ED 22:35
DX: N20.0 Calculus of kidney (principal); R10.9 Unspecified abdominal pain; I11.0 Hypertensive heart disease with heart failure; I50.9 Heart failure, unspecified; K21.9 Gastro-esophageal reflux disease without esophagitis; E78.00 Pure hypercholesterolemia, unspecified; G89.29 Other chronic pain; M54.9 Dorsalgia, unspecified; Z85.9 Personal history of malignant neoplasm, unspecified; Z98.890 Other specified postprocedural states; Z87.891 Personal history of nicotine dependence
CPT/HCPCS: 36415; 74022; 74176; 80053; 81001; 83690; 84484; 84703; 85025; 93005; 99285; Q0162

== ENCOUNTER 2021-08-21 03:35 | Emergency (ER) | payer OTHER ==
[2021-08-21 03:43] VITALS: BP 117/79
--- NOTE | 2021-08-21 07:40 | Emergency Department Report ---
ED Shortness of Breath HPI - General Chief Complaint: Dyspnea/Respdistress Stated Complaint: SOB Time Seen by Provider: 08/21/21 07:28 Source: EMS Mode of arrival: Stretcher Limitations: No Limitations - History of Present Illness Initial Comments: Patient is 46 years old female morbidly obese with history of congestive heart failure and coronary artery disease with a stent. Patient presented to the ER complaining of shortness of breath that started all of a sudden while she was sleeping. Patient stated that she called EMS and EMS checked her and told her that she is wheezing and she need to come to the ER. Patient stated that she is feeling much better now and she does not have any symptoms. Patient denied any chest pain, fever, chills or cough. MD Complaint: shortness of breath -: This morning Severity: moderate Known History Of: congestive heart failure - Related Data Home Medications Medication Instructions Recorded Confirmed Last Taken Pravastatin [Pravachol] 40 mg PO DAILY 03/31/21 07/31/21 07/30/21 40 mg Aspirin EC [Halfprin EC] 81 mg PO DAILY 07/31/21 07/31/21 07/30/21 81 mg Ferrous Sulfate [Iron 325 MG] 325 mg PO DAILY 07/31/21 07/31/21 07/30/21 325 mg Ranolazine ER [Ranexa ER] 500 mg PO DAILY 07/31/21 07/31/21 07/30/21 500 mg carvediloL [Coreg] 12.5 mg PO QHS 07/31/21 07/31/21 07/30/21 12.5mg carvediloL [Coreg] 25 mg PO QAM 07/31/21 07/31/21 07/30/21 25 mg clonazePAM [KlonoPIN] 1 mg PO DAILY PRN 07/31/21 07/31/21 07/30/21 1 mg Previous Rx's Medication Instructions Recorded Last Taken Type ISOSORBIDE MONOnitrate [Imdur ER] 30 mg PO QDAY #30 tablet 08/12/17 07/30/21 Rx 30 mg Pantoprazole [Protonix] 40 mg PO QDAY #14 tablet 04/19/21 07/30/21 Rx 40 mg lisinopriL [Zestril TAB] 10 mg PO QDAY #30 tablet 04/19/21 07/30/21 Rx 10 mg Nitrofurantoin [place]/M-Cryst 100 mg PO Q12HR #14 capsule 07/30/21 07/30/21 Rx [Macrobid CAP] 100 mg Naproxen [Naprosyn] 500 mg PO BID #14 tablet 08/05/21 Unknown Rx Cyclobenzaprine HCl [Flexeril 5 MG 5 mg PO TID PRN #21 tab 08/06/21 Unknown Rx TAB] Ondansetron [Zofran Odt] 4 mg PO Q8HR PRN #12 tab.rapdis 08/14/21 Unknown Rx traMADoL [Ultram 50 MG tab] 50 mg PO Q6HR PRN #10 tablet 08/14/21 Unknown Rx Allergies Allergy/AdvReac Type Severity Reaction Status Date / Time iodine Allergy Swelling Verified 08/21/21 03:43 shellfish derived Allergy Swelling Verified 08/21/21 03:43 ED Review of Systems ROS: Stated complaint: SOB Other details as noted in HPI Comment: All other systems reviewed and negative Constitutional: denies: chills, fever Respiratory: orthopnea, shortness of breath, wheezing. denies: cough Cardiovascular: denies: chest pain, palpitations, dyspnea on exertion Gastrointestinal: denies: abdominal pain, nausea, vomiting Neurological: denies: headache, weakness, numbness, paresthesias, confusion ED Past Medical Hx - Past Medical History Hx Hypertension: Yes Hx CVA: No Hx Heart Attack/AMI: Yes (stents 03/11) Hx Congestive Heart Failure: Yes Hx Diabetes: No Hx Deep Vein Thrombosis: No Hx Pulmonary Embolism: No Hx GERD: Yes Hx Liver Disease: No Hx Renal Disease: No Hx Sickle Cell Disease: No Hx Arthritis: No Hx Headaches / Migraines: No Hx Seizures: No Hx Kidney Stones: No Hx Psychiatric Treatment: No Hx Asthma: No Hx COPD: No Hx Tuberculosis: No Hx Dementia: No Hx HIV: No Additional medical history: 2 STENTS 02/28/16, cholesterol, IBS, fibroids. CHRONIC BACK PAIN - Surgical History Hx Coronary Stent: Yes Hx Open Heart Surgery: No Hx Pacemaker: No Hx Internal Defibrillator: No Hx Cholecystectomy: No Hx Appendectomy: No Hx Breast Surgery: No Additional Surgical History: D&C - Social History Smoking Status: Former Smoker - Medications Home Medications: Home Medications Medication Instructions Recorded Confirmed Last Taken Type ISOSORBIDE MONOnitrate [Imdur ER] 30 mg PO QDAY #30 tablet 08/12/17 07/31/21 07/30/21 Rx 30 mg Pravastatin [Pravachol] 40 mg PO DAILY 03/31/21 07/31/21 07/30/21 History 40 mg Pantoprazole [Protonix] 40 mg PO QDAY #14 tablet 04/19/21 07/31/21 07/30/21 Rx 40 mg lisinopriL [Zestril TAB] 10 mg PO QDAY #30 tablet 04/19/21 07/31/21 07/30/21 Rx 10 mg Nitrofurantoin [place]/M-Cryst 100 mg PO Q12HR #14 capsule 07/30/21 07/31/21 07/30/21 Rx [Macrobid CAP] 100 mg Aspirin EC [Halfprin EC] 81 mg PO DAILY 07/31/21 07/31/21 07/30/21 History 81 mg Ferrous Sulfate [Iron 325 MG] 325 mg PO DAILY 07/31/21 07/31/21 07/30/21 History 325 mg Ranolazine ER [Ranexa ER] 500 mg PO DAILY 07/31/21 07/31/21 07/30/21 History 500 mg carvediloL [Coreg] 12.5 mg PO QHS 07/31/21 07/31/21 07/30/21 History 12.5mg carvediloL [Coreg] 25 mg PO QAM 07/31/21 07/31/21 07/30/21 History 25 mg clonazePAM [KlonoPIN] 1 mg PO DAILY PRN 07/31/21 07/31/21 07/30/21 History 1 mg Naproxen [Naprosyn] 500 mg PO BID #14 tablet 08/05/21 Unknown Rx Cyclobenzaprine HCl [Flexeril 5 MG 5 mg PO TID PRN #21 tab 08/06/21 Unknown Rx TAB] Ondansetron [Zofran Odt] 4 mg PO Q8HR PRN #12 tab.rapdis 08/14/21 Unknown Rx traMADoL [Ultram 50 MG tab] 50 mg PO Q6HR PRN #10 tablet 08/14/21 Unknown Rx ED Physical Exam - General Limitations: No Limitations General appearance: alert, in no apparent distress - Head Head exam: Present: atraumatic, normocephalic, normal inspection - Eye Eye exam: Present: normal appearance - ENT ENT exam: Present: normal exam, normal orophraynx, mucous membranes moist - Neck Neck exam: Present: normal inspection, full ROM. Absent: tenderness, meningismus - Respiratory Respiratory exam: Present: normal lung sounds bilaterally - Cardiovascular Cardiovascular Exam: Present: regular rate, normal rhythm, normal heart sounds - GI/Abdominal GI/Abdominal exam: Present: soft, normal bowel sounds. Absent: distended, tenderness, guarding, rebound, rigid, organomegaly, mass, bruit, pulsatile mass, hernia - Extremities Exam Extremities exam: Present: normal inspection, full ROM, normal capillary refill. Absent: tenderness - Back Exam Back exam: Present: normal inspection, full ROM. Absent: CVA tenderness (R), CVA tenderness (L) - Neurological Exam Neurological exam: Present: alert, oriented X3, CN II-XII intact - Psychiatric Psychiatric exam: Present: normal mood - Skin Skin exam: Present: warm, intact, normal color ED Course Vital Signs 08/21/21 03:43 Temperature 98.6 F Pulse Rate 89 Respiratory 19 Rate Blood Pressure 117/79 [Left] O2 Sat by Pulse 98 Oximetry ED Medical Decision Making - Lab Data Result diagrams: 08/21/21 07:53 08/21/21 07:53 - EKG Data -: EKG Interpreted by Sd EKG shows normal: sinus rhythm Rate: normal - EKG Data Interpretation: no acute changes - Radiology Data Radiology results: report reviewed - Medical Decision Making Patient is 46 years old female morbidly obese with history of congestive heart failure and coronary artery disease with a stent. Patient presented to the ER complaining of shortness of breath that started all of a sudden while she was sleeping. Patient stated that she called EMS and EMS checked her and told her that she is wheezing and she need to come to the ER. Patient stated that she is feeling much better now and she does not have any symptoms. Patient denied any chest pain, fever, chills or cough. Patient remained stable in the ER with stable vital sign. Patient denied any chest pain. EKG is unremarkable. Labs reviewed and is unremarkable including a negative troponin. Chest x-ray is negative for acute finding. Patient advised to follow-up with her primary doctor in the next 2 to 3 days and to return to the ER if she develop any new symptoms. Critical care attestation.: If time is entered above; I have spent that time in minutes in the direct care of this critically ill patient, excluding procedure time. ED Disposition Clinical Impression: Shortness of breath Disposition: 01 HOME / SELF CARE / HOMELESS Is pt being admited?: No Condition: Stable Instructions: Shortness of Breath, Adult, [id number] Referrals: [facility] [Primary Care Provider] - 3-5 Days
--- NOTE | 2021-08-21 08:16 | XRay Report ---
CHEST 1 VIEW INDICATION / CLINICAL INFORMATION: Dyspnea SINCE 3:15AM. COMPARISON: 08/05/2021, 07/30/2021 FINDINGS: SUPPORT DEVICES: None. HEART / MEDIASTINUM: No significant abnormality. LUNGS / PLEURA: No significant pulmonary or pleural abnormality. No pneumothorax. ADDITIONAL FINDINGS: No significant additional findings. IMPRESSION: 1. No acute findings. Signer Name: Elbert Hawkins MD Signed: 08/21/2021 8:11 AM Workstation Name: [id number]
[2021-08-21 08:27] LABS: Basophils % (Auto) 0.7 % (0.0-1.8); Eosinophils # (Auto) 0.2 K/mm3 (0.0-0.4); Eosinophils % (Auto) 2.8 % (0.0-4.3); Hematocrit 34.9 % (30.3-42.9); Hemoglobin 11.3 gm/dl (10.1-14.3); Lymphocytes # (Auto) 1.4 K/mm3 (1.2-5.4); Lymphocytes % (Auto) 20.3 % (13.4-35.0); Mean Corpuscular HGB Conc 32 % (30-34); Mean Corpuscular Volume 90 fl (79-97); Monocytes # (Auto) 0.5 K/mm3 (0.0-0.8); Monocytes % (Auto) 7.8 % (0.0-7.3); Platelet Count 468 K/mm3 (140-440); Red Blood Count 3.87 M/mm3 (3.65-5.03); Red Cell Distribution Width 17.8 % (13.2-15.2)
[2021-08-21 08:50] LABS: Blood Urea Nitrogen 13 mg/dL (7-17); Calcium 9.5 mg/dL (8.4-10.2); Hemolysis Index 26
[2021-08-21 08:54] LABS: BUN/Creatinine Ratio 19
== END 2021-08-21 11:37 | disposition home or self-care (01) ==
LOC: ED 03:35
DX: R06.02 Shortness of breath (principal); Z87.891 Personal history of nicotine dependence; Z88.6 Allergy status to analgesic agent; Z91.013 Allergy to seafood; Z79.899 Other long term (current) drug therapy
CPT/HCPCS: 36415; 71045; 80048; 83880; 84484; 85025; 99284

== ENCOUNTER 2021-08-25 20:45 | Emergency (ER) | payer OTHER ==
[2021-08-25 21:02] VITALS: BP 140/80
--- NOTE | 2021-08-25 22:52 | Emergency Department Report ---
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 Patient states that the pain is especially worse with movement or palpation. Patient denies dizziness, syncope, fall, traumatic injury, chest pain or shortness of breath, fever, chills, nausea and vomiting, numbness and tingling or weakness of lower extremities bilaterally. MD Complaint: extremity pain (left lower leg pain and swelling), extremity swelling (Anterior left lower leg pain and swelling) -: Sudden, days(s) (2) Location: lower extremity (Left lower leg pain and swelling) History of Same: No -: Yes arthralgia (Left lower leg pain and swelling) Radiation: distal Severity scale (0 -10): 5 Quality: aching, sharp Consistency: constant Improves with: nothing Worsens with: weight bearing, walking, palpation Associated Symptoms: denies other symptoms, arthralgias (Left lower leg pain and swelling). denies: chest pain, shortness of breath, fever, myalgias, rash - Related Data Home Medications Medication Instructions Recorded Confirmed Last Taken Pravastatin [Pravachol] 40 mg PO DAILY 03/31/21 07/31/21 07/30/21 40 mg Aspirin EC [Halfprin EC] 81 mg PO DAILY 07/31/21 07/31/21 07/30/21 81 mg Ferrous Sulfate [Iron 325 MG] 325 mg PO DAILY 07/31/21 07/31/21 07/30/21 325 mg Ranolazine ER [Ranexa ER] 500 mg PO DAILY 07/31/21 07/31/21 07/30/21 500 mg carvediloL [Coreg] 12.5 mg PO QHS 07/31/21 07/31/21 07/30/21 12.5mg carvediloL [Coreg] 25 mg PO QAM 07/31/21 07/31/21 07/30/21 25 mg clonazePAM [KlonoPIN] 1 mg PO DAILY PRN 07/31/21 07/31/21 07/30/21 1 mg Previous Rx's Medication Instructions Recorded Last Taken Type ISOSORBIDE MONOnitrate [Imdur ER] 30 mg PO QDAY #30 tablet 08/12/17 07/30/21 Rx 30 mg Pantoprazole [Protonix] 40 mg PO QDAY #14 tablet 04/19/21 07/30/21 Rx 40 mg lisinopriL [Zestril TAB] 10 mg PO QDAY #30 tablet 04/19/21 07/30/21 Rx 10 mg Nitrofurantoin [place]/M-Cryst 100 mg PO Q12HR #14 capsule 07/30/21 07/30/21 Rx [Macrobid CAP] 100 mg Naproxen [Naprosyn] 500 mg PO BID #14 tablet 08/05/21 Unknown Rx Cyclobenzaprine HCl [Flexeril 5 MG 5 mg PO TID PRN #21 tab 08/06/21 Unknown Rx TAB] Ondansetron [Zofran Odt] 4 mg PO Q8HR PRN #12 tab.rapdis 08/14/21 Unknown Rx traMADoL [Ultram 50 MG tab] 50 mg PO Q6HR PRN #10 tablet 08/14/21 Unknown Rx Allergies Allergy/AdvReac Type Severity Reaction Status Date / Time iodine Allergy Swelling Verified 08/21/21 03:43 shellfish derived Allergy Swelling Verified 08/21/21 03:43 ED Review of Systems ROS: Stated complaint: LT LEG PAIN AND SWELLING Other details as noted in HPI Constitutional: denies: chills, fever Eyes: denies: eye pain, eye discharge, vision change ENT: denies: ear pain, throat pain Respiratory: denies: cough, shortness of breath, wheezing Cardiovascular: denies: chest pain, palpitations Endocrine: no symptoms reported Gastrointestinal: denies: abdominal pain, nausea, diarrhea Genitourinary: denies: urgency, dysuria, discharge Musculoskeletal: arthralgia (Left lower leg pain and swelling). denies: back pain, joint swelling Skin: denies: rash, lesions Neurological: denies: headache, weakness, paresthesias Psychiatric: denies: anxiety, depression Hematological/Lymphatic: denies: easy bleeding, easy bruising ED Past Medical Hx - Past Medical History Hx Hypertension: Yes Hx CVA: No Hx Heart Attack/AMI: Yes (stents 03/11) Hx Congestive Heart Failure: Yes Hx Diabetes: No Hx Deep Vein Thrombosis: No Hx Pulmonary Embolism: No Hx GERD: Yes Hx Liver Disease: No Hx Renal Disease: No Hx Sickle Cell Disease: No Hx Arthritis: No Hx Headaches / Migraines: No Hx Seizures: No Hx Kidney Stones: No Hx Psychiatric Treatment: No Hx Asthma: No Hx COPD: No Hx Tuberculosis: No Hx Dementia: No Hx HIV: No Additional medical history: 2 STENTS 02/28/16, cholesterol, IBS, fibroids. CHRONIC BACK PAIN - Surgical History Hx Coronary Stent: Yes Hx Open Heart Surgery: No Hx Pacemaker: No Hx Internal Defibrillator: No Hx Cholecystectomy: No Hx Appendectomy: No Hx Breast Surgery: No Additional Surgical History: D&C - Social History Smoking Status: Never Smoker Substance Use Type: None - Medications Home Medications: Home Medications Medication Instructions Recorded Confirmed Last Taken Type ISOSORBIDE MONOnitrate [Imdur ER] 30 mg PO QDAY #30 tablet 08/12/17 07/31/21 07/30/21 Rx 30 mg Pravastatin [Pravachol] 40 mg PO DAILY 03/31/21 07/31/21 07/30/21 History 40 mg Pantoprazole [Protonix] 40 mg PO QDAY #14 tablet 04/19/21 07/31/21 07/30/21 Rx 40 mg lisinopriL [Zestril TAB] 10 mg PO QDAY #30 tablet 04/19/21 07/31/21 07/30/21 Rx 10 mg Nitrofurantoin [place]/M-Cryst 100 mg PO Q12HR #14 capsule 07/30/21 07/31/21 07/30/21 Rx [Macrobid CAP] 100 mg Aspirin EC [Halfprin EC] 81 mg PO DAILY 07/31/21 07/31/21 07/30/21 History 81 mg Ferrous Sulfate [Iron 325 MG] 325 mg PO DAILY 07/31/21 07/31/21 07/30/21 History 325 mg Ranolazine ER [Ranexa ER] 500 mg PO DAILY 07/31/21 07/31/21 07/30/21 History 500 mg carvediloL [Coreg] 12.5 mg PO QHS 07/31/21 07/31/21 07/30/21 History 12.5mg carvediloL [Coreg] 25 mg PO QAM 07/31/21 07/31/21 07/30/21 History 25 mg clonazePAM [KlonoPIN] 1 mg PO DAILY PRN 07/31/21 07/31/21 07/30/21 History 1 mg Naproxen [Naprosyn] 500 mg PO BID #14 tablet 08/05/21 Unknown Rx Cyclobenzaprine HCl [Flexeril 5 MG 5 mg PO TID PRN #21 tab 08/06/21 Unknown Rx TAB] Ondansetron [Zofran Odt] 4 mg PO Q8HR PRN #12 tab.rapdis 08/14/21 Unknown Rx traMADoL [Ultram 50 MG tab] 50 mg PO Q6HR PRN #10 tablet 08/14/21 Unknown Rx ED Physical Exam - General Limitations: No Limitations General appearance: alert, in no apparent distress - Head Head exam: Present: atraumatic, normocephalic, normal inspection - Eye Eye exam: Present: normal appearance, PERRL, EOMI Pupils: Present: normal accommodation - ENT ENT exam: Present: normal exam, normal orophraynx, mucous membranes moist, TM's normal bilaterally, normal external ear exam - Neck Neck exam: Present: normal inspection, full ROM - Respiratory Respiratory exam: Present: normal lung sounds bilaterally. Absent: respiratory distress, wheezes, rales, rhonchi, chest wall tenderness, decreased breath sounds, prolonged expiratory - Cardiovascular Cardiovascular Exam: Present: regular rate, normal rhythm, normal heart sounds. Absent: systolic murmur, diastolic murmur, rubs, gallop - GI/Abdominal GI/Abdominal exam: Present: soft, normal bowel sounds. Absent: tenderness, guarding, rebound, hyperactive bowel sounds, hypoactive bowel sounds, organomegaly - Extremities Exam Extremities exam: Present: normal inspection, full ROM, tenderness (Palpable left lower leg tenderness with mild swelling), normal capillary refill. Absent: pedal edema, joint swelling, calf tenderness - Back Exam Back exam: Present: normal inspection, full ROM. Absent: tenderness, CVA tenderness (R), CVA tenderness (L), muscle spasm, vertebral tenderness - Neurological Exam Neurological exam: Present: alert, oriented X3, CN II-XII intact, normal gait, reflexes normal - Psychiatric Psychiatric exam: Present: normal affect, normal mood - Skin Skin exam: Present: warm, dry, intact, normal color. Absent: rash ED Course Vital Signs 08/25/21 21:01 Temperature 98.4 F Pulse Rate 98 H Respiratory 20 Rate Blood Pressure 140/80 O2 Sat by Pulse 97 Oximetry ED Medical Decision Making - Radiology Data Radiology results: report reviewed, image reviewed [facility] [address] [place] [address] Vascular Lab Report Signed Patient: MAKAYLA ARGUELLES MR#: [id number] : 1975 Acct:[id number] Age/Sex: 46 / F ADM Date: 08/25/21 Loc: ED Attending Dr: Ordering Physician: RAÚL BORJA Date of Service: 08/25/21 Procedure(s): VL venous duplex LE BILAT Accession Number(s): [id number] cc: RAÚL BORJA DUPLEX DOPPLER LOWER EXTREMITY VEINS, BILATERAL INDICATION / CLINICAL INFORMATION: Pain - Left lower leg. TECHNIQUE: Duplex doppler imaging was performed through the veins of both lower extremities using venous compression and other maneuvers. COMPARISON: None available. FINDINGS: RIGHT COMMON FEMORAL VEIN: Negative. RIGHT FEMORAL VEIN: Negative. RIGHT POPLITEAL VEIN: Negative. RIGHT CALF VEINS: Negative. LEFT COMMON FEMORAL VEIN: Negative. LEFT FEMORAL VEIN: Negative. LEFT POPLITEAL VEIN: Negative. LEFT CALF VEINS: Negative. ADDITIONAL FINDINGS: None. IMPRESSION: 1. No sonographic evidence for DVT in either lower extremity. Signer Name: Yogi Cornejo MD Signed: 08/25/2021 11:59 PM Workstation Name: [id number] Transcribed By: ALEKSANDRA Dictated By: Yogi Cornejo MD Electronically Authenticated By: Yogi Cornejo MD Signed Date/Time: 08/25/212358 DD/ 58 TD/TT: - Medical Decision Making This is a 46-year-old -Luxembourger female with a history of morbid obesity, hypertension, CVA, coronary artery disease s/p acute UT, GERD, IBS, hyperlipidemia and chronic back pain who presents to the ED with complaint of acute onset persistent nontraumatic anterior left lower leg pain and swelling for the last 2 days, worse in the last 12 hours. Patient states that the pain is especially worse with movement or palpation. In the ED, patient is alert and oriented x3 and is not in any distress. Patient was had taken tramadol for pain 1 hour prior to arrival in the ED and therefore her pain was well controlled. Left lower extremity Doppler ultrasound showed no sonographic evidence of DVT. Patient swelling and pain may be more likely musculoskeletal injury. Patient was therefore discharged home and advised to follow-up with her primary care physician in 3 to 5 days for reevaluation, return to the ED immediately if symptoms get worse. - Differential Diagnosis DVT; muscle strain; leg contusion; muscle spasm Critical care attestation.: If time is entered above; I have spent that time in minutes in the direct care of this critically ill patient, excluding procedure time. ED Disposition Clinical Impression: Pain of left lower extremity Disposition: 01 HOME / SELF CARE / HOMELESS Is pt being admited?: No Does the pt Need Aspirin: No Condition: Stable Instructions: Muscle Cramps and Spasms, [id number] Additional Instructions: The left lower extremity Doppler ultrasound showed no sonographic evidence of DVT or blood clot. Therefore take your regular pain medications as needed, drink plenty of fluids and follow-up with your primary care physician in 5 to 7 days for reevaluation. Return to the ED immediately if symptoms get worse. Referrals: [facility] [Provider Group] - 3-5 Days Time of Disposition: 22:56 Print Language: MALAWIAN
--- NOTE | 2021-08-26 00:03 | Vascular Lab Report ---
DUPLEX DOPPLER LOWER EXTREMITY VEINS, BILATERAL INDICATION / CLINICAL INFORMATION: Pain - Left lower leg. TECHNIQUE: Duplex doppler imaging was performed through the veins of both lower extremities using venous amena tabatha and other maneuvers. COMPARISON: None available. FINDINGS: RIGHT COMMON FEMORAL VEIN: Negative. RIGHT FEMORAL VEIN: Negative. RIGHT POPLITEAL VEIN: Negative. RIGHT CALF VEINS: Negative. LEFT COMMON FEMORAL VEIN: Negative. LEFT FEMORAL VEIN: Negative. LEFT POPLITEAL VEIN: Negative. LEFT CALF VEINS: Negative. ADDITIONAL FINDINGS: None. IMPRESSION: 1. No sonographic evidence for DVT in either lower extremity. Signer Name: Yogi Cornejo MD Signed: 08/25/2021 11:59 PM Workstation Name: [id number]
== END 2021-08-26 00:57 | disposition home or self-care (01) ==
LOC: ED 20:45
DX: M79.662 Pain in left lower leg (principal); I10 Essential (primary) hypertension; K21.9 Gastro-esophageal reflux disease without esophagitis; I25.10 Atherosclerotic heart disease of native coronary artery without angina pectoris; Z88.6 Allergy status to analgesic agent; Z91.013 Allergy to seafood; Z79.899 Other long term (current) drug therapy
CPT/HCPCS: 93970; 99283

== ENCOUNTER 2022-01-16 07:35 | Emergency (ER) | payer OTHER ==
[2022-01-16 07:38] VITALS: BP 131/72
[2022-01-16] MEDS ORDERED: ASPIRIN 81 MG TAB CHEW PO ONE (07:54)
--- NOTE | 2022-01-16 08:01 | Emergency Department Report ---
ED Chest Pain HPI - General Chief Complaint: Extremity Problem,Nontraumatic Stated Complaint: L ARM PAIN PUI?: No Time Seen by Provider: 01/16/22 07:50 Source: patient, EMS Mode of arrival: Stretcher Limitations: No Limitations - History of Present Illness Initial Comments: CC: "I just want to make sure that I'm okay." HPI: This is a 46 yo female with hx of [place] s/p cardiac stents, BMI 52, kidney stone, GERD, HLD, HTN who presents with left forearm pain radiating to left chest. Mild nondescript pain. She had vein stripping surgery last week. According to EMR, left heart cath performed 07/31/2021. No evidence of obstruction coronary disease according to Dr. Islas's consultation. EF 55-60%. patent mid proximal right coronary stent present. MD Complaint: other (Left arm pain radiating to the chest) -: Gradual, This morning Onset: during rest Severity: mild Severity scale (0 -10): 5 Quality: aching Consistency: now resolved Improves With: nothing Worsens With: nothing Treatments Prior to Arrival: other (EMS transport) - Related Data Home Medications Medication Instructions Recorded Confirmed Last Taken Pravastatin [Pravachol] 40 mg PO DAILY 03/31/21 07/31/21 07/30/21 40 mg Aspirin EC [Halfprin EC] 81 mg PO DAILY 07/31/21 07/31/21 07/30/21 81 mg Ferrous Sulfate [Iron 325 MG] 325 mg PO DAILY 07/31/21 07/31/21 07/30/21 325 mg Ranolazine ER [Ranexa ER] 500 mg PO DAILY 07/31/21 07/31/21 07/30/21 500 mg carvediloL [Coreg] 12.5 mg PO QHS 07/31/21 07/31/21 07/30/21 12.5mg carvediloL [Coreg] 25 mg PO QAM 07/31/21 07/31/21 07/30/21 25 mg clonazePAM [KlonoPIN] 1 mg PO DAILY PRN 07/31/21 07/31/21 07/30/21 1 mg Previous Rx's Medication Instructions Recorded Last Taken Type ISOSORBIDE MONOnitrate [Imdur ER] 30 mg PO QDAY #30 tablet 08/12/17 07/30/21 Rx 30 mg Pantoprazole [Protonix] 40 mg PO QDAY #14 tablet 04/19/21 07/30/21 Rx 40 mg lisinopriL [Zestril TAB] 10 mg PO QDAY #30 tablet 04/19/21 07/30/21 Rx 10 mg Nitrofurantoin [place]/M-Cryst 100 mg PO Q12HR #14 capsule 07/30/21 07/30/21 Rx [Macrobid CAP] 100 mg Naproxen [Naprosyn] 500 mg PO BID #14 tablet 08/05/21 Unknown Rx Cyclobenzaprine HCl [Flexeril 5 MG 5 mg PO TID PRN #21 tab 08/06/21 Unknown Rx TAB] Ondansetron [Zofran Odt] 4 mg PO Q8HR PRN #12 tab.rapdis 08/14/21 Unknown Rx traMADoL [Ultram 50 MG tab] 50 mg PO Q6HR PRN #10 tablet 08/14/21 Unknown Rx Allergies Allergy/AdvReac Type Severity Reaction Status Date / Time iodine Allergy Swelling Verified 01/16/22 07:39 shellfish derived Allergy Swelling Verified 01/16/22 07:39 Heart Score - HEART Score History: Slightly suspicious EKG: Non-specific Age: < 45 Risk factors: 1-2 risk factors Troponin: < normal limit HEART Score: 2 - EKG Read Time Time EKG Completed: 08:08 EKG Read Time: 08:08 - Critical Actions Critical Actions: 0-3 pts:0.9-1.7%risk of adverse cardiac event.Candidate for discharge ED Review of Systems ROS: Stated complaint: L ARM PAIN Other details as noted in HPI Comment: All other systems reviewed and negative Constitutional: denies: chills, fever Eyes: denies: eye pain, eye discharge, vision change ENT: denies: ear pain, throat pain Respiratory: denies: cough, shortness of breath, wheezing Cardiovascular: denies: chest pain, palpitations Endocrine: no symptoms reported Gastrointestinal: denies: abdominal pain, nausea, diarrhea Genitourinary: denies: urgency, dysuria, discharge Musculoskeletal: denies: back pain, joint swelling, arthralgia Skin: denies: rash, lesions Neurological: denies: headache, weakness, paresthesias Psychiatric: denies: anxiety, depression Hematological/Lymphatic: denies: easy bleeding, easy bruising ED Past Medical Hx - Past Medical History Previous Medical History?: Yes Hx Hypertension: Yes Hx CVA: No Hx Heart Attack/AMI: Yes (stents 03/11) Hx Congestive Heart Failure: Yes Hx Diabetes: No Hx Deep Vein Thrombosis: No Hx Pulmonary Embolism: No Hx GERD: Yes Hx Liver Disease: No Hx Renal Disease: No Hx Sickle Cell Disease: No Hx Arthritis: No Hx Headaches / Migraines: No Hx Seizures: No Hx Kidney Stones: No Hx Psychiatric Treatment: No Hx Asthma: No Hx COPD: No Hx Tuberculosis: No Hx Dementia: No Hx HIV: No Additional medical history: 2 STENTS 02/28/16, cholesterol, IBS, fibroids. CH RONIC BACK PAIN - Surgical History Past Surgical History?: Yes Hx Coronary Stent: Yes Hx Open Heart Surgery: No Hx Pacemaker: No Hx Internal Defibrillator: No Hx Cholecystectomy: No Hx Appendectomy: No Hx Breast Surgery: No Additional Surgical History: D&C - Social History Smoking Status: Former Smoker Substance Use Type: None - Medications Home Medications: Home Medications Medication Instructions Recorded Confirmed Last Taken Type ISOSORBIDE MONOnitrate [Imdur ER] 30 mg PO QDAY #30 tablet 08/12/17 07/31/21 07/30/21 Rx 30 mg Pravastatin [Pravachol] 40 mg PO DAILY 03/31/21 07/31/21 07/30/21 History 40 mg Pantoprazole [Protonix] 40 mg PO QDAY #14 tablet 04/19/21 07/31/21 07/30/21 Rx 40 mg lisinopriL [Zestril TAB] 10 mg PO QDAY #30 tablet 04/19/21 07/31/21 07/30/21 Rx 10 mg Nitrofurantoin [place]/M-Cryst 100 mg PO Q12HR #14 capsule 07/30/21 07/31/21 07/30/21 Rx [Macrobid CAP] 100 mg Aspirin EC [Halfprin EC] 81 mg PO DAILY 07/31/21 07/31/21 07/30/21 History 81 mg Ferrous Sulfate [Iron 325 MG] 325 mg PO DAILY 07/31/21 07/31/21 07/30/21 History 325 mg Ranolazine ER [Ranexa ER] 500 mg PO DAILY 07/31/21 07/31/21 07/30/21 History 500 mg carvediloL [Coreg] 12.5 mg PO QHS 07/31/21 07/31/21 07/30/21 History 12.5mg carvediloL [Coreg] 25 mg PO QAM 07/31/21 07/31/21 07/30/21 History 25 mg clonazePAM [KlonoPIN] 1 mg PO DAILY PRN 07/31/21 07/31/21 07/30/21 History 1 mg Naproxen [Naprosyn] 500 mg PO BID #14 tablet 08/05/21 Unknown Rx Cyclobenzaprine HCl [Flexeril 5 MG 5 mg PO TID PRN #21 tab 08/06/21 Unknown Rx TAB] Ondansetron [Zofran Odt] 4 mg PO Q8HR PRN #12 tab.rapdis 08/14/21 Unknown Rx traMADoL [Ultram 50 MG tab] 50 mg PO Q6HR PRN #10 tablet 08/14/21 Unknown Rx ED Physical Exam - General Limitations: No Limitations General appearance: alert, in no apparent distress - Head Head exam: Present: atraumatic, normocephalic - Eye Eye exam: Present: normal appearance - ENT ENT exam: Present: mucous membranes moist - Neck Neck exam: Present: normal inspection, full ROM - Respiratory Respiratory exam: Present: normal lung sounds bilaterally. Absent: respiratory distress, wheezes, rales, rhonchi - Cardiovascular Cardiovascular Exam: Present: regular rate, normal rhythm, normal heart sounds. Absent: systolic murmur, diastolic murmur, rubs, gallop - GI/Abdominal GI/Abdominal exam: Present: soft, normal bowel sounds. Absent: distended, tenderness, guarding, rebound - Extremities Exam Extremities exam: Present: normal inspection - Neurological Exam Neurological exam: Present: alert, oriented X3 - Psychiatric Psychiatric exam: Present: normal affect, normal mood - Skin Skin exam: Present: warm, dry, intact, normal color. Absent: rash ED Course Vital Signs 01/16/22 07:36 Temperature 98.5 F Pulse Rate 77 Respiratory 14 Rate Blood Pressure 131/72 [Left] O2 Sat by Pulse 96 Oximetry OLMAN score - Olman Score Age > 65: (0) No Aspirin use within the Past 7 Days: (0) No 3 or more CAD Risk Factors: (1) Yes 2 or more Angina events in past 24 hrs: (1) Yes Known CAD with more than 50% Stenosis: (1) Yes Elevated Cardiac Markers: (0) No ST Deviation Greater than 0.5mm: (0) No OLMAN Score: 3 ED Medical Decision Making - EKG Data -: EKG Interpreted by Me EKG shows normal: sinus rhythm Rate: normal - EKG Data Interpretation: nonspecific ST-T wave francois 01/16/22 08:15 EKG obtained 0808 EKG interpreted by me Normal sinus rhythm rate 70 bpm normal axis normal intervals no ST elevation nonspecific T wave pattern - Medical Decision Making Clinical impression: Stable angina. Troponin negative. EKG without changes. Discharged home. Critical care attestation.: If time is entered above; I have spent that time in minutes in the direct care of this critically ill patient, excluding procedure time. ED Disposition Clinical Impression: Stable angina Disposition: 01 HOME / SELF CARE / HOMELESS Is pt being admited?: No Does the pt Need Aspirin: No Condition: Stable Instructions: Angina, [id number] Referrals: BERNARDO SIMS [Other] - 3-5 Days IBRAHIMA ISLAS MD [Staff Physician] - 3-5 Days
--- NOTE | 2022-01-17 11:23 | Electrocardiograph Report ---
[facility] Test Date: 2022-01-16 Test Time: 08:08:30 Pat Name: MAKAYLA ARGUELLES Department: Room: Gender: F Compliance Review Specialist: TV : 1975 Requested By: BREN RIBEIRO Order Number: [id number] Reading MD: Maverick Billingsley Measurements Intervals [place] Rate: 70 P: 41 NM: 184 QRS: 24 QRSD: 78 T: -4 QT: 371 QTc: 402 Interpretive Statements Sinus rhythm Low voltage, precordial leads Borderline T abnormalities, diffuse leads Compared to ECG 08/14/2021 01:28:45 T-wave abnormality now present Electronically Signed On 01-17-2022 11:23:09 EDT by Maverick Billingsley
== END 2022-01-16 09:23 | disposition home or self-care (01) ==
LOC: ED 07:35
DX: I20.8 Other forms of angina pectoris (principal); Z87.891 Personal history of nicotine dependence; I10 Essential (primary) hypertension; Z91.041 Radiographic dye allergy status; Z91.013 Allergy to seafood
CPT/HCPCS: 36415; 84484; 93005; 99284

== ENCOUNTER 2022-07-24 14:31 | Emergency (ER) | payer OTHER ==
[2022-07-24] MEDS ORDERED: IBUPROFEN 800 MG TAB PO ONE (15:08)
--- NOTE | 2022-07-24 15:09 | Emergency Department Report ---
ED General Adult HPI - General Chief complaint: Sore Throat Stated complaint: THROAT PAIN PUI?: No Time Seen by Provider: 07/24/22 15:03 Source: patient, EMS Mode of arrival: Stretcher Limitations: No Limitations - History of Present Illness Initial comments: Patient is a 47-year-old morbidly obese female that comes to the emergency room via ambulance with acute neck pain this morning. She is being worked up for a thyroid goiter. In fact she is supposed to have surgery but she has a pending cardiac and sleep study clearance before she can have the thyroidectomy. Patient has multiple comorbid conditions but is compliant with her home medications. Patient denies chest pain or shortness of breath. By the time she got to fast-track she was pain-free. She is neurologically intact. She has palpable carotids. Her thyroid is grossly enlarged. But she is controlling secretions and has a stable airway. [employer] is Dr. Billingsley Patient follows with a primary care doctor, ENT and has a pending sleep study test for her surgical clearance. Home medications Coreg Statin Lisinopril Imdur Protonix Aspirin Iron Multivitamin RANOLAZINE COLAZAPAM -: Sudden Location: neck Radiation: non-radiation Severity scale (0 -10): 2 Quality: aching Consistency: intermittent Improves with: none Worsens with: none Associated Symptoms: denies other symptoms Treatments Prior to Arrival: none - Related Data Home Medications Medication Instructions Recorded Confirmed Last Taken Pravastatin [Pravachol] 40 mg PO DAILY 03/31/21 07/31/21 07/30/21 40 mg Aspirin EC [Halfprin EC] 81 mg PO DAILY 07/31/21 07/31/21 07/30/21 81 mg Ferrous Sulfate [Iron 325 MG] 325 mg PO DAILY 07/31/21 07/31/21 07/30/21 325 mg Ranolazine ER [Ranexa ER] 500 mg PO DAILY 07/31/21 07/31/21 07/30/21 500 mg carvediloL [Coreg] 12.5 mg PO QHS 07/31/21 07/31/21 07/30/21 12.5mg carvediloL [Coreg] 25 mg PO QAM 07/31/21 07/31/21 07/30/21 25 mg clonazePAM [KlonoPIN] 1 mg PO DAILY PRN 07/31/21 07/31/2121 1 mg Previous Rx's Medication Instructions Recorded Last Taken Type ISOSORBIDE MONOnitrate [Imdur ER] 30 mg PO QDAY #30 tablet 08/12/17 07/30/21 Rx 30 mg Pantoprazole [Protonix] 40 mg PO QDAY #14 tablet 04/19/21 07/30/21 Rx 40 mg lisinopriL [Zestril TAB] 10 mg PO QDAY #30 tablet 04/19/21 07/30/21 Rx 10 mg Acetaminophen/Codeine [Tylenol 1 tab PO Q6H PRN #12 tab 07/24/22 Unknown Rx /Codeine # 3 tab] Allergies Allergy/AdvReac Type Severity Reaction Status Date / Time iodine Allergy Swelling Verified 01/16/22 07:39 shellfish derived Allergy Swelling Verified 01/16/22 07:39 ED Review of Systems ROS: Stated complaint: THROAT PAIN Other details as noted in HPI Comment: All other systems reviewed and negative ED Past Medical Hx - Past Medical History Previous Medical History?: Yes Hx Hypertension: Yes Hx CVA: No Hx Heart Attack/AMI: Yes (stents 03/11) Hx Congestive Heart Failure: Yes Hx Diabetes: No Hx Deep Vein Thrombosis: No Hx Pulmonary Embolism: No Hx GERD: Yes Hx Liver Disease: No Hx Renal Disease: No Hx Sickle Cell Disease: No Hx Arthritis: No Hx Headaches / Migraines: No Hx Seizures: No Hx Kidney Stones: No Hx Psychiatric Treatment: No Hx Asthma: No Hx COPD: No Hx Tuberculosis: No Hx Dementia: No Hx HIV: No Additional medical history: 2 STENTS 02/28/16, cholesterol, IBS, fibroids. CHRONIC BACK PAIN - Surgical History Past Surgical History?: Yes Hx Coronary Stent: Yes Hx Open Heart Surgery: No Hx Pacemaker: No Hx Internal Defibrillator: No Hx Cholecystectomy: No Hx Appendectomy: No Hx Breast Surgery: No Additional Surgical History: D&C - Family History Family history: no significant - Social History Smoking Status: Never Smoker Substance Use Type: None - Medications Home Medications: Home Medications Medication Instructions Recorded Confirmed Last Taken Type ISOSORBIDE MONOnitrate [Imdur ER] 30 mg PO QDAY #30 tablet 08/12/17 07/31/21 07/30/21 Rx 30 mg Pravastatin [Pravachol] 40 mg PO DAILY 03/31/21 07/31/21 07/30/21 History 40 mg Pantoprazole [Protonix] 40 mg PO QDAY #14 tablet 04/19/21 07/31/21 07/30/21 Rx 40 mg lisinopriL [Zestril TAB] 10 mg PO QDAY #30 tablet 04/19/21 07/31/21 07/30/21 Rx 10 mg Aspirin EC [Halfprin EC] 81 mg PO DAILY 07/31/21 07/31/21 07/30/21 History 81 mg Ferrous Sulfate [Iron 325 MG] 325 mg PO DAILY 07/31/21 07/31/21 07/30/21 History 325 mg Ranolazine ER [Ranexa ER] 500 mg PO DAILY 07/31/21 07/31/21 07/30/21 History 500 mg carvediloL [Coreg] 12.5 mg PO QHS 07/31/21 07/31/21 07/30/21 History 12.5mg carvediloL [Coreg] 25 mg PO QAM 07/31/21 07/31/21 07/30/21 History 25 mg clonazePAM [KlonoPIN] 1 mg PO DAILY PRN 07/31/21 07/31/21 07/30/21 History 1 mg Acetaminophen/Codeine [Tylenol 1 tab PO Q6H PRN #12 tab 07/24/22 Unknown Rx /Codeine # 3 tab] ED Physical Exam - General Limitations: No Limitations General appearance: alert, in no apparent distress - Head Head exam: Present: atraumatic, normocephalic - Eye Eye exam: Present: normal appearance - ENT ENT exam: Present: mucous membranes moist - Neck Neck exam: Present: normal inspection - Expanded Neck Exam Expanded Neck exam: Present: other (goiter). Absent: tenderness, midline deformity - Respiratory Respiratory exam: Present: normal lung sounds bilaterally. Absent: respiratory distress - Cardiovascular Cardiovascular Exam: Present: regular rate, normal rhythm. Absent: systolic murmur, diastolic murmur, rubs, gallop - GI/Abdominal GI/Abdominal exam: Present: soft, normal bowel sounds - Extremities Exam Extremities exam: Present: normal inspection - Back Exam Back exam: Present: normal inspection - Neurological Exam Neurological exam: Present: alert, oriented X3 - Psychiatric Psychiatric exam: Present: normal affect, normal mood - Skin Skin exam: Present: warm, dry, intact, normal color. Absent: rash ED Course Vital Signs 07/24/22 07/24/22 07/24/22 14:35 14:58 15:14 Temperature 99.3 F 98.7 F Pulse Rate 84 78 Respiratory 18 18 18 Rate Blood Pressure 133/86 112/69 [Left] O2 Sat by Pulse 98 100 100 Oximetry ED Medical Decision Making - Medical Decision Making Vital Signs 07/24/22 07/24/22 07/24/22 14:35 14:58 15:14 Temperature 99.3 F 98.7 F Pulse Rate 84 78 Respiratory 18 18 18 Rate Blood Pressure 133/86 112/69 [Left] O2 Sat by Pulse 98 100 100 Oximetry Patient medicated for pain. I had a long discussion with the patient about her impending thyroidectomy. She has attempted to call her primary care to try and get her sleep study test sooner than later. Vital signs are stable ABCs intact Patient is controlling secretions She has no tachycardia or hypertension She has no chest pain or shortness of breath Patient being discharged home with discharge plan of care including diet, activity, medications and follow-up. She verbalizes understanding of plan of care - Differential Diagnosis goiter Critical care attestation.: If time is entered above; I have spent that time in minutes in the direct care of this critically ill patient, excluding procedure time. ED Disposition Clinical Impression: Goiter, Neck pain Disposition: 01 HOME / SELF CARE / HOMELESS Is pt being admited?: No Does the pt Need Aspirin: No Condition: Stable Instructions: Goiter Additional Instructions: FOLLOW UP WITH CARDIOLOGY SCHEDULED CALL PCP FOR SLEEP STUDY REFERRAL THESE THINGS NEED TO BE DONE PRIOR TO YOUR SURGERY WHICH WILL RESULT IN NO PAIN IN YOUR NECK MED ORDERED FOR PAIN TODAY Prescriptions: Acetaminophen/Codeine [Tylenol /Codeine # 3 tab] 1 tab PO Q6H PRN #12 tab PRN Reason: Pain , Severe (7-10) Referrals: KEILA LEIGH MD [Primary Care Provider] - 3-5 Days Time of Disposition: 15:25
[2022-07-24 15:15] VITALS: BP 112/69
== END 2022-07-24 15:45 | disposition home or self-care (01) ==
LOC: ED 14:31
DX: M54.2 Cervicalgia (principal); E04.9 Nontoxic goiter, unspecified; I11.0 Hypertensive heart disease with heart failure; I50.9 Heart failure, unspecified; I21.9 Acute myocardial infarction, unspecified; K21.9 Gastro-esophageal reflux disease without esophagitis; Z91.09 Other allergy status, other than to drugs and biological substances; Z91.013 Allergy to seafood
CPT/HCPCS: 99283